=== PATIENT | female | born 1940 | race Caucasian/White ===

== ENCOUNTER → 2016-12-10 | Outpatient (REF) | payer MEDICARE, MEDICAID ==
[~2016-12-10] MED LIST: /ALEN7SOL OR; AMLO5TAB2 PO; ASPI325T PO; AYRSPR; BISAC5TA OR; CLAR5CHW PO; COLA100C2 OR; CYMB60CA3 PO; DETR4CAP OR; DICL0.1S7 TD; ESTR125TA OR; FLEEENE4 PR; FLEX10TA2 PO; FLEXERIL PO; HEPA50VL SQ; HYDR25TA6 OR; LASI20TA PO; LEVO250T PO; LISI10TA4 OR; LISI5TAB PO; MILKSUS OR; MIRA255PW PO; MOM30SS PO; MULTTAB4 PO; NORV5TAB OR; NYAM10003 TOP; NYST10PW TOP; NYSTPOW4 TOP; OXYC-208 PO; OXYC5CAP4 OR; PERC5TAB8 OR; PERCOCET OR; PRIL40CA PO; SENO8.6T9 OR; SENO8.6T9 PO; SYNT137T OR; TRAM50TA2 PO; TYLE325T5 PO; VITA100027 OR; VOLT1GEL2 TD; ZANT150T PO; ZOLO100T OR; [UNRECOGNIZED DRUG - OTHER] PO; drisdol PO; nystatin powder TOP
[2016-12-10 18:09] LABS: CALCIUM OXALATE CRYSTALS SMALL
== END ==
PROVIDERS: ATTEND Family Medicine
DX: D64.9 Anemia, unspecified (principal); E53.8 Deficiency of other specified B group vitamins; E55.9 Vitamin D deficiency, unspecified; N39.0 Urinary tract infection, site not specified

== ENCOUNTER → 2016-12-15 | Outpatient (REF) | payer MEDICARE, MEDICAID | PROVIDERS: ATTEND Family Medicine | DX: R31.9 Hematuria, unspecified (principal); R10.9 Unspecified abdominal pain ==

== ENCOUNTER → 2016-12-16 | Outpatient (REF) | payer MEDICARE, MEDICAID ==
[~2016-12-16] MED LIST changes: +ACET50TAOT PO; +ALBU83IN INH; +ANUS25SU PR; +BACL10TA2 PO; +CITR1SOL PO; +CLAR1TAB2 PO; +DOCU100C PO; +DULC10SU2 PR; +ENEM1ENE4 PR; +LEVO150T42 PO; +METF500T PO; +MILKSUS PO; +MIRA33504 PO; +OMEP40CA2 PO; +OXYB5TAB PO; +SENN8.6T7 PO; +TRAZ100T4 PO; +VITA500046 PO; +ZOFR20TA PO
== END ==
PROVIDERS: ATTEND Family Medicine
DX: E53.8 Deficiency of other specified B group vitamins (principal); E55.9 Vitamin D deficiency, unspecified

== ENCOUNTER → 2016-12-18 | Outpatient (REF) | payer MEDICARE, MEDICAID ==
--- NOTE | 2016-12-18 14:17 | REP ---
KUB, TWO VIEWS: HISTORY: Abdominal pain. Air is present in small and large intestine. There are no air fluid levels or dilated loops of intestine. There is no pneumoperitoneum. A mild amount of stool is present in the colon. Degenerative change is present in the lumbar spine and hips. IMPRESSION: 1. Nonspecific bowel gas pattern. 2. There is a mild amount of stool in the colon. Signed by Ryland Manriquez MD 12/18/2016 02:32 P
== END | disposition home or self-care (01) ==
PROVIDERS: ATTEND Family Medicine
DX: K59.00 Constipation, unspecified (principal)

== ENCOUNTER → 2016-12-18 | Outpatient (CLI) | payer MEDICARE, MEDICAID | LOC: M RAD 13:24 | PROVIDERS: ATTEND Family Medicine | DX: R10.9 Unspecified abdominal pain (principal); R15.0 Incomplete defecation; M51.37 Other intervertebral disc degeneration, lumbosacral region ==

== ENCOUNTER → 2016-12-19 | Outpatient (REF) | payer MEDICARE, MEDICAID ==
[2016-12-19 09:40] LABS: MEAN CORPUSCULAR HGB CONC 31.9 g/dl (32.0-36.5); MEAN CORPUSCULAR VOLUME 90.6 fl (80.0-96.0); RED CELL DISTRIBUTION WIDTH 13.7 % (11.5-14.5); WHITE BLOOD COUNT 7.4 K/mm3 (4.0-10.0)
== END ==
PROVIDERS: ATTEND Family Medicine
DX: D64.9 Anemia, unspecified (principal)

== ENCOUNTER → 2016-12-19 | Outpatient (CLI) | payer MEDICARE, MEDICAID ==
[~2016-12-19] MED LIST changes: +CIPROFLOXACIN/D5W 400 MG/200 ML BAG (J0744) As Ordered ONE
--- NOTE | 2016-12-19 20:11 | REP ---
PELVIC AND ENDOVAGINAL PROBE ULTRASOUND: 12/19/2016. Clinical history: 76-year-old female with vaginal bleeding, status post hysterectomy. Comparison: No prior ultrasound. Prior CT 11/10/2012. Findings: Transabdominal imaging performed. The patient tolerated the endovaginal probe poorly and body habitus and being strapped to her stretcher limit the examination. In the midline of the lower suprapubic region is a complex echogenic area with heterogeneous hyperechoic areas and hypoechogenicity. This may be the bladder filled with clot. Parts of the margins of this area showing blood flow within, which could be a bladder wall mass. The endovaginal probe is not helpful at all in this patient. Impression: 1. Findings suspicious for large volume of clot in the bladder. There may be some bladder wall thickening or a bladder wall mass. I do not see other structures in the suprapubic region that could be a collapsed bladder. Please note the patient is status post hysterectomy. There was no blood on the probe when it was removed from the vagina. Signed by Reagan Carey MD 12/20/2016 07:16 P
== END ==
LOC: M RAD 16:28
PROVIDERS: ATTEND Nurse Practitioner Adult Health
DX: N93.9 Abnormal uterine and vaginal bleeding, unspecified (principal); Z90.710 Acquired absence of both cervix and uterus

== ENCOUNTER 2016-12-20 13:37 | Inpatient (IN) | payer MEDICARE, MEDICAID ==
[~2016-12-20] VITALS: Ht 170.2 cm; Wt 150.2 kg
[~2016-12-20 13:37] MED LIST changes: -ACET50TAOT PO; -ALBU83IN INH; -ANUS25SU PR; -BACL10TA2 PO; -CIPROFLOXACIN/D5W 400 MG/200 ML BAG (J0744) As Ordered ONE; -CITR1SOL PO; -CLAR1TAB2 PO; -DOCU100C PO; -DULC10SU2 PR; -ENEM1ENE4 PR; -LEVO150T42 PO; -METF500T PO; -MILKSUS PO; -MIRA33504 PO; -OMEP40CA2 PO; -OXYB5TAB PO; -SENN8.6T7 PO; -TRAZ100T4 PO; -VITA500046 PO; -ZOFR20TA PO
[2016-12-20 14:28] LABS: BASO % 0.4 % (0.0-1.0); EOS # 0.6 K/mm3 (0.0-0.50); EOS % 7.2 % (0.0-3.0); LARGE UNSTAINED CELL # 0.2 K/mm3 (0.0-0.4); LARGE UNSTAINED CELL % 1.8 % (0.0-4.0); LYMPH # 1.4 K/mm3 (1.5-4.5); LYMPH % 15.7 % (24.0-44.0); MEAN CORPUSCULAR HEMOGLOBIN 28.9 pg (27.0-33.0); MEAN CORPUSCULAR HGB CONC 32.3 g/dl (32.0-36.5); MEAN CORPUSCULAR VOLUME 89.2 fl (80.0-96.0); MONO # 0.6 K/mm3 (0.0-0.8); MONO % 7.5 % (0.0-5.0); NEUTROPHILS # 5.8 K/mm3 (1.8-7.7); NEUTROPHILS % 67.4 % (36.0-66.0); PLATELET COUNT, AUTOMATED 356 k/mm3 (150-450); RED CELL DISTRIBUTION WIDTH 13.6 % (11.5-14.5); WHITE BLOOD COUNT 8.6 K/mm3 (4.0-10.0)
[2016-12-20 14:29] LABS: INR 1.13
[2016-12-20 15:10] LABS: ANION GAP 7 MEQ/L (8-16); BLOOD UREA NITROGEN 18 MG/DL (7-18); CALCIUM LEVEL 10.1 MG/DL (8.8-10.2); CARBON DIOXIDE LEVEL 30 MEQ/L (21-32); CHLORIDE LEVEL 102 MEQ/L (98-107); CREATININE FOR GFR 0.83 MG/DL (0.55-1.02); GLOMERULAR FILTRATION RATE > 60.0 (>39); GLUCOSE, FASTING 105 MG/DL (83-110); SODIUM LEVEL 139 MEQ/L (136-145)
[2016-12-20 15:14] LABS: POTASSIUM SERUM 4.9 MEQ/L (3.5-5.1)
[2016-12-20] MEDS ORDERED: ISOVUE-370 76% 100ML VIAL (Q9967) As Ordered ONE (15:20)
--- NOTE | 2016-12-20 15:23 | ER ---
DATE OF CONSULTATION: 12/20/2016 This 76-year-old female was evaluated in consultation as requested by Dr. Hollis on 12/20/2016, for gross hematuria. She was transferred from [facility] following a 4 day history of incomplete bladder emptying, gross hematuria with clots, and abdominal distention. Multiple attempts at Pruitt catheter insertion were unsuccessful at the facility. Transvaginal ultrasonography demonstrated a bladder full of "clots." Following discussions with the in-house nurse practitioner, transfer to [facility] Emergency Department for evaluation was recommended. Prior to presentation, there is no history of urinary tract infection, urolithiasis, flank pain, or constitutional symptoms. PAST MEDICAL HISTORY: Significant for diabetes, hypertension, hypercholesterolemia, macular degeneration, congestive heart failure, hypothyroidism, obstructive sleep apnea, open cholecystectomy, appendectomy, hysterectomy, and umbilical hernia repair. REVIEW OF SYSTEMS: Negative for headaches, epilepsy, CVA, glaucoma, peptic ulcer disease, urolithiasis, or bloodborne diseases. CURRENT MEDICATIONS: Include levothyroxine, aspirin, baclofen, Claritin, Cymbalta, medroxyprogesterone, metformin, MiraLax, omeprazole, Ditropan, trazodone, and albuterol. ALLERGIES: No allergies to medications. SOCIAL HISTORY: She is a who has five children. She is a nonsmoker who does not consume alcohol. FAMILY HISTORY: Unremarkable. GENERAL EXAMINATION: Revealed a comfortable and morbidly obese individual. Her heart rate was 87, respiratory rate was 18, blood pressure 133/73, temperature 99.5 degrees Fahrenheit. Her body mass index was 51.1. Palpation of the head and neck failed to reveal the presence of lymphadenopathy. Auscultation of the chest was clear with normal heart sounds. Examination of the back and abdomen demonstrated a morbidly obese individual with a benign abdomen. Suprapubic discomfort was noted. Multiple surgical scars were present, reflective of her prior surgeries. Urinalysis (12/20/2016) is pending at the time of this dictation. Serum hematologic indices (12/20/2016) demonstrated a hemoglobin of 12.1, leukocyte count of 8.6, and a platelet count of 356. Biochemical indices (12/20/2016) are pending at the time of this dictation. An INR and PTT were 1.1 and 30.6, respectively. CT urography (12/20/2016) is pending at the time of this dictation. ASSESSMENT: 1. Gross hematuria. 2. Question of clot urinary retention. 3. Diabetes mellitus. 4. Hypertension. 5. Hypercholesterolemia. 6. Congestive heart failure. 7. Obstructive sleep apnea. 8. Hypothyroidism. 9. Macular degeneration. 10. Morbid obesity. 11. Aspirin therapy. PLAN: The above findings were discussed with the patient, her family, and emergentologist. Following nothing by mouth status (1215 hours), cystoscopy, clot evacuation with possible transurethral bladder tumor resection will be performed. Discontinuation of aspirin is appropriate. CT urography results will be reviewed prior to the procedure. Informed consent was obtained. Should you require additional information, please do not hesitate to contact me. Thanking you for the confidence of your referral.
[2016-12-20] MEDS ORDERED: OXYB5TAB PO (16:12)
[2016-12-20] MEDS ORDERED: ANUS25SU PR (16:12)
[2016-12-20] MEDS ORDERED: DOCU100C PO (16:12)
[2016-12-20] MEDS ORDERED: MIRA33504 PO (16:22)
[2016-12-20] MEDS ORDERED: TRAM50TA2 PO (16:22)
[2016-12-20] MEDS ORDERED: MILKSUS PO (16:22)
[2016-12-20] MEDS ORDERED: BACL10TA2 PO (16:22)
[2016-12-20] MEDS ORDERED: SENN8.6T7 PO (16:22)
[2016-12-20] MEDS ORDERED: ACET50TAOT PO (16:22)
[2016-12-20] MEDS ORDERED: VITA500046 PO (16:22)
[2016-12-20] MEDS ORDERED: ZOFR20TA PO (16:22)
[2016-12-20] MEDS ORDERED: TRAZ100T4 PO (16:22)
[2016-12-20] MEDS ORDERED: LEVO150T42 PO (16:22)
[2016-12-20] MEDS ORDERED: METF500T PO (16:22)
[2016-12-20] MEDS ORDERED: DULC10SU2 PR (16:29)
[2016-12-20] MEDS ORDERED: ALBU83IN INH (16:29)
[2016-12-20] MEDS ORDERED: CITR1SOL PO (16:29)
[2016-12-20] MEDS ORDERED: CYMB60CA3 PO (16:29)
[2016-12-20] MEDS ORDERED: TYLE325T5 PO (16:29)
[2016-12-20] MEDS ORDERED: OMEP40CA2 PO (16:29)
[2016-12-20] MEDS ORDERED: CLAR1TAB2 PO (16:29)
[2016-12-20] MEDS ORDERED: ENEM1ENE4 PR (16:29)
[2016-12-20] MEDS ORDERED: MORPHINE 4 MG/ML 1ML SYRINGE As Ordered ONE (17:06)
[2016-12-20] MEDS ORDERED: ONDANSETRON 4MG/2ML VIAL (J2405) As Ordered ONE ×2 (17:06→20:14)
[2016-12-20] MEDS ORDERED: MIDAZOLAM INJ 2 MG/2 ML VIAL (J2250) As Ordered ONE (18:13)
[2016-12-20] MEDS ORDERED: fentaNYL 100 MCG/2 ML INJECTION (J3010) As Ordered ONE (18:13)
[2016-12-20] MEDS ORDERED: PROPOFOL 200 MG/20 ML VIAL As Ordered ONE ×3 (18:13→19:36)
[2016-12-20] MEDS ORDERED: LIDOCAINE 2% INJ 100 MG/5 ML SDV (FOR ANES.) As Ordered ONE (18:13)
--- NOTE | 2016-12-20 18:24 | EDDOCDS ---
Nurse's Notes [facility] Name: Bree Dawn Age: 76 yrs Sex: Female : 1940 Arrival Date: 12/20/2016 Time: 13:37 Bed 4 Private MD: Diagnosis: Gross hematuria;Retention of urine;Malignant neoplasm of pelvis;Sleep apnea;Morbid (severe) obesity due to excess calories Presentation: 12/20 13:43 Presenting complaint: EMS states: ultrasound performed yesterday with resulted blood kc3 clots in bladder. Pt c/o lower abd pain and hematuria. Adult Sepsis Screening: The patient does not have new or worsening altered mentation. Patient's respiratory rate is less than 22. Systolic blood pressure is greater than 100. Patient has a qSOFA score of 0- Negative Sepsis Screen. Suicide/Homicide risk assessment- the patient denies having any suicidal and/or homicidal ideations and does not present with any other emotional, behavioral or mental health complaints. 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 Transition of care: patient was received from [facility] ER. 13:43 Acuity: ISABELLA Level 3 kc3 13:43 Method Of Arrival: Ambulance kc3 Triage Assessment: 13:49 General: Appears uncomfortable, Behavior is appropriate for age, cooperative. Pain: kc3 Location: abdomen Pain currently is 8 out of 10 on a pain scale. The patient is triaged at the bedside. See Assessment in Nurses Notes section of ED record. Neurological: Level of Consciousness is awake, alert, obeys commands, Oriented to person, place, time. Respiratory: Airway is patent Respiratory effort is even, unlabored. GI: Abdomen is obese, Bowel sounds present X 4 quads. Abd is soft Abd is tender to palpation Reports lower abdominal pain. : Reports hematuria. Derm: Skin is pink, warm & dry. Reports wound to back left thigh currently being treated outpatient with dressing in place. Historical: - Allergies: No known drug Allergies; - Home Meds: 1. acetaminophen 500 mg Oral cap 2 caps twice a day (Last dose: 12/20/2016) 2. levothyroxine 150 mcg oral tab once daily (Last dose: 12/20/2016) 3. aspirin 325 mg Oral TbEC 1 tab once daily (Last dose: 12/20/2016) 4. baclofen 10 mg Oral tab 1 tab daily (Last dose: 12/19/2016) 5. Claritin 10 mg Oral tab 1 tab once daily (Last dose: 12/20/2016) 6. Cymbalta 60 mg Oral cpDR 1 cap twice a day (Last dose: 12/20/2016) 7. docusate sodium 100 mg Oral tab 1 tab once daily (Last dose: 12/20/2016) 8. medroxyprogesterone 10 mg Oral tab 1 tab once daily (Last dose: 12/19/2016) 9. metformin 500 mg Oral tab 1 tab 2 times per day (Last dose: 12/20/2016) 10. Miralax 17 gram/dose Oral powd once daily (Last dose: 12/20/2016) 11. omeprazole 40 mg Oral cpDR 1 cap once daily (Last dose: 12/20/2016) 12. oxybutynin chloride 5 mg Oral tr24 1 tab once daily (Last dose: 12/20/2016) 13. senna 8.6 mg oral tab once daily (Last dose: 12/20/2016) 14. trazodone 100 mg Oral tab 1 tab daily (Last dose: 12/19/2016) 15. Vitamin D 5000 units Oral 5000 unit twice a day thursday-thursday (Last dose: 12/19/2016) 16. albuterol sulfate 2.5 mg /3 mL (0.083 %) Inhl nebu 3 mL every 4 hours as needed 17. Enema 19-7 gram/118 mL Rectal enem daily as needed (Last dose: Unknown) 18. Dulcolax (bisacodyl) 10 mg Rectal supp 1 suppository once daily as needed (Last dose: Unknown) 19. Anusol Rectal supp as needed (Last dose: Unknown) 20. Milk of Magnesia 800 mg/5 mL Oral susp 10 mL once daily as needed (Last dose: 12/20/2016) 21. Tramadol 25mg Oral every 6 hours as needed 22. Tylenol 325 mg Oral tab 1 tab every 4 hours as needed 23. ondansetron HCl 4 mg Oral tab as needed (Last dose: 12/20/2016) - PMHx: Anemia; Diabetes - NIDDM: controlled; GERD; Heart failure; hyperlipidemia; Hypothyroidism; obstructive sleep apnea; Vitamin D deficiency; Hypertension; - PSHx: Hernia repair; Hysterectomy; Cholecystectomy; - The history from nurses notes was reviewed: but there are no nursing notes, or only partial notes available at the time of my charting. - Social history: Smoking status: Patient states was never smoker of tobacco. No barriers to communication noted, The patient speaks fluent Ghanaian, Speaks appropriately for age. - Family history: Not pertinent. - : The pt / caregiver states he / she is not on anticoagulants. Home medication list is obtained from the facility MAR. - Hospitalizations: : No recent hospitalization is reported. - Exposure Risk Screening:: None identified. - Immunization history:: All immunizations up-to-date. - Social history:: the patient is a non-smoker, the patient does not drink alcohol, resides at [facility]. Screenin:52 Screening information is obtained from the patient. Fall risk: At risk due to kc3 immobility, The following interventions are performed due to a positive Fall Risk Screen: Fall Risk is added to Special Handling on the patient Summary Screen. A Fall Risk Bracelet was applied to the patient. Side Rails are placed in the up position. A Call Nichols is given with instruction to call for help when getting out of bed. Fall Alert bracelet is placed on the patient. Assistance ADL's: Requires assistance with meal preparation, this assistance is provided by residence staff, bathing, assistance is provided by residence staff, dressing, assistance is provided by residence staff, toileting, assistance is provided by residence staff, ambulation, assistance is provided by residence staff, housework, assistance is provided by residence staff, medication administration, assistance is provided by residence staff. Abuse/DV Screen: The patient / caregiver reports he/she is: not in a situation that causes fear, pain or injury. Nutritional screening: No deficits noted. Advance Directives: Currently, there is a health care proxy, Sydni Arias, daughter. There is an active DNR order and the pt has a copy here at this time. home support is adequate. Assessment: 13:52 General: See triage for initial assessment. . kc3 14:40 General: Dr. Julio at bedside. . kc3 15:18 General: Appears in no apparent distress, comfortable, Behavior is appropriate for age, kc3 cooperative, Family at bedside. . Pain: Location: abdomen. Neurological: Level of Consciousness is awake, alert, obeys commands, Oriented to person, place, time. Respiratory: Respiratory effort is even, unlabored. GI: Abdomen is non- distended obese, Reports lower abdominal pain. GI: Bowel sounds present X 4 quads. Abd is soft. Derm: Skin is pink, warm & dry. 16:20 General: Appears in no apparent distress, comfortable, Behavior is appropriate for age, kc3 cooperative, Family at bedside. . General: Pt's brief change and assisted to comfortable position in bed. . Pain: Location: abdomen. Neurological: Level of Consciousness is awake, alert, obeys commands, Oriented to person, place, time. Respiratory: Respiratory effort is even, unlabored. Derm: Skin is pink, warm & dry. 17:19 General: Appears in no apparent distress, comfortable, Behavior is appropriate for age, kc3 cooperative. General: Pt requesting pain medication. Dr. Hollis aware. New orders placed and performed. . Pain: Location: abdomen. Neurological: Level of Consciousness is awake, alert, obeys commands, Oriented to person, place, time. Respiratory: Airway is patent Respiratory effort is even, unlabored. Derm: Skin is pink, warm & dry. 18:09 General: Appears in no apparent distress, comfortable, Behavior is appropriate for age, kc3 cooperative. Pain: Location: abdomen. Neurological: Level of Consciousness is awake, alert, obeys commands, Oriented to person, place, time. Respiratory: Airway is patent Respiratory effort is even, unlabored. Derm: Skin is pink, warm & dry. see previous documentation. Vital Signs: 13:49 BP 133 / 73; Pulse 87; Resp 18; Temp 99.5(O); Pulse Ox 97% on R/A; Weight 147.92 kg; 3 Height 5 ft. 7 in. (170.18 cm); Pain 8/10; 15:19 Pulse 80 MON; Pulse Ox 96% ; 3 15:20 BP 165 / 85 (auto/); kc3 16:39 BP 146 / 65 (auto/); kc3 16:43 Pulse 78 MON; Pulse Ox 96% ; kc3 18:02 BP 163 / 76 (auto/); kc3 18:03 Pulse 68 MON; Resp 18; Temp 99.4(O); Pulse Ox 95% on R/A; Pain 7/10; kc3 13:49 Body Mass Index 51.07 (147.92 kg, 170.18 cm) [facility] Vitals: 13:49 Log In Time N/A - ambulance arrival. kc3 ED Course: 13:38 Patient visited by Vielka Duke, Billing Collections Specialist. deg 13:38 Patient moved to Waiting deg 13:39 Tomasa Bashir RN is Primary Nurse. deg 13:39 Patient moved to 4 deg 13:41 Rigoberto Hollis MD is Attending Physician. pc 13:47 Patient visited by Rigoberto Hollis MD. pc 13:47 Triage Initiated kc3 13:54 The patient / caregiver is instructed regarding the plan of care and ED course. kc3 14:08 Pt & Aptt Sent. kc3 14:08 Type & Screen Sent. kc3 14:08 MED Profile Sent. kc3 14:08 CBC with Diff Sent. kc3 14:08 Inserted saline lock: 20 gauge in left antecubital area and blood collected. The kc3 patient tolerated the procedure well. Labs drawn. (by ED staff). Sent per order to lab. 14:15 EKG done. (by ED staff). Reviewed by Rigoberto Hollis MD. jrd 14:28 Patient visited by Tomasa Bashir RN. kc3 14:28 [facility] Payment Agreement was scanned into [employer] and attached to record. mm15 15:09 Patient visited by Tomasa Bashir RN. kc3 15:58 Denny Julio is Hospitalizing Provider. pc 16:04 Patient visited by Jakob Leong PCA. jrd 17:01 Admission Orders was scanned into [employer] and attached to record. deg 17:21 Patient visited by Tomasa Bashir RN. kc3 18:12 No procedures done that require assistance. kc3 18:21 Type and Cross, Packed Cells Sent. kc3 Administered Medications: 17:21 Drug: morphine 4 mg [morphine 2 mg/mL intravenous cartridge (2 mL)] Route: IVP; Site: kc3 left antecubital; 17:21 Drug: Ondansetron 4 mg [ondansetron HCl 2 mg/mL intravenous solution (2 mL)] Route: kc3 IVP; Site: left antecubital; Order Results: Lab Order: CBC with Diff; SPEC'M 12/20/16 14:06 Test: WHITE BLOOD COUNT; Value: 8.6; Range: 4.0-10.0; Units: K/mm3; Status: F Test: RED BLOOD COUNT; Value: 4.19; Range: 4.00-5.40; Units: M/mm3; Status: F Test: HEMOGLOBIN; Value: 12.1; Range: 12.0-16.0; Units: g/dl; Status: F Test: HEMATOCRIT; Value: 37.4; Range: 36.0-47.0; Units: %; Status: F Test: MEAN CORPUSCULAR VOLUME; Value: 89.2; Range: 80.0-96.0; Units: fl; Status: F Test: MEAN CORPUSCULAR HEMOGLOBIN; Value: 28.9; Range: 27.0-33.0; Units: pg; Status: F Test: MEAN CORPUSCULAR HGB CONC; Value: 32.3; Range: 32.0-36.5; Units: g/dl; Status: F Test: RED CELL DISTRIBUTION WIDTH; Value: 13.6; Range: 11.5-14.5; Units: %; Status: F Test: PLATELET COUNT, AUTOMATED; Value: 356; Range: 150-450; Units: k/mm3; Status: F Test: NEUTROPHILS %; Value: 67.4; Range: 36.0-66.0; Abnormal: Above high normal; Units: %; Status: F Test: LYMPH %; Value: 15.7; Range: 24.0-44.0; Abnormal: Below low normal; Units: %; Status: F Test: MONO %; Value: 7.5; Range: 0.0-5.0; Abnormal: Above high normal; Units: %; Status: F Test: EOS %; Value: 7.2; Range: 0.0-3.0; Abnormal: Above high normal; Units: %; Status: F Test: BASO %; Value: 0.4; Range: 0.0-1.0; Units: %; Status: F Test: LARGE UNSTAINED CELL %; Value: 1.8; Range: 0.0-4.0; Units: %; Status: F Test: NEUTROPHILS #; Value: 5.8; Range: 1.8-7.7; Units: K/mm3; Status: F Test: LYMPH #; Value: 1.4; Range: 1.5-4.5; Abnormal: Below low normal; Units: K/mm3; Status: F Test: MONO #; Value: 0.6; Range: 0.0-0.8; Units: K/mm3; Status: F Test: EOS #; Value: 0.6; Range: 0.0-0.50; Abnormal: Above high normal; Units: K/mm3; Status: F Test: BASO #; Value: 0.0; Range: 0.0-0.2; Units: K/mm3; Status: F Test: LARGE UNSTAINED CELL #; Value: 0.2; Range: 0.0-0.4; Units: K/mm3; Status: F Lab Order: MED Profile; SPEC'M 12/20/16 14:06 Test: GLUCOSE, FASTING; Value: 105; Range: 83-110; Units: MG/DL; Status: F Test: BLOOD UREA NITROGEN; Value: 18; Range: 7-18; Units: MG/DL; Status: F Test: CREATININE FOR GFR; Value: 0.83; Range: 0.55-1.02; Units: MG/DL; Status: F Test: GLOMERULAR FILTRATION RATE; Value: > 60.0; Range: >39; Status: F Test: SODIUM LEVEL; Value: 139; Range: 136-145; Units: MEQ/L; Status: F Test: POTASSIUM SERUM; Value: 4.9; Range: 3.5-5.1; Units: MEQ/L; Status: F Test: CHLORIDE LEVEL; Value: 102; Range: 98-107; Units: MEQ/L; Status: F Test: CARBON DIOXIDE LEVEL; Value: 30; Range: 21-32; Units: MEQ/L; Status: F Test: ANION GAP; Value: 7; Range: 8-16; Abnormal: Below low normal; Units: MEQ/L; Status: F Test: CALCIUM LEVEL; Value: 10.1; Range: 8.8-10.2; Units: MG/DL; Status: F Test Note: ; Units are mL/min/1.73 m2 Chronic Kidney Disease Staging per NKF: Stage I & II GFR >=60 Normal to Mildly Decreased Stage III GFR 30-59 Moderately Decreased Stage IV GFR 15-29 Severely Decreased Stage V GFR <15 Very Little GFR Left ESRD GFR <15 on SHIRT OPERATOR Lab Order: Type & Screen; SPEC'M 12/20/16 14:41 Test: BLOOD TYPE; Value: O POS; Status: F Test: AB SCREEN (INDIRECT VICTORIANO)VIS; Value: NEGATIVE; Status: F Lab Order: Pt & Aptt; SPEC'M 12/20/16 14:06 Test: PROTHROMBIN TIME; Value: 14.6; Range: 12.3-14.5; Abnormal: Above high normal; Units: SECONDS; Status: F Test: INR; Value: 1.13; Status: F Test: PARTIAL THROMBOPLASTIN TIME; Value: 30.6; Range: 26.6-37.1; Units: SECONDS; Status: F Test Note: ; THERAPUTIC HUMAN INR VALUES INDICATIONS NORMAL RANGES PROPHYLAXIS/TREATMENT OF: VENOUS THROMBOSIS 2.0-3.0 PULMONARY EMBOLISM 2.0-3.0 PREVENTION OF SYSTEMIC EMBOLISM FROM: TISSUE HEART VALVES 2.0-3.0 ACUTE MYOCARDIAL INFARCTION 2.0-3.0 VALVULAR HEART DISEASE 2.0-3.0 ATRIAL FIBRILLATION 2.0-3.0 MECHANICAL VALVES(HIGH RISK) 2.5-3.5 RECURRENT MYOCARDIAL INFARCTION 2.5-3.5 Outcome: 15:58 Decision to Hospitalize by Provider. 18:11 Discharge Assessment: patient administered narcotics - yes. Patient was admitted to the [address] or transferred to another facility. The following High Risk Discharge criteria are identified: None. Admitted to OR. Condition: stable. CT Study completed. Property :Personal belongings accompany Pt. 18:24 Patient left the ED. [facility] Signatures: Rigoberto Hollis MD MD pc Murray, Denise, Billing Collections Specialist Unit deg [place] [id number] Jakob Leong PCA PCA jrd Crane, Kelsi, RN RN [facility] Corrections: (The following items were deleted from the chart) 18:22 18:03 Pulse 68bpm; Monitor; Pulse Ox 95%; [place] [id number] MTDD
--- NOTE | 2016-12-20 18:24 | EDDOCDS ---
Physician Documentation [facility] Name: Bree Dawn Age: 76 yrs Sex: Female : 1940 Arrival Date: 12/20/2016 Time: 13:37 Bed 4 Private MD: Disposition: 12/20 15:55 Critical Care: Critical care not applicable. pc Disposition: 12/20/16 15:58 Hospitalization ordered by Denny Julio for Inpatient Admission. Preliminary diagnosis are Malignant neoplasm of pelvis, Gross hematuria, Retention of urine, Sleep apnea, Morbid (severe) obesity due to excess calories. - Bed requested for Admit. - Status is Inpatient Admission. kc3 - Condition is Stable. - Problem is new. - Symptoms are unchanged. HPI: 14:03 This 76 yrs old Female presents to ER via Ambulance with complaints of pc Urinary Problem. 14:03 The history is obtained from the patient, senior care records, Dr. Julio. She has been pc having hematuria for a week, worked up for vaginal bleeding s/p hysterectomy. A pelvic US revealed a bladder filled with clot. She has not been able to void and is having suprapubic pain. Dr. Julio requested the labs and imaging as ordered and plans to take her to the OR tonight. At their worst, the symptoms were moderate. In the emergency department, the symptoms are unchanged. The patient has been recently seen by their primary care provider. Historical: - Allergies: No known drug Allergies; - Home Meds: 1. acetaminophen 500 mg Oral cap 2 caps twice a day (Last dose: 12/20/2016) 2. levothyroxine 150 mcg oral tab once daily (Last dose: 12/20/2016) 3. aspirin 325 mg Oral TbEC 1 tab once daily (Last dose: 12/20/2016) 4. baclofen 10 mg Oral tab 1 tab daily (Last dose: 12/19/2016) 5. Claritin 10 mg Oral tab 1 tab once daily (Last dose: 12/20/2016) 6. Cymbalta 60 mg Oral cpDR 1 cap twice a day (Last dose: 12/20/2016) 7. docusate sodium 100 mg Oral tab 1 tab once daily (Last dose: 12/20/2016) 8. medroxyprogesterone 10 mg Oral tab 1 tab once daily (Last dose: 12/19/2016) 9. metformin 500 mg Oral tab 1 tab 2 times per day (Last dose: 12/20/2016) 10. Miralax 17 gram/dose Oral powd once daily (Last dose: 12/20/2016) 11. omeprazole 40 mg Oral cpDR 1 cap once daily (Last dose: 12/20/2016) 12. oxybutynin chloride 5 mg Oral tr24 1 tab once daily (Last dose: 12/20/2016) 13. senna 8.6 mg oral tab once daily (Last dose: 12/20/2016) 14. trazodone 100 mg Oral tab 1 tab daily (Last dose: 12/19/2016) 15. Vitamin D 5000 units Oral 5000 unit twice a day thursday-thursday (Last dose: 12/19/2016) 16. albuterol sulfate 2.5 mg /3 mL (0.083 %) Inhl nebu 3 mL every 4 hours as needed 17. Enema 19-7 gram/118 mL Rectal enem daily as needed (Last dose: Unknown) 18. Dulcolax (bisacodyl) 10 mg Rectal supp 1 suppository once daily as needed (Last dose: Unknown) 19. Anusol Rectal supp as needed (Last dose: Unknown) 20. Milk of Magnesia 800 mg/5 mL Oral susp 10 mL once daily as needed (Last dose: 12/20/2016) 21. Tramadol 25mg Oral every 6 hours as needed 22. Tylenol 325 mg Oral tab 1 tab every 4 hours as needed 23. ondansetron HCl 4 mg Oral tab as needed (Last dose: 12/20/2016) - PMHx: Anemia; Diabetes - NIDDM: controlled; GERD; Heart failure; hyperlipidemia; Hypothyroidism; obstructive sleep apnea; Vitamin D deficiency; Hypertension; - PSHx: Hernia repair; Hysterectomy; Cholecystectomy; - The history from nurses notes was reviewed: but there are no nursing notes, or only partial notes available at the time of my charting. - Social history: Smoking status: Patient states was never smoker of tobacco. No barriers to communication noted, The patient speaks fluent [place], Speaks appropriately for age. - Family history: Not pertinent. - : The pt / caregiver states he / she is not on anticoagulants. Home medication list is obtained from the facility [facility]. - Hospitalizations: : No recent hospitalization is reported. - Exposure Risk Screening:: None identified. - Immunization history:: All immunizations up-to-date. - Social history:: the patient is a non-smoker, the patient does not drink alcohol, resides at [facility]. ROS: 14:03 All systems are negative except as listed. pc Exam: 14:03 General Appearance: no acute distress, alert. pc 14:03 EENT: normal eye inspection, ears, nose and throat normal, pharynx normal, mucous membranes moist 14:03 Neck: The exam reveals no acute abnormalities. ROM is normal and painless. No nuchal rigidity is noted.. 14:03 Respiratory: no respiratory distress, normal breath sounds. 14:03 CVS: regular pulse rate, regular rhythm, normal S1 and S2, no murmurs, strong peripheral pulses. 14:03 Abdomen: soft, no organomegaly, normal bowel sounds, moderate tenderness in the suprapubic area, without rebound, voluntary guarding is not appreciated, involuntary guarding is not appreciated. 14:03 Skin: skin color is normal. 14:03 Extremities: The extremities have a grossly normal appearance. 14:03 Neuro: oriented x 3, cranial nerves normal as tested, no motor deficits, no sensory deficits. Vital Signs: 13:49 BP 133 / 73; Pulse 87; Resp 18; Temp 99.5(O); Pulse Ox 97% on R/A; Weight 147.92 kg / kc3 326.11 lbs; Height 5 ft. 7 in. (170.18 cm); Pain 8/10; 15:19 Pulse 80 MON; Pulse Ox 96% ; kc3 15:20 BP 165 / 85 (auto/); kc3 16:39 BP 146 / 65 (auto/); kc3 16:43 Pulse 78 MON; Pulse Ox 96% ; kc3 18:02 BP 163 / 76 (auto/); kc3 18:03 Pulse 68 MON; Resp 18; Temp 99.4(O); Pulse Ox 95% on R/A; Pain 7/10; kc3 13:49 Body Mass Index 51.07 (147.92 kg, 170.18 cm) kc3 MDM: 13:47 IV Saline Lock ordered. pc 13:48 NOTHING BY MOUTH+DIET ordered. EDMS 13:48 CBC with Diff Ordered. EDMS 13:48 MED Profile Ordered. EDMS 13:48 Pt & Aptt Ordered. EDMS 13:48 Chest, 1 View Ordered. EDMS 13:48 Type & Screen Ordered. EDMS 13:48 ECG WITH READING ER PHYS+CARDIAG ordered. EDMS 13:52 CT ABD & PELVIS: W/O FOL BY WIT+CT: urogram protocol Ordered. EDMS 14:03 Differential Diagnosis: bladder hematoma unknown etiology. Plan: labs, CT. Test pc interpretation: EKG. 14:20 Financial registration complete. mm15 14:28 [facility] [place] Agreement was scanned into [employer] and attached to record. mm15 15:01 BED REQUEST+ADM ordered. EDMS 15:17 CBC with Diff Reviewed. pc 15:18 MED Profile Reviewed. pc 15:18 Pt & Aptt Reviewed. pc 15:18 Data reviewed: old medical records, vital signs, nurses notes, lab test results, all pc radiology studies and available results. Data reviewed: EKG(s). Test interpretation: LAB - all labs as ordered have been reviewed, interpreted and considered in the overall management of the clinical presentation; X-RAY - interpreted by Radiologist and personally reviewed, 1 view chest no acute disease. 15:55 Test interpretation: no contrast in bladder after first delayed images. Patient pc admitted before final readings and final delayed images obtained. The patient has been re-examined and re-evaluated. There is no appreciated change of the patient's symptoms at this time. Physician consultation: Dr. Denny Julio regarding admission. Disposition: The historical points, examination findings, and any diagnostic results supporting the provided diagnosis, were discussed with the patient or legal guardian. The need for further work-up and/or treatment in the hospital was explained. 16:49 morphine 4 mg IVP once ordered. pc 16:49 Ondansetron 4 mg IVP once ordered. pc 16:49 Type & Screen Reviewed. pc 17:01 Admission Orders was scanned into [employer] and attached to record. deg 17:36 Type and Cross, Packed Cells Ordered. EDMS 18:13 Test interpretation: interpreted by Radiologist and personally reviewed, Abdomen/Pelvis pc CT; 7cm mass originating from vaginal cuff, invading bladder. Physician consultation: Dr. Zander Rendon regarding patient's condition, and he will call Dr. Julio to discuss options. 18:13 Physician consultation: Dr. Mohsen Hannon MD regarding admission, and will see patient in ED. EC:03 Rate is 79 beats/min. Rhythm is regular, Normal Sinus Rhythm. QRS [place] is Normal. LA pc interval is normal. QRS interval is normal. QT interval is normal. No Q waves. T waves are Normal. No ST changes noted. Clinical impression: Normal Sinus Rhythm. Administered Medications: 17:21 Drug: morphine 4 mg [morphine 2 mg/mL intravenous cartridge (2 mL)] Route: IVP; Site: kc3 left antecubital; 17:21 Drug: Ondansetron 4 mg [ondansetron HCl 2 mg/mL intravenous solution (2 mL)] Route: kc3 IVP; Site: left antecubital; Signatures: Dispatcher [employer] EDMS Rigoberto Hollis MD MD pc Vielka Duke, Composite Assembler Unit deg Nic Teague mm15 Tomasa Bashir,RN RN kc3 The chart was reviewed and I authenticate all verbal orders and agree with the evaluation and treatment provided.Corrections: (The following items were deleted from the chart) 13:53 13:47 CT ABD & PELVIS WITH CONTRAST+CT ordered. EDND EDMS Attachments: 14:28 [facility] Payment Agreement mm15 17:01 Admission Orders deg MTDD
[2016-12-20] MEDS ORDERED: KETAMINE HCL 200 MG/20 ML VIAL As Ordered ONE (18:51)
[2016-12-20] MEDS ORDERED: LIDOCAINE 2% 5ML JELLY UROJET As Ordered ONE (18:56)
[2016-12-20] MEDS ORDERED: LIDOCAINE 2% 5ML JELLY UROJET TOP ONE (20:02)
[2016-12-20] MEDS ORDERED: LR 1,000 ML IV SCH (20:15)
[2016-12-20] MEDS ORDERED: PERCOCET 5MG/325MG TAB PO PRN (20:15)
[2016-12-20] MEDS ORDERED: fentaNYL 100 MCG/2 ML INJECTION (J3010) IV PRN (20:15)
[2016-12-20] MEDS ORDERED: ONDANSETRON 4MG/2ML VIAL (J2405) IV PRN ×2 (20:15→20:30)
[2016-12-20] MEDS ORDERED: ACETAMINOPHEN TAB 650MG DOSE (2X325MG) PO PRN (20:30)
[2016-12-20 20:45] VITALS: BP 124/70
[2016-12-20 21:15] VITALS: BP 141/69
[2016-12-20] MEDS: SENOKOT S TAB PO SCH (21:24)
[2016-12-20] MEDS: PERCOCET 5MG/325MG TAB PO PRN (21:25)
[2016-12-20] MEDS: LR 1,000 ML IV SCH (21:25)
[2016-12-20 21:30] VITALS: O2SAT 99
[2016-12-20 22:15] VITALS: BP 137/72
[2016-12-21] VITALS (9 sets, daily range): BP systolic 117–156; BP diastolic 56–78; O2SAT 97
[2016-12-21 00:12] LABS: MICROSCOPIC INDICATED? MAN YES (NO)
[2016-12-21 00:22] LABS: BACTERIA, URINE NONE SEEN; RBC, URINE TNTC /hpf (0-3); SQUAMOUS EPITHELIAL CELL URINE NONE SEEN /hpf (SMALL AMT); TRANSITIONAL EPI CELLS, URINE SMALL AMOUNT /hpf
[2016-12-21 00:23] LABS: HYALINE CAST, URINE NONE SEEN /lpf (0-1); MICROSCOPIC EXAM PERFORMED
[2016-12-21] MEDS: LEVOTHYROXINE 0.15 MG TAB (150 MCG) PO SCH (05:16)
[2016-12-21] MEDS: LR 1,000 ML IV SCH ×2 (05:18→15:52)
[2016-12-21] MEDS: PERCOCET 5MG/325MG TAB PO PRN ×3 (05:18→17:52)
--- NOTE | 2016-12-21 06:22 | RO ---
DATE OF PROCEDURE: 12/20/2016 PREOPERATIVE DIAGNOSES: 1. Gross hematuria. 2. Clot urinary retention. 3. Questionable bladder mass. POSTOPERATIVE DIAGNOSES: 1. Gross hematuria. 2. Clot urinary retention. 3. Questionable extrinsic bladder mass. PROCEDURE: Cystoscopy, bladder washings for cytology, clot evacuation (500 mL), Pruitt catheter insertion (20-Georgian). SURGEON: Denny Julio MD TANK BOTTOM ASSEMBLER: ANESTHESIA: Monitored anesthesia care (MAC). COMPLICATIONS: None. ESTIMATED BLOOD LOSS: 500 mL of blood clot. DESCRIPTION OF PROCEDURE: In lithotomy position, the patient was prepped and draped in the usual fashion. A significant amount of time and operative room personnel were required for patient positioning secondary to her hip immobility and body mass index. With minimal access to the introitus, a 21-Georgian rigid cystoscope was advanced into the urinary bladder following identification of the urethral meatus. Bladder washings for cytology and urine culture specimens were obtained. A large amount of blood clot was immediately identified. Manual irrigation for clot evacuation was performed, removing greater than 500 mL of blood clot. A light pink to clear urine effluent was noted following clot evacuation. Lorenzana cystoscopy revealed normal ureteric orifices bilaterally. On the bladder trigone, no obvious papillary bladder tumor was noted. Bullous edema was noted. The remainder of the urothelium appeared normal. The bladder neck and urethra appeared normal. The examination was somewhat limited secondary to patient positioning and slight hematuria. No obvious bleeding, urolithiasis or papillary tumors were noted. As such, the radiographic finding of a potential mass may be extrinsic to the bladder. As such, transurethral bladder tumor resection was not performed. The instruments were removed and a 20-Georgian Pruitt catheter was inserted and connected to straight drainage. A light pink to clear urine effluent was noted. At the conclusion of the procedure, sponge and instrument counts were correct. Estimated blood loss for the procedure was 0 mL. In the recovery room, the patient was alert and stable. DISPOSITION: Admission to family medicine service. Gynecologic evaluation is recommended.
--- NOTE | 2016-12-21 06:30 | ECGEPIP ---
Stationary ECG Study [facility] - ED Test Date: 2016-12-20 Pat Name: NARESH KRISHNAN Department: Room: - Gender: F Senior Scrum Master: alejandra : 1940 Requested By: Rigoberto Vigil Order Number: [id number] Reading MD: Jesse Vallejo Measurements Intervals [place] Rate: 79 P: 8 NM: 177 QRS: -30 QRSD: 73 T: 61 QT: 353 QTc: 406 Interpretive Statements SINUS RHYTHM POSSIBLE INFERIOR MYOCARDIAL INFARCTION, PROBABLY OLD LEFTWARD AXIS DELAYED R WAVE PROGRESSION NONSPECIFIC ST T WAVE CHANGES 06/02/13 - RATE DECREASED Electronically Signed On 12-21-2016 6:30:31 EST by Jesse Vallejo
[2016-12-21 06:54] LABS: BASO % 0.3 % (0.0-1.0); EOS # 0.6 K/mm3 (0.0-0.50); LARGE UNSTAINED CELL # 0.1 K/mm3 (0.0-0.4); LARGE UNSTAINED CELL % 1.4 % (0.0-4.0); LYMPH # 0.8 K/mm3 (1.5-4.5); LYMPH % 10.6 % (24.0-44.0); MEAN CORPUSCULAR HEMOGLOBIN 27.4 pg (27.0-33.0); MEAN CORPUSCULAR HGB CONC 30.5 g/dl (32.0-36.5); MONO # 0.6 K/mm3 (0.0-0.8); MONO % 7.6 % (0.0-5.0); NEUTROPHILS # 5.2 K/mm3 (1.8-7.7); PLATELET COUNT, AUTOMATED 300 k/mm3 (150-450); RED CELL DISTRIBUTION WIDTH 13.6 % (11.5-14.5); WHITE BLOOD COUNT 7.3 K/mm3 (4.0-10.0)
[2016-12-21 07:42] LABS: ALBUMIN 2.6 GM/DL (3.2-5.2); ALBUMIN/GLOBULIN RATIO 0.84 (1.00-1.93); ALKALINE PHOSPHATASE 100 U/L (45-117); ALT/SGPT 27 U/L (12-78); ANION GAP 5 MEQ/L (8-16); AST/SGOT 21 U/L (15-37); BILIRUBIN,TOTAL 0.5 MG/DL (0.2-1.0); BLOOD UREA NITROGEN 12 MG/DL (7-18); CALCIUM LEVEL 9.5 MG/DL (8.8-10.2); CARBON DIOXIDE LEVEL 31 MEQ/L (21-32); CHLORIDE LEVEL 103 MEQ/L (98-107); CREATININE FOR GFR 0.69 MG/DL (0.55-1.02); FREE T4 1.35 NG/DL (0.76-1.46); GLOMERULAR FILTRATION RATE > 60.0 (>39); GLUCOSE, FASTING 106 MG/DL (83-110); POTASSIUM SERUM 4.4 MEQ/L (3.5-5.1); SODIUM LEVEL 139 MEQ/L (136-145); TOTAL PROTEIN 5.7 GM/DL (6.4-8.2)
--- NOTE | 2016-12-21 07:57 | REP ---
AP PORTABLE CHEST: 12/20/2016 at 02:01 PM. Comparison: 02/26/2015, 06/02/2013. Clinical history: Preoperative. The patient has perineal bleeding, likely gross hematuria. Findings. Lungs hyperinflated with fibrosis and COPD. There is pulmonary hypertension. Cardiomegaly noted without pulmonary edema. Some venous hypertension noted. The underlying fibrosis is seen throughout. The aorta is mildly tortuous and calcified without aneurysm. Airway intact. Impression: 1. Some cardiomegaly with COPD and fibrosis. No cesar edema, pleural effusion or dense consolidation. Somewhat tortuous calcified aorta, stable. Heavier fibrosis in the bases. Signed by Reagan Carey MD 12/21/2016 06:57 P
[2016-12-21] MEDS: OMEPRAZOLE 20 MG CAP PO SCH (09:45)
[2016-12-21] MEDS: oxyBUTYnin *DITROPAN XL* 5 MG TABCR PO SCH (09:45)
[2016-12-21] MEDS: DULoxetine 30 MG CAP (CYMBALTA) PO SCH (09:45)
[2016-12-21] MEDS: SENOKOT S TAB PO SCH ×2 (09:45→20:56)
--- NOTE | 2016-12-21 10:22 | IPNPDOC ---
Assessment/Plan Date Seen The patient was seen on 12/21/16. Plan/VTE VTE Prophylaxis Ordered?: Yes VTE Exclusion Pharmacological: Bleeding Risk (SUKH/SCD.) Plan/Urinary Catheter Reason for insertion/continuin: Other-document below Subjective Review oF Systems Chief Complaint The patient is a 76-year-old female admitted with a reason for visit of Hematuria; clot retention. Cystoscopy, clot evacuation, jackson (12/20/16). Comfortable. 66, 18, 97.6, 119/56. Abdo: obese, benign. Jackson manual irrigate to light pink. Urine culture (12/20/16) pending. (12/21/16) Hg 11.1, wbc 7.3, Cr .69. CTU (09/25) clot in bladder; ?vaginal mass; left mild hydronephrosis. ASSESSMENT: 1. Gross hematuria; clot urinary retention. 2. Vaginal mass? 3. Diabetes mellitus. 4. Hypertension. 5. Hypercholesterolemia. 6. Congestive heart failure. 7. Obstructive sleep apnea. 8. Hypothyroidism. 9. Macular degeneration. 10. Morbid obesity. 11. Aspirin therapy. P: Gynecology evaluation. Jackson to SD, manual irrigate NS prn to clear. Ditropan XL 10mg po OD. Consider repeat cystoscopy, possible bladder biopsy in future. Objective Vital Signs/I&O Vital Signs Date Time Temp Pulse Resp B/P Pulse Ox O2 Delivery O2 Flow Rate FiO2 12/21/16 06:00 97.6 66 18 119/56 98 Nasal Cannula 2.0 I&O- Last 24 Hours up to 6 AM 12/21/16 06:00 Intake Total 290 ml Output Total 1065 ml Balance -775 ml Laboratory Data Labs 24H Laboratory Tests 2 12/20/16 14:06: Activated Partial Thromboplast Time 30.6, Anion Gap 7L, White Blood Count 8.6, Red Blood Count 4.19, Hemoglobin 12.1, Hematocrit 37.4, Mean Corpuscular Volume 89.2, Mean Corpuscular Hemoglobin 28.9, Mean Corpuscular Hemoglobin Concent 32.3 , Red Cell Distribution Width 13.6, Platelet Count 356, Neutrophils (%) (Auto) 67.4H, Lymphocytes (%) (Auto) 15.7L, Monocytes (%) (Auto) 7.5H, Eosinophils (%) (Auto) 7.2H, Basophils (%) (Auto) 0.4, Neutrophils # (Auto) 5.8, Lymphocytes # ( Auto) 1.4L, Monocytes # (Auto) 0.6, Eosinophils # (Auto) 0.6H, Basophils # (Auto ) 0.0, Blood Urea Nitrogen 18, Creatinine 0.83, Sodium Level 139, Potassium Level 4.9, Chloride Level 102, Carbon Dioxide Level 30, Calcium Level 10.1, Glomerular Filtration Rate > 60.0, Large Unclassified Cells # 0.2, Large Unclassified Cells % 1.8, Prothromb Time International Ratio 1.13, Prothrombin Time 14.6H 12/20/16 23:58: Bedside Urine Appearance (LAB) TURBIDH, Bedside Urine Bilirubin (LAB) NEGATIVE, Bedside Urine Blood POSITIVEH, Bedside Urine Color (LAB) REDH, Bedside Urine Glucose (UA) NEGATIVE, Bedside Urine Ketones (LAB) NEGATIVE, Bedside Urine Leukocyte Esterase (L POSITIVEH, Bedside Urine Nitrite (LAB) NEGATIVE, Bedside Urine Protein (LAB) 3+H, Bedside Urine Specific [place] (LAB 1.020, Bedside Urine Urobilinogen (LAB) NORMAL, Bedside Urine pH (LAB) 6.5, Urine WBC 3-5H, Urine RBC TNTCH, Urine Squamous Epithelial Cells NONE SEEN, Urine Transitional Epithelial Cells SMALL AMOUNTH, Urine Bacteria NONE SEEN, Urine Hyaline Casts NONE SEEN, Urine Sediment Examination PERFORMED 12/21/16 06:29: Anion Gap 5L, White Blood Count 7.3, Red Blood Count 4.04, Hemoglobin 11.1L, Hematocrit 36.4, Mean Corpuscular Volume 90.0, Mean Corpuscular Hemoglobin 27.4 , Mean Corpuscular Hemoglobin Concent 30.5L, Red Cell Distribution Width 13.6, Platelet Count 300, Neutrophils (%) (Auto) 72.0H, Lymphocytes (%) (Auto) 10.6L, Monocytes (%) (Auto) 7.6H, Eosinophils (%) (Auto) 8.0H, Basophils (%) (Auto) 0.3 , Neutrophils # (Auto) 5.2, Lymphocytes # (Auto) 0.8L, Monocytes # (Auto) 0.6, Eosinophils # (Auto) 0.6H, Basophils # (Auto) 0.0, Blood Urea Nitrogen 12, Creatinine 0.69, Sodium Level 139, Potassium Level 4.4, Chloride Level 103, Carbon Dioxide Level 31, Calcium Level 9.5, Glomerular Filtration Rate > 60.0, Large Unclassified Cells # 0.1, Large Unclassified Cells % 1.4, Aspartate Amino Transf (AST/SGOT) 21, Alanine Aminotransferase (ALT/SGPT) 27, Alkaline Phosphatase 100, Total Bilirubin 0.5, Total Protein 5.7L, Albumin 2.6L, Albumin/ Globulin Ratio 0.84L, Free Thyroxine 1.35, Thyroid Stimulating Hormone (TSH) 1.500 CBC/BMP Laboratory Tests 12/20/16 14:06 Calcium Level 10.1, Red Blood Count 4.19, Mean Corpuscular Volume 89.2, Mean Corpuscular Hemoglobin 28.9, Mean Corpuscular Hemoglobin Concent 32.3, Red Cell Distribution Width 13.6, Neutrophils (%) (Auto) 67.4 H, Lymphocytes (%) (Auto) 15.7 L, Monocytes (%) (Auto) 7.5 H, Eosinophils (%) (Auto) 7.2 H, Basophils (%) (Auto) 0.4, Neutrophils # (Auto) 5.8, Lymphocytes # (Auto) 1.4 L, Monocytes # ( Auto) 0.6, Eosinophils # (Auto) 0.6 H, Basophils # (Auto) 0.0 12/21/16 06:29 Calcium Level 9.5, Red Blood Count 4.04, Mean Corpuscular Volume 90.0, Mean Corpuscular Hemoglobin 27.4, Mean Corpuscular Hemoglobin Concent 30.5 L, Red Cell Distribution Width 13.6, Neutrophils (%) (Auto) 72.0 H, Lymphocytes (%) ( Auto) 10.6 L, Monocytes (%) (Auto) 7.6 H, Eosinophils (%) (Auto) 8.0 H, Basophils (%) (Auto) 0.3, Neutrophils # (Auto) 5.2, Lymphocytes # (Auto) 0.8 L, Monocytes # (Auto) 0.6, Eosinophils # (Auto) 0.6 H, Basophils # (Auto) 0.0, Aspartate Amino Transf (AST/SGOT) 21, Alanine Aminotransferase (ALT/SGPT) 27, Alkaline Phosphatase 100, Total Bilirubin 0.5, Total Protein 5.7 L, Albumin 2.6 L Microbiology Microbiology 12/20/16 Urine Culture, Received Pending 12/20/16 Urine Culture, Received Pending YOLANDA CANTRELL MD Dec 21, 2016 10:22
--- NOTE | 2016-12-21 10:38 | REP ---
CT ABDOMEN PELVIS WITH AND WITHOUT CONTRAST: 12/20/2016. Comparison: Noncontrast CT 11/10/2012, pelvic ultrasound 12/19/2016. Clinical history: Perineal bleeding, felt to be more likely urinary tract than vaginal as there was no blood on the endovaginal probe after last night's pelvic ultrasound. Technique: noncontrast scanning performed followed by bolus of 100 mL Isovue 370. Delayed scanning performed with 3 and 13 minute delays. Coronal and sagittal reconstructions of the delayed images. Findings: CT abdomen: Lung bases showed no infiltrate or effusion. Heart is enlarged with some left atrial and ventricular enlargement. There is coronary calcification and calcification of the root of the aorta. No hiatal hernia. No paracardial thickening. The liver and spleen are not enlarged and show no focal lesion. The gallbladder is absent. The pancreas shows some fatty atrophy but no mass. Adrenal glands grossly intact. The aorta has atherosclerotic calcification without aneurysm. No periaortic or other retroperitoneal pathologic sized lymphadenopathy. Small bowel loops and the colon in the abdomen proper were unremarkable. There are extensive degenerative disc and facet changes in the lumbar and lower thoracic spine without destructive lesions. Right kidney shows no hydronephrosis. Extrarenal pelvis and some hydronephrosis on the left. Delayed images show contrast in the collecting system and extrarenal pelves into the proximal ureters, but dilated left ureter seen to the pelvis. The right ureter is less dilated and some contrast is seen within that. Muscle tone is poor and abdominal wall weakness is evident with the diastases. Significant atrophy of muscles and fatty change seen. CT pelvis: There is a 13 x 8.8 x 13.5 cm seroma in the anterior abdominal wall superficial to the rectus fascia. There is diverticulosis distal left colon and sigmoid without diverticulitis. In the deep pelvis where there was previously a low-density rim enhancing focus at the vaginal cuff. There is now a mass which is solid and about 7 cm, it appears to be invading the bladder wall posteriorly. Only trace amounts of contrast are seen in the posterior aspects of the bladder which corresponds to the appearance on ultrasound of the bladder filled. That was soft tissue density by ultrasound and I suspect thrombus or tumor or both in the bladder. Only small curvilinear rims of the contrast ureter seen posteriorly more on the right than left. Chronic degenerative changes of the lumbar spine with exaggeration of kyphosis and hip osteoarthritis bilaterally with remodeling and bone on bone appearance with severe demineralization seen. Impression: 1. There is a solid appearing mass at the vaginal cuff about 7 cm and it appears to be invading the posterior bladder and bladder collects urine only and small curvilinear pools posteriorly near the ureteral orifices. More on the right than left. Mostly of the bladder filled with a soft tissue density by ultrasound, has attenuation in 30's on [address]contrast CT, it may be clot with tumor posteriorly suspected. I do not have details of her surgery, but the reported hysterectomy may have left cervix or conceivably ovarian tissue remnant could be responsible for this. 2. Hydronephrosis, left greater than right. 3. Large seroma anterior subcutaneous abdominal/pelvic wall. Other chronic changes as described. Signed by Reagan Carey MD 12/21/2016 06:58 P
--- NOTE | 2016-12-21 11:54 | IPNPDOC ---
Subjective General Date Seen The patient was seen on 12/21/16. Subjective Chief Complaint/HPI The patient is a 76-year-old female admitted with a reason for visit of Hematuria. Events since last encounter Pt still having hematuria. Some Abd/pelvic discomfort. Denies CP, SOB. Was seen earlier today by [facility] and Uro. Constitutional: Denies: Chills, Fever Pulmonary: Denies: Dyspnea Cardiovascular: Denies: Chest Pain Gastrointestinal: Reports: Abdominal Pain, Denies: Nausea, Vomiting Genitourinary: Reports: Hematuria Objective Physical Examination General Exam: Positive: Alert, No Acute Distress Neck Exam: Positive: Supple, Negative: JVD Chest Exam: Positive: Clear to auscultation Heart Exam: Positive: Rate Normal, Regular Rhythm Abdomen Exam: Positive: Normal bowel sounds, Other (Jackson with bright red hematuria), Soft, Tenderness (Diffuse TTP all quads; most tender midline, below umbilicus where a soft abdominal wall mass is palpable) Extremity Exam: Negative: Edema Skin Exam: Positive: Other skin issue (dressing to posterior left mid leg) Other physical findings Urine in jackson is bloody still. Assessment /Plan Problems Problems: (1) Hematuria Status: Acute Problem Specific Plan: Consult Specialist, Monitor Clinically, Repeat Labs Problem Text: 12/21 - Urology following. Gross hematuria. Clot urinary retention. Questionable extrinsic bladder mass. Pt had Cystoscopy, bladder washings for cytology, clot evacuation (500 mL), and Jackson catheter insertion. (2) Hydronephrosis Status: Acute Problem Specific Plan: Consult Specialist, Monitor Clinically, Repeat Labs Problem Text: Urology following. (3) Pelvic mass Status: Acute Problem Specific Plan: Consult Specialist, Monitor Clinically, Repeat Labs Problem Text: 12/21 - CT Abd/Pelv 12/20: There is a solid appearing mass at the vaginal cuff about 7 cm and it appears to be invading the posterior bladder and bladder collects urine only and small curvilinear pools posteriorly near the ureteral orifices. More on the right than left. Mostly of the bladder filled with a soft tissue density by ultrasound, has attenuation in 30's on noncontrast CT, it may be clot with tumor posteriorly suspected. I do not have details of her surgery, but the reported hysterectomy may have left cervix or conceivably ovarian tissue remnant could be responsible for this. Hydronephrosis , left greater than right. Large seroma anterior subcutaneous abdominal/pelvic wall. Other chronic changes as described. Urology and [facility] following. Pt states that she had a hysterectomy 45 years ago believes that she it was a supracervical hysterectomy. Dr Rendon from [facility] saw pt earlier today and preformed an exam according to pt and daughter. According to the pt and daughter he was able to feel the cervix and the posterior bladder mass. Dr Rendon has ordered CA 19-9, CA 125, CEA, AFP, HCG. Awaiting his note for further details. Dr. Rendon called to discuss his findings and plan. As above, believe that she had a post supra-cervical hysterectomy. Likely had ovaries left since she didn't start ERT until many years later. By exam, surface of cervix seemed normal but nearby mass palpable. Markers may prove helpful. Doubt this patient is a surgical candidate. Suspect tissue might be obtainable by U/S directed biopsy through vaginal cuff. (4) KENDRICK (obstructive sleep apnea) Status: Chronic Problem Specific Plan: Monitor Clinically Problem Text: Pt has not been using CPAP. (5) Morbid obesity Status: Chronic Problem Specific Plan: Monitor Clinically (6) Hypothyroidism Status: Chronic Problem Specific Plan: Monitor Clinically Problem Text: On Synthroid. Plan/VTE VTE Prophylaxis Ordered?: Yes VTE Exclusion Pharmacological: Bleeding Risk (SUKH/SCD.) Plan/Urinary Catheter Reason for insertion/continuin: Other-document below VS, I&O, 24H, Fishbone Vital Signs/I&O Vital Signs Date Time Temp Pulse Resp B/P Pulse Ox O2 Delivery O2 Flow Rate FiO2 12/21/16 10:00 98.2 75 20 156/78 96 Nasal Cannula 2.0 I&O- Last 24 Hours up to 6 AM 12/21/16 06:00 Intake Total 290 ml Output Total 1065 ml Balance -775 ml Laboratory Data 24H LABS Laboratory Tests 2 12/20/16 14:06: Activated Partial Thromboplast Time 30.6, Anion Gap 7L, White Blood Count 8.6, Red Blood Count 4.19, Hemoglobin 12.1, Hematocrit 37.4, Mean Corpuscular Volume 89.2, Mean Corpuscular Hemoglobin 28.9, Mean Corpuscular Hemoglobin Concent 32.3 , Red Cell Distribution Width 13.6, Platelet Count 356, Neutrophils (%) (Auto) 67.4H, Lymphocytes (%) (Auto) 15.7L, Monocytes (%) (Auto) 7.5H, Eosinophils (%) (Auto) 7.2H, Basophils (%) (Auto) 0.4, Neutrophils # (Auto) 5.8, Lymphocytes # ( Auto) 1.4L, Monocytes # (Auto) 0.6, Eosinophils # (Auto) 0.6H, Basophils # (Auto ) 0.0, Blood Urea Nitrogen 18, Creatinine 0.83, Sodium Level 139, Potassium Level 4.9, Chloride Level 102, Carbon Dioxide Level 30, Calcium Level 10.1, Glomerular Filtration Rate > 60.0, Large Unclassified Cells # 0.2, Large Unclassified Cells % 1.8, Prothromb Time International Ratio 1.13, Prothrombin Time 14.6H 12/20/16 23:58: Bedside Urine Appearance (LAB) TURBIDH, Bedside Urine Bilirubin (LAB) NEGATIVE, Bedside Urine Blood POSITIVEH, Bedside Urine Color (LAB) REDH, Bedside Urine Glucose (UA) NEGATIVE, Bedside Urine Ketones (LAB) NEGATIVE, Bedside Urine Leukocyte Esterase (L POSITIVEH, Bedside Urine Nitrite (LAB) NEGATIVE, Bedside Urine Protein (LAB) 3+H, Bedside Urine Specific [place] (LAB 1.020, Bedside Urine Urobilinogen (LAB) NORMAL, Bedside Urine pH (LAB) 6.5, Urine WBC 3-5H, Urine RBC TNTCH, Urine Squamous Epithelial Cells NONE SEEN, Urine Transitional Epithelial Cells SMALL AMOUNTH, Urine Bacteria NONE SEEN, Urine Hyaline Casts NONE SEEN, Urine Sediment Examination PERFORMED 12/21/16 06:29: Anion Gap 5L, White Blood Count 7.3, Red Blood Count 4.04, Hemoglobin 11.1L, Hematocrit 36.4, Mean Corpuscular Volume 90.0, Mean Corpuscular Hemoglobin 27.4 , Mean Corpuscular Hemoglobin Concent 30.5L, Red Cell Distribution Width 13.6, Platelet Count 300, Neutrophils (%) (Auto) 72.0H, Lymphocytes (%) (Auto) 10.6L, Monocytes (%) (Auto) 7.6H, Eosinophils (%) (Auto) 8.0H, Basophils (%) (Auto) 0.3 , Neutrophils # (Auto) 5.2, Lymphocytes # (Auto) 0.8L, Monocytes # (Auto) 0.6, Eosinophils # (Auto) 0.6H, Basophils # (Auto) 0.0, Blood Urea Nitrogen 12, Creatinine 0.69, Sodium Level 139, Potassium Level 4.4, Chloride Level 103, Carbon Dioxide Level 31, Calcium Level 9.5, Glomerular Filtration Rate > 60.0, Large Unclassified Cells # 0.1, Large Unclassified Cells % 1.4, Aspartate Amino Transf (AST/SGOT) 21, Alanine Aminotransferase (ALT/SGPT) 27, Alkaline Phosphatase 100, Total Bilirubin 0.5, Total Protein 5.7L, Albumin 2.6L, Albumin/ Globulin Ratio 0.84L, Free Thyroxine 1.35, Thyroid Stimulating Hormone (TSH) 1.500 CBC/BMP Laboratory Tests 12/20/16 14:06 Calcium Level 10.1, Red Blood Count 4.19, Mean Corpuscular Volume 89.2, Mean Corpuscular Hemoglobin 28.9, Mean Corpuscular Hemoglobin Concent 32.3, Red Cell Distribution Width 13.6, Neutrophils (%) (Auto) 67.4 H, Lymphocytes (%) (Auto) 15.7 L, Monocytes (%) (Auto) 7.5 H, Eosinophils (%) (Auto) 7.2 H, Basophils (%) (Auto) 0.4, Neutrophils # (Auto) 5.8, Lymphocytes # (Auto) 1.4 L, Monocytes # ( Auto) 0.6, Eosinophils # (Auto) 0.6 H, Basophils # (Auto) 0.0 12/21/16 06:29 Calcium Level 9.5, Red Blood Count 4.04, Mean Corpuscular Volume 90.0, Mean Corpuscular Hemoglobin 27.4, Mean Corpuscular Hemoglobin Concent 30.5 L, Red Cell Distribution Width 13.6, Neutrophils (%) (Auto) 72.0 H, Lymphocytes (%) ( Auto) 10.6 L, Monocytes (%) (Auto) 7.6 H, Eosinophils (%) (Auto) 8.0 H, Basophils (%) (Auto) 0.3, Neutrophils # (Auto) 5.2, Lymphocytes # (Auto) 0.8 L, Monocytes # (Auto) 0.6, Eosinophils # (Auto) 0.6 H, Basophils # (Auto) 0.0, Aspartate Amino Transf (AST/SGOT) 21, Alanine Aminotransferase (ALT/SGPT) 27, Alkaline Phosphatase 100, Total Bilirubin 0.5, Total Protein 5.7 L, Albumin 2.6 L Microbiology Microbiology 12/20/16 Urine Culture, Received Pending 12/20/16 Urine Culture, Received Pending Attending Note Attending Note Agree with findings and plan as recorded by Mr. Gonzalez and as amended. Armando Gonzalez Dec 21, 2016 11:54 Mohsen Hannon MD Dec 21, 2016 13:25
--- NOTE | 2016-12-21 15:40 | HPE ---
DATE OF ADMISSION: 12/20/2016 CHIEF COMPLAINT: Peeing blood. HISTORY: The patient lives at [facility], generally followed there by Dr. Mason, recently has been having trouble with bleeding and urine. She has experienced, at least since 09/2016, recurring episodes of bladder infections and has been evaluated since 09/17/2016 at the urology clinic. She had previous episodes of urinary tract infection (UTI) with gross hematuria. She reports a long history of lower abdominal discomfort, seems to be somewhat migratory. Recently, over the past few weeks, she has had frequent lower abdominal crampy pains, and in the past several days has become increasingly intense. She had increasing bleeding and was sent by the [employer] nurse at [facility], who follows her in conjunction with Dr. Mason, to the emergency department (ED) for further evaluation, whereupon urology consultation was obtained and Dr. Julio saw the patient. Ultrasound and other investigations, including CT scan, were carried out and patient was taken to the operating room (OR) for cystoscopy. She is now postoperative and is alert and somewhat sleepy, but memory is intact and she is fully conversant and was seen and examined in the presence of family. PAST MEDICAL HISTORY: Remarkable for: 1. Hypothyroidism. 2. Obstructive sleep apnea; since she has moved into [place], she no longer has her continuous positive airway pressure (CPAP) device and she is currently unpalliated. 3. Morbid obesity. 4. History of positive antinuclear antibody test. 5. History of B12 deficiency. 6. Chronic diastolic congestive heart failure (CHF) based on an echocardiogram in 2011.. 7. Hyperlipidemia. 8. Hypertension. 9. Gastroesophageal reflux disease. 10. Depression. 11. Chronic pain. PAST SURGICAL HISTORY: Includes: 1. Cataracts bilaterally, 2009. 2. She has had (C) sections. 3. She also has had hernia repair done by Dr. Garcia at this facility. 4. She reports having had a hysterectomy and spontaneously uses the term supracervical in describing the hysterectomy. This could reconcile certain facts, which include Pap smears, which were done through Dr. Meeks' office as recently as 2009, and also we find evidence of a biopsy done of the cervix and vaginal wall through Dr. Meeks' office. She has not been seen by Dr. Meeks since her last attempt to go there in 2011 because of inability to be transported adequately to Dr. Meeks' office. Apparently, stretcher transport was utilized and, by patient's report, Dr. Meeks' office is unable to accommodate a stretcher patient, although patient could go there in a wheelchair, it seems, because she does is wheelchair-mobile in [facility]. 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 CURRENT MEDICATIONS: Include: - acetaminophen 1000 mg three times a day for pain - albuterol nebulizers 2.5 mg every 4 hours as needed for wheezing and cough - baclofen 10 mg at bedtime - bisacodyl 10 mg suppository as needed for constipation - vitamin D 5000 units Thursday, Thursday, Thursday, , Thursday twice a day on those days - docusate sodium 100 mg twice a day - Senna - Senokot-S 1 tablet daily - duloxetine 60 mg by mouth twice a day - <<5:22>> - Anusol-HC as needed for hemorrhoidal discomfort - levothyroxine 150 mcg daily - loratadine 10 mg daily - magnesium citrate 300 mg every third day as needed for constipation - metformin 500 mg by mouth twice a day - milk of magnesia 1200 mg per 15 mL suspension 30 mL by mouth daily as needed for constipation - omeprazole 40 mg daily - ondansetron 40 mg by mouth every 4 hours as needed for nausea - oxybutynin 5 mg by mouth daily, presumably to aid in bladder control - MiraLax 17 grams daily - tramadol 25 mg every 6 hours as needed - trazodone 100 mg at bedtime ALLERGIES: Reported: ASPIRIN induces bleeding. She has recently been treated with ampicillin for bladder infections. Last urine culture in her outpatient chart was 09/19/2016 and was negative. On 09/17/2016, she grew Enterococcus faecalis 60,000 per mL. The organism was sensitive to ampicillin, curiously resistant to gentamicin, levofloxacin, and was sensitive to vancomycin. SOCIAL HISTORY: No tobacco or alcohol use. She lives at [facility]. REVIEW OF SYSTEMS: Denies headache, recent change in vision or hearing. She is alert. No trouble with her memory, recalling details of her past medical history and names of her healthcare providers with remarkable clarity and accuracy. Denies heartburn. No recent nausea or emesis. No recent diarrhea problems. She does have a wound on the back of her left thigh for which she is being seen dermatology nurse practitioners periodically. This wound has been present for some time, located at the posterior aspect of her thigh, proximally where her thigh would be on the edge of a wheelchair. She does have chronic numbness in her hands, which has been attributed to carpal tunnel syndrome. She has had some trouble with her left leg recently with trouble moving it. It is not clear whether this represents a neurologic dysfunction by her history or mechanical related to arthritis. No fainting episodes. FAMILY HISTORY: Remarkable for heart disease mortality in father, bladder tumor mortality in mother. She has two sons, three daughters, alive and well. She has one sister. EXAMINATION: She is alert. She is pleasant, conversant, as noted above. Full extraocular movements are noted. No icterus. No oral lesions. No palpable neck mass, thyroid enlargement or nodules. No bruits are heard. HEART: Heart tones are distant, but audible. Soft tones. Regular rhythm. No point of maximum impulse (PMI) displacement is detected, but examination was limited, I believe, by her obesity. Body mass index when measured in the office recently was 53.82, 354 pounds, 68 inches. It is not clear whether that height was actually measured or simply stated, however. LUNGS: It is difficult to hear breath sounds. I do not hear any wheezes, rales or rhonchi. She has equal expansion, however. ABDOMEN: Obese. Shows tenderness in the midabdomen and there is a fullness palpable, which seems to be fairly superficial. No local skin abnormalities are noted. No rebound tenderness. Bowel sounds are active. There is no organ enlargement discernible, considering her obesity. She has a Pruitt catheter draining urine that is intermittently pink-tinged and intermittently red. EXTREMITIES: I do not see edema today. She has occlusive thromboembolitic deterrents (TEDs) on at this time. She has an ulcer on the back of her leg that is approximately 2.5 x 3 cm, fairly shallow, but definitely through the top layers of skin. I would rate it at least at a stage II pressure sore. I do not see any fat exposed, but there is a fibrinous dressing in place. NEUROLOGIC: She is alert. Sensory disturbance in her hands, as noted. Moves all extremities well. Gait was not tested. It is not clear that she is able to ambulate and it seems to be largely due to arthritic troubles, although I cannot rule out spinal stenosis at this time. MENTAL STATUS: Alert and oriented. Fully conversant. Spontaneous speech. LABORATORY DATA: Developed today since coming into the emergency department (ED) at 2 o'clock: Electrolytes were unremarkable except for an anion gap of 7. Pointedly, creatinine is normal at 0.83. White count was 8600 with a hemoglobin of 12.1. Urinalysis has not been sent. Calcium was 10.1. Imaging studies included abdomen and pelvis CT and chest x-ray. Ultrasound was completed recently, which suggested a mass situated posterior to the bladder and amorphous pattern of heterogeneous echoes inside the bladder, which would be, now in retrospect, consistent with a clot that was removed. The CT scan again confirms the presence of what looks to be fairly homogeneous density posterior to the bladder. Hydronephrosis was also identified on the CT scan. The solid-appearing mass, which seems to be situated posterior to the bladder , would be proximal to the location of the vaginal cuff or cervix, since the patient reports having a history of supracervical hysterectomy. She has some hydronephrosis bilateral left greater than right, large seroma, anterior subcutaneous abdominal pelvic wall on the CT scan as well. This may be the palpable anomaly that I can feel in her lower abdomen. This does seem to be somewhat tender. IMPRESSION: Pleasant, delightful 76-year-old woman with morbid obesity and history of obstructive sleep apnea (KENDRICK), probably some degree of cor pulmonale, who comes to the emergency department (ED) with hematuria and a mass posterior to her bladder, which may be stemming from the retained cervix from previous historic supracervical hysterectomy. She does have a history of diastolic congestive heart failure (CHF), but at this time, she seems to be reasonably well compensated. She is receiving fluids, lactated Ringer's postoperatively, which I think is reasonable at this point for supportive hydration, although we do wish to avoid, certainly, excessive loading of fluids, considering she primarily would have a right heart failure. She may be relatively tolerant fluid loading without pulmonary compromise acutely. She will need gynecology consult and it is my understanding at this time that Dr. Julio, the urologist, has consulted gynecology and, I believe that would be Dr. Rendon who is textile converter today. I would like to point out the patient has been seen by Dr. Meeks in the past, but clearly more than three years ago. At this time, she has a Pruitt, which will need to be in place to assure adequate bladder drainage, particularly in the setting of fairly significant ongoing bleeding. Also, because of the ongoing bleeding, she is not a candidate for pharmacologic deep venous thrombosis (DVT) prophylaxis. Instead, thromboembolitic deterrents (TEDs) and sequentials will be placed. Urinalysis will need to ordered to look for evidence of urinary tract infection. If she is eating and drinking well in the morning and her pressures are stable, then we will discontinue the lactated Ringer's. Will encourage activity as soon as she is able to engage. Will request physical therapy (PT) help with the wound healing, since inpatient wound service from Dr. Rubin is not currently available, possible outpatient consultation upon discharge. Also, I think she will be a candidate for followup with pulmonary service related to her obstructive sleep apnea (KENDRICK) diagnosis, since she is currently an unpalliated KENDRICK patient. She should have continuous monitoring, which should be capable here on [place].
[2016-12-22] MEDS: PERCOCET 5MG/325MG TAB PO PRN ×4 (01:07→22:11)
[2016-12-22] MEDS: LEVOTHYROXINE 0.15 MG TAB (150 MCG) PO SCH (05:32)
[2016-12-22] MEDS: BISACODYL 5 MG TAB PO PRN (05:35)
[2016-12-22 06:00] VITALS: BP 134/75
[2016-12-22 06:35] LABS: BASO % 0.5 % (0.0-1.0); EOS # 0.5 K/mm3 (0.0-0.50); EOS % 7.9 % (0.0-3.0); LARGE UNSTAINED CELL # 0.1 K/mm3 (0.0-0.4); LARGE UNSTAINED CELL % 1.1 % (0.0-4.0); LYMPH # 0.9 K/mm3 (1.5-4.5); LYMPH % 11.8 % (24.0-44.0); MEAN CORPUSCULAR HEMOGLOBIN 28.5 pg (27.0-33.0); MEAN CORPUSCULAR HGB CONC 31.8 g/dl (32.0-36.5); MEAN CORPUSCULAR VOLUME 89.5 fl (80.0-96.0); MONO # 0.5 K/mm3 (0.0-0.8); MONO % 7.9 % (0.0-5.0); NEUTROPHILS # 4.8 K/mm3 (1.8-7.7); NEUTROPHILS % 70.7 % (36.0-66.0); PLATELET COUNT, AUTOMATED 353 k/mm3 (150-450); RED CELL DISTRIBUTION WIDTH 13.8 % (11.5-14.5); WHITE BLOOD COUNT 6.7 K/mm3 (4.0-10.0)
--- NOTE | 2016-12-22 06:38 | REP ---
TRANSABDOMINAL AND ENDOVAGINAL PROBE PELVIC ULTRASOUND: 12/21/2016. Comparison: CT abdomen and pelvis without and with contrast 12/20/2016, limited pelvic ultrasound 12/19/2016. Clinical history: Gross hematuria , CT with pelvic mass at the vaginal cuff. Findings: Both transabdominal and endovaginal probes were utilized. Bladder measured 9.5 x 5.4 x 8.4 cm. Pruitt catheter is seen within the bladder. A large solid mass with cystic area noted about 7.6 x 4.5 x 6.3 cm which abuts and may be invading the bladder wall. There is also echogenic debris and/or clot within the bladder. With today's ultrasound, a superficial subcutaneous large collection with solid and cystic components corresponds to the very large low density subcutaneous mass in the abdominal wall on CT. This likely represents a hematoma with clot and is superficial to the rectus muscles and fascia, unassociated with the bladder and mass at the vaginal cuff and bladder base. There is no other visible pelvic finding or mass and no free fluid. She is apparently status post hysterectomy and oophorectomy. I do not know details of that surgery. Impression: 1. Mass at the vaginal cuff 7.6 x 6.3 x 4.5 cm, solid with blood flow within. It abuts and may be invading the bladder wall with bladder debris and/or clot as well seen within the bladder. A Pruitt catheter is also in the bladder. 2. A heterogeneous complex solid and cystic focus subcutaneous tissues corresponds to the large low density lesion in the subcutaneous fat on CT which has a much more fluid appearance than the ultrasound which again shows ribbon and strand-like densities with fluid and relieved suggesting clot. No pelvic free fluid. Signed by Reagan Carey MD 12/22/2016 09:13 A
[2016-12-22 06:51] LABS: ALBUMIN 2.5 GM/DL (3.2-5.2); ALBUMIN/GLOBULIN RATIO 0.66 (1.00-1.93); ALKALINE PHOSPHATASE 101 U/L (45-117); ALT/SGPT 23 U/L (12-78); ANION GAP 6 MEQ/L (8-16); AST/SGOT 15 U/L (15-37); BILIRUBIN,TOTAL 0.4 MG/DL (0.2-1.0); BLOOD UREA NITROGEN 9 MG/DL (7-18); CALCIUM LEVEL 9.7 MG/DL (8.8-10.2); CARBON DIOXIDE LEVEL 31 MEQ/L (21-32); CHLORIDE LEVEL 104 MEQ/L (98-107); CREATININE FOR GFR 0.67 MG/DL (0.55-1.02); GLOMERULAR FILTRATION RATE > 60.0 (>39); GLUCOSE, FASTING 127 MG/DL (83-110); POTASSIUM SERUM 4.2 MEQ/L (3.5-5.1); SODIUM LEVEL 141 MEQ/L (136-145); TOTAL PROTEIN 6.3 GM/DL (6.4-8.2)
[2016-12-22] MEDS: oxyBUTYnin *DITROPAN XL* 5 MG TABCR PO SCH (09:06)
[2016-12-22] MEDS: DULoxetine 30 MG CAP (CYMBALTA) PO SCH (09:06)
[2016-12-22] MEDS: OMEPRAZOLE 20 MG CAP PO SCH (09:06)
[2016-12-22] MEDS: SENOKOT S TAB PO SCH ×2 (09:06→22:10)
[2016-12-22] MEDS: LR 1,000 ML IV SCH (09:06)
--- NOTE | 2016-12-22 10:11 | IPNPDOC ---
Assessment/Plan Date Seen The patient was seen on 12/22/16. Patient Summary This is a 76 y/o F admitted w/ hematuria and a possible vaginal mass, POD2 s/p cysto and clot evacuation. At the time of my visit the catheter was not draining. I tried irrigating it several times and could not get any fluid to return. Subsequently nursing changed the 20Fr catheter out to a 24Fr 3-way catheter. Per nursing report, the new catheter was irrigated w/ removal of several large clots and after that time the catheter drained fine. Problems (1) Hematuria Status: Acute (2) Hydronephrosis Status: Acute (3) Pelvic mass Status: Acute (4) KENDRICK (obstructive sleep apnea) Status: Chronic (5) Morbid obesity Status: Chronic (6) Hypothyroidism Status: Chronic Plan/VTE VTE Prophylaxis Ordered?: Yes VTE Exclusion Pharmacological: Bleeding Risk (SUKH/SCD.) Plan/Urinary Catheter Reason for insertion/continuin: Other-document below (maintain catheter in place due to hematuria and potential for clot retention) Plan - keep 3-way catheter to gravity drainage w/ irrigation port plugged for now - manually irrigate w/ NS as needed if the catheter stops draining - will potentially put on continuous bladder irrigation if hematuria remains moderate - at this time the source of hematuria remains unclear Subjective Review oF Systems Chief Complaint Hematuria Events since Last Encounter The patient went into clot retention this morning. Nursing tried irrigating the catheter several times w/o success. At the time of my visit, the patient noted bladder fullness. She denied fevers or chills. Objective Physical Examination General Exam: : Alert: Cooperative: Mild Distress ENT EXAM: : Atraumatic Heart Exam: Positive: Rate Normal, Regular Rhythm ABDOMEN EXAM: : Soft Psych Exam: : Mental status NL: Mood NL Other physical findings catheter in place w/ no urine draining in the tube and no minimal urine in the bag Vital Signs/I&O Vital Signs Date Time Temp Pulse Resp B/P Pulse Ox O2 Delivery O2 Flow Rate FiO2 12/22/16 09:13 Room Air 12/22/16 07:30 14 12/22/16 06:00 98.1 75 134/75 96 2.0 I&O- Last 24 Hours up to 6 AM 12/22/16 06:00 Intake Total 2420 ml Output Total 2220 ml Balance 200 ml Laboratory Data Labs 24H Laboratory Tests 2 12/21/16 12:03: 12/22/16 06:23: Blood Urea Nitrogen 9, Creatinine 0.67, Sodium Level 141, Potassium Level 4.2, Chloride Level 104, Carbon Dioxide Level 31, Calcium Level 9.7, Aspartate Amino Transf (AST/SGOT) 15, Alanine Aminotransferase (ALT/SGPT) 23, Alkaline Phosphatase 101, Total Bilirubin 0.4, Total Protein 6.3L, Albumin 2.5L, Albumin/ Globulin Ratio 0.66L, Anion Gap 6L, White Blood Count 6.7, Red Blood Count 3.81L , Hemoglobin 10.8L, Hematocrit 34.1L, Mean Corpuscular Volume 89.5, Mean Corpuscular Hemoglobin 28.5, Mean Corpuscular Hemoglobin Concent 31.8L, Red Cell Distribution Width 13.8, Platelet Count 353, Neutrophils (%) (Auto) 70.7H, Lymphocytes (%) (Auto) 11.8L, Monocytes (%) (Auto) 7.9H, Eosinophils (%) (Auto) 7.9H, Basophils (%) (Auto) 0.5, Neutrophils # (Auto) 4.8, Lymphocytes # (Auto) 0.9L, Monocytes # (Auto) 0.5, Eosinophils # (Auto) 0.5, Basophils # (Auto) 0.0, Glomerular Filtration Rate > 60.0, Large Unclassified Cells # 0.1, Large Unclassified Cells % 1.1 CBC/BMP Laboratory Tests 12/22/16 06:23 Calcium Level 9.7, Aspartate Amino Transf (AST/SGOT) 15, Alanine Aminotransferase (ALT/SGPT) 23, Alkaline Phosphatase 101, Total Bilirubin 0.4, Total Protein 6.3 L, Albumin 2.5 L, Red Blood Count 3.81 L, Mean Corpuscular Volume 89.5, Mean Corpuscular Hemoglobin 28.5, Mean Corpuscular Hemoglobin Concent 31.8 L, Red Cell Distribution Width 13.8, Neutrophils (%) (Auto) 70.7 H , Lymphocytes (%) (Auto) 11.8 L, Monocytes (%) (Auto) 7.9 H, Eosinophils (%) ( Auto) 7.9 H, Basophils (%) (Auto) 0.5, Neutrophils # (Auto) 4.8, Lymphocytes # ( Auto) 0.9 L, Monocytes # (Auto) 0.5, Eosinophils # (Auto) 0.5, Basophils # (Auto ) 0.0 Microbiology Microbiology 12/20/16 Urine Culture, Received Pending 12/20/16 Urine Culture - Final, Complete HEATHER MADISON MD Dec 22, 2016 10:11
[2016-12-22 14:00] VITALS: BP 131/77
--- NOTE | 2016-12-22 15:14 | IPNPDOC ---
Subjective General Date Seen The patient was seen on 12/22/16. Subjective Chief Complaint/HPI The patient is a 76-year-old female admitted with a reason for visit of Hematuria. Events since last encounter C/o persistent R suprapubic pain c persistent gross hematuria General: Denies: Chills Constitutional: Denies: Chills, Fever ENT: Denies: Head Aches Cardiovascular: Denies: Chest Pain Gastrointestinal: Denies: Nausea Genitourinary: Denies: Dysuria Objective Physical Examination General Exam: Positive: Alert, No Acute Distress Neck Exam: Positive: Supple, Negative: JVD Chest Exam: Positive: Clear to auscultation Heart Exam: Positive: Rate Normal, Regular Rhythm Abdomen Exam: Positive: Normal bowel sounds, Other (Pruitt with bright red hematuria), Soft, Tenderness (Diffuse TTP all quads; most tender midline, below umbilicus where a soft abdominal wall mass is palpable) Extremity Exam: Negative: Edema Skin Exam: Positive: Other skin issue (dressing to posterior left mid leg) Assessment /Plan Problems Problems: (1) Anemia Status: Acute Problem Text: 12/22/16 hgb down to 10.8 baseline 12s (2) Pelvic mass Status: Acute Problem Specific Plan: Consult Specialist, Monitor Clinically, Repeat Labs Problem Text: 12/22/16 ? US guided biopsy by IR 12/21 - CT Abd/Pelv 12/20: There is a solid appearing mass at the vaginal cuff about 7 cm and it appears to be invading the posterior bladder and bladder collects urine only and small curvilinear pools posteriorly near the ureteral orifices. More on the right than left. Mostly of the bladder filled with a soft tissue density by ultrasound, has attenuation in 30's on noncontrast CT, it may be clot with tumor posteriorly suspected. I do not have details of her surgery, but the reported hysterectomy may have left cervix or conceivably ovarian tissue remnant could be responsible for this. Hydronephrosis, left greater than right. Large seroma anterior subcutaneous abdominal/pelvic wall. Other chronic changes as described. Urology and [employer] following. Pt states that she had a hysterectomy 45 years ago believes that she it was a supracervical hysterectomy. Dr Rendon from [employer] [facility] saw pt earlier today and preformed an exam according to pt and daughter. According to the pt and daughter he was able to feel the cervix and the posterior bladder mass. Dr Rendon has ordered CA 19-9, CA 125, CEA, AFP, HCG. Awaiting his note for further details. Dr. Rendon called to discuss his findings and plan. As above, believe that she had a post supra-cervical hysterectomy. Likely had ovaries left since she didn't start ERT until many years later. By exam, surface of cervix seemed normal but nearby mass palpable. Markers may prove helpful. Doubt this patient is a surgical candidate. Suspect tissue might be obtainable by U/S directed biopsy through vaginal cuff. (3) Hematuria Status: Acute Problem Specific Plan: Consult Specialist, Monitor Clinically, Repeat Labs Problem Text: persistent, gross 12/21 - Urology following. Gross hematuria. Clot urinary retention. Questionable extrinsic bladder mass. Pt had Cystoscopy, bladder washings for cytology, clot evacuation (500 mL), and Pruitt catheter insertion. 12/20/16 UCX NG (4) Hydronephrosis Status: Acute Problem Specific Plan: Consult Specialist, Monitor Clinically, Repeat Labs Problem Text: Urology following. (5) KENDRICK (obstructive sleep apnea) Status: Chronic Problem Specific Plan: Monitor Clinically Problem Text: Pt has not been using CPAP. (6) Morbid obesity Status: Chronic Problem Specific Plan: Monitor Clinically (7) Hypothyroidism Status: Chronic Problem Specific Plan: Monitor Clinically Problem Text: On Synthroid. Plan/VTE VTE Prophylaxis Ordered?: No VTE Exclusion Pharmacological: Bleeding Risk (SUKH/SCD.) Plan/Urinary Catheter Reason for insertion/continuin: Other-document below (maintain catheter in place due to hematuria and potential for clot retention) VS, [facility] Signs/I&O Vital Signs Date Time Temp Pulse Resp B/P Pulse Ox O2 Delivery O2 Flow Rate FiO2 12/22/16 14:00 97.9 77 18 131/77 95 Room Air 12/22/16 06:00 2.0 I&O- Last 24 Hours up to 6 AM 12/22/16 06:00 Intake Total 2420 ml Output Total 2220 ml Balance 200 ml Laboratory Data 24H LABS Laboratory Tests 2 12/22/16 06:23: Blood Urea Nitrogen 9, Creatinine 0.67, Sodium Level 141, Potassium Level 4.2, Chloride Level 104, Carbon Dioxide Level 31, Calcium Level 9.7, Aspartate Amino Transf (AST/SGOT) 15, Alanine Aminotransferase (ALT/SGPT) 23, Alkaline Phosphatase 101, Total Bilirubin 0.4, Total Protein 6.3L, Albumin 2.5L, Albumin/ Globulin Ratio 0.66L, Anion Gap 6L, White Blood Count 6.7, Red Blood Count 3.81L , Hemoglobin 10.8L, Hematocrit 34.1L, Mean Corpuscular Volume 89.5, Mean Corpuscular Hemoglobin 28.5, Mean Corpuscular Hemoglobin Concent 31.8L, Red Cell Distribution Width 13.8, Platelet Count 353, Neutrophils (%) (Auto) 70.7H, Lymphocytes (%) (Auto) 11.8L, Monocytes (%) (Auto) 7.9H, Eosinophils (%) (Auto) 7.9H, Basophils (%) (Auto) 0.5, Neutrophils # (Auto) 4.8, Lymphocytes # (Auto) 0.9L, Monocytes # (Auto) 0.5, Eosinophils # (Auto) 0.5, Basophils # (Auto) 0.0, Glomerular Filtration Rate > 60.0, Large Unclassified Cells # 0.1, Large Unclassified Cells % 1.1 CBC/BMP Laboratory Tests 12/22/16 06:23 Calcium Level 9.7, Aspartate Amino Transf (AST/SGOT) 15, Alanine Aminotransferase (ALT/SGPT) 23, Alkaline Phosphatase 101, Total Bilirubin 0.4, Total Protein 6.3 L, Albumin 2.5 L, Red Blood Count 3.81 L, Mean Corpuscular Volume 89.5, Mean Corpuscular Hemoglobin 28.5, Mean Corpuscular Hemoglobin Concent 31.8 L, Red Cell Distribution Width 13.8, Neutrophils (%) (Auto) 70.7 H , Lymphocytes (%) (Auto) 11.8 L, Monocytes (%) (Auto) 7.9 H, Eosinophils (%) ( Auto) 7.9 H, Basophils (%) (Auto) 0.5, Neutrophils # (Auto) 4.8, Lymphocytes # ( Auto) 0.9 L, Monocytes # (Auto) 0.5, Eosinophils # (Auto) 0.5, Basophils # (Auto ) 0.0 Microbiology Microbiology 12/20/16 Urine Culture, Received Pending 12/20/16 Urine Culture - Final, Complete Noel Lopez M.D. Dec 22, 2016 15:14
--- NOTE | 2016-12-22 19:24 | EDDOCDS ---
Physician Documentation [facility] Name: Bree Dawn Age: 76 yrs Sex: Female : 1940 Arrival Date: 12/20/2016 Time: 13:37 Bed 4 Private MD: Disposition: 12/20 15:55 Critical Care: Critical care not applicable. pc Disposition: 12/20/16 15:58 Hospitalization ordered by Denny Julio for Inpatient Admission. Preliminary diagnosis are Malignant neoplasm of pelvis, Gross hematuria, Retention of urine, Sleep apnea, Morbid (severe) obesity due to excess calories. - Bed requested for Admit. - Status is Inpatient Admission. kc3 - Condition is Stable. - Problem is new. - Symptoms are unchanged. HPI: 14:03 This 76 yrs old Female presents to ER via Ambulance with complaints of pc Urinary Problem. 14:03 The history is obtained from the patient, senior living records, Dr. Julio. She has been pc having hematuria for a week, worked up for vaginal bleeding s/p hysterectomy. A pelvic US revealed a bladder filled with clot. She has not been able to void and is having suprapubic pain. Dr. Julio requested the labs and imaging as ordered and plans to take her to the OR tonight. At their worst, the symptoms were moderate. In the emergency department, the symptoms are unchanged. The patient has been recently seen by their primary care provider. Historical: - Allergies: No known drug Allergies; - Home Meds: 1. acetaminophen 500 mg Oral cap 2 caps twice a day (Last dose: 12/20/2016) 2. levothyroxine 150 mcg oral tab once daily (Last dose: 12/20/2016) 3. aspirin 325 mg Oral TbEC 1 tab once daily (Last dose: 12/20/2016) 4. baclofen 10 mg Oral tab 1 tab daily (Last dose: 12/19/2016) 5. Claritin 10 mg Oral tab 1 tab once daily (Last dose: 12/20/2016) 6. Cymbalta 60 mg Oral cpDR 1 cap twice a day (Last dose: 12/20/2016) 7. docusate sodium 100 mg Oral tab 1 tab once daily (Last dose: 12/20/2016) 8. medroxyprogesterone 10 mg Oral tab 1 tab once daily (Last dose: 12/19/2016) 9. metformin 500 mg Oral tab 1 tab 2 times per day (Last dose: 12/20/2016) 10. Miralax 17 gram/dose Oral powd once daily (Last dose: 12/20/2016) 11. omeprazole 40 mg Oral cpDR 1 cap once daily (Last dose: 12/20/2016) 12. oxybutynin chloride 5 mg Oral tr24 1 tab once daily (Last dose: 12/20/2016) 13. senna 8.6 mg oral tab once daily (Last dose: 12/20/2016) 14. trazodone 100 mg Oral tab 1 tab daily (Last dose: 12/19/2016) 15. Vitamin D 5000 units Oral 5000 unit twice a day thursday-thursday (Last dose: 12/19/2016) 16. albuterol sulfate 2.5 mg /3 mL (0.083 %) Inhl nebu 3 mL every 4 hours as needed 17. Enema 19-7 gram/118 mL Rectal enem daily as needed (Last dose: Unknown) 18. Dulcolax (bisacodyl) 10 mg Rectal supp 1 suppository once daily as needed (Last dose: Unknown) 19. Anusol Rectal supp as needed (Last dose: Unknown) 20. Milk of Magnesia 800 mg/5 mL Oral susp 10 mL once daily as needed (Last dose: 12/20/2016) 21. Tramadol 25mg Oral every 6 hours as needed 22. Tylenol 325 mg Oral tab 1 tab every 4 hours as needed 23. ondansetron HCl 4 mg Oral tab as needed (Last dose: 12/20/2016) - PMHx: Anemia; Diabetes - NIDDM: controlled; GERD; Heart failure; hyperlipidemia; Hypothyroidism; obstructive sleep apnea; Vitamin D deficiency; Hypertension; - PSHx: Hernia repair; Hysterectomy; Cholecystectomy; - The history from nurses notes was reviewed: but there are no nursing notes, or only partial notes available at the time of my charting. - Social history: Smoking status: Patient states was never smoker of tobacco. No barriers to communication noted, The patient speaks fluent [place], Speaks appropriately for age. - Family history: Not pertinent. - : The pt / caregiver states he / she is not on anticoagulants. Home medication list is obtained from the facility [facility]. - Hospitalizations: : No recent hospitalization is reported. - Exposure Risk Screening:: None identified. - Immunization history:: All immunizations up-to-date. - Social history:: the patient is a non-smoker, the patient does not drink alcohol, resides at [facility]. ROS: 14:03 All systems are negative except as listed. pc Exam: 14:03 General Appearance: no acute distress, alert. pc 14:03 EENT: normal eye inspection, ears, nose and throat normal, pharynx normal, mucous membranes moist 14:03 Neck: The exam reveals no acute abnormalities. ROM is normal and painless. No nuchal rigidity is noted.. 14:03 Respiratory: no respiratory distress, normal breath sounds. 14:03 CVS: regular pulse rate, regular rhythm, normal S1 and S2, no murmurs, strong peripheral pulses. 14:03 Abdomen: soft, no organomegaly, normal bowel sounds, moderate tenderness in the suprapubic area, without rebound, voluntary guarding is not appreciated, involuntary guarding is not appreciated. 14:03 Skin: skin color is normal. 14:03 Extremities: The extremities have a grossly normal appearance. 14:03 Neuro: oriented x 3, cranial nerves normal as tested, no motor deficits, no sensory deficits. Vital Signs: 13:49 BP 133 / 73; Pulse 87; Resp 18; Temp 99.5(O); Pulse Ox 97% on R/A; Weight 147.92 kg / kc3 326.11 lbs; Height 5 ft. 7 in. (170.18 cm); Pain 8/10; 15:19 Pulse 80 MON; Pulse Ox 96% ; kc3 15:20 BP 165 / 85 (auto/); kc3 16:39 BP 146 / 65 (auto/); kc3 16:43 Pulse 78 MON; Pulse Ox 96% ; kc3 18:02 BP 163 / 76 (auto/); kc3 18:03 Pulse 68 MON; Resp 18; Temp 99.4(O); Pulse Ox 95% on R/A; Pain 7/10; kc3 13:49 Body Mass Index 51.07 (147.92 kg, 170.18 cm) kc3 MDM: 13:47 IV Saline Lock ordered. pc 13:48 NOTHING BY MOUTH+DIET ordered. EDMS 13:48 CBC with Diff Ordered. EDMS 13:48 MED Profile Ordered. EDMS 13:48 Pt & Aptt Ordered. EDMS 13:48 Chest, 1 View Ordered. EDMS 13:48 Type & Screen Ordered. EDMS 13:48 ECG WITH READING ER PHYS+CARDIAG ordered. EDMS 13:52 CT ABD & PELVIS: W/O FOL BY WIT+CT: urogram protocol Ordered. EDMS 14:03 Differential Diagnosis: bladder hematoma unknown etiology. Plan: labs, CT. Test pc interpretation: EKG. 14:20 Financial registration complete. mm15 14:28 [facility] Payment Agreement was scanned into [employer] and attached to record. mm15 15:01 BED REQUEST+ADM ordered. EDMS 15:17 CBC with Diff Reviewed. pc 15:18 MED Profile Reviewed. pc 15:18 Pt & Aptt Reviewed. pc 15:18 Data reviewed: old medical records, vital signs, nurses notes, lab test results, all pc radiology studies and available results. Data reviewed: EKG(s). Test interpretation: LAB - all labs as ordered have been reviewed, interpreted and considered in the overall management of the clinical presentation; X-RAY - interpreted by Radiologist and personally reviewed, 1 view chest no acute disease. 15:55 Test interpretation: no contrast in bladder after first delayed images. Patient pc admitted before final readings and final delayed images obtained. The patient has been re-examined and re-evaluated. There is no appreciated change of the patient's symptoms at this time. Physician consultation: Dr. Denny Julio regarding admission. Disposition: The historical points, examination findings, and any diagnostic results supporting the provided diagnosis, were discussed with the patient or legal guardian. The need for further work-up and/or treatment in the hospital was explained. 16:49 morphine 4 mg IVP once ordered. pc 16:49 Ondansetron 4 mg IVP once ordered. pc 16:49 Type & Screen Reviewed. pc 17:01 Admission Orders was scanned into [employer] and attached to record. deg 17:36 Type and Cross, Packed Cells Ordered. EDMS 18:13 Test interpretation: interpreted by Radiologist and personally reviewed, Abdomen/Pelvis pc CT; 7cm mass originating from vaginal cuff, invading bladder. Physician consultation: Dr. Zander Rendon regarding patient's condition, and he will call Dr. Julio to discuss options. 18:13 Physician consultation: Dr. Mohsen Hannon MD regarding admission, and will see patient in ED. 12/21 18:02 PCR was scanned into [employer] and attached to record. kf3 12/22 10:10 ECG/EKG was scanned into [employer] and attached to record. EC/11 14:03 Rate is 79 beats/min. Rhythm is regular, Normal Sinus Rhythm. QRS [place] is Normal. [place] pc interval is normal. QRS interval is normal. QT interval is normal. No Q waves. T waves are Normal. No ST changes noted. Clinical impression: Normal Sinus Rhythm. Administered Medications: 17:21 Drug: morphine 4 mg [morphine 2 mg/mL intravenous cartridge (2 mL)] Route: IVP; Site: kc3 left antecubital; 17:21 Drug: Ondansetron 4 mg [ondansetron HCl 2 mg/mL intravenous solution (2 mL)] Route: kc3 IVP; Site: left antecubital; Signatures: Dispatcher [employer] EDMS Rigoberto Hollis MD MD pc Murray, Denise, Warp Tension Tester Unit deg [facility] Haleigh, Reg Reg gb Navid Lay, Reg Reg kf3 Nic Teague [id number] Tomasa Bashir,RN RN kc3 The chart was reviewed and I authenticate all verbal orders and agree with the evaluation and treatment provided.Corrections: (The following items were deleted from the chart) 13:53 13:47 CT ABD & PELVIS WITH CONTRAST+CT ordered. [facility] EDFL Attachments: 14:28 [facility] Payment Agreement [id number] 17:01 Admission Orders deg 12/22 10:10 ECG/EKG Chart Complete MTDD
--- NOTE | 2016-12-22 19:24 | EDDOCDS ---
Physician Documentation [facility] Name: Bree Dawn Age: 76 yrs Sex: Female : 1940 Arrival Date: 12/20/2016 Time: 13:37 Bed 4 Private MD: Disposition: 12/20 15:55 Critical Care: Critical care not applicable. pc Disposition: 12/20/16 15:58 Hospitalization ordered by Denny Julio for Inpatient Admission. Preliminary diagnosis are Malignant neoplasm of pelvis, Gross hematuria, Retention of urine, Sleep apnea, Morbid (severe) obesity due to excess calories. - Bed requested for Admit. - Status is Inpatient Admission. kc3 - Condition is Stable. - Problem is new. - Symptoms are unchanged. HPI: 14:03 This 76 yrs old Female presents to ER via Ambulance with complaints of pc Urinary Problem. 14:03 The history is obtained from the patient, custodial records, Dr. Julio. She has been pc having hematuria for a week, worked up for vaginal bleeding s/p hysterectomy. A pelvic US revealed a bladder filled with clot. She has not been able to void and is having suprapubic pain. Dr. Julio requested the labs and imaging as ordered and plans to take her to the OR tonight. At their worst, the symptoms were moderate. In the emergency department, the symptoms are unchanged. The patient has been recently seen by their primary care provider. Historical: - Allergies: No known drug Allergies; - Home Meds: 1. acetaminophen 500 mg Oral cap 2 caps twice a day (Last dose: 12/20/2016) 2. levothyroxine 150 mcg oral tab once daily (Last dose: 12/20/2016) 3. aspirin 325 mg Oral TbEC 1 tab once daily (Last dose: 12/20/2016) 4. baclofen 10 mg Oral tab 1 tab daily (Last dose: 12/19/2016) 5. Claritin 10 mg Oral tab 1 tab once daily (Last dose: 12/20/2016) 6. Cymbalta 60 mg Oral cpDR 1 cap twice a day (Last dose: 12/20/2016) 7. docusate sodium 100 mg Oral tab 1 tab once daily (Last dose: 12/20/2016) 8. medroxyprogesterone 10 mg Oral tab 1 tab once daily (Last dose: 12/19/2016) 9. metformin 500 mg Oral tab 1 tab 2 times per day (Last dose: 12/20/2016) 10. Miralax 17 gram/dose Oral powd once daily (Last dose: 12/20/2016) 11. omeprazole 40 mg Oral cpDR 1 cap once daily (Last dose: 12/20/2016) 12. oxybutynin chloride 5 mg Oral tr24 1 tab once daily (Last dose: 12/20/2016) 13. senna 8.6 mg oral tab once daily (Last dose: 12/20/2016) 14. trazodone 100 mg Oral tab 1 tab daily (Last dose: 12/19/2016) 15. Vitamin D 5000 units Oral 5000 unit twice a day thursday-thursday (Last dose: 12/19/2016) 16. albuterol sulfate 2.5 mg /3 mL (0.083 %) Inhl nebu 3 mL every 4 hours as needed 17. Enema 19-7 gram/118 mL Rectal enem daily as needed (Last dose: Unknown) 18. Dulcolax (bisacodyl) 10 mg Rectal supp 1 suppository once daily as needed (Last dose: Unknown) 19. Anusol Rectal supp as needed (Last dose: Unknown) 20. Milk of Magnesia 800 mg/5 mL Oral susp 10 mL once daily as needed (Last dose: 12/20/2016) 21. Tramadol 25mg Oral every 6 hours as needed 22. Tylenol 325 mg Oral tab 1 tab every 4 hours as needed 23. ondansetron HCl 4 mg Oral tab as needed (Last dose: 12/20/2016) - PMHx: Anemia; Diabetes - NIDDM: controlled; GERD; Heart failure; hyperlipidemia; Hypothyroidism; obstructive sleep apnea; Vitamin D deficiency; Hypertension; - PSHx: Hernia repair; Hysterectomy; Cholecystectomy; - The history from nurses notes was reviewed: but there are no nursing notes, or only partial notes available at the time of my charting. - Social history: Smoking status: Patient states was never smoker of tobacco. No barriers to communication noted, The patient speaks fluent Nicaraguan, Speaks appropriately for age. - Family history: Not pertinent. - : The pt / caregiver states he / she is not on anticoagulants. Home medication list is obtained from the facility [facility]. - Hospitalizations: : No recent hospitalization is reported. - Exposure Risk Screening:: None identified. - Immunization history:: All immunizations up-to-date. - Social history:: the patient is a non-smoker, the patient does not drink alcohol, resides at [facility]. ROS: 14:03 All systems are negative except as listed. pc Exam: 14:03 General Appearance: no acute distress, alert. pc 14:03 EENT: normal eye inspection, ears, nose and throat normal, pharynx normal, mucous membranes moist 14:03 Neck: The exam reveals no acute abnormalities. ROM is normal and painless. No nuchal rigidity is noted.. 14:03 Respiratory: no respiratory distress, normal breath sounds. 14:03 CVS: regular pulse rate, regular rhythm, normal S1 and S2, no murmurs, strong peripheral pulses. 14:03 Abdomen: soft, no organomegaly, normal bowel sounds, moderate tenderness in the suprapubic area, without rebound, voluntary guarding is not appreciated, involuntary guarding is not appreciated. 14:03 Skin: skin color is normal. 14:03 Extremities: The extremities have a grossly normal appearance. 14:03 Neuro: oriented x 3, cranial nerves normal as tested, no motor deficits, no sensory deficits. Vital Signs: 13:49 BP 133 / 73; Pulse 87; Resp 18; Temp 99.5(O); Pulse Ox 97% on R/A; Weight 147.92 kg / kc3 326.11 lbs; Height 5 ft. 7 in. (170.18 cm); Pain 8/10; 15:19 Pulse 80 MON; Pulse Ox 96% ; kc3 15:20 BP 165 / 85 (auto/); kc3 16:39 BP 146 / 65 (auto/); kc3 16:43 Pulse 78 MON; Pulse Ox 96% ; kc3 18:02 BP 163 / 76 (auto/); kc3 18:03 Pulse 68 MON; Resp 18; Temp 99.4(O); Pulse Ox 95% on R/A; Pain 7/10; kc3 13:49 Body Mass Index 51.07 (147.92 kg, 170.18 cm) kc3 MDM: 13:47 IV Saline Lock ordered. pc 13:48 NOTHING BY MOUTH+DIET ordered. EDMS 13:48 CBC with Diff Ordered. EDMS 13:48 MED Profile Ordered. EDMS 13:48 Pt & Aptt Ordered. EDMS 13:48 Chest, 1 View Ordered. EDMS 13:48 Type & Screen Ordered. EDMS 13:48 ECG WITH READING ER PHYS+CARDIAG ordered. EDMS 13:52 CT ABD & PELVIS: W/O FOL BY WIT+CT: urogram protocol Ordered. EDMS 14:03 Differential Diagnosis: bladder hematoma unknown etiology. Plan: labs, CT. Test pc interpretation: EKG. 14:20 Financial registration complete. mm15 14:28 [facility] [place] was scanned into [employer] and attached to record. mm15 15:01 BED REQUEST+ADM ordered. EDMS 15:17 CBC with Diff Reviewed. pc 15:18 MED Profile Reviewed. pc 15:18 Pt & Aptt Reviewed. pc 15:18 Data reviewed: old medical records, vital signs, nurses notes, lab test results, all pc radiology studies and available results. Data reviewed: EKG(s). Test interpretation: LAB - all labs as ordered have been reviewed, interpreted and considered in the overall management of the clinical presentation; X-RAY - interpreted by Radiologist and personally reviewed, 1 view chest no acute disease. 15:55 Test interpretation: no contrast in bladder after first delayed images. Patient pc admitted before final readings and final delayed images obtained. The patient has been re-examined and re-evaluated. There is no appreciated change of the patient's symptoms at this time. Physician consultation: Dr. Denny Julio regarding admission. Disposition: The historical points, examination findings, and any diagnostic results supporting the provided diagnosis, were discussed with the patient or legal guardian. The need for further work-up and/or treatment in the hospital was explained. 16:49 morphine 4 mg IVP once ordered. pc 16:49 Ondansetron 4 mg IVP once ordered. pc 16:49 Type & Screen Reviewed. pc 17:01 Admission Orders was scanned into [employer] and attached to record. deg 17:36 Type and Cross, Packed Cells Ordered. EDMS 18:13 Test interpretation: interpreted by Radiologist and personally reviewed, Abdomen/Pelvis pc CT; 7cm mass originating from vaginal cuff, invading bladder. Physician consultation: Dr. Zander Rendon regarding patient's condition, and he will call Dr. Julio to discuss options. 18:13 Physician consultation: Dr. Mohsen Hannon MD regarding admission, and will see patient in ED. 12/21 18:02 PCR was scanned into [employer] and attached to record. kf3 12/22 10:10 ECG/EKG was scanned into [employer] and attached to record. EC/11 14:03 Rate is 79 beats/min. Rhythm is regular, Normal Sinus Rhythm. QRS [place] is Normal. MT pc interval is normal. QRS interval is normal. QT interval is normal. No Q waves. T waves are Normal. No ST changes noted. Clinical impression: Normal Sinus Rhythm. Administered Medications: 17:21 Drug: morphine 4 mg [morphine 2 mg/mL intravenous cartridge (2 mL)] Route: IVP; Site: kc3 left antecubital; 17:21 Drug: Ondansetron 4 mg [ondansetron HCl 2 mg/mL intravenous solution (2 mL)] Route: kc3 IVP; Site: left antecubital; Signatures: Dispatcher [employer] EDMS Rigoberto Hollis MD MD pc Murray, Denise, Coffee Roaster Helper Unit deg [facility], Haleigh, Reg Reg gb Navid Lay, Reg Reg kf3 Nic Teague mm15 Tomasa Bashir,RN RN kc3 The chart was reviewed and I authenticate all verbal orders and agree with the evaluation and treatment provided.Corrections: (The following items were deleted from the chart) 13:53 13:47 CT ABD & PELVIS WITH CONTRAST+CT ordered. [facility] Attachments: 14:28 [facility] [place] Agreement mm15 17:01 Admission Orders deg 12/22 10:10 ECG/EKG Chart Complete MTDD
--- NOTE | 2016-12-22 19:24 | EDDOCDS ---
Nurse's Notes [facility] Name: Bree Dawn Age: 76 yrs Sex: Female : 1940 Arrival Date: 12/20/2016 Time: 13:37 Bed 4 Private MD: Diagnosis: Gross hematuria;Retention of urine;Malignant neoplasm of pelvis;Sleep apnea;Morbid (severe) obesity due to excess calories Presentation: 12/20 13:43 Presenting complaint: EMS states: ultrasound performed yesterday with resulted blood kc3 clots in bladder. Pt c/o lower abd pain and hematuria. Adult Sepsis Screening: The patient does not have new or worsening altered mentation. Patient's respiratory rate is less than 22. Systolic blood pressure is greater than 100. Patient has a qSOFA score of 0- Negative Sepsis Screen. Suicide/Homicide risk assessment- the patient denies having any suicidal and/or homicidal ideations and does not present with any other emotional, behavioral or mental health complaints. Status: Patient is not a patient service representative or dependent. Transition of care: patient was received from [facility]. 13:43 Acuity: ISABELLA Level 3 kc3 13:43 Method Of Arrival: Ambulance kc3 Triage Assessment: 13:49 General: Appears uncomfortable, Behavior is appropriate for age, cooperative. Pain: kc3 Location: abdomen Pain currently is 8 out of 10 on a pain scale. The patient is triaged at the bedside. See Assessment in Nurses Notes section of ED record. Neurological: Level of Consciousness is awake, alert, obeys commands, Oriented to person, place, time. Respiratory: Airway is patent Respiratory effort is even, unlabored. GI: Abdomen is obese, Bowel sounds present X 4 quads. Abd is soft Abd is tender to palpation Reports lower abdominal pain. : Reports hematuria. Derm: Skin is pink, warm & dry. Reports wound to back left thigh currently being treated outpatient with dressing in place. Historical: - Allergies: No known drug Allergies; - Home Meds: 1. acetaminophen 500 mg Oral cap 2 caps twice a day (Last dose: 12/20/2016) 2. levothyroxine 150 mcg oral tab once daily (Last dose: 12/20/2016) 3. aspirin 325 mg Oral TbEC 1 tab once daily (Last dose: 12/20/2016) 4. baclofen 10 mg Oral tab 1 tab daily (Last dose: 12/19/2016) 5. Claritin 10 mg Oral tab 1 tab once daily (Last dose: 12/20/2016) 6. Cymbalta 60 mg Oral cpDR 1 cap twice a day (Last dose: 12/20/2016) 7. docusate sodium 100 mg Oral tab 1 tab once daily (Last dose: 12/20/2016) 8. medroxyprogesterone 10 mg Oral tab 1 tab once daily (Last dose: 12/19/2016) 9. metformin 500 mg Oral tab 1 tab 2 times per day (Last dose: 12/20/2016) 10. Miralax 17 gram/dose Oral powd once daily (Last dose: 12/20/2016) 11. omeprazole 40 mg Oral cpDR 1 cap once daily (Last dose: 12/20/2016) 12. oxybutynin chloride 5 mg Oral tr24 1 tab once daily (Last dose: 12/20/2016) 13. senna 8.6 mg oral tab once daily (Last dose: 12/20/2016) 14. trazodone 100 mg Oral tab 1 tab daily (Last dose: 12/19/2016) 15. Vitamin D 5000 units Oral 5000 unit twice a day thursday-thursday (Last dose: 12/19/2016) 16. albuterol sulfate 2.5 mg /3 mL (0.083 %) Inhl nebu 3 mL every 4 hours as needed 17. Enema 19-7 gram/118 mL Rectal enem daily as needed (Last dose: Unknown) 18. Dulcolax (bisacodyl) 10 mg Rectal supp 1 suppository once daily as needed (Last dose: Unknown) 19. Anusol Rectal supp as needed (Last dose: Unknown) 20. Milk of Magnesia 800 mg/5 mL Oral susp 10 mL once daily as needed (Last dose: 12/20/2016) 21. Tramadol 25mg Oral every 6 hours as needed 22. Tylenol 325 mg Oral tab 1 tab every 4 hours as needed 23. ondansetron HCl 4 mg Oral tab as needed (Last dose: 12/20/2016) - PMHx: Anemia; Diabetes - NIDDM: controlled; GERD; Heart failure; hyperlipidemia; Hypothyroidism; obstructive sleep apnea; Vitamin D deficiency; Hypertension; - PSHx: Hernia repair; Hysterectomy; Cholecystectomy; - The history from nurses notes was reviewed: but there are no nursing notes, or only partial notes available at the time of my charting. - Social history: Smoking status: Patient states was never smoker of tobacco. No barriers to communication noted, The patient speaks fluent Czech, Speaks appropriately for age. - Family history: Not pertinent. - : The pt / caregiver states he / she is not on anticoagulants. Home medication list is obtained from the facility [facility]. - Hospitalizations: : No recent hospitalization is reported. - Exposure Risk Screening:: None identified. - Immunization history:: All immunizations up-to-date. - Social history:: the patient is a non-smoker, the patient does not drink alcohol, resides at [facility]. Screenin:52 Screening information is obtained from the patient. Fall risk: At risk due to kc3 immobility, The following interventions are performed due to a positive Fall Risk Screen: Fall Risk is added to Special Handling on the patient Summary Screen. A Fall Risk Bracelet was applied to the patient. Side Rails are placed in the up position. A Call Nichols is given with instruction to call for help when getting out of bed. Fall Alert bracelet is placed on the patient. Assistance ADL's: Requires assistance with meal preparation, this assistance is provided by residence staff, bathing, assistance is provided by residence staff, dressing, assistance is provided by residence staff, toileting, assistance is provided by residence staff, ambulation, assistance is provided by residence staff, housework, assistance is provided by residence staff, medication administration, assistance is provided by residence staff. Abuse/DV Screen: The patient / caregiver reports he/she is: not in a situation that causes fear, pain or injury. Nutritional screening: No deficits noted. Advance Directives: Currently, there is a health care proxy, Sydni Arias, daughter. There is an active DNR order and the pt has a copy here at this time. home support is adequate. Assessment: 13:52 General: See triage for initial assessment. . kc3 14:40 General: Dr. Julio at bedside. . kc3 15:18 General: Appears in no apparent distress, comfortable, Behavior is appropriate for age, kc3 cooperative, Family at bedside. . Pain: Location: abdomen. Neurological: Level of Consciousness is awake, alert, obeys commands, Oriented to person, place, time. Respiratory: Respiratory effort is even, unlabored. GI: Abdomen is non- distended obese, Reports lower abdominal pain. GI: Bowel sounds present X 4 quads. Abd is soft. Derm: Skin is pink, warm & dry. 16:20 General: Appears in no apparent distress, comfortable, Behavior is appropriate for age, kc3 cooperative, Family at bedside. . General: Pt's brief change and assisted to comfortable position in bed. . Pain: Location: abdomen. Neurological: Level of Consciousness is awake, alert, obeys commands, Oriented to person, place, time. Respiratory: Respiratory effort is even, unlabored. Derm: Skin is pink, warm & dry. 17:19 General: Appears in no apparent distress, comfortable, Behavior is appropriate for age, kc3 cooperative. General: Pt requesting pain medication. Dr. Hollis aware. New orders placed and performed. . Pain: Location: abdomen. Neurological: Level of Consciousness is awake, alert, obeys commands, Oriented to person, place, time. Respiratory: Airway is patent Respiratory effort is even, unlabored. Derm: Skin is pink, warm & dry. 18:09 General: Appears in no apparent distress, comfortable, Behavior is appropriate for age, kc3 cooperative. Pain: Location: abdomen. Neurological: Level of Consciousness is awake, alert, obeys commands, Oriented to person, place, time. Respiratory: Airway is patent Respiratory effort is even, unlabored. Derm: Skin is pink, warm & dry. see previous documentation. Vital Signs: 13:49 BP 133 / 73; Pulse 87; Resp 18; Temp 99.5(O); Pulse Ox 97% on R/A; Weight 147.92 kg; 3 Height 5 ft. 7 in. (170.18 cm); Pain 8/10; 15:19 Pulse 80 MON; Pulse Ox 96% ; 3 15:20 BP 165 / 85 (auto/); kc3 16:39 BP 146 / 65 (auto/); kc3 16:43 Pulse 78 MON; Pulse Ox 96% ; kc3 18:02 BP 163 / 76 (auto/); kc3 18:03 Pulse 68 MON; Resp 18; Temp 99.4(O); Pulse Ox 95% on R/A; Pain 7/10; kc3 13:49 Body Mass Index 51.07 (147.92 kg, 170.18 cm) [facility] Vitals: 13:49 Log In Time N/A - ambulance arrival. kc3 ED Course: 13:38 Patient visited by Vielka Duke, Caseworker Protective Services. deg 13:38 Patient moved to Waiting deg 13:39 Tomasa Bashir RN is Primary Nurse. deg 13:39 Patient moved to 4 deg 13:41 Rigoberto Hollis MD is Attending Physician. pc 13:47 Patient visited by Rigoberto Hollis MD. pc 13:47 Triage Initiated kc3 13:54 The patient / caregiver is instructed regarding the plan of care and ED course. kc3 14:08 Pt & Aptt Sent. kc3 14:08 Type & Screen Sent. kc3 14:08 MED Profile Sent. kc3 14:08 CBC with Diff Sent. kc3 14:08 Inserted saline lock: 20 gauge in left antecubital area and blood collected. The kc3 patient tolerated the procedure well. Labs drawn. (by ED staff). Sent per order to lab. 14:15 EKG done. (by ED staff). Reviewed by Rigoberto Hollis MD. jrd 14:28 Patient visited by Tomasa Bashir RN. kc3 14:28 [facility] Payment Agreement was scanned into [employer] and attached to record. mm15 15:09 Patient visited by Tomasa Bashir RN. kc3 15:58 Denny Julio is Hospitalizing Provider. pc 16:04 Patient visited by Jakob Leong PCA. jrd 17:01 Admission Orders was scanned into [employer] and attached to record. deg 17:21 Patient visited by Tomasa Bashir RN. kc3 18:12 No procedures done that require assistance. kc3 18:21 Type and Cross, Packed Cells Sent. kc3 02 18:02 PCR was scanned into [employer] and attached to record. kf3 02 10:10 ECG/EKG was scanned into [employer] and attached to record. gb Administered Medications: 12/20 17:21 Drug: morphine 4 mg [morphine 2 mg/mL intravenous cartridge (2 mL)] Route: IVP; Site: kc3 left antecubital; 17:21 Drug: Ondansetron 4 mg [ondansetron HCl 2 mg/mL intravenous solution (2 mL)] Route: kc3 IVP; Site: left antecubital; Order Results: Lab Order: CBC with Diff; SPEC'M 12/20/16 14:06 Test: WHITE BLOOD COUNT; Value: 8.6; Range: 4.0-10.0; Units: K/mm3; Status: F Test: RED BLOOD COUNT; Value: 4.19; Range: 4.00-5.40; Units: M/mm3; Status: F Test: HEMOGLOBIN; Value: 12.1; Range: 12.0-16.0; Units: g/dl; Status: F Test: HEMATOCRIT; Value: 37.4; Range: 36.0-47.0; Units: %; Status: F Test: MEAN CORPUSCULAR VOLUME; Value: 89.2; Range: 80.0-96.0; Units: fl; Status: F Test: MEAN CORPUSCULAR HEMOGLOBIN; Value: 28.9; Range: 27.0-33.0; Units: pg; Status: F Test: MEAN CORPUSCULAR HGB CONC; Value: 32.3; Range: 32.0-36.5; Units: g/dl; Status: F Test: RED CELL DISTRIBUTION WIDTH; Value: 13.6; Range: 11.5-14.5; Units: %; Status: F Test: PLATELET COUNT, AUTOMATED; Value: 356; Range: 150-450; Units: k/mm3; Status: F Test: NEUTROPHILS %; Value: 67.4; Range: 36.0-66.0; Abnormal: Above high normal; Units: %; Status: F Test: LYMPH %; Value: 15.7; Range: 24.0-44.0; Abnormal: Below low normal; Units: %; Status: F Test: MONO %; Value: 7.5; Range: 0.0-5.0; Abnormal: Above high normal; Units: %; Status: F Test: EOS %; Value: 7.2; Range: 0.0-3.0; Abnormal: Above high normal; Units: %; Status: F Test: BASO %; Value: 0.4; Range: 0.0-1.0; Units: %; Status: F Test: LARGE UNSTAINED CELL %; Value: 1.8; Range: 0.0-4.0; Units: %; Status: F Test: NEUTROPHILS #; Value: 5.8; Range: 1.8-7.7; Units: K/mm3; Status: F Test: LYMPH #; Value: 1.4; Range: 1.5-4.5; Abnormal: Below low normal; Units: K/mm3; Status: F Test: MONO #; Value: 0.6; Range: 0.0-0.8; Units: K/mm3; Status: F Test: EOS #; Value: 0.6; Range: 0.0-0.50; Abnormal: Above high normal; Units: K/mm3; Status: F Test: BASO #; Value: 0.0; Range: 0.0-0.2; Units: K/mm3; Status: F Test: LARGE UNSTAINED CELL #; Value: 0.2; Range: 0.0-0.4; Units: K/mm3; Status: F Lab Order: MED Profile; SPEC'M 12/20/16 14:06 Test: GLUCOSE, FASTING; Value: 105; Range: 83-110; Units: MG/DL; Status: F Test: BLOOD UREA NITROGEN; Value: 18; Range: 7-18; Units: MG/DL; Status: F Test: CREATININE FOR GFR; Value: 0.83; Range: 0.55-1.02; Units: MG/DL; Status: F Test: GLOMERULAR FILTRATION RATE; Value: > 60.0; Range: >39; Status: F Test: SODIUM LEVEL; Value: 139; Range: 136-145; Units: MEQ/L; Status: F Test: POTASSIUM SERUM; Value: 4.9; Range: 3.5-5.1; Units: MEQ/L; Status: F Test: CHLORIDE LEVEL; Value: 102; Range: 98-107; Units: MEQ/L; Status: F Test: CARBON DIOXIDE LEVEL; Value: 30; Range: 21-32; Units: MEQ/L; Status: F Test: ANION GAP; Value: 7; Range: 8-16; Abnormal: Below low normal; Units: MEQ/L; Status: F Test: CALCIUM LEVEL; Value: 10.1; Range: 8.8-10.2; Units: MG/DL; Status: F Test Note: ; Units are mL/min/1.73 m2 Chronic Kidney Disease Staging per NKF: Stage I & II GFR >=60 Normal to Mildly Decreased Stage III GFR 30-59 Moderately Decreased Stage IV GFR 15-29 Severely Decreased Stage V GFR <15 Very Little GFR Left ESRD GFR <15 on CLIENT SERVICE COORDINATOR Lab Order: Type & Screen; SPEC'M 12/20/16 14:41 Test: BLOOD TYPE; Value: O POS; Status: F Test: AB SCREEN (INDIRECT VICTORIANO)VIS; Value: NEGATIVE; Status: F Lab Order: Pt & Aptt; SPEC'M 12/20/16 14:06 Test: PROTHROMBIN TIME; Value: 14.6; Range: 12.3-14.5; Abnormal: Above high normal; Units: SECONDS; Status: F Test: INR; Value: 1.13; Status: F Test: PARTIAL THROMBOPLASTIN TIME; Value: 30.6; Range: 26.6-37.1; Units: SECONDS; Status: F Test Note: ; THERAPUTIC HUMAN INR VALUES INDICATIONS NORMAL RANGES PROPHYLAXIS/TREATMENT OF: VENOUS THROMBOSIS 2.0-3.0 PULMONARY EMBOLISM 2.0-3.0 PREVENTION OF SYSTEMIC EMBOLISM FROM: TISSUE HEART VALVES 2.0-3.0 ACUTE MYOCARDIAL INFARCTION 2.0-3.0 VALVULAR HEART DISEASE 2.0-3.0 ATRIAL FIBRILLATION 2.0-3.0 MECHANICAL VALVES(HIGH RISK) 2.5-3.5 RECURRENT MYOCARDIAL INFARCTION 2.5-3.5 Outcome: 15:58 Decision to Hospitalize by Provider. 18:11 Discharge Assessment: patient administered narcotics - yes. Patient was admitted to the [address] or transferred to another facility. The following High Risk Discharge criteria are identified: None. Admitted to OR. Condition: stable. CT Study completed. Property :Personal belongings accompany Pt. 18:24 Patient left the ED. [facility] Signatures: Rigoberto Hollis MD MD pc Vielka Duke, Caseworker Protective Services Unit deg Haleigh Russell, Reg Reg gb Navid Lay, Reg Reg kf3 Nic Teague mm15 Jakob Leong, CARINE VALUE ADVISOR jrd Tomasa Bashir,SHIRA RN [facility] Corrections: (The following items were deleted from the chart) 18:22 18:03 Pulse 68bpm; Monitor; Pulse Ox 95%; [place] [id number] Chart Complete MTDD
[2016-12-22 22:00] VITALS: BP 138/63
[2016-12-23] MEDS: LR 1,000 ML IV SCH (05:59)
[2016-12-23] MEDS: BISACODYL 5 MG TAB PO PRN (05:59)
[2016-12-23] MEDS: LEVOTHYROXINE 0.15 MG TAB (150 MCG) PO SCH (05:59)
[2016-12-23 06:00] VITALS: BP 130/60
[2016-12-23] MEDS: PERCOCET 5MG/325MG TAB PO PRN ×3 (06:01→20:29)
[2016-12-23] MEDS: DULoxetine 30 MG CAP (CYMBALTA) PO SCH (08:29)
[2016-12-23] MEDS: OMEPRAZOLE 20 MG CAP PO SCH (08:29)
[2016-12-23] MEDS: oxyBUTYnin *DITROPAN XL* 5 MG TABCR PO SCH (08:29)
[2016-12-23] MEDS: SENOKOT S TAB PO SCH (08:30)
--- NOTE | 2016-12-23 09:49 | IPNPDOC ---
Assessment/Plan Date Seen The patient was seen on 12/23/16. Patient Summary This is a 76 y/o F admitted w/ hematuria and a possible vaginal mass, POD3 s/p cysto and clot evacuation. Her urine is draining clear as of this morning. Problems (1) Anemia Status: Acute (2) Pelvic mass Status: Acute (3) Hematuria Status: Acute (4) Hydronephrosis Status: Acute (5) KENDRICK (obstructive sleep apnea) Status: Chronic (6) Morbid obesity Status: Chronic (7) Hypothyroidism Status: Chronic Plan/VTE VTE Prophylaxis Ordered?: No VTE Exclusion Pharmacological: Bleeding Risk (SUKH/SCD.) Plan/Urinary Catheter Reason for insertion/continuin: Other-document below (maintain catheter in place due to hematuria and potential for clot retention) Plan - stop CBI and plug irrigation port - keep catheter to gravity drainage for now and manually irrigate as needed if hematuria recurs - I recommended that the patient stay NPO for now until a decision is made as to whether or not to proceed w/ a biopsy of her pelvic mass - I suspect this mass is either gynecologic or GI in origin as there was no sign of a mass in her bladder on cystoscopy a few months ago as well as the one this weekend Subjective Review oF Systems Chief Complaint Hematuria Events since Last Encounter A large amount of clots were manually irrigated out of the patient's bladder yesterday evening and the CBI was started. Since then the patient's urine has drained pretty much clear. Nursing has not had to manually irrigate the catheter o/n. The patient denies pain. No chest pain or SOB. No f/c. Objective Physical Examination General Exam: : Alert: Cooperative: No Acute Distress ENT EXAM: : Atraumatic Heart Exam: Positive: Rate Normal, Regular Rhythm ABDOMEN EXAM: : Soft Neuro Exam: : Normal Speech Psych Exam: : Mental status NL: Mood NL Other physical findings 3-way catheter in place w/ CBI on very minimal drip and clear urine draining Vital Signs/I&O Vital Signs Date Time Temp Pulse Resp B/P Pulse Ox O2 Delivery O2 Flow Rate FiO2 12/23/16 08:31 Room Air 12/23/16 06:31 12 97 3.0 12/23/16 06:00 98.9 65 130/60 I&O- Last 24 Hours up to 6 AM 12/23/16 06:00 Intake Total 1920 ml Output Total 1500 ml Balance 420 ml Laboratory Data Microbiology Microbiology 12/20/16 Urine Culture - Final, Complete 12/20/16 Urine Culture - Final, Complete HEATHER MADISON MD Dec 23, 2016 09:49
[2016-12-23 10:19] LABS: CA 125 16.8 U/ML (<30.2)
--- NOTE | 2016-12-23 11:50 | IPNPDOC ---
Subjective General Date Seen The patient was seen on 12/23/16. Subjective Chief Complaint/HPI The patient is a 76-year-old female admitted with a reason for visit of Hematuria. Events since last encounter CEA elevated at 3.0. YARDER BOSS tumor markers negative. Indicates potential for rectal etiology. Patient c/o lower abdominal crmaping and constipation. No BM x 3 days. Denies nausea, no vomiting. CLear urine with no need for flushing of catheter today. Constitutional: Denies: Chills, Fever Skin: Denies: Rash Pulmonary: Reports: Dyspnea, Denies: Cough Cardiovascular: Denies: Chest Pain, Palpitations Gastrointestinal: Reports: Abdominal Pain, Constipation, Denies: Nausea, Vomiting Genitourinary: Reports: Other Symptoms (Pruitt) Psych: Reports: Anxiety Objective Physical Examination General Exam: Positive: Alert, No Acute Distress Neck Exam: Positive: Supple, Negative: JVD Chest Exam: Positive: Clear to auscultation Heart Exam: Positive: Rate Normal, Regular Rhythm Abdomen Exam: Positive: Normal bowel sounds, Other (Pruitt with bright red hematuria), Soft, Tenderness (pain on palpation to BLQ. Midline incisional hernia. ) Extremity Exam: Negative: Edema Skin Exam: Positive: Other skin issue (dressing to posterior left mid leg) Assessment /Plan Problems Problems: (1) Anemia Status: Acute Problem Text: 12/23 10.8 12/22/16 hgb down to 10.8 baseline 12s (2) Pelvic mass Status: Acute Problem Specific Plan: Consult Specialist, Monitor Clinically, Repeat Labs Problem Text: 12/23/2016: CEA level of [address] Stevenson surgery consulted. Potential for Colonoscopy December-although p review of films do not favor colonic origin-therefore, check MRI pelvis s/c and if - colon, plan transvaginal biopsy by IR 12/21 - CT Abd/Pelv 12/20: There is a solid appearing mass at the vaginal cuff about 7 cm and it appears to be invading the posterior bladder and bladder collects urine only and small curvilinear pools posteriorly near the ureteral orifices. More on the right than left. Mostly of the bladder filled with a soft tissue density by ultrasound, has attenuation in 30's on noncontrast CT, it may be clot with tumor posteriorly suspected. I do not have details of her surgery, but the reported hysterectomy may have left cervix or conceivably ovarian tissue remnant could be responsible for this. Hydronephrosis, left greater than right. Large seroma anterior subcutaneous abdominal/pelvic wall. Other chronic changes as described. Urology and YARDER BOSS following. Pt states that she had a hysterectomy 45 years ago believes that she it was a supracervical hysterectomy. Dr. Rendon called to discuss his findings and plan. As above, believe that she had a post supra-cervical hysterectomy. Likely had ovaries left since she didn't start ERT until many years later. By exam, surface of cervix seemed normal but nearby mass palpable. 11/10/12 CT AP 37 mm "vaginal cuff" cyst unchanged c/w 03/2010 CT AP (3) Hematuria Status: Acute Problem Specific Plan: Consult Specialist, Monitor Clinically, Repeat Labs Problem Text: persistent, gross 12/21 - Urology following. Gross hematuria. Clot urinary retention. Questionable extrinsic bladder mass. Pt had Cystoscopy, bladder washings for cytology, clot evacuation (500 mL), and Pruitt catheter insertion. 12/20/16 UCX NG (4) Hydronephrosis Status: Acute Problem Specific Plan: Consult Specialist, Monitor Clinically, Repeat Labs Problem Text: Urology following. (5) KENDRICK (obstructive sleep apnea) Status: Chronic Problem Specific Plan: Monitor Clinically Problem Text: Pt has not been using CPAP. (6) Morbid obesity Status: Chronic Problem Specific Plan: Monitor Clinically (7) Hypothyroidism Status: Chronic Problem Specific Plan: Monitor Clinically Problem Text: On Synthroid. Plan/VTE VTE Prophylaxis Ordered?: No VTE Exclusion Pharmacological: Bleeding Risk (SUKH/SCD.) Plan/Urinary Catheter Reason for insertion/continuin: Other-document below (maintain catheter in place due to hematuria and potential for clot retention) VS, I&O, 24H, Fishbone Vital Signs/I&O Vital Signs Date Time Temp Pulse Resp B/P Pulse Ox O2 Delivery O2 Flow Rate FiO2 12/23/16 08:31 Room Air 12/23/16 06:31 12 97 3.0 12/23/16 06:00 98.9 65 130/60 I&O- Last 24 Hours up to 6 AM 12/23/16 06:00 Intake Total 1920 ml Output Total 1500 ml Balance 420 ml Laboratory Data Microbiology Microbiology 12/20/16 Urine Culture - Final, Complete 12/20/16 Urine Culture - Final, Complete Tosin Costa [facility] Dec 23, 2016 11:50 Noel Lopez M.D. Dec 23, 2016 17:33 Tosin Costa [facility] Dec 23, 2016 11:50
[2016-12-23] MEDS: MIRALAX *UNIT DOSE* 17GM PACKET PO PRN (12:27)
[2016-12-23 14:00] VITALS: BP 130/64
[2016-12-23 14:13] LABS: HCG SERUM TUMOR MARKER QUANT 6 mIU/mL (.)
[2016-12-23] MEDS: DOCUSATE SODIUM 100 MG CAP PO SCH ×2 (14:26→20:29)
--- NOTE | 2016-12-23 15:50 | CR ---
DATE OF CONSULTATION: 12/23/2016 BRIEF HISTORY OF PRESENT ILLNESS: The patient is a 76-year-old female who presents to the emergency room with some hematuria, quite severe in nature with blood clots. She has had multiple urinary tract infections/gross hematuria in the past and presents now for increasing abdominal pain, crampy abdominal pain, and hematuria. On her workup of her hematuria, she ended up having a CT scan that showed a mass/partially cystic/solid mass posterior to the bladder where the uterus would be. 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 The cystoscopy showed a significant amount of blood. They were unable to completely evacuate the blood clots. However, some blood work did reveal a slightly elevated carcinoembryonic antigen (CEA) and I was asked to see her for a possible colonoscopy. In reviewing her CT scan, indeed this is adjacent to the rectum but I do think I see some normal planes around the rectum and it does not seem to be inflaming the rectum or the colon around it. Thus, the likelihood that this is a colonic primary is very low likelihood. It does seem to be abutting, possibly invasive into the bladder on the CT scan and even with the ultrasound, I am not finding very well-established planes on the bladder itself. The patient has had a previous cystic-type structure present about three years ago on a previous CT scan. The patient has had also a colonoscopy seven years ago but this was an incomplete colonoscopy given that her colon was within a large ventral hernia and it was unable to be traversed. PAST MEDICAL HISTORY: Significant for: 1. History of morbid obesity. 2. History of sleep apnea. 3. History of B12 deficiency. 4. History of antinuclear antibody (TRAY) positive antibody test. 5. History of congestive heart failure. 6. History of hyperlipidemia. 7. History of hypertension. 8. History of gastroesophageal (GE) reflux. 9. History of depression. 10. History of chronic pain. PAST SURGICAL HISTORY: History of cataract surgery, sections, hernia repair, hysterectomy. MEDICATIONS: Include: Tylenol, albuterol, baclofen, bisacodyl suppositories, vitamin D, docusate, senna, duloxetine, Anusol, levothyroxine, loratadine, magnesium citrate as needed, metformin, milk of magnesia, omeprazole, Zofran, oxybutynin, MiraLAX, tramadol, trazodone. PHYSICAL EXAMINATION: Reveals a morbidly obese female who looks stated age. HEENT is unremarkable. Neck: Supple without adenopathy. Lungs are clear although diminished at the bases bilaterally. Heart is regular with multiple irregular beats. Abdomen is morbidly obese, mildly tender in the suprapubic area and the right lower quadrant and the left lower quadrant, but no guarding and no rebound is appreciated. In general, it is actually hard to feel the large seroma that is underneath her incision that I am able to visualize on her CT scan. IMPRESSION AND PLAN: The patient has an abnormal lesion posterior to the bladder and adjacent to the vaginal cuff, anterior to the rectum. The etiology of this is yet to be determined. I do agree with an MRI for further evaluation, possibly biopsying this as a transvaginal biopsy might be applicable in this situation. Other options for her are repeat cystoscopy. It sounds as though reportedly that this was an incomplete cystoscopy given the amount of blood and blood clots present and thus she may benefit to proceed with a repeat cystoscopy. I would have expected if this was more of an invasive cancer instead of invading externally that this would at least cause some colonic partial obstructive symptoms or lower gastrointestinal (GI) complaints and that is not the case at this point. It is not unreasonable to proceed with a colonoscopy but I do feel that the likelihood that this is a colon primary is low on the list. The other options that are also unusual causes of a mass in the pelvis would be a drop metastases, although I think that would be unusual as well without any significant omental caking or additional lesions appreciated. Thus, we will keep her on a clear liquid diet and plan on a colonoscopy later on this week depending on the MRI and the possible repeat cystoscopy. Once again if the MRI suggests that this is involving the bladder, I would recommend repeating the cystoscopy or discussing this with the urologist first.
[2016-12-23] MEDS: SENNA 8.6 MG TAB (SENOKOT) PO SCH (20:29)
[2016-12-23 22:00] VITALS: BP 112/67
[2016-12-24] MEDS: LR 1,000 ML IV SCH ×2 (01:30→21:37)
[2016-12-24] MEDS ORDERED: FLEET ENEMA PR PRN (05:30)
[2016-12-24] MEDS: LEVOTHYROXINE 0.15 MG TAB (150 MCG) PO SCH (05:44)
[2016-12-24] MEDS: PERCOCET 5MG/325MG TAB PO PRN ×3 (05:46→21:37)
[2016-12-24 06:00] VITALS: BP 134/76
[2016-12-24 07:01] LABS: BASO % 0.5 % (0.0-1.0); EOS # 0.7 K/mm3 (0.0-0.50); EOS % 9.9 % (0.0-3.0); LARGE UNSTAINED CELL # 0.1 K/mm3 (0.0-0.4); LARGE UNSTAINED CELL % 1.1 % (0.0-4.0); LYMPH # 0.8 K/mm3 (1.5-4.5); LYMPH % 10.4 % (24.0-44.0); MEAN CORPUSCULAR HEMOGLOBIN 28.2 pg (27.0-33.0); MEAN CORPUSCULAR HGB CONC 31.3 g/dl (32.0-36.5); MEAN CORPUSCULAR VOLUME 90.1 fl (80.0-96.0); MONO # 0.5 K/mm3 (0.0-0.8); MONO % 6.7 % (0.0-5.0); NEUTROPHILS # 5.1 K/mm3 (1.8-7.7); NEUTROPHILS % 71.4 % (36.0-66.0); PLATELET COUNT, AUTOMATED 376 k/mm3 (150-450); RED CELL DISTRIBUTION WIDTH 14.2 % (11.5-14.5); WHITE BLOOD COUNT 7.1 K/mm3 (4.0-10.0)
[2016-12-24 07:14] LABS: ALBUMIN 2.5 GM/DL (3.2-5.2); ALBUMIN/GLOBULIN RATIO 0.68 (1.00-1.93); ALKALINE PHOSPHATASE 91 U/L (45-117); ALT/SGPT 18 U/L (12-78); ANION GAP 8 MEQ/L (8-16); AST/SGOT 15 U/L (15-37); BILIRUBIN,TOTAL 0.5 MG/DL (0.2-1.0); BLOOD UREA NITROGEN 9 MG/DL (7-18); CALCIUM LEVEL 9.3 MG/DL (8.8-10.2); CARBON DIOXIDE LEVEL 28 MEQ/L (21-32); CHLORIDE LEVEL 105 MEQ/L (98-107); CREATININE FOR GFR 0.61 MG/DL (0.55-1.02); GLOMERULAR FILTRATION RATE > 60.0 (>39); GLUCOSE, FASTING 117 MG/DL (83-110); POTASSIUM SERUM 3.8 MEQ/L (3.5-5.1); SODIUM LEVEL 141 MEQ/L (136-145); TOTAL PROTEIN 6.2 GM/DL (6.4-8.2)
[2016-12-24] MEDS: oxyBUTYnin *DITROPAN XL* 5 MG TABCR PO SCH (09:00)
[2016-12-24] MEDS: OMEPRAZOLE 20 MG CAP PO SCH (09:00)
[2016-12-24] MEDS: DULoxetine 30 MG CAP (CYMBALTA) PO SCH (09:00)
[2016-12-24] MEDS: SENNA 8.6 MG TAB (SENOKOT) PO SCH ×2 (09:00→21:36)
[2016-12-24] MEDS: DOCUSATE SODIUM 100 MG CAP PO SCH ×2 (09:00→21:36)
--- NOTE | 2016-12-24 09:00 | REP ---
LIMITED MRI PELVIS: Limited MRI pelvis performed. Localizing sequences were performed in the sagittal, axial and coronal planes. These include a T2-weighted coronal sequence and an axial T2-weighted sequence. Due to the patient's body habitus, further sequences were unsuccessful. There is a heterogeneous mass along the vaginal cuff again identified, measuring approximately 5.0 x 6.9 x 7.4 cm. This may represent a hematoma status post hysterectomy. Pruitt catheter is seen in the urinary bladder. Sigmoid diverticula are noted. There is mild left hydroureteronephrosis. Signed by Shalom Reyes MD 12/24/2016 12:16 P
--- NOTE | 2016-12-24 10:44 | IPNPDOC ---
Subjective General Date Seen The patient was seen on 12/24/16. Subjective Chief Complaint/HPI The patient is a 76-year-old female admitted with a reason for visit of Hematuria. Events since last encounter Unable to complete MRI due to body habitus. has been delayed until open MRI is available next week. Constitutional: Denies: Chills, Fever, Night Sweats Pulmonary: Reports: Dyspnea, Denies: Cough Cardiovascular: Denies: Chest Pain, Lt Headedness, Orthopnea, Palpitations, Paroxysmal Noc. Dyspnea Gastrointestinal: Reports: Constipation (some relief with FLeets enema), Denies: Abdominal Pain, Diarrhea, Nausea, Vomiting Genitourinary: Reports: Other Symptoms (Jackson: clear ), Denies: Hematuria Musculoskeletal: Denies: Back Pain, Joint Pain, Muscle Pain, Neck Pain, Spasms Objective Physical Examination General Exam: Positive: Alert, No Acute Distress Neck Exam: Positive: Supple, Negative: JVD Chest Exam: Positive: Clear to auscultation Heart Exam: Positive: Rate Normal, Regular Rhythm Abdomen Exam: Positive: Normal bowel sounds, Other (Jackson with bright red hematuria), Soft, Tenderness (pain on palpation to BLQ. Midline incisional hernia. ) Extremity Exam: Negative: Edema Skin Exam: Positive: Other skin issue (dressing to posterior left mid leg) Assessment /Plan Problems Problems: (1) Anemia Status: Acute Problem Text: 12/24/16: 10/33 12/23 10.8 12/22/16 hgb down to 10.8 baseline 12s (2) Pelvic mass Status: Acute Problem Specific Plan: Consult Specialist, Monitor Clinically, Repeat Labs Problem Text: 12/24/16 Attending Note with update: Patient's urine cytology was positive for malignant cells; per nursing, patient is to be NPO after midnight per Dr. Domingo for repeat cystoscopy tomorrow. Patient states she is no longer having hematuria s/p jackson removal. Repeat urine cytology is pending. 12/24/2016 GRAPHIC DESIGN TEACHER Note: Per conversation with Urology, Dr. Domingo: No indication for repeat cystscopy at this time. Urine is clear and Dr. Domingo will DC jackson. If colonoscopy is negtive, Dr. Domingo recommends percutaneous Bx. Patient unable to tolerate MRI due to size. Plan is for open MRI Thursday. 12/23/2016: CEA level of [address] Stevenson surgery consulted. Potential for Colonoscopy December-although p review of films do not favor colonic origin-therefore, check MRI pelvis s/c and if - colon, plan transvaginal biopsy by IR 12/21 - CT Abd/Pelv 12/20: There is a solid appearing mass at the vaginal cuff about 7 cm and it appears to be invading the posterior bladder and bladder collects urine only and small curvilinear pools posteriorly near the ureteral orifices. More on the right than left. Mostly of the bladder filled with a soft tissue density by ultrasound, has attenuation in 30's on noncontrast CT, it may be clot with tumor posteriorly suspected. I do not have details of her surgery, but the reported hysterectomy may have left cervix or conceivably ovarian tissue remnant could be responsible for this. Hydronephrosis, left greater than right. Large seroma anterior subcutaneous abdominal/pelvic wall. Other chronic changes as described. Urology and VISCOSE DEPARTMENT WORKER following. Pt states that she had a hysterectomy 45 years ago believes that she it was a supracervical hysterectomy. Dr. Rendon called to discuss his findings and plan. As above, believe that she had a post supra-cervical hysterectomy. Likely had ovaries left since she didn't start ERT until many years later. By exam, surface of cervix seemed normal but nearby mass palpable. 11/10/12 CT AP 37 mm "vaginal cuff" cyst unchanged c/w 03/2010 CT AP (3) Hematuria Status: Acute Problem Specific Plan: Consult Specialist, Monitor Clinically, Repeat Labs Problem Text: 12/24/2016: urine is draining clear. Urology maddie DC Jackson. persistent, gross 12/21 - Urology following. Gross hematuria. Clot urinary retention. Questionable extrinsic bladder mass. Pt had Cystoscopy, bladder washings for cytology, clot evacuation (500 mL), and Jackson catheter insertion. 12/20/16 UCX NG (4) Hydronephrosis Status: Acute Problem Specific Plan: Consult Specialist, Monitor Clinically, Repeat Labs Problem Text: Urology following. (5) KENDRICK (obstructive sleep apnea) Status: Chronic Problem Specific Plan: Monitor Clinically Problem Text: Pt has not been using CPAP. (6) Morbid obesity Status: Chronic Problem Specific Plan: Monitor Clinically (7) Hypothyroidism Status: Chronic Problem Specific Plan: Monitor Clinically Problem Text: On Synthroid. Plan/VTE VTE Prophylaxis Ordered?: No VTE Exclusion Pharmacological: Bleeding Risk (SUKH/SCD.) Plan/Urinary Catheter Reason for insertion/continuin: Other-document below (maintain catheter in place due to hematuria and potential for clot retention) Plan Family Medicine Attending Note: I saw and examined Ms. Dawn today - I agree with Tosin Costa's note with updates as above. (KES) VS, I&O, 24H, Fishbone Vital Signs/I&O Vital Signs Date Time Temp Pulse Resp B/P Pulse Ox O2 Delivery O2 Flow Rate FiO2 12/24/16 06:16 18 99 Nasal Cannula 3.0 12/24/16 06:00 97.2 73 134/76 I&O- Last 24 Hours up to 6 AM 12/24/16 06:00 Intake Total 2400 ml Output Total 1200 ml Balance 1200 ml Laboratory Data 24H LABS Laboratory Tests 2 12/24/16 06:43: Blood Urea Nitrogen 9, Creatinine 0.61, Sodium Level 141, Potassium Level 3.8, Chloride Level 105, Carbon Dioxide Level 28, Calcium Level 9.3, Aspartate Amino Transf (AST/SGOT) 15, Alanine Aminotransferase (ALT/SGPT) 18, Alkaline Phosphatase 91, Total Bilirubin 0.5, Total Protein 6.2L, Albumin 2.5L, Albumin/ Globulin Ratio 0.68L, Anion Gap 8, White Blood Count 7.1, Red Blood Count 3.77L , Hemoglobin 10.6L, Hematocrit 33.9L, Mean Corpuscular Volume 90.1, Mean Corpuscular Hemoglobin 28.2, Mean Corpuscular Hemoglobin Concent 31.3L, Red Cell Distribution Width 14.2, Platelet Count 376, Neutrophils (%) (Auto) 71.4H, Lymphocytes (%) (Auto) 10.4L, Monocytes (%) (Auto) 6.7H, Eosinophils (%) (Auto) 9.9H, Basophils (%) (Auto) 0.5, Neutrophils # (Auto) 5.1, Lymphocytes # (Auto) 0.8L, Monocytes # (Auto) 0.5, Eosinophils # (Auto) 0.7H, Basophils # (Auto) 0.0 , Glomerular Filtration Rate > 60.0, Large Unclassified Cells # 0.1, Large Unclassified Cells % 1.1 CBC/BMP Laboratory Tests 12/24/16 06:43 Calcium Level 9.3, Aspartate Amino Transf (AST/SGOT) 15, Alanine Aminotransferase (ALT/SGPT) 18, Alkaline Phosphatase 91, Total Bilirubin 0.5, Total Protein 6.2 L, Albumin 2.5 L, Red Blood Count 3.77 L, Mean Corpuscular Volume 90.1, Mean Corpuscular Hemoglobin 28.2, Mean Corpuscular Hemoglobin Concent 31.3 L, Red Cell Distribution Width 14.2, Neutrophils (%) (Auto) 71.4 H , Lymphocytes (%) (Auto) 10.4 L, Monocytes (%) (Auto) 6.7 H, Eosinophils (%) ( Auto) 9.9 H, Basophils (%) (Auto) 0.5, Neutrophils # (Auto) 5.1, Lymphocytes # ( Auto) 0.8 L, Monocytes # (Auto) 0.5, Eosinophils # (Auto) 0.7 H, Basophils # ( Auto) 0.0 Microbiology Microbiology 12/20/16 Urine Culture - Final, Complete 12/20/16 Urine Culture - Final, Complete Tosin Costa Dec 24, 2016 10:44 TODD BRUCE MD Dec 24, 2016 16:38
[2016-12-24 14:00] VITALS: BP 113/75
[2016-12-24 22:00] VITALS: BP 125/71
[2016-12-25] VITALS (7 sets, daily range): BP systolic 135–161; BP diastolic 78–89
[2016-12-25] MEDS: PERCOCET 5MG/325MG TAB PO PRN ×2 (01:32→18:58)
[2016-12-25] MEDS: LEVOTHYROXINE 0.15 MG TAB (150 MCG) PO SCH (04:54)
[2016-12-25 07:22] LABS: BASO % 0.4 % (0.0-1.0); EOS # 0.6 K/mm3 (0.0-0.50); EOS % 9.7 % (0.0-3.0); LARGE UNSTAINED CELL # 0.1 K/mm3 (0.0-0.4); LARGE UNSTAINED CELL % 0.8 % (0.0-4.0); LYMPH # 0.9 K/mm3 (1.5-4.5); LYMPH % 13.2 % (24.0-44.0); MEAN CORPUSCULAR HEMOGLOBIN 28.8 pg (27.0-33.0); MEAN CORPUSCULAR HGB CONC 31.4 g/dl (32.0-36.5); MEAN CORPUSCULAR VOLUME 91.6 fl (80.0-96.0); MONO # 0.5 K/mm3 (0.0-0.8); MONO % 7.3 % (0.0-5.0); NEUTROPHILS # 4.6 K/mm3 (1.8-7.7); NEUTROPHILS % 68.6 % (36.0-66.0); PLATELET COUNT, AUTOMATED 386 k/mm3 (150-450); RED CELL DISTRIBUTION WIDTH 14.2 % (11.5-14.5); WHITE BLOOD COUNT 6.7 K/mm3 (4.0-10.0)
[2016-12-25 07:42] LABS: ALBUMIN 2.5 GM/DL (3.2-5.2); ALBUMIN/GLOBULIN RATIO 0.68 (1.00-1.93); ALKALINE PHOSPHATASE 97 U/L (45-117); ALT/SGPT 21 U/L (12-78); ANION GAP 7 MEQ/L (8-16); AST/SGOT 18 U/L (15-37); BILIRUBIN,TOTAL 0.5 MG/DL (0.2-1.0); BLOOD UREA NITROGEN 7 MG/DL (7-18); CALCIUM LEVEL 9.5 MG/DL (8.8-10.2); CARBON DIOXIDE LEVEL 31 MEQ/L (21-32); CHLORIDE LEVEL 105 MEQ/L (98-107); CREATININE FOR GFR 0.67 MG/DL (0.55-1.02); GLOMERULAR FILTRATION RATE > 60.0 (>39); GLUCOSE, FASTING 108 MG/DL (83-110); POTASSIUM SERUM 3.8 MEQ/L (3.5-5.1); SODIUM LEVEL 143 MEQ/L (136-145); TOTAL PROTEIN 6.2 GM/DL (6.4-8.2)
--- NOTE | 2016-12-25 08:01 | IPNPDOC ---
Assessment/Plan Date Seen The patient was seen on 12/25/16. Patient Summary This is a 76 y/o F admitted w/ hematuria and a large pelvic mass which appears to be invading into the posterior bladder, POD5 s/p cysto and clot evacuation. Her urine has been clear for 2 days now and the catheter was removed yesterday. She has been voiding fine since catheter removal. It is still unclear where the pelvic mass originates from. Her urine cytology was positive for malignant cells, which is not surprising given the mass is invading the posterior aspect of the bladder and likely the cause of her hematuria. Problems (1) Anemia Status: Acute (2) Pelvic mass Status: Acute (3) Hematuria Status: Acute (4) Hydronephrosis Status: Acute (5) KENDRICK (obstructive sleep apnea) Status: Chronic (6) Morbid obesity Status: Chronic (7) Hypothyroidism Status: Chronic Plan/VTE VTE Prophylaxis Ordered?: No VTE Exclusion Pharmacological: Bleeding Risk (SUKH/SCD.) Plan/Urinary Catheter Reason for insertion/continuin: Other-document below (maintain catheter in place due to hematuria and potential for clot retention) Plan - will plan to take the patient to the OR today for cystoscopy w/ possible bladder biopsies and left ureteroscopy w/ possible biopsies and possible left ureteral stent placement - if nothing abnormal is seen today I would recommend that she proceed w/ colonoscopy as planned tomorrow - NPO until OR later today Subjective Review oF Systems Chief Complaint The patient is a 76-year-old female admitted with a reason for visit of Hematuria. Events since Last Encounter No acute events o/n. The patient's catheter was removed yesterday and she is voiding ok. She has had some urinary incontinence, which is normal for her. She notes mild lower left abdominal pain. Denies flank pain. No fevers or chills. Objective Physical Examination General Exam: : Alert: Cooperative: No Acute Distress ENT EXAM: : Atraumatic Chest Exam: : Clear to auscultation Heart Exam: Positive: Rate Normal, Regular Rhythm ABDOMEN EXAM: : Soft Neuro Exam: : Normal Speech Psych Exam: : Mental status NL: Mood NL Vital Signs/I&O Vital Signs Date Time Temp Pulse Resp B/P Pulse Ox O2 Delivery O2 Flow Rate FiO2 12/25/16 06:00 96.5 73 18 135/84 97 Nasal Cannula 3.0 I&O- Last 24 Hours up to 6 AM 12/25/16 06:00 Intake Total 1180 ml Output Total 500 ml Balance 680 ml Laboratory Data Labs 24H Laboratory Tests 2 12/24/16 15:26: Bedside Glucose (Misc Panel) 131H 12/25/16 07:01: Blood Urea Nitrogen 7, Creatinine 0.67, Sodium Level 143, Potassium Level 3.8, Chloride Level 105, Carbon Dioxide Level 31, Calcium Level 9.5, Aspartate Amino Transf (AST/SGOT) 18, Alanine Aminotransferase (ALT/SGPT) 21, Alkaline Phosphatase 97, Total Bilirubin 0.5, Total Protein 6.2L, Albumin 2.5L, Albumin/ Globulin Ratio 0.68L, Anion Gap 7L, White Blood Count 6.7, Red Blood Count 3.79L , Hemoglobin 10.9L, Hematocrit 34.8L, Mean Corpuscular Volume 91.6, Mean Corpuscular Hemoglobin 28.8, Mean Corpuscular Hemoglobin Concent 31.4L, Red Cell Distribution Width 14.2, Platelet Count 386, Neutrophils (%) (Auto) 68.6H, Lymphocytes (%) (Auto) 13.2L, Monocytes (%) (Auto) 7.3H, Eosinophils (%) (Auto) 9.7H, Basophils (%) (Auto) 0.4, Neutrophils # (Auto) 4.6, Lymphocytes # (Auto) 0.9L, Monocytes # (Auto) 0.5, Eosinophils # (Auto) 0.6H, Basophils # (Auto) 0.0 , Glomerular Filtration Rate > 60.0, Large Unclassified Cells # 0.1, Large Unclassified Cells % 0.8 CBC/BMP Laboratory Tests 12/25/16 07:01 Calcium Level 9.5, Aspartate Amino Transf (AST/SGOT) 18, Alanine Aminotransferase (ALT/SGPT) 21, Alkaline Phosphatase 97, Total Bilirubin 0.5, Total Protein 6.2 L, Albumin 2.5 L, Red Blood Count 3.79 L, Mean Corpuscular Volume 91.6, Mean Corpuscular Hemoglobin 28.8, Mean Corpuscular Hemoglobin Concent 31.4 L, Red Cell Distribution Width 14.2, Neutrophils (%) (Auto) 68.6 H , Lymphocytes (%) (Auto) 13.2 L, Monocytes (%) (Auto) 7.3 H, Eosinophils (%) ( Auto) 9.7 H, Basophils (%) (Auto) 0.4, Neutrophils # (Auto) 4.6, Lymphocytes # ( Auto) 0.9 L, Monocytes # (Auto) 0.5, Eosinophils # (Auto) 0.6 H, Basophils # ( Auto) 0.0 FSBS Laboratory Tests Test 12/24/16 15:26 Range/Units Bedside Glucose (Misc Panel) 131 83-110 MG/DL Microbiology Microbiology 12/20/16 Urine Culture - Final, Complete 12/20/16 Urine Culture - Final, Complete HEATHER MADISON MD Dec 25, 2016 08:01
[2016-12-25] MEDS: oxyBUTYnin *DITROPAN XL* 5 MG TABCR PO SCH (09:00)
[2016-12-25] MEDS: DOCUSATE SODIUM 100 MG CAP PO SCH ×2 (09:00→21:11)
[2016-12-25] MEDS: SENNA 8.6 MG TAB (SENOKOT) PO SCH ×2 (09:00→21:11)
--- NOTE | 2016-12-25 09:46 | IPNPDOC ---
Subjective Date Seen The patient was seen on 12/25/16. Subjective Chief Complaint/HPI The patient is a 76-year-old female admitted with a reason for visit of Hematuria. Events since last encounter Planned cystoscopy today due to + urine cytology for malignancy. Constitutional: Denies: Chills, Fever, Night Sweats ENT: Denies: Dysphagia, Ear Pain, Epistaxis, Head Aches, Other Symptoms, Post Nasal Drip, Sinus Congestion, Sore Throat Pulmonary: Denies: Cough, Dyspnea, Other Symptoms, Pleuritic Chest Pain Cardiovascular: Denies: Chest Pain, Lt Headedness, Orthopnea, Palpitations, Paroxysmal Noc. Dyspnea Gastrointestinal: Reports: Abdominal Pain (LLQ), Denies: Constipation, Diarrhea, Nausea, Vomiting Objective Physical Examination General Exam: Positive: Alert, No Acute Distress Neck Exam: Positive: Supple, Negative: JVD Chest Exam: Positive: Clear to auscultation Heart Exam: Positive: Rate Normal, Regular Rhythm Abdomen Exam: Positive: Normal bowel sounds, Other (Jackson with bright red hematuria), Soft, Tenderness (pain on palpation to BLQ. Midline incisional hernia. ) Extremity Exam: Negative: Edema Skin Exam: Positive: Other skin issue (dressing to posterior left mid leg) Assessment /Plan Problems (1) Anemia Status: Acute Problem Text: 12/25: stable 12/24/16: 10/33 12/23 10.8 12/22/16 hgb down to 10.8 baseline 12s (2) Pelvic mass Status: Acute Problem Specific Plan: Consult Specialist, Monitor Clinically, Repeat Labs Problem Text: 12/25/2016: plan for Repeat Cystoscopy today. If no abnormalities seen, plan on colonoscopy tomorrow with Dr. Stevenson. 12/24/16 Attending Note with update: Patient's urine cytology was positive for malignant cells; per nursing, patient is to be NPO after midnight per Dr. Domingo for repeat cystoscopy tomorrow. Patient states she is no longer having hematuria s/p jackson removal. Repeat urine cytology is pending. 12/24/2016 SECOND TIME WORKER Note: Per conversation with Urology, Dr. Domingo: No indication for repeat cystscopy at this time. Urine is clear and Dr. Domingo will DC jackson. If colonoscopy is negtive, Dr. Domingo recommends percutaneous Bx. Patient unable to tolerate MRI due to size. Plan is for open MRI Thursday. 12/23/2016: CEA level of [address] Stevenson surgery consulted. Potential for Colonoscopy December-although p review of films do not favor colonic origin-therefore, check MRI pelvis s/c and if - colon, plan transvaginal biopsy by IR 12/21 - CT Abd/Pelv 12/20: There is a solid appearing mass at the vaginal cuff about 7 cm and it appears to be invading the posterior bladder and bladder collects urine only and small curvilinear pools posteriorly near the ureteral orifices. More on the right than left. Mostly of the bladder filled with a soft tissue density by ultrasound, has attenuation in 30's on noncontrast CT, it may be clot with tumor posteriorly suspected. I do not have details of her surgery, but the reported hysterectomy may have left cervix or conceivably ovarian tissue remnant could be responsible for this. Hydronephrosis, left greater than right. Large seroma anterior subcutaneous abdominal/pelvic wall. Other chronic changes as described. Urology and [employer] TECHNICIAN following. Pt states that she had a hysterectomy 45 years ago believes that she it was a supracervical hysterectomy. Dr. Rendon called to discuss his findings and plan. As above, believe that she had a post supra-cervical hysterectomy. Likely had ovaries left since she didn't start ERT until many years later. By exam, surface of cervix seemed normal but nearby mass palpable. 11/10/12 CT AP 37 mm "vaginal cuff" cyst unchanged c/w 03/2010 CT AP (3) Hematuria Status: Acute Problem Specific Plan: Consult Specialist, Monitor Clinically, Repeat Labs Problem Text: 12/24/2016: urine is draining clear. Urology maddie DC Jackson. persistent, gross 12/21 - Urology following. Gross hematuria. Clot urinary retention. Questionable extrinsic bladder mass. Pt had Cystoscopy, bladder washings for cytology, clot evacuation (500 mL), and Jackson catheter insertion. 12/20/16 UCX NG (4) Hydronephrosis Status: Acute Problem Specific Plan: Consult Specialist, Monitor Clinically, Repeat Labs Problem Text: Urology following. (5) KENDRICK (obstructive sleep apnea) Status: Chronic Problem Specific Plan: Monitor Clinically Problem Text: Pt has not been using CPAP. (6) Morbid obesity Status: Chronic Problem Specific Plan: Monitor Clinically (7) Hypothyroidism Status: Chronic Problem Specific Plan: Monitor Clinically Problem Text: On Synthroid. Plan/VTE VTE Prophylaxis Ordered?: No VTE Exclusion Pharmacological: Bleeding Risk (SUKH/SCD.) Plan/Urinary Catheter Reason for insertion/continuin: Other-document below (maintain catheter in place due to hematuria and potential for clot retention) VS, I&O, 24H, Fishbone Vital Signs/I&O Vital Signs Date Time Temp Pulse Resp B/P Pulse Ox O2 Delivery O2 Flow Rate FiO2 12/25/16 06:00 96.5 73 18 135/84 97 Nasal Cannula 3.0 I&O- Last 24 Hours up to 6 AM 12/25/16 06:00 Intake Total 1180 ml Output Total 500 ml Balance 680 ml Laboratory Data 24H LABS Laboratory Tests 2 12/24/16 15:26: Bedside Glucose (Misc Panel) 131H 12/25/16 07:01: Blood Urea Nitrogen 7, Creatinine 0.67, Sodium Level 143, Potassium Level 3.8, Chloride Level 105, Carbon Dioxide Level 31, Calcium Level 9.5, Aspartate Amino Transf (AST/SGOT) 18, Alanine Aminotransferase (ALT/SGPT) 21, Alkaline Phosphatase 97, Total Bilirubin 0.5, Total Protein 6.2L, Albumin 2.5L, Albumin/ Globulin Ratio 0.68L, Anion Gap 7L, White Blood Count 6.7, Red Blood Count 3.79L , Hemoglobin 10.9L, Hematocrit 34.8L, Mean Corpuscular Volume 91.6, Mean Corpuscular Hemoglobin 28.8, Mean Corpuscular Hemoglobin Concent 31.4L, Red Cell Distribution Width 14.2, Platelet Count 386, Neutrophils (%) (Auto) 68.6H, Lymphocytes (%) (Auto) 13.2L, Monocytes (%) (Auto) 7.3H, Eosinophils (%) (Auto) 9.7H, Basophils (%) (Auto) 0.4, Neutrophils # (Auto) 4.6, Lymphocytes # (Auto) 0.9L, Monocytes # (Auto) 0.5, Eosinophils # (Auto) 0.6H, Basophils # (Auto) 0.0 , Glomerular Filtration Rate > 60.0, Large Unclassified Cells # 0.1, Large Unclassified Cells % 0.8 CBC/BMP Laboratory Tests 12/25/16 07:01 Calcium Level 9.5, Aspartate Amino Transf (AST/SGOT) 18, Alanine Aminotransferase (ALT/SGPT) 21, Alkaline Phosphatase 97, Total Bilirubin 0.5, Total Protein 6.2 L, Albumin 2.5 L, Red Blood Count 3.79 L, Mean Corpuscular Volume 91.6, Mean Corpuscular Hemoglobin 28.8, Mean Corpuscular Hemoglobin Concent 31.4 L, Red Cell Distribution Width 14.2, Neutrophils (%) (Auto) 68.6 H , Lymphocytes (%) (Auto) 13.2 L, Monocytes (%) (Auto) 7.3 H, Eosinophils (%) ( Auto) 9.7 H, Basophils (%) (Auto) 0.4, Neutrophils # (Auto) 4.6, Lymphocytes # ( Auto) 0.9 L, Monocytes # (Auto) 0.5, Eosinophils # (Auto) 0.6 H, Basophils # ( Auto) 0.0 Microbiology Microbiology 12/20/16 Urine Culture - Final, Complete 12/20/16 Urine Culture - Final, Complete Tosin Costa Dec 25, 2016 09:46 Noel Lopez M.D. Dec 25, 2016 16:10
[2016-12-25] MEDS: DULoxetine 30 MG CAP (CYMBALTA) PO SCH (10:02)
[2016-12-25] MEDS: OMEPRAZOLE 20 MG CAP PO SCH (10:02)
[2016-12-25] MEDS ORDERED: ceFAZolin 1GM INJ (J0690) As Ordered ONE (13:23)
[2016-12-25] MEDS ORDERED: CONRAY-60 60% 50ML VIAL (Q9961) As Ordered ONE (13:35)
[2016-12-25] MEDS ORDERED: CONRAY-60 60% 50ML VIAL (Q9961) XX ONE (14:02)
[2016-12-25] MEDS ORDERED: dexameTHASONE 4 MG/ML 1ML VIAL (J1100) As Ordered ONE (14:06)
[2016-12-25] MEDS ORDERED: LIDOCAINE 2% INJ 100 MG/5 ML SDV (FOR ANES.) As Ordered ONE (14:06)
[2016-12-25] MEDS ORDERED: ROCURONIUM BROMIDE 50 MG/5 ML VIAL As Ordered ONE (14:06)
[2016-12-25] MEDS ORDERED: ONDANSETRON 4MG/2ML VIAL (J2405) As Ordered ONE (14:06)
[2016-12-25] MEDS ORDERED: fentaNYL 250 MCG/5 ML INJECTION (J3010) As Ordered ONE (14:06)
[2016-12-25] MEDS ORDERED: MIDAZOLAM INJ 2 MG/2 ML VIAL (J2250) As Ordered ONE (14:06)
[2016-12-25] MEDS ORDERED: PROPOFOL 200 MG/20 ML VIAL As Ordered ONE (14:06)
[2016-12-25] MEDS ORDERED: GLYCOPYRROLATE INJ 0.2 MG/ML 2 ML VIAL As Ordered ONE (14:07)
--- NOTE | 2016-12-25 14:49 | REP ---
C-ARM VIEWS DURING RETROGRADE PYELOGRAM: Four C-arm views are performed. A wire is seen in the left ureter on the first image. Contrast is injected into the dilated left ureter and pelvicalyceal system on the second and third images. The fourth image shows a left ureteral stent. The proximal end is coiled in the left renal pelvis. The distal end is coiled in the urinary bladder. 6 seconds of fluoroscopy time utilized. Signed by Shalom Reyes MD 12/26/2016 06:28 P
[2016-12-25] MEDS ORDERED: MAGNESIUM CITRATE 300 ML BTL PO ONE (15:30)
[2016-12-25] MEDS ORDERED: ONDANSETRON 4MG/2ML VIAL (J2405) IV PRN (16:30)
[2016-12-25] MEDS ORDERED: LR 1,000 ML IV SCH (16:30)
[2016-12-25] MEDS ORDERED: fentaNYL 100 MCG/2 ML INJECTION (J3010) IV PRN (16:30)
[2016-12-25] MEDS ORDERED: METOCLOPRAMIDE INJ 10MG/2ML VIAL (J2765) IV PRN (16:30)
[2016-12-25] MEDS ORDERED: PERCOCET 5MG/325MG TAB PO PRN (16:30)
[2016-12-25] MEDS: LR 1,000 ML IV SCH (16:53)
[2016-12-25] MEDS: MIRALAX *UNIT DOSE* 17GM PACKET PO PRN (21:11)
--- NOTE | 2016-12-25 21:55 | ECHO ---
DATE OF PROCEDURE: 12/24/2015 AGE: 76 GENDER: Female HEIGHT: 67 inches WEIGHT: 332 pounds BODY SURFACE AREA: 2.51 m2 PATIENT LOCATION: Inpatient, [address] [place] [address], room 5140 REFERRING PHYSICIAN: Tosin Costa NP INDICATION: Cardiomegaly. 2-D MEASUREMENTS: RV: 3.0 cm LV: 4.1 cm Septum: 1.0 cm Posterior wall: 1.0 cm Aortic root: 3.5 cm LA: 3.9 cm LVEF: 65% DOPPLER MEASUREMENTS: AV: 1.9 m/s LVOT: 1.4 m/s LVOT diameter: 1.9 cm MV-E: 96, A: 132, EA ratio: 07. Early mitral deceleration time: 271 ms E prime: 6, A prime: 8, EE prime ratio: 16 PV: 1.15 m/s Pulmonary artery acceleration time: 122 ms RVSP: 28 mmHg IVC: 1.3 cm COMMENTS: Normal sinus rhythm without intraventricular conduction disturbance. Technically difficult study in light of the patient's body habitus, but diagnostically useful information was still obtained. Left atrial size upper limits of normal to mildly dilated. Other cardiac chamber sizes were normal. Left ventricle (LV) wall thickness was normal. On real-time imaging from the parasternal and apical projections wall motion was symmetrical and normal to hyperkinetic. Mildly thickened mitral annulus, but normal leaflet thickness and excursion with no posterior systolic buckling. Three equal sized aortic cusps with mildly thickened cusp edges, but adequate cusp separation. Normal aortic root size. No apparent intracardiac mass. Very small posterior pericardial effusion. Color flow Doppler study taken from the parasternal and apical projections showed mild to moderate aortic, mild mitral, and very mild tricuspid insufficiency. Guided continuous wave Doppler of her aortic valve showed a normal peak systolic velocity against LV outflow tract obstruction. Pulsed and continuous wave Doppler of her LV inflow tract taken from the apical four-chamber projection showed normal diastolic filling velocities against mitral stenosis. There was more prominent late diastolic/atrial dependent filling. Diastolic dysfunction was further confirmed by a prolonged early mitral deceleration time and tissue Doppler of her mitral annulus. Using pulsed and tissue Doppler of her mitral annulus, her estimated mean left atrial pressure was at least mildly increased at 16 mmHg. Pulsed and continuous wave Doppler of her pulmonary trunk showed a normal peak systolic velocity against right ventricle (RV) outflow tract obstruction. Her pulmonary artery acceleration time was normal against an elevated pulmonary vascular resistance. Guided continuous wave Doppler of her tricuspid valve allowed our further estimation of her right ventricular systolic pressure (upper limits of normal). Her inferior vena cava (IVC) size was normal with normal respiratory collapse against an elevated central venous pressure. CONCLUSIONS: Normal left ventricular size, wall thickness and wall motion. Borderline dilated left atrium with Doppler evidence of an impairment of LV diastolic function and at least mildly increased mean left atrial pressure. Normal right heart chamber sizes and estimated pulmonary arterial pressure. Very small posterior pericardial effusion. Aortic valvular sclerosis without stenosis, but mild to moderate insufficiency. Mild mitral annular calcification without inflow tract obstruction, but mild insufficiency.
[2016-12-26 00:06] LABS: INHIBIN A ULTRASENSITIVE 0.5 pg/mL (.); INHIBIN B <7.0 pg/mL (0.0-16.9)
[2016-12-26] MEDS: PERCOCET 5MG/325MG TAB PO PRN ×4 (01:09→22:42)
[2016-12-26 02:00] VITALS: BP 145/72
[2016-12-26 06:00] VITALS: BP 156/86
[2016-12-26] MEDS: LEVOTHYROXINE 0.15 MG TAB (150 MCG) PO SCH (06:07)
[2016-12-26 06:44] LABS: BASO % 0.2 % (0.0-1.0); EOS # 0.2 K/mm3 (0.0-0.50); LARGE UNSTAINED CELL # 0.1 K/mm3 (0.0-0.4); LARGE UNSTAINED CELL % 1.4 % (0.0-4.0); LYMPH # 1.1 K/mm3 (1.5-4.5); LYMPH % 12.4 % (24.0-44.0); MEAN CORPUSCULAR HEMOGLOBIN 28.8 pg (27.0-33.0); MEAN CORPUSCULAR HGB CONC 32.3 g/dl (32.0-36.5); MEAN CORPUSCULAR VOLUME 89.3 fl (80.0-96.0); MONO # 0.6 K/mm3 (0.0-0.8); MONO % 7.1 % (0.0-5.0); NEUTROPHILS # 6.4 K/mm3 (1.8-7.7); PLATELET COUNT, AUTOMATED 378 k/mm3 (150-450); RED CELL DISTRIBUTION WIDTH 13.8 % (11.5-14.5); WHITE BLOOD COUNT 8.5 K/mm3 (4.0-10.0)
[2016-12-26 07:16] LABS: ALBUMIN 2.6 GM/DL (3.2-5.2); ALBUMIN/GLOBULIN RATIO 0.67 (1.00-1.93); ALKALINE PHOSPHATASE 96 U/L (45-117); ALT/SGPT 19 U/L (12-78); ANION GAP 7 MEQ/L (8-16); AST/SGOT 15 U/L (15-37); BILIRUBIN,TOTAL 0.4 MG/DL (0.2-1.0); BLOOD UREA NITROGEN 8 MG/DL (7-18); CALCIUM LEVEL 9.5 MG/DL (8.8-10.2); CARBON DIOXIDE LEVEL 30 MEQ/L (21-32); CHLORIDE LEVEL 104 MEQ/L (98-107); CREATININE FOR GFR 0.66 MG/DL (0.55-1.02); GLOMERULAR FILTRATION RATE > 60.0 (>39); GLUCOSE, FASTING 112 MG/DL (83-110); POTASSIUM SERUM 4.3 MEQ/L (3.5-5.1); SODIUM LEVEL 141 MEQ/L (136-145); TOTAL PROTEIN 6.5 GM/DL (6.4-8.2)
--- NOTE | 2016-12-26 07:32 | IPNPDOC ---
Assessment/Plan Date Seen The patient was seen on 12/26/16. Patient Summary This is a 76 y/o F admitted w/ hematuria and a large pelvic mass which appears to be invading into the posterior bladder, POD1 s/p cysto w/ bladder biopsies, left ureteroscopy, and left ureteral stent placement. There was nothing in her bladder that had the typical appearance of bladder cancer. She had a moderate amount of what appeared to be bullous edema at the bladder base and along the trigone. This is usually a result of an indwelling catheter, but it is possible that this is related to the pelvic mass invading the bladder posteriorly. I therefore took several deep biopsies of this tissue and cauterized it for hemostasis. On left ureteroscopy there were no masses in the ureter but she had moderate hydroureteronephrosis down to the distal ureter, likely a result of extrinsic compression from the pelvic mass. I therefore placed a double J stent. This morning her catheter is draining well w/ no hematuria. Problems (1) Anemia Status: Acute (2) Pelvic mass Status: Acute (3) Hematuria Status: Acute (4) Hydronephrosis Status: Acute (5) KENDRICK (obstructive sleep apnea) Status: Chronic (6) Morbid obesity Status: Chronic (7) Hypothyroidism Status: Chronic Plan/VTE VTE Prophylaxis Ordered?: No VTE Exclusion Pharmacological: Bleeding Risk (SUKH/SCD.) Plan/Urinary Catheter Urinary Catheter: Other Catheter: Reason for insertion/continuin: Other-document below (maintain catheter in place for postop healing) Plan - keep catheter in place for a few days to help promote bladder healing since I took several deep biopsies (keep irrigation port plugged unless she starts having moderate amounts of hematuria) - will f/u w/ pathology results from the bladder biopsies - will continue to follow Subjective Review oF Systems Chief Complaint The patient is a 76-year-old female admitted with a reason for visit of Hematuria. Events since Last Encounter No acute events o/n. The patient's catheter has drained well w/ no hematuria. She denies abdominal or flank pain. Objective Physical Examination General Exam: : Alert: Cooperative: No Acute Distress ENT EXAM: : Atraumatic Chest Exam: : Clear to auscultation Heart Exam: Positive: Rate Normal, Regular Rhythm ABDOMEN EXAM: : Soft Neuro Exam: : Normal Speech Psych Exam: : Mental status NL: Mood NL Other physical findings 3-way catheter in place w/ irrigation port plugged - draining clear urine Vital Signs/I&O Vital Signs Date Time Temp Pulse Resp B/P Pulse Ox O2 Delivery O2 Flow Rate FiO2 12/26/16 06:37 16 12/26/16 06:00 97.1 67 156/86 98 Nasal Cannula 2.0 I&O- Last 24 Hours up to 6 AM 12/26/16 06:00 Intake Total 675 ml Output Total 1300 ml Balance -625 ml Laboratory Data Labs 24H Laboratory Tests 2 12/26/16 06:34: Blood Urea Nitrogen 8, Creatinine 0.66, Sodium Level 141, Potassium Level 4.3, Chloride Level 104, Carbon Dioxide Level 30, Calcium Level 9.5, Aspartate Amino Transf (AST/SGOT) 15, Alanine Aminotransferase (ALT/SGPT) 19, Alkaline Phosphatase 96, Total Bilirubin 0.4, Total Protein 6.5, Albumin 2.6L, Albumin/ Globulin Ratio 0.67L, Anion Gap 7L, White Blood Count 8.5, Red Blood Count 3.96L , Hemoglobin 11.4L, Hematocrit 35.3L, Mean Corpuscular Volume 89.3, Mean Corpuscular Hemoglobin 28.8, Mean Corpuscular Hemoglobin Concent 32.3, Red Cell Distribution Width 13.8, Platelet Count 378, Neutrophils (%) (Auto) 76.0H, Lymphocytes (%) (Auto) 12.4L, Monocytes (%) (Auto) 7.1H, Eosinophils (%) (Auto) 3.0, Basophils (%) (Auto) 0.2, Neutrophils # (Auto) 6.4, Lymphocytes # (Auto) 1.1L, Monocytes # (Auto) 0.6, Eosinophils # (Auto) 0.2, Basophils # (Auto) 0.0, Glomerular Filtration Rate > 60.0, Large Unclassified Cells # 0.1, Large Unclassified Cells % 1.4 CBC/BMP Laboratory Tests 12/26/16 06:34 Calcium Level 9.5, Aspartate Amino Transf (AST/SGOT) 15, Alanine Aminotransferase (ALT/SGPT) 19, Alkaline Phosphatase 96, Total Bilirubin 0.4, Total Protein 6.5, Albumin 2.6 L, Red Blood Count 3.96 L, Mean Corpuscular Volume 89.3, Mean Corpuscular Hemoglobin 28.8, Mean Corpuscular Hemoglobin Concent 32.3, Red Cell Distribution Width 13.8, Neutrophils (%) (Auto) 76.0 H, Lymphocytes (%) (Auto) 12.4 L, Monocytes (%) (Auto) 7.1 H, Eosinophils (%) (Auto ) 3.0, Basophils (%) (Auto) 0.2, Neutrophils # (Auto) 6.4, Lymphocytes # (Auto) 1.1 L, Monocytes # (Auto) 0.6, Eosinophils # (Auto) 0.2, Basophils # (Auto) 0.0 Microbiology Microbiology 12/20/16 Urine Culture - Final, Complete 12/20/16 Urine Culture - Final, Complete HEATHER MADISON MD Dec 26, 2016 07:32
[2016-12-26] MEDS: OMEPRAZOLE 20 MG CAP PO SCH (08:09)
[2016-12-26] MEDS: oxyBUTYnin *DITROPAN XL* 5 MG TABCR PO SCH (08:09)
[2016-12-26] MEDS: DULoxetine 30 MG CAP (CYMBALTA) PO SCH (08:10)
[2016-12-26] MEDS: DOCUSATE SODIUM 100 MG CAP PO SCH ×2 (08:10→20:22)
[2016-12-26] MEDS: SENNA 8.6 MG TAB (SENOKOT) PO SCH ×2 (08:14→20:23)
--- NOTE | 2016-12-26 09:20 | RO ---
DATE OF PROCEDURE: 12/25/2015 PREPROCEDURE DIAGNOSES: Gross hematuria, pelvic mass. POSTPROCEDURE DIAGNOSES: Gross hematuria, pelvic mass. PROCEDURE: Cystoscopy, left retrograde pyelogram and intraoperative interpretation of images, left ureteral stent placement, bladder biopsies. SURGEON: Osvaldo Domingo MD AND RESCUE FIRE FIGHTER CRASH FIRE: None. ANESTHESIA: General. OPERATIVE INDICATIONS: This is a 76-year-old female who was admitted to the hospital a few days ago with severe gross hematuria. On CAT scan she was noted to have a large pelvic mass, which appears to be invading the posterior wall of the bladder and potentially causing obstruction of the left ureter. At this time, it is uncertain the origin of the mass. She was brought to the operating room today to determine whether this mass originates in the bladder and to see if we can get a tissue sample of the mass from resection inside the bladder. DESCRIPTION OF PROCEDURE: The patient was brought to the operating room where general anesthesia was induced. Prophylactic antibiotics were infused. She was then placed in dorsal lithotomy position and prepped and draped in the usual sterile fashion. A rigid cystoscope was inserted into the urethral meatus and advanced into the bladder. At this point, the bladder was then thoroughly examined and of note, there was a lot of bullous edema on the posterior wall of the bladder and near the trigone. There were no obvious tumors seen anywhere within the bladder. This bullous edema that was seen on the posterior wall and the trigone, could have potentially been due to the pelvic mass invading into the bladder or simple reaction from having an indwelling catheter. At this point, a wire was then advanced up the left collecting system and the wire was secured to the drape to serve as a safety wire. I then entered the distal left ureter with a short, semi rigid ureteroscope and a retrograde pyelogram was performed. It was notable for moderate left hydroureteronephrosis down to the distal left ureter. I then examined the distal left ureter and did not see any masses within the ureter. I advanced the ureteroscope all the way up to the proximal ureter and no masses were seen within the ureter itself. This indicated that the pelvic mass was likely causing extrinsic compression on the distal left ureter, but was not invading the ureter itself and did not originate from within the left ureter. At this point, the ureteroscope was withdrawn and I then went in with a resectoscope. At this point, the resectoscope was utilized to biopsy several areas along the posterior wall of the bladder, as well as along the trigone of the bladder. Several biopsies were obtained to be sent for pathologic analysis. At this point, the coagulation current was utilized to cauterize any areas of bleeding and I kept doing this until hemostasis appeared to be excellent. At this point , the tissue samples were removed to be sent for pathologic analysis and the resectoscope was withdrawn. The previously placed wire was then utilized to advance a #7-Andorran x 22-32 cm JJ ureteral stent up into the left collecting system. The wire was then removed and there were adequate curls of the stent in the left renal pelvis and in the bladder. At this point, the cystoscope was removed and a #24-And[place] three-way catheter was inserted into the bladder. The balloon was filled with 10 mm of sterile water and the irrigation port was plugged. The catheter was then connected to gravity drainage and this marked conclusion of the procedure. The patient then was taken out of the dorsal lithotomy position, awakened from anesthesia and transported to the recovery room in stable condition. ESTIMATED BLOOD LOSS: 0 mL. COMPLICATIONS: None. SPECIMENS: Bladder biopsies. PLAN: The patient will return to her room on the regular nursing floor. We will followup on the results of the biopsies of the bladder to see if they can give us some insight into what this pelvic mass is. GEOVANY
[2016-12-26 10:00] VITALS: BP 143/70
[2016-12-26] MEDS ORDERED: MIDAZOLAM INJ 2 MG/2 ML VIAL (J2250) As Ordered ONE (10:07)
[2016-12-26] MEDS ORDERED: fentaNYL 250 MCG/5 ML INJECTION (J3010) As Ordered ONE (10:08)
[2016-12-26] MEDS ORDERED: LIDOCAINE 2% INJ 100 MG/5 ML SDV (FOR ANES.) As Ordered ONE (10:08)
[2016-12-26] MEDS ORDERED: PROPOFOL 200 MG/20 ML VIAL As Ordered ONE (10:09)
[2016-12-26] MEDS ORDERED: ROCURONIUM BROMIDE 50 MG/5 ML VIAL As Ordered ONE (10:09)
--- NOTE | 2016-12-26 11:08 | IPNPDOC ---
Subjective Date Seen The patient was seen on 12/26/16. Subjective Chief Complaint/HPI The patient is a 76-year-old female admitted with a reason for visit of Hematuria. Events since last encounter S/p cystoscopy with left uretreral stent placement with Dr. Domingo. Biopsies obtained. Patient has left for colonoscopy with Dr. Stevenson now. Objective Physical Examination General Exam: Positive: Alert, No Acute Distress Neck Exam: Positive: Supple, Negative: JVD Chest Exam: Positive: Clear to auscultation Heart Exam: Positive: Rate Normal, Regular Rhythm Abdomen Exam: Positive: Normal bowel sounds, Other (Jackson with bright red hematuria), Soft, Tenderness (pain on palpation to BLQ. Midline incisional hernia. ) Extremity Exam: Negative: Edema Skin Exam: Positive: Other skin issue (dressing to posterior left mid leg) Assessment /Plan Problems (1) Anemia Status: Acute Problem Text: 12/25: stable 12/24/16: 10/33 12/23 10.8 12/22/16 hgb down to 10.8 baseline 12s (2) Pelvic mass Status: Acute Problem Specific Plan: Consult Specialist, Monitor Clinically, Repeat Labs Problem Text: 12/26/2016: biopsies pending, draining clear yellow urine per nursing report, for colonoscopy by Elva 12/25/2016: cystoscopy c L ureteroscopy s obvious tumor, biopsies taken of edematous posterior wall-favoring extrinsic compression per Jose L 12/24/16 urine cytology was positive for malignant cells; per nursing, patient is to be NPO after midnight per Dr. Domingo for repeat cystoscopy tomorrow. Patient states she is no longer having hematuria s/p jackson removal. 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 Domingo: No indication for repeat cystscopy at this time. Urine is clear and Dr. Domingo will DC jackson. If colonoscopy is negtive, Dr. Domingo recommends percutaneous Bx. Patient unable to tolerate MRI due to size. Plan is for open MRI Thursday. 12/23/2016: CEA level of [address] Stevenson surgery consulted. Potential for Colonoscopy December-although p review of films do not favor colonic origin-therefore, check MRI pelvis s/c and if - colon, plan transvaginal biopsy by IR 12/21 - CT Abd/Pelv 12/20: There is a solid appearing mass at the vaginal cuff about 7 cm and it appears to be invading the posterior bladder and bladder collects urine only and small curvilinear pools posteriorly near the ureteral orifices. More on the right than left. Mostly of the bladder filled with a soft tissue density by ultrasound, has attenuation in 30's on noncontrast CT, it may be clot with tumor posteriorly suspected. I do not have details of her surgery, but the reported hysterectomy may have left cervix or conceivably ovarian tissue remnant could be responsible for this. Hydronephrosis, left greater than right. Large seroma anterior subcutaneous abdominal/pelvic wall. Other chronic changes as described. Urology and HYDROMETALLURGICAL ENGINEER following. Pt states that she had a hysterectomy 45 years ago believes that she it was a supracervical hysterectomy. Dr. Rnedon called to discuss his findings and plan. As above, believe that she had a post supra-cervical hysterectomy. Likely had ovaries left since she didn't start ERT until many years later. By exam, surface of cervix seemed normal but nearby mass palpable. 11/10/12 CT AP 37 mm "vaginal cuff" cyst unchanged c/w 03/2010 CT AP 12/23/16 MRI pelvis (limited, s corky given patient's size) heterogeneous mass along the vaginal cuff again identified, measuring approximately 5.0 x 6.9 x 7.4 cm. This may represent a hematoma status post hysterectomy. (3) Hematuria Status: Acute Problem Specific Plan: Consult Specialist, Monitor Clinically, Repeat Labs Problem Text: 12/26/2016: biopsies pending, draining clear yellow urine per nursing report. 12/24/2016: urine is draining clear. Urology maddie DC Jackson. persistent, gross 12/21 - Urology following. Gross hematuria. Clot urinary retention. Questionable extrinsic bladder mass. Pt had Cystoscopy, bladder washings for cytology, clot evacuation (500 mL), and Jackson catheter insertion. 12/20/16 UCX NG (4) Hydronephrosis Status: Acute Problem Specific Plan: Consult Specialist, Monitor Clinically, Repeat Labs Problem Text: Urology following. (5) KENDRICK (obstructive sleep apnea) Status: Chronic Problem Specific Plan: Monitor Clinically Problem Text: Pt has not been using CPAP. (6) Morbid obesity Status: Chronic Problem Specific Plan: Monitor Clinically (7) Hypothyroidism Status: Chronic Problem Specific Plan: Monitor Clinically Problem Text: On Synthroid. Plan/VTE VTE Prophylaxis Ordered?: No VTE Exclusion Pharmacological: Bleeding Risk (SUKH/SCD.) Plan/Urinary Catheter Urinary Catheter: Other Catheter: Reason for insertion/continuin: Other-document below (maintain catheter in place for postop healing) VS, I&O, 24H, [place] Vital Signs/I&O Vital Signs Date Time Temp Pulse Resp B/P Pulse Ox O2 Delivery O2 Flow Rate FiO2 12/26/16 10:51 Nasal Cannula 3.0 12/26/16 10:00 95.3 67 18 143/70 92 I&O- Last 24 Hours up to 6 AM 12/26/16 06:00 Intake Total 675 ml Output Total 1300 ml Balance -625 ml Laboratory Data 24H LABS Laboratory Tests 2 12/26/16 06:34: Blood Urea Nitrogen 8, Creatinine 0.66, Sodium Level 141, Potassium Level 4.3, Chloride Level 104, Carbon Dioxide Level 30, Calcium Level 9.5, Aspartate Amino Transf (AST/SGOT) 15, Alanine Aminotransferase (ALT/SGPT) 19, Alkaline Phosphatase 96, Total Bilirubin 0.4, Total Protein 6.5, Albumin 2.6L, Albumin/ Globulin Ratio 0.67L, Anion Gap 7L, White Blood Count 8.5, Red Blood Count 3.96L , Hemoglobin 11.4L, Hematocrit 35.3L, Mean Corpuscular Volume 89.3, Mean Corpuscular Hemoglobin 28.8, Mean Corpuscular Hemoglobin Concent 32.3, Red Cell Distribution Width 13.8, Platelet Count 378, Neutrophils (%) (Auto) 76.0H, Lymphocytes (%) (Auto) 12.4L, Monocytes (%) (Auto) 7.1H, Eosinophils (%) (Auto) 3.0, Basophils (%) (Auto) 0.2, Neutrophils # (Auto) 6.4, Lymphocytes # (Auto) 1.1L, Monocytes # (Auto) 0.6, Eosinophils # (Auto) 0.2, Basophils # (Auto) 0.0, Glomerular Filtration Rate > 60.0, Large Unclassified Cells # 0.1, Large Unclassified Cells % 1.4 CBC/BMP Laboratory Tests 12/26/16 06:34 Calcium Level 9.5, Aspartate Amino Transf (AST/SGOT) 15, Alanine Aminotransferase (ALT/SGPT) 19, Alkaline Phosphatase 96, Total Bilirubin 0.4, Total Protein 6.5, Albumin 2.6 L, Red Blood Count 3.96 L, Mean Corpuscular Volume 89.3, Mean Corpuscular Hemoglobin 28.8, Mean Corpuscular Hemoglobin Concent 32.3, Red Cell Distribution Width 13.8, Neutrophils (%) (Auto) 76.0 H, Lymphocytes (%) (Auto) 12.4 L, Monocytes (%) (Auto) 7.1 H, Eosinophils (%) (Auto ) 3.0, Basophils (%) (Auto) 0.2, Neutrophils # (Auto) 6.4, Lymphocytes # (Auto) 1.1 L, Monocytes # (Auto) 0.6, Eosinophils # (Auto) 0.2, Basophils # (Auto) 0.0 Microbiology Microbiology 12/20/16 Urine Culture - Final, Complete 12/20/16 Urine Culture - Final, Complete Tosin Costa Dec 26, 2016 11:08 Noel Lopez M.D. Dec 26, 2016 12:41
--- NOTE | 2016-12-26 12:50 | RO ---
DATE OF PROCEDURE: 12/26/2016 PREPROCEDURE DIAGNOSIS: Abdominal pain. POSTPROCEDURE DIAGNOSIS: Abdominal pain/diverticulosis. PROCEDURE: Colonoscopy. SURGEON: Melvin Stevenson MD HOOP MAKER MACHINE: ANESTHESIA: IV sedation/propofol. ESTIMATED BLOOD LOSS: None. Fluids crystalloid. DESCRIPTION OF PROCEDURE: The patient was given a bowel prep the night before; however, it was obvious once starting the colonoscopy after she was given IV sedation that she had a significant amount of stool, hard, as well as liquid stool throughout the colon. In any case, I was able to advance the colonoscope through the tortuous sigmoid colon, which had extensive diverticulosis, up through the descending colon, across the transverse colon and I think that I got over to the right colon. No masses were appreciated, but it would be easy to miss small polyps given the significant amount of stool, liquid, as well as solid stool within the colon itself, but there was no active bleeding. There was no obstructive lesions and so the colonoscope was removed, irrigating as much as I could as I removed the scope, but still given the limits of being able to suction all this fluid, as well as stool out, there was definitely no obstructive lesion. Care was taken to look at the rectum, as well as the rectosigmoid junction area and once again no bleeding. No obstructive lesion was appreciated, significant sigmoid diverticulosis but no other lesions. The scope was removed in its entirety. The patient tolerated the procedure well and was brought to the recovery area awake, alert, hemodynamically stable.
[2016-12-26] MEDS: LR 1,000 ML IV SCH (13:30)
[2016-12-26 14:00] VITALS: BP 169/82
[2016-12-26 22:00] VITALS: BP 118/57
[2016-12-27 02:00] VITALS: BP 136/71
[2016-12-27] MEDS: PERCOCET 5MG/325MG TAB PO PRN ×3 (05:52→18:31)
[2016-12-27] MEDS: LEVOTHYROXINE 0.15 MG TAB (150 MCG) PO SCH (05:52)
[2016-12-27 06:00] VITALS: BP 154/56
[2016-12-27 06:43] LABS: BASO % 0.3 % (0.0-1.0); EOS # 0.8 K/mm3 (0.0-0.50); LARGE UNSTAINED CELL # 0.1 K/mm3 (0.0-0.4); LARGE UNSTAINED CELL % 0.5 % (0.0-4.0); LYMPH # 0.9 K/mm3 (1.5-4.5); LYMPH % 9.9 % (24.0-44.0); MEAN CORPUSCULAR HEMOGLOBIN 28.8 pg (27.0-33.0); MEAN CORPUSCULAR HGB CONC 31.7 g/dl (32.0-36.5); MEAN CORPUSCULAR VOLUME 90.8 fl (80.0-96.0); MONO # 0.7 K/mm3 (0.0-0.8); NEUTROPHILS # 6.4 K/mm3 (1.8-7.7); NEUTROPHILS % 72.3 % (36.0-66.0); PLATELET COUNT, AUTOMATED 416 k/mm3 (150-450); RED CELL DISTRIBUTION WIDTH 14.2 % (11.5-14.5); WHITE BLOOD COUNT 8.8 K/mm3 (4.0-10.0)
[2016-12-27 07:01] LABS: ALBUMIN 2.6 GM/DL (3.2-5.2); ALBUMIN/GLOBULIN RATIO 0.74 (1.00-1.93); ALKALINE PHOSPHATASE 96 U/L (45-117); ALT/SGPT 14 U/L (12-78); ANION GAP 8 MEQ/L (8-16); AST/SGOT 14 U/L (15-37); BILIRUBIN,TOTAL 0.4 MG/DL (0.2-1.0); BLOOD UREA NITROGEN 9 MG/DL (7-18); CALCIUM LEVEL 9.3 MG/DL (8.8-10.2); CARBON DIOXIDE LEVEL 32 MEQ/L (21-32); CHLORIDE LEVEL 102 MEQ/L (98-107); CREATININE FOR GFR 0.73 MG/DL (0.55-1.02); GLOMERULAR FILTRATION RATE > 60.0 (>39); GLUCOSE, FASTING 99 MG/DL (83-110); POTASSIUM SERUM 3.7 MEQ/L (3.5-5.1); SODIUM LEVEL 142 MEQ/L (136-145); TOTAL PROTEIN 6.1 GM/DL (6.4-8.2)
--- NOTE | 2016-12-27 10:03 | IPNPDOC ---
Subjective Date Seen The patient was seen on 12/27/16. Subjective Chief Complaint/HPI The patient is a 76-year-old female admitted with a reason for visit of Hematuria. Events since last encounter Colonoscopy negative. Denies c/o today. Constitutional: Denies: Chills, Fever, Night Sweats ENT: Denies: Dysphagia, Ear Pain, Epistaxis, Head Aches, Other Symptoms, Post Nasal Drip, Sinus Congestion, Sore Throat Pulmonary: Denies: Cough, Dyspnea Cardiovascular: Denies: Chest Pain, Lt Headedness, Orthopnea, Palpitations, Paroxysmal Noc. Dyspnea Gastrointestinal: Denies: Abdominal Pain, Constipation, Diarrhea, Nausea, Vomiting Objective Physical Examination General Exam: Positive: Alert, No Acute Distress Neck Exam: Positive: Supple, Negative: JVD Chest Exam: Positive: Clear to auscultation Heart Exam: Positive: Rate Normal, Regular Rhythm Abdomen Exam: Positive: Normal bowel sounds, Other (Jackson with bright red hematuria), Soft, Negative: Tenderness Extremity Exam: Negative: Edema Skin Exam: Positive: Other skin issue (dressing to posterior left mid leg) Assessment /Plan Problems (1) Anemia Status: Acute Problem Text: 12/25: stable 12/24/16: 10/33 12/23 10.8 12/22/16 hgb down to 10.8 baseline 12s (2) Pelvic mass Status: Acute Problem Specific Plan: Consult Specialist, Monitor Clinically, Repeat Labs Problem Text: 12/26/2016: biopsies pending, draining clear yellow urine per nursing report, for colonoscopy by Elva 12/25/2016: cystoscopy c L ureteroscopy s obvious tumor, biopsies taken of edematous posterior wall-favoring extrinsic compression per Jose L 12/24/16 urine cytology was positive for malignant cells; per nursing, patient is to be NPO after midnight per Dr. Domingo for repeat cystoscopy tomorrow. Patient states she is no longer having hematuria s/p jackson removal. 12/24/2016 SUPERVISOR BAKING Note: Per conversation with Urology, Dr. Domingo: No indication for repeat cystscopy at this time. Urine is clear and Dr. Domingo will DC jackson. If colonoscopy is negtive, Dr. Domingo recommends percutaneous Bx. Patient unable to tolerate MRI due to size. Plan is for open MRI Thursday. 12/23/2016: CEA level of [address] Stevenson surgery consulted. Potential for Colonoscopy December-although p review of films do not favor colonic origin-therefore, check MRI pelvis s/c and if - colon, plan transvaginal biopsy by IR 12/21 - CT Abd/Pelv 12/20: There is a solid appearing mass at the vaginal cuff about 7 cm and it appears to be invading the posterior bladder and bladder collects urine only and small curvilinear pools posteriorly near the ureteral orifices. More on the right than left. Mostly of the bladder filled with a soft tissue density by ultrasound, has attenuation in 30's on [address] CT, it may be clot with tumor posteriorly suspected. I do not have details of her surgery, but the reported hysterectomy may have left cervix or conceivably ovarian tissue remnant could be responsible for this. Hydronephrosis, left greater than right. Large seroma anterior subcutaneous abdominal/pelvic wall. Other chronic changes as described. Urology and SENIOR UI UX DESIGNER following. Pt states that she had a hysterectomy 45 years ago believes that she it was a supracervical hysterectomy. Dr. Rendon called to discuss his findings and plan. As above, believe that she had a post supra-cervical hysterectomy. Likely had ovaries left since she didn't start ERT until many years later. By exam, surface of cervix seemed normal but nearby mass palpable. 11/10/12 CT AP 37 mm "vaginal cuff" cyst unchanged c/w 03/2010 CT AP 12/23/16 MRI pelvis (limited, s corky given patient's size) heterogeneous mass along the vaginal cuff again identified, measuring approximately 5.0 x 6.9 x 7.4 cm. This may represent a hematoma status post hysterectomy. (3) Hematuria Status: Acute Problem Specific Plan: Consult Specialist, Monitor Clinically, Repeat Labs Problem Text: 12/26/2016: biopsies pending, draining clear yellow urine per nursing report. 12/24/2016: urine is draining clear. Urology maddie DE Jackson. persistent, gross 12/21 - Urology following. Gross hematuria. Clot urinary retention. Questionable extrinsic bladder mass. Pt had Cystoscopy, bladder washings for cytology, clot evacuation (500 mL), and Jackson catheter insertion. 12/20/16 UCX NG (4) Hydronephrosis Status: Acute Problem Specific Plan: Consult Specialist, Monitor Clinically, Repeat Labs Problem Text: Urology following. (5) KENDRICK (obstructive sleep apnea) Status: Chronic Problem Specific Plan: Monitor Clinically Problem Text: Pt has not been using CPAP. (6) Morbid obesity Status: Chronic Problem Specific Plan: Monitor Clinically (7) Hypothyroidism Status: Chronic Problem Specific Plan: Monitor Clinically Problem Text: On Synthroid. (8) Diastolic CHF Status: Chronic Problem Specific Plan: Monitor Clinically Problem Text: echo ordered for update preoperatively. Plan/VTE VTE Prophylaxis Ordered?: No VTE Exclusion Pharmacological: Bleeding Risk (SUKH/SCD.) Plan/Urinary Catheter Urinary Catheter: Other Catheter: Reason for insertion/continuin: Other-document below (maintain catheter in place for postop healing) Plan Attending Physician Note: I saw and examined this patient. The case was reviewed with the RPA and/or the PGY-3. VS, I&O, [facility] Vital Signs/I&O Vital Signs Date Time Temp Pulse Resp B/P Pulse Ox O2 Delivery O2 Flow Rate FiO2 12/27/16 06:22 15 12/27/16 06:00 98.4 81 154/56 94 Room Air 12/26/16 21:00 3.0 I&O- Last 24 Hours up to 6 AM 12/27/16 06:00 Intake Total 1720 ml Output Total 1050 ml Balance 670 ml Laboratory Data 24H LABS Laboratory Tests 2 12/27/16 06:05: Blood Urea Nitrogen 9, Creatinine 0.73, Sodium Level 142, Potassium Level 3.7, Chloride Level 102, Carbon Dioxide Level 32, Calcium Level 9.3, Aspartate Amino Transf (AST/SGOT) 14L, Alanine Aminotransferase (ALT/SGPT) 14, Alkaline Phosphatase 96, Total Bilirubin 0.4, Total Protein 6.1L, Albumin 2.6L, Albumin/ Globulin Ratio 0.74L, Anion Gap 8, White Blood Count 8.8, Red Blood Count 3.86L , Hemoglobin 11.1L, Hematocrit 35.1L, Mean Corpuscular Volume 90.8, Mean Corpuscular Hemoglobin 28.8, Mean Corpuscular Hemoglobin Concent 31.7L, Red Cell Distribution Width 14.2, Platelet Count 416, Neutrophils (%) (Auto) 72.3H, Lymphocytes (%) (Auto) 9.9L, Monocytes (%) (Auto) 8.0H, Eosinophils (%) (Auto) 9.0H, Basophils (%) (Auto) 0.3, Neutrophils # (Auto) 6.4, Lymphocytes # (Auto) 0.9L, Monocytes # (Auto) 0.7, Eosinophils # (Auto) 0.8H, Basophils # (Auto) 0.0 , Glomerular Filtration Rate > 60.0, Large Unclassified Cells # 0.1, Large Unclassified Cells % 0.5 CBC/BMP Laboratory Tests 12/27/16 06:05 Calcium Level 9.3, Aspartate Amino Transf (AST/SGOT) 14 L, Alanine Aminotransferase (ALT/SGPT) 14, Alkaline Phosphatase 96, Total Bilirubin 0.4, Total Protein 6.1 L, Albumin 2.6 L, Red Blood Count 3.86 L, Mean Corpuscular Volume 90.8, Mean Corpuscular Hemoglobin 28.8, Mean Corpuscular Hemoglobin Concent 31.7 L, Red Cell Distribution Width 14.2, Neutrophils (%) (Auto) 72.3 H , Lymphocytes (%) (Auto) 9.9 L, Monocytes (%) (Auto) 8.0 H, Eosinophils (%) ( Auto) 9.0 H, Basophils (%) (Auto) 0.3, Neutrophils # (Auto) 6.4, Lymphocytes # ( Auto) 0.9 L, Monocytes # (Auto) 0.7, Eosinophils # (Auto) 0.8 H, Basophils # ( Auto) 0.0 Microbiology Microbiology 12/20/16 Urine Culture - Final, Complete 12/20/16 Urine Culture - Final, Complete Tosin Costa [facility] Dec 27, 2016 10:02 Duane Mason M.D. Dec 28, 2016 18:00
[2016-12-27] MEDS: SENNA 8.6 MG TAB (SENOKOT) PO SCH ×2 (10:12→20:17)
[2016-12-27] MEDS: OMEPRAZOLE 20 MG CAP PO SCH (10:13)
[2016-12-27] MEDS: DULoxetine 30 MG CAP (CYMBALTA) PO SCH (10:13)
[2016-12-27] MEDS: oxyBUTYnin *DITROPAN XL* 5 MG TABCR PO SCH (10:13)
[2016-12-27] MEDS: DOCUSATE SODIUM 100 MG CAP PO SCH ×2 (10:13→20:17)
--- NOTE | 2016-12-27 10:38 | IPNPDOC ---
Assessment/Plan Date Seen The patient was seen on 12/27/16. Patient Summary This is a 76 y/o F admitted w/ hematuria and a large pelvic mass which appears to be invading into the posterior bladder, POD2 s/p cysto w/ bladder biopsies, left ureteroscopy, and left ureteral stent placement. Pathology is still pending from the bladder biopsies and per my discussion w/ the pathologist we might have a result on Thursday. She underwent colonoscopy yesterday and there was no sign of malignancy. I discussed w/ the patient's daughter the need to get a pathologic diagnosis prior to proceeding w/ any definitive treatment. If the bladder biopsy results are negative or inconclusive, I would recommend a transvaginal biopsy of the pelvic mass on Thursday. Problems (1) Anemia Status: Acute (2) Pelvic mass Status: Acute (3) Hematuria Status: Acute (4) Hydronephrosis Status: Acute (5) KENDRICK (obstructive sleep apnea) Status: Chronic (6) Morbid obesity Status: Chronic (7) Hypothyroidism Status: Chronic (8) Diastolic CHF Status: Chronic Plan/VTE VTE Prophylaxis Ordered?: No VTE Exclusion Pharmacological: Bleeding Risk (SUKH/SCD.) Plan/Urinary Catheter Urinary Catheter: Other Catheter: Reason for insertion/continuin: Other-document below (maintain catheter in place for postop healing) Plan - keep catheter in place for 1 week for bladder healing given the deep biopsies obtained (ok to remove on ) - will f/u bladder biopsy results - if biopsy results are negative/inconclusive, I would recommend a transvaginal biopsy of the mass - recommend keeping the patient NPO Thursday evening in case a biopsy is needed on Thursday Subjective Review oF Systems Chief Complaint The patient is a 76-year-old female admitted with a reason for visit of Hematuria. Events since Last Encounter No acute events o/n. Denies pain. Catheter has been draining well w/o need for irrigation. Objective Physical Examination General Exam: : Alert: Cooperative: No Acute Distress ENT EXAM: : Atraumatic Chest Exam: : Clear to auscultation Heart Exam: Positive: Rate Normal, Regular Rhythm ABDOMEN EXAM: : Soft Neuro Exam: : Normal Speech Psych Exam: : Mental status NL: Mood NL Other physical findings 3-way catheter in place w/ irrigation port plugged; catheter draining clear urine Vital Signs/I&O Vital Signs Date Time Temp Pulse Resp B/P Pulse Ox O2 Delivery O2 Flow Rate FiO2 12/27/16 10:15 16 12/27/16 06:00 98.4 81 154/56 94 Room Air 12/26/16 21:00 3.0 I&O- Last 24 Hours up to 6 AM 12/27/16 06:00 Intake Total 1720 ml Output Total 1050 ml Balance 670 ml Laboratory Data Labs 24H Laboratory Tests 2 12/27/16 06:05: Blood Urea Nitrogen 9, Creatinine 0.73, Sodium Level 142, Potassium Level 3.7, Chloride Level 102, Carbon Dioxide Level 32, Calcium Level 9.3, Aspartate Amino Transf (AST/SGOT) 14L, Alanine Aminotransferase (ALT/SGPT) 14, Alkaline Phosphatase 96, Total Bilirubin 0.4, Total Protein 6.1L, Albumin 2.6L, Albumin/ Globulin Ratio 0.74L, Anion Gap 8, White Blood Count 8.8, Red Blood Count 3.86L , Hemoglobin 11.1L, Hematocrit 35.1L, Mean Corpuscular Volume 90.8, Mean Corpuscular Hemoglobin 28.8, Mean Corpuscular Hemoglobin Concent 31.7L, Red Cell Distribution Width 14.2, Platelet Count 416, Neutrophils (%) (Auto) 72.3H, Lymphocytes (%) (Auto) 9.9L, Monocytes (%) (Auto) 8.0H, Eosinophils (%) (Auto) 9.0H, Basophils (%) (Auto) 0.3, Neutrophils # (Auto) 6.4, Lymphocytes # (Auto) 0.9L, Monocytes # (Auto) 0.7, Eosinophils # (Auto) 0.8H, Basophils # (Auto) 0.0 , Glomerular Filtration Rate > 60.0, Large Unclassified Cells # 0.1, Large Unclassified Cells % 0.5 CBC/BMP Laboratory Tests 12/27/16 06:05 Calcium Level 9.3, Aspartate Amino Transf (AST/SGOT) 14 L, Alanine Aminotransferase (ALT/SGPT) 14, Alkaline Phosphatase 96, Total Bilirubin 0.4, Total Protein 6.1 L, Albumin 2.6 L, Red Blood Count 3.86 L, Mean Corpuscular Volume 90.8, Mean Corpuscular Hemoglobin 28.8, Mean Corpuscular Hemoglobin Concent 31.7 L, Red Cell Distribution Width 14.2, Neutrophils (%) (Auto) 72.3 H , Lymphocytes (%) (Auto) 9.9 L, Monocytes (%) (Auto) 8.0 H, Eosinophils (%) ( Auto) 9.0 H, Basophils (%) (Auto) 0.3, Neutrophils # (Auto) 6.4, Lymphocytes # ( Auto) 0.9 L, Monocytes # (Auto) 0.7, Eosinophils # (Auto) 0.8 H, Basophils # ( Auto) 0.0 Microbiology Microbiology 12/20/16 Urine Culture - Final, Complete 12/20/16 Urine Culture - Final, Complete HEATHER MADISON MD Dec 27, 2016 10:38
[2016-12-27 14:00] VITALS: BP 153/73
[2016-12-27 22:00] VITALS: BP 166/69
[2016-12-28] MEDS: PERCOCET 5MG/325MG TAB PO PRN ×4 (04:13→21:10)
[2016-12-28 06:00] VITALS: BP 125/56
[2016-12-28] MEDS: LEVOTHYROXINE 0.15 MG TAB (150 MCG) PO SCH (06:21)
[2016-12-28 06:58] LABS: BASO % 0.3 % (0.0-1.0); EOS # 0.7 K/mm3 (0.0-0.50); LARGE UNSTAINED CELL # 0.1 K/mm3 (0.0-0.4); LARGE UNSTAINED CELL % 0.9 % (0.0-4.0); LYMPH # 0.8 K/mm3 (1.5-4.5); LYMPH % 9.6 % (24.0-44.0); MEAN CORPUSCULAR HEMOGLOBIN 28.6 pg (27.0-33.0); MEAN CORPUSCULAR HGB CONC 31.9 g/dl (32.0-36.5); MEAN CORPUSCULAR VOLUME 89.7 fl (80.0-96.0); MONO # 0.6 K/mm3 (0.0-0.8); NEUTROPHILS # 5.8 K/mm3 (1.8-7.7); NEUTROPHILS % 72.3 % (36.0-66.0); PLATELET COUNT, AUTOMATED 433 k/mm3 (150-450); RED CELL DISTRIBUTION WIDTH 14.4 % (11.5-14.5)
[2016-12-28 07:08] LABS: ALBUMIN 2.4 GM/DL (3.2-5.2); ALBUMIN/GLOBULIN RATIO 0.62 (1.00-1.93); ALKALINE PHOSPHATASE 91 U/L (45-117); ALT/SGPT 13 U/L (12-78); ANION GAP 9 MEQ/L (8-16); AST/SGOT 12 U/L (15-37); BILIRUBIN,TOTAL 0.4 MG/DL (0.2-1.0); BLOOD UREA NITROGEN 8 MG/DL (7-18); CALCIUM LEVEL 9.3 MG/DL (8.8-10.2); CARBON DIOXIDE LEVEL 29 MEQ/L (21-32); CHLORIDE LEVEL 103 MEQ/L (98-107); CREATININE FOR GFR 0.65 MG/DL (0.55-1.02); GLOMERULAR FILTRATION RATE > 60.0 (>39); GLUCOSE, FASTING 113 MG/DL (83-110); POTASSIUM SERUM 3.7 MEQ/L (3.5-5.1); SODIUM LEVEL 141 MEQ/L (136-145); TOTAL PROTEIN 6.3 GM/DL (6.4-8.2)
[2016-12-28] MEDS: OMEPRAZOLE 20 MG CAP PO SCH (08:30)
[2016-12-28] MEDS: SENNA 8.6 MG TAB (SENOKOT) PO SCH ×2 (08:30→21:10)
[2016-12-28] MEDS: DOCUSATE SODIUM 100 MG CAP PO SCH ×2 (08:31→21:10)
[2016-12-28] MEDS: oxyBUTYnin *DITROPAN XL* 5 MG TABCR PO SCH (08:31)
[2016-12-28] MEDS: DULoxetine 30 MG CAP (CYMBALTA) PO SCH (08:31)
--- NOTE | 2016-12-28 12:44 | IPNPDOC ---
Subjective Date Seen The patient was seen on 12/28/16. Subjective Chief Complaint/HPI The patient is a 76-year-old female admitted with a reason for visit of Hematuria. Events since last encounter Denies c/o. Constitutional: Denies: Chills, Fever, Night Sweats Pulmonary: Denies: Cough, Dyspnea Cardiovascular: Denies: Chest Pain, Lt Headedness, Orthopnea, Palpitations, Paroxysmal Noc. Dyspnea Gastrointestinal: Denies: Abdominal Pain, Constipation, Diarrhea, Nausea, Vomiting Genitourinary: Reports: Other Symptoms (Jackson) Objective Physical Examination General Exam: Positive: Alert, No Acute Distress Neck Exam: Positive: Supple, Negative: JVD Chest Exam: Positive: Clear to auscultation Heart Exam: Positive: Rate Normal, Regular Rhythm Abdomen Exam: Positive: Normal bowel sounds, Other (Jackson with bright red hematuria), Soft, Negative: Tenderness Extremity Exam: Negative: Edema Assessment /Plan Problems (1) Anemia Status: Acute Problem Text: 12/25: stable 12/24/16: 10/33 12/23 10.8 12/22/16 hgb down to 10.8 baseline 12s (2) Pelvic mass Status: Acute Problem Specific Plan: Consult Specialist, Monitor Clinically, Repeat Labs Problem Text: 12/28/16: biopsies pending,colonoscopy negative, Per Urology - keep catheter in place for 1 week for bladder healing given the deep biopsies obtained (ok to remove on ) MRI on hold pending bx. 12/26/2016: biopsies pending, draining clear yellow urine per nursing report, for colonoscopy by Elva 12/25/2016: cystoscopy c L ureteroscopy s obvious tumor, biopsies taken of edematous posterior wall-favoring extrinsic compression per Jose L 12/24/16 urine cytology was positive for malignant cells; per nursing, patient is to be NPO after midnight per Dr. Domingo for repeat cystoscopy tomorrow. Patient states she is no longer having hematuria s/p jackson removal. 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 Domingo: No indication for repeat cystscopy at this time. Urine is clear and Dr. Domingo will DC jackson. If colonoscopy is negative, Dr. Domingo recommends percutaneous Bx. Patient unable to tolerate MRI due to size. Plan is for open MRI Thursday. 12/23/2016: CEA level of [address] Stevenson surgery consulted. Potential for Colonoscopy December-although p review of films do not favor colonic origin-therefore, check MRI pelvis s/c and if - colon, plan transvaginal biopsy by IR 12/21 - CT Abd/Pelv 12/20: There is a solid appearing mass at the vaginal cuff about 7 cm and it appears to be invading the posterior bladder and bladder collects urine only and small curvilinear pools posteriorly near the ureteral orifices. More on the right than left. Mostly of the bladder filled with a soft tissue density by ultrasound, has attenuation in 30's on noncontrast CT, it may be clot with tumor posteriorly suspected. I do not have details of her surgery, but the reported hysterectomy may have left cervix or conceivably ovarian tissue remnant could be responsible for this. Hydronephrosis, left greater than right. Large seroma anterior subcutaneous abdominal/pelvic wall. Other chronic changes as described. Urology and SERVICES REP following. Pt states that she had a hysterectomy 45 years ago believes that she it was a supracervical hysterectomy. Dr. Rendon called to discuss his findings and plan. As above, believe that she had a post supra-cervical hysterectomy. Likely had ovaries left since she didn't start ERT until many years later. By exam, surface of cervix seemed normal but nearby mass palpable. 11/10/12 CT AP 37 mm "vaginal cuff" cyst unchanged c/w 03/2010 CT AP 12/23/16 MRI pelvis (limited, s corky given patient's size) heterogeneous mass along the vaginal cuff again identified, measuring approximately 5.0 x 6.9 x 7.4 cm. This may represent a hematoma status post hysterectomy. (3) Hematuria Status: Acute Problem Specific Plan: Consult Specialist, Monitor Clinically, Repeat Labs Problem Text: 12/26/2016: biopsies pending, draining clear yellow urine per nursing report. 12/24/2016: urine is draining clear. Urology maddie DC Jackson. persistent, gross 12/21 - Urology following. Gross hematuria. Clot urinary retention. Questionable extrinsic bladder mass. Pt had Cystoscopy, bladder washings for cytology, clot evacuation (500 mL), and Jackson catheter insertion. 12/20/16 UCX NG (4) Hydronephrosis Status: Acute Problem Specific Plan: Consult Specialist, Monitor Clinically, Repeat Labs Problem Text: Urology following. (5) KENDRICK (obstructive sleep apnea) Status: Chronic Problem Specific Plan: Monitor Clinically Problem Text: Pt has not been using CPAP. (6) Morbid obesity Status: Chronic Problem Specific Plan: Monitor Clinically (7) Hypothyroidism Status: Chronic Problem Specific Plan: Monitor Clinically Problem Text: On Synthroid. (8) Diastolic CHF Status: Chronic Problem Specific Plan: Monitor Clinically Problem Text: echo ordered for update preoperatively. Plan/VTE VTE Prophylaxis Ordered?: No VTE Exclusion Pharmacological: Bleeding Risk (SUKH/SCD.) Plan/Urinary Catheter Urinary Catheter: Other Catheter: Reason for insertion/continuin: Other-document below (maintain catheter in place for postop healing) Plan Attending physician note: Patient seen and examined. Case reviewed with RPA. VS, I&O, 24H, [place] Vital Signs/I&O Vital Signs Date Time Temp Pulse Resp B/P Pulse Ox O2 Delivery O2 Flow Rate FiO2 12/28/16 10:46 Room Air 12/28/16 06:00 98.3 88 20 125/56 93 12/26/16 21:00 3.0 I&O- Last 24 Hours up to 6 AM 12/28/16 06:00 Intake Total 1680 ml Output Total 1100 ml Balance 580 ml Laboratory Data 24H LABS Laboratory Tests 2 12/28/16 06:34: Blood Urea Nitrogen 8, Creatinine 0.65, Sodium Level 141, Potassium Level 3.7, Chloride Level 103, Carbon Dioxide Level 29, Calcium Level 9.3, Aspartate Amino Transf (AST/SGOT) 12L, Alanine Aminotransferase (ALT/SGPT) 13, Alkaline Phosphatase 91, Total Bilirubin 0.4, Total Protein 6.3L, Albumin 2.4L, Albumin/ Globulin Ratio 0.62L, Anion Gap 9, White Blood Count 8.0, Red Blood Count 3.98L , Hemoglobin 11.4L, Hematocrit 35.7L, Mean Corpuscular Volume 89.7, Mean Corpuscular Hemoglobin 28.6, Mean Corpuscular Hemoglobin Concent 31.9L, Red Cell Distribution Width 14.4, Platelet Count 433, Neutrophils (%) (Auto) 72.3H, Lymphocytes (%) (Auto) 9.6L, Monocytes (%) (Auto) 8.0H, Eosinophils (%) (Auto) 9.0H, Basophils (%) (Auto) 0.3, Neutrophils # (Auto) 5.8, Lymphocytes # (Auto) 0.8L, Monocytes # (Auto) 0.6, Eosinophils # (Auto) 0.7H, Basophils # (Auto) 0.0 , Glomerular Filtration Rate > 60.0, Large Unclassified Cells # 0.1, Large Unclassified Cells % 0.9 CBC/BMP Laboratory Tests 12/28/16 06:34 Calcium Level 9.3, Aspartate Amino Transf (AST/SGOT) 12 L, Alanine Aminotransferase (ALT/SGPT) 13, Alkaline Phosphatase 91, Total Bilirubin 0.4, Total Protein 6.3 L, Albumin 2.4 L, Red Blood Count 3.98 L, Mean Corpuscular Volume 89.7, Mean Corpuscular Hemoglobin 28.6, Mean Corpuscular Hemoglobin Concent 31.9 L, Red Cell Distribution Width 14.4, Neutrophils (%) (Auto) 72.3 H , Lymphocytes (%) (Auto) 9.6 L, Monocytes (%) (Auto) 8.0 H, Eosinophils (%) ( Auto) 9.0 H, Basophils (%) (Auto) 0.3, Neutrophils # (Auto) 5.8, Lymphocytes # ( Auto) 0.8 L, Monocytes # (Auto) 0.6, Eosinophils # (Auto) 0.7 H, Basophils # ( Auto) 0.0 Microbiology Microbiology 12/20/16 Urine Culture - Final, Complete 12/20/16 Urine Culture - Final, Complete Tosin Costa [facility] Dec 28, 2016 12:44 Duane Mason M.D. Dec 29, 2016 12:55
[2016-12-28 14:00] VITALS: BP 142/79
[2016-12-28] MEDS: MIRALAX *UNIT DOSE* 17GM PACKET PO PRN (18:55)
[2016-12-28] MEDS: BISACODYL 5 MG TAB PO PRN (18:56)
[2016-12-28 22:00] VITALS: BP 140/72
[2016-12-29] MEDS: PERCOCET 5MG/325MG TAB PO PRN ×3 (02:30→19:58)
[2016-12-29 06:00] VITALS: BP 138/82
[2016-12-29 06:38] LABS: BASO % 0.5 % (0.0-1.0); EOS # 0.7 K/mm3 (0.0-0.50); EOS % 10.4 % (0.0-3.0); LARGE UNSTAINED CELL # 0.1 K/mm3 (0.0-0.4); LARGE UNSTAINED CELL % 0.9 % (0.0-4.0); LYMPH # 0.9 K/mm3 (1.5-4.5); LYMPH % 11.9 % (24.0-44.0); MEAN CORPUSCULAR HEMOGLOBIN 28.4 pg (27.0-33.0); MEAN CORPUSCULAR HGB CONC 31.8 g/dl (32.0-36.5); MEAN CORPUSCULAR VOLUME 89.2 fl (80.0-96.0); MONO # 0.7 K/mm3 (0.0-0.8); MONO % 9.2 % (0.0-5.0); NEUTROPHILS # 4.8 K/mm3 (1.8-7.7); NEUTROPHILS % 67.2 % (36.0-66.0); PLATELET COUNT, AUTOMATED 433 k/mm3 (150-450); RED CELL DISTRIBUTION WIDTH 14.4 % (11.5-14.5); WHITE BLOOD COUNT 7.2 K/mm3 (4.0-10.0)
[2016-12-29] MEDS: LEVOTHYROXINE 0.15 MG TAB (150 MCG) PO SCH (06:39)
[2016-12-29 06:50] LABS: ALBUMIN 2.6 GM/DL (3.2-5.2); ALBUMIN/GLOBULIN RATIO 0.81 (1.00-1.93); ALKALINE PHOSPHATASE 96 U/L (45-117); ALT/SGPT 13 U/L (12-78); ANION GAP 7 MEQ/L (8-16); AST/SGOT 12 U/L (15-37); BILIRUBIN,TOTAL 0.4 MG/DL (0.2-1.0); BLOOD UREA NITROGEN 6 MG/DL (7-18); CALCIUM LEVEL 9.5 MG/DL (8.8-10.2); CARBON DIOXIDE LEVEL 30 MEQ/L (21-32); CHLORIDE LEVEL 105 MEQ/L (98-107); CREATININE FOR GFR 0.58 MG/DL (0.55-1.02); GLOMERULAR FILTRATION RATE > 60.0 (>39); GLUCOSE, FASTING 112 MG/DL (83-110); POTASSIUM SERUM 3.7 MEQ/L (3.5-5.1); SODIUM LEVEL 142 MEQ/L (136-145); TOTAL PROTEIN 5.8 GM/DL (6.4-8.2)
[2016-12-29] MEDS: DOCUSATE SODIUM 100 MG CAP PO SCH ×2 (07:33→19:58)
[2016-12-29] MEDS: DULoxetine 30 MG CAP (CYMBALTA) PO SCH (07:34)
[2016-12-29] MEDS: OMEPRAZOLE 20 MG CAP PO SCH (07:34)
[2016-12-29] MEDS: oxyBUTYnin *DITROPAN XL* 5 MG TABCR PO SCH (07:34)
[2016-12-29] MEDS: SENNA 8.6 MG TAB (SENOKOT) PO SCH ×2 (07:35→19:58)
[2016-12-29 10:58] VITALS: BP 138/82
--- NOTE | 2016-12-29 11:51 | IPNPDOC ---
Subjective Date Seen The patient was seen on 12/29/16. Subjective Chief Complaint/HPI The patient is a 76-year-old female admitted with a reason for visit of Hematuria. Objective Physical Examination General Exam: Positive: Alert, No Acute Distress Neck Exam: Positive: Supple, Negative: JVD Chest Exam: Positive: Clear to auscultation Heart Exam: Positive: Rate Normal, Regular Rhythm Abdomen Exam: Positive: Normal bowel sounds, Other (Jackson with bright red hematuria), Soft, Negative: Tenderness Extremity Exam: Negative: Edema Skin Exam: Positive: Other skin issue (dressing to posterior left mid leg) Assessment /Plan Problems (1) Anemia Status: Acute Problem Text: 12/29 - stable with Hgb 11.5 12/25: stable 12/24/16: 10/33 12/23 10.8 12/22/16 hgb down to 10.8 baseline 12s (2) Pelvic mass Status: Acute Problem Specific Plan: Consult Specialist, Monitor Clinically, Repeat Labs Problem Text: 12/29 - Urology following. Seen by [facility]. Pt is s/p cysto w/ bladder biopsies, left ureteroscopy, and left ureteral stent placement. Pathology is still pending from the bladder biopsies. She underwent colonoscopy yesterday and there was no sign of malignancy. Urology has discussed obtaining a pathologic diagnosis prior to proceeding with any definitive treatment. Dr Domingo advises that if the bladder biopsy results are negative or inconclusive , he would recommend a transvaginal biopsy of the pelvic mass. Colonoscopy was negative. 12/28/16: biopsies pending,colonoscopy negative, Per Urology - keep catheter in place for 1 week for bladder healing given the deep biopsies obtained (ok to remove on ) MRI on hold pending bx. 12/26/2016: biopsies pending, draining clear yellow urine per nursing report, for colonoscopy by Elva 12/25/2016: cystoscopy c L ureteroscopy s obvious tumor, biopsies taken of edematous posterior wall-favoring extrinsic compression per Jose L 12/24/16 urine cytology was positive for malignant cells; per nursing, patient is to be NPO after midnight per Dr. Domingo for repeat cystoscopy tomorrow. Patient states she is no longer having hematuria s/p jackson removal. 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 Domingo: No indication for repeat cystscopy at this time. Urine is clear and Dr. Domingo will DC jackson. If colonoscopy is negative, Dr. Domingo recommends percutaneous Bx. Patient unable to tolerate MRI due to size. Plan is for open MRI Thursday. 12/23/2016: CEA level of [address] Stevenson surgery consulted. Potential for Colonoscopy December-although p review of films do not favor colonic origin-therefore, check MRI pelvis s/c and if - colon, plan transvaginal biopsy by IR 12/21 - CT Abd/Pelv 12/20: There is a solid appearing mass at the vaginal cuff about 7 cm and it appears to be invading the posterior bladder and bladder collects urine only and small curvilinear pools posteriorly near the ureteral orifices. More on the right than left. Mostly of the bladder filled with a soft tissue density by ultrasound, has attenuation in 30's on [address]contrast CT, it may be clot with tumor posteriorly suspected. I do not have details of her surgery, but the reported hysterectomy may have left cervix or conceivably ovarian tissue remnant could be responsible for this. Hydronephrosis, left greater than right. Large seroma anterior subcutaneous abdominal/pelvic wall. Other chronic changes as described. Urology and [facility] following. Pt states that she had a hysterectomy 45 years ago believes that she it was a supracervical hysterectomy. Dr. Rendon called to discuss his findings and plan. As above, believe that she had a post supra-cervical hysterectomy. Likely had ovaries left since she didn't start ERT until many years later. By exam, surface of cervix seemed normal but nearby mass palpable. 11/10/12 CT AP 37 mm "vaginal cuff" cyst unchanged c/w 03/2010 CT AP 12/23/16 MRI pelvis (limited, s corky given patient's size) heterogeneous mass along the vaginal cuff again identified, measuring approximately 5.0 x 6.9 x 7.4 cm. This may represent a hematoma status post hysterectomy. (3) Hematuria Status: Resolved Problem Specific Plan: Consult Specialist, Monitor Clinically, Repeat Labs Problem Text: 12/29 - Urology following. Gross hematuria. Bx pending. 12/26/2016: biopsies pending, draining clear yellow urine per nursing report. 12/24/2016: urine is draining clear. Urology maddie DC Jackson. persistent, gross 12/21 - Urology following. Gross hematuria. Clot urinary retention. Questionable extrinsic bladder mass. Pt had Cystoscopy, bladder washings for cytology, clot evacuation (500 mL), and Jackson catheter insertion. 12/20/16 UCX NG (4) Hydronephrosis Status: Resolved Problem Specific Plan: Consult Specialist, Monitor Clinically, Repeat Labs Problem Text: Urology following. (5) KENDRICK (obstructive sleep apnea) Status: Chronic Problem Specific Plan: Monitor Clinically Problem Text: Pt has not been using CPAP. (6) Morbid obesity Status: Chronic Problem Specific Plan: Monitor Clinically (7) Hypothyroidism Status: Chronic Problem Specific Plan: Monitor Clinically Problem Text: On Synthroid. (8) Diastolic CHF Status: Chronic Problem Specific Plan: Monitor Clinically Problem Text: echo ordered for update preoperatively. Plan/VTE VTE Prophylaxis Ordered?: No VTE Exclusion Pharmacological: Bleeding Risk (SUKH/SCD.) Plan/Urinary Catheter Urinary Catheter: Other Catheter: Reason for insertion/continuin: Other-document below (maintain catheter in place for postop healing) Plan Attending attestation: I saw and evaluated the patient, and I agree with the plan of care as discussed and documented by Driss Gonzalez. Baylee Schneider MD VS, I&O, 24H, [facility] Vital Signs/I&O Vital Signs Date Time Temp Pulse Resp B/P Pulse Ox O2 Delivery O2 Flow Rate FiO2 12/29/16 11:01 Room Air 12/29/16 10:58 98.8 84 20 138/82 95 12/26/16 21:00 3.0 I&O- Last 24 Hours up to 6 AM 12/29/16 05:59 Intake Total 1560 ml Output Total 2100 ml Balance -540 ml Laboratory Data 24H LABS Laboratory Tests 2 12/29/16 06:09: Blood Urea Nitrogen 6L, Creatinine 0.58, Sodium Level 142, Potassium Level 3.7, Chloride Level 105, Carbon Dioxide Level 30, Calcium Level 9.5, Aspartate Amino Transf (AST/SGOT) 12L, Alanine Aminotransferase (ALT/SGPT) 13, Alkaline Phosphatase 96, Total Bilirubin 0.4, Total Protein 5.8L, Albumin 2.6L, Albumin/ Globulin Ratio 0.81L, Anion Gap 7L, White Blood Count 7.2, Red Blood Count 4.06 , Hemoglobin 11.5L, Hematocrit 36.2, Mean Corpuscular Volume 89.2, Mean Corpuscular Hemoglobin 28.4, Mean Corpuscular Hemoglobin Concent 31.8L, Red Cell Distribution Width 14.4, Platelet Count 433, Neutrophils (%) (Auto) 67.2H, Lymphocytes (%) (Auto) 11.9L, Monocytes (%) (Auto) 9.2H, Eosinophils (%) (Auto) 10.4H, Basophils (%) (Auto) 0.5, Neutrophils # (Auto) 4.8, Lymphocytes # (Auto) 0.9L, Monocytes # (Auto) 0.7, Eosinophils # (Auto) 0.7H, Basophils # (Auto) 0.0 , Glomerular Filtration Rate > 60.0, Large Unclassified Cells # 0.1, Large Unclassified Cells % 0.9 CBC/BMP Laboratory Tests 12/29/16 06:09 Calcium Level 9.5, Aspartate Amino Transf (AST/SGOT) 12 L, Alanine Aminotransferase (ALT/SGPT) 13, Alkaline Phosphatase 96, Total Bilirubin 0.4, Total Protein 5.8 L, Albumin 2.6 L, Red Blood Count 4.06, Mean Corpuscular Volume 89.2, Mean Corpuscular Hemoglobin 28.4, Mean Corpuscular Hemoglobin Concent 31.8 L, Red Cell Distribution Width 14.4, Neutrophils (%) (Auto) 67.2 H , Lymphocytes (%) (Auto) 11.9 L, Monocytes (%) (Auto) 9.2 H, Eosinophils (%) ( Auto) 10.4 H, Basophils (%) (Auto) 0.5, Neutrophils # (Auto) 4.8, Lymphocytes # (Auto) 0.9 L, Monocytes # (Auto) 0.7, Eosinophils # (Auto) 0.7 H, Basophils # ( Auto) 0.0 Microbiology Microbiology 12/20/16 Urine Culture - Final, Complete 12/20/16 Urine Culture - Final, Complete Armando Gonzalez Dec 29, 2016 11:51 BAYLEE SCHNEIDER MD Jan 04, 2017 19:28
[2016-12-29 22:00] VITALS: BP 190/86
[2016-12-30 06:01] VITALS: BP 148/80
[2016-12-30] MEDS: LEVOTHYROXINE 0.15 MG TAB (150 MCG) PO SCH (06:15)
[2016-12-30] MEDS: PERCOCET 5MG/325MG TAB PO PRN ×2 (06:16→20:45)
[2016-12-30 06:30] LABS: BASO % 0.4 % (0.0-1.0); EOS # 0.7 K/mm3 (0.0-0.50); EOS % 9.1 % (0.0-3.0); LARGE UNSTAINED CELL # 0.1 K/mm3 (0.0-0.4); LARGE UNSTAINED CELL % 1.2 % (0.0-4.0); LYMPH # 1.1 K/mm3 (1.5-4.5); LYMPH % 12.6 % (24.0-44.0); MEAN CORPUSCULAR HEMOGLOBIN 28.9 pg (27.0-33.0); MEAN CORPUSCULAR HGB CONC 32.3 g/dl (32.0-36.5); MEAN CORPUSCULAR VOLUME 89.4 fl (80.0-96.0); MONO # 0.7 K/mm3 (0.0-0.8); MONO % 8.2 % (0.0-5.0); NEUTROPHILS # 5.5 K/mm3 (1.8-7.7); NEUTROPHILS % 68.6 % (36.0-66.0); PLATELET COUNT, AUTOMATED 465 k/mm3 (150-450); RED CELL DISTRIBUTION WIDTH 14.3 % (11.5-14.5)
[2016-12-30 06:55] LABS: ALBUMIN 2.5 GM/DL (3.2-5.2); ALBUMIN/GLOBULIN RATIO 0.64 (1.00-1.93); ALKALINE PHOSPHATASE 86 U/L (45-117); ALT/SGPT 15 U/L (12-78); ANION GAP 10 MEQ/L (8-16); AST/SGOT 11 U/L (15-37); BILIRUBIN,TOTAL 0.6 MG/DL (0.2-1.0); BLOOD UREA NITROGEN 8 MG/DL (7-18); CALCIUM LEVEL 9.4 MG/DL (8.8-10.2); CARBON DIOXIDE LEVEL 28 MEQ/L (21-32); CHLORIDE LEVEL 104 MEQ/L (98-107); GLOMERULAR FILTRATION RATE > 60.0 (>39); GLUCOSE, FASTING 118 MG/DL (83-110); POTASSIUM SERUM 3.5 MEQ/L (3.5-5.1); SODIUM LEVEL 142 MEQ/L (136-145); TOTAL PROTEIN 6.4 GM/DL (6.4-8.2)
[2016-12-30] MEDS: OMEPRAZOLE 20 MG CAP PO SCH (09:43)
[2016-12-30] MEDS: oxyBUTYnin *DITROPAN XL* 5 MG TABCR PO SCH (09:43)
[2016-12-30] MEDS: SENNA 8.6 MG TAB (SENOKOT) PO SCH ×2 (09:43→20:44)
[2016-12-30] MEDS: DULoxetine 30 MG CAP (CYMBALTA) PO SCH (09:43)
[2016-12-30] MEDS: DOCUSATE SODIUM 100 MG CAP PO SCH ×2 (09:44→20:44)
--- NOTE | 2016-12-30 11:36 | IPNPDOC ---
Subjective Date Seen The patient was seen on 12/30/16. Subjective Chief Complaint/HPI The patient is a 76-year-old female admitted with a reason for visit of Hematuria. Events since last encounter Pt very anxious about new dx of SCC. However, after family meeting, pt wishes to pursue tx. Denies difficulty with urination, bleeding, or fevers. General: Denies: Malaise Constitutional: Denies: Chills, Fatigue, Fever, Malaise, Weakness Skin: Denies: Lesions, Rash Pulmonary: Denies: Cough Cardiovascular: Denies: Chest Pain, Palpitations Gastrointestinal: Reports: Abdominal Pain (mild abdominal pain), Constipation, Denies: Diarrhea, Nausea, Vomiting Genitourinary: Denies: Dysuria, Hematuria Psych: Reports: Anxiety Objective Physical Examination General Exam: Positive: Alert, No Acute Distress ENT Exam: Positive: Mucous membr. moist/pink Neck Exam: Positive: Supple, Negative: JVD Chest Exam: Positive: Clear to auscultation Heart Exam: Positive: Rate Normal, Regular Rhythm Abdomen Exam: Positive: Normal bowel sounds, Soft, Tenderness (mild ttp without guarding or rebound) Extremity Exam: Negative: Edema Skin Exam: Positive: Other skin issue (dressing to posterior left mid leg) Neuro Exam: Positive: Normal Speech Psych Exam: Positive: Anxiety, Mental status NL, Oriented x 3 Assessment /Plan Problems (1) Pelvic mass Status: Acute Problem Specific Plan: Consult Specialist, Monitor Clinically, Repeat Labs Problem Text: Bx positive for SCC, 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 Urology feels this is not within their scope, although they feel uro would need to be involved if surgery were an option. However, due to invasion of other structures, most likely pt would need radiation therapy/ and or chemo. Confirmed this with [employer] onc in [place]. Also discussed with Dr. Rendon. o will see the pt tomorrow. PET scan schedueld for January 07. [employer] set up worker onc to see the patient January 12. Pt and family given information regarding plan - discharge planning (2) Anemia Status: Acute Problem Text: Stable, cath out, pt to followup with urology in 1 mo regarding stent. (3) Hematuria Status: Resolved Problem Text: As above. Will need followup labs outpatient. (4) Hydronephrosis Status: Resolved Discussed With: Health Care Proxy Problem Text: Resolved after stent placement (5) KENDRICK (obstructive sleep apnea) Status: Chronic Problem Specific Plan: Monitor Clinically Problem Text: Pt has not been using CPAP. (6) Morbid obesity Status: Chronic Problem Specific Plan: Monitor Clinically (7) Hypothyroidism Status: Chronic Problem Specific Plan: Monitor Clinically Problem Text: On Synthroid. (8) Diastolic CHF Status: Chronic Problem Specific Plan: Monitor Clinically Problem Text: echo ordered for update preoperatively. Plan/VTE VTE Prophylaxis Ordered?: No VTE Exclusion Pharmacological: Bleeding Risk (SUKH/SCD.) Plan/Urinary Catheter Urinary Catheter: Other Catheter: Reason for insertion/continuin: Other-document below (maintain catheter in place for postop healing) Disposition Pending discussion with radiation oncology VS, I&O, 24H, [facility] Vital Signs/I&O Vital Signs Date Time Temp Pulse Resp B/P Pulse Ox O2 Delivery O2 Flow Rate FiO2 12/30/16 07:52 Room Air 12/30/16 07:42 16 12/30/16 06:01 98.7 87 148/80 95 12/26/16 21:00 3.0 I&O- Last 24 Hours up to 6 AM 12/30/16 06:00 Intake Total 1040 ml Output Total 800 ml Balance 240 ml Laboratory Data 24H LABS Laboratory Tests 2 12/29/16 12:06: Bedside Glucose (Misc Panel) 107 12/29/16 16:23: Bedside Glucose (Misc Panel) 118H 12/29/16 20:02: Bedside Glucose (Misc Panel) 97 12/30/16 06:03: Blood Urea Nitrogen 8, Creatinine 0.70, Sodium Level 142, Potassium Level 3.5, Chloride Level 104, Carbon Dioxide Level 28, Calcium Level 9.4, Aspartate Amino Transf (AST/SGOT) 11L, Alanine Aminotransferase (ALT/SGPT) 15, Alkaline Phosphatase 86, Total Bilirubin 0.6, Total Protein 6.4, Albumin 2.5L, Albumin/ Globulin Ratio 0.64L, Anion Gap 10, White Blood Count 8.0, Red Blood Count 4.03 , Hemoglobin 11.7L, Hematocrit 36.1, Mean Corpuscular Volume 89.4, Mean Corpuscular Hemoglobin 28.9, Mean Corpuscular Hemoglobin Concent 32.3, Red Cell Distribution Width 14.3, Platelet Count 465H, Neutrophils (%) (Auto) 68.6H, Lymphocytes (%) (Auto) 12.6L, Monocytes (%) (Auto) 8.2H, Eosinophils (%) (Auto) 9.1H, Basophils (%) (Auto) 0.4, Neutrophils # (Auto) 5.5, Lymphocytes # (Auto) 1.1L, Monocytes # (Auto) 0.7, Eosinophils # (Auto) 0.7H, Basophils # (Auto) 0.0 , Glomerular Filtration Rate > 60.0, Large Unclassified Cells # 0.1, Large Unclassified Cells % 1.2 CBC/BMP Laboratory Tests 12/30/16 06:03 Calcium Level 9.4, Aspartate Amino Transf (AST/SGOT) 11 L, Alanine Aminotransferase (ALT/SGPT) 15, Alkaline Phosphatase 86, Total Bilirubin 0.6, Total Protein 6.4, Albumin 2.5 L, Red Blood Count 4.03, Mean Corpuscular Volume 89.4, Mean Corpuscular Hemoglobin 28.9, Mean Corpuscular Hemoglobin Concent 32.3 , Red Cell Distribution Width 14.3, Neutrophils (%) (Auto) 68.6 H, Lymphocytes ( %) (Auto) 12.6 L, Monocytes (%) (Auto) 8.2 H, Eosinophils (%) (Auto) 9.1 H, Basophils (%) (Auto) 0.4, Neutrophils # (Auto) 5.5, Lymphocytes # (Auto) 1.1 L, Monocytes # (Auto) 0.7, Eosinophils # (Auto) 0.7 H, Basophils # (Auto) 0.0 Microbiology Microbiology 12/20/16 Urine Culture - Final, Complete 12/20/16 Urine Culture - Final, Complete BAYLEE VEGA MD Dec 30, 2016 11:36 I&O- Last 24 Hours up to 6 AM 12/30/16 06:00 Intake Total 1040 ml Output Total 800 ml Balance 240 ml Laboratory Data 24H LABS Laboratory Tests 2 12/29/16 12:06: Bedside Glucose (Misc Panel) 107 12/29/16 16:23: Bedside Glucose (Misc Panel) 118H 12/29/16 20:02: Bedside Glucose (Misc Panel) 97 12/30/16 06:03: Blood Urea Nitrogen 8, Creatinine 0.70, Sodium Level 142, Potassium Level 3.5, Chloride Level 104, Carbon Dioxide Level 28, Calcium Level 9.4, Aspartate Amino Transf (AST/SGOT) 11L, Alanine Aminotransferase (ALT/SGPT) 15, Alkaline Phosphatase 86, Total Bilirubin 0.6, Total Protein 6.4, Albumin 2.5L, Albumin/ Globulin Ratio 0.64L, Anion Gap 10, White Blood Count 8.0, Red Blood Count 4.03 , Hemoglobin 11.7L, Hematocrit 36.1, Mean Corpuscular Volume 89.4, Mean Corpuscular Hemoglobin 28.9, Mean Corpuscular Hemoglobin Concent 32.3, Red Cell Distribution Width 14.3, Platelet Count 465H, Neutrophils (%) (Auto) 68.6H, Lymphocytes (%) (Auto) 12.6L, Monocytes (%) (Auto) 8.2H, Eosinophils (%) (Auto) 9.1H, Basophils (%) (Auto) 0.4, Neutrophils # (Auto) 5.5, Lymphocytes # (Auto) 1.1L, Monocytes # (Auto) 0.7, Eosinophils # (Auto) 0.7H, Basophils # (Auto) 0.0 , Glomerular Filtration Rate > 60.0, Large Unclassified Cells # 0.1, Large Unclassified Cells % 1.2 CBC/BMP Laboratory Tests 12/30/16 06:03 Calcium Level 9.4, Aspartate Amino Transf (AST/SGOT) 11 L, Alanine Aminotransferase (ALT/SGPT) 15, Alkaline Phosphatase 86, Total Bilirubin 0.6, Total Protein 6.4, Albumin 2.5 L, Red Blood Count 4.03, Mean Corpuscular Volume 89.4, Mean Corpuscular Hemoglobin 28.9, Mean Corpuscular Hemoglobin Concent 32.3 , Red Cell Distribution Width 14.3, Neutrophils (%) (Auto) 68.6 H, Lymphocytes ( %) (Auto) 12.6 L, Monocytes (%) (Auto) 8.2 H, Eosinophils (%) (Auto) 9.1 H, Basophils (%) (Auto) 0.4, Neutrophils # (Auto) 5.5, Lymphocytes # (Auto) 1.1 L, Monocytes # (Auto) 0.7, Eosinophils # (Auto) 0.7 H, Basophils # (Auto) 0.0 Microbiology Microbiology 12/20/16 Urine Culture - Final, Complete 12/20/16 Urine Culture - Final, Complete BAYLEE VEGA MD Dec 30, 2016 11:36
[2016-12-30 14:00] VITALS: BP 146/75
[2016-12-30 22:00] VITALS: BP 143/76
[2016-12-31] MEDS: LEVOTHYROXINE 0.15 MG TAB (150 MCG) PO SCH (05:11)
[2016-12-31 06:00] VITALS: BP 120/66
[2016-12-31] MEDS: OMEPRAZOLE 20 MG CAP PO SCH (08:38)
[2016-12-31] MEDS: MIRALAX *UNIT DOSE* 17GM PACKET PO PRN (08:38)
[2016-12-31] MEDS: DOCUSATE SODIUM 100 MG CAP PO SCH ×2 (08:38→21:14)
[2016-12-31] MEDS: oxyBUTYnin *DITROPAN XL* 5 MG TABCR PO SCH (08:39)
[2016-12-31] MEDS: PERCOCET 5MG/325MG TAB PO PRN ×3 (08:39→22:31)
[2016-12-31] MEDS: SENNA 8.6 MG TAB (SENOKOT) PO SCH ×2 (08:39→21:13)
[2016-12-31] MEDS: DULoxetine 30 MG CAP (CYMBALTA) PO SCH (08:39)
[2016-12-31] MEDS: BISACODYL 5 MG TAB PO PRN (08:39)
[2016-12-31] MEDS ORDERED: MAGNESIUM CITRATE 300 ML BTL PO ONE (09:15)
--- NOTE | 2016-12-31 12:14 | DS.PDOC ---
Discharge Summary General Date of Admission Dec 20, 2016 at 15:58 Date of Discharge 01/01/17 Primary Care Physician: Duane Mason M.D. Attending Physician: BAYLEE SCHNEIDER MD Specialist/Consultants Involve: Shalom Nielsen Specialist/Consultants Involve Urology: Dr. Domingo [facility]: Dr. Rendon Discharge Summary PROCEDURES PERFORMED DURING STAY: tissue biopsy, ureteral stent COMPLICATIONS/CHIEF COMPLAINT: Hematuria ADMISSION DIAGNOSES: 1. Hematuria 2. anemia 3. morbid obesity 4. hypothyroid 5. CHF DISCHARGE DIAGNOSES: 1. invasive SCC of Cervix 2. hydronephrosis, resolved s/p ureteral stent 3. acute blood loss anemia 4. morbid obesity 5. CHF HISTORY OF PRESENT ILLNESS: On the day of discharge, the patient was feeling well, denied hematuria, and was in reasonably good spirits. She spoke with radiation oncology the day prior to discharge, and has her first appointment scheduled. She understands her plan of care regarding her new diagnosis of cervical SCC. HOSPITAL COURSE: Pt was admitted 12/20/16 for hematuria and anemia. During the course of her workup, she was discovered to have a 5x7 cm mass invading the wall of the bladder and causing urinary obstruction. She underwent stent placement by urology and [facility] evaluation, including biopsy of the mass. This was found to be SCC, and after discussion with both [facility] and urology, the mass was determined to be most likely originating from the remnant of cervix left from the patient's prior hysterectomy. [facility] onc was consulted at [facility]. Pt was seen by radiation oncology, and set up with her first scheduled treatment January 09. She was also set up with PET scan January 07, and an appointment with [facility] onc in [place] January 12. She was discharge back to [facility]. DISCHARGE MEDICATIONS: Please see below. ALLERGIES: Please see below. PHYSICAL EXAMINATION ON DISCHARGE: VITAL SIGNS: Please see below. GENERAL: morbidly obese, Alert, Sitting comfortably at bedside, NAD HEENT: sclera clear, MMM, no thyromegaly NECK: supple, increased diameter CARDIOVASCULAR EXAMINATION: RRR, S1, S2, no m/r/g, no heave RESPIRATORY EXAMINATION: CBTA, no w/r/r, normal work of breathing ABDOMINAL EXAMINATION: morbidly obese, soft, non-tender EXTREMITIES: no edema, warm and dry SKIN: no rashes or lesions NEUROLOGICAL EXAMINATION: alert and oriented x 3, no deficits PSYCHIATRIC EXAMINATION: normal mood and affect LABORATORY DATA: Please see below. IMAGING: CXR: cardiomegaly with COPD and fibrosis. No cesar edema, pleural effusion or dense consolidation. Somewhat tortuous calcified aorta, stable. Heavier fibrosis in the bases. CT A/P: There is a solid appearing mass at the vaginal cuff about 7 cm and it appears to be invading the posterior bladder and bladder collects urine only and small curvilinear pools posteriorly near the ureteral orifices. More on the right than left. Mostly of the bladder filled with a soft tissue density by ultrasound, has attenuation in 30's on noncontrast CT, it may be clot with tumor posteriorly suspected. I do not have details of her surgery, but the reported hysterectomy may have left cervix or conceivably ovarian tissue remnant could be responsible for this. Pelvic U/S: 1. Mass at the vaginal cuff 7.6 x 6.3 x 4.5 cm, solid with blood flow within. It abuts and may be invading the bladder wall with bladder debris and/or clot as well seen within the bladder. A Pruitt catheter is also in the bladder. 2. A heterogeneous complex solid and cystic focus subcutaneous tissues corresponds to the large low density lesion in the subcutaneous fat on CT which has a much more fluid appearance than the ultrasound which again shows ribbon and strand-like densities with fluid and relieved suggesting clot. No pelvic free fluid. 2. Hydronephrosis, left greater than right. 3. Large seroma anterior subcutaneous abdominal/pelvic wall. Other chronic changes as described. MRI: Limited MRI pelvis performed. Localizing sequences were performed in the sagittal, axial and coronal planes. These include a T2-weighted coronal sequence and an axial T2-weighted sequence. Due to the patient's body habitus, further sequences were unsuccessful. There is a heterogeneous mass along the vaginal cuff again identified, measuring approximately 5.0 x 6.9 x 7.4 cm. This may represent a hematoma status post hysterectomy. Pruitt catheter is seen in the urinary bladder. Sigmoid diverticula are noted. There is mild left hydroureteronephrosis. Retrograde Pyelogram: Four C-arm views are performed. A wire is seen in the left ureter on the first image. Contrast is injected into the dilated left ureter and pelvicalyceal system on the second and third images. The fourth image shows a left ureteral stent. The proximal end is coiled in the left renal pelvis. The distal end is coiled in the urinary bladder. VTE Prophylaxis ordered?: Yes DISCHARGE CONDITION: Stable DISPOSITION: Discharged to [facility] ACTIVITY: As tolerated DIET: Regular ITEMS TO FOLLOWUP ON OUTPATIENT: 1. PET scan January 07 2. Radiation therapy January 09 3. [facility] onc referral January 12 DISCHARGE PLAN AND INSTRUCTIONS: 1. Pt and family given instructions on followup with [facility] onc, radiation oncology , and outpatient imaging TIME SPENT ON DISCHARGE: Greater than 30 minutes Baylee Schneider MD Vital Signs/I&Os Vital Signs Date Time Temp Pulse Resp B/P Pulse Ox O2 Delivery O2 Flow Rate FiO2 12/31/16 09:09 16 12/31/16 09:08 Room Air 12/31/16 06:00 97.5 70 120/66 91 12/26/16 21:00 3.0 I&O- Last 24 Hours up to 6 AM 12/31/16 05:59 Intake Total 1620 ml Output Total 450 ml Balance 1170 ml Medications Scheduled Baclofen (Baclofen) 10 Mg Tab 10 MG PO QHS Cholecalciferol (Vitamin D) 5,000 Unit Tab 5,000 UNIT PO 5XW BID ON THU, , WED, , THU Docusate Sod/Senna (Senna S 8.6-50 mg) 1 Tab Tab 1 TAB PO DAILY Docusate Sodium (Docusate Sodium) 100 Mg Cap 100 MG PO BID Duloxetine Hcl (Cymbalta) 60 Mg Cap 60 MG PO BID Levothyroxine Sodium (Levoxyl) 150 Mcg Tab 150 MCG PO DAILY Loratadine (Claritin) 10 Mg Tab 10 MG PO DAILY Metformin Hydrochloride (Metformin HCl) 500 Mg Tab 500 MG PO BID Omeprazole (Omeprazole) 40 Mg Cap 40 MG PO DAILY Oxybutynin Chloride (Oxybutynin Chloride ER) 5 Mg Tab 5 MG PO DAILY TAKES AT NOON Polyethylene Glycol (Miralax) 1 Pow Pow 17 GM PO DAILY Trazodone HCl (Trazodone HCl) 100 Mg Tab 100 MG PO QHS Scheduled PRN (Enema) 1 Mena Mena 1 MENA [place] DAILY PRN PRN CONSTIPATION Acetaminophen (Tylenol) 325 Mg Tab 650 MG PO Q4H PRN PRN PAIN / FEVER Albuterol Sulfate (Albuterol Sulfate) 2.5 Mg/3 Ml Nebu 2.5 MG INH Q4H PRN PRN SOB/WHEEZING Bisacodyl (Dulcolax) 10 Mg Sup 10 MG [place] DAILY PRN PRN CONSTIPATION Hydrocortisone Acetate (Anusol-Hc) 25 Mg Sup 25 MG IL DAILY PRN PRN HEMORRHOIDS Magnesium Citrate (Citrate of Magnesia) 300 Ml Soln 300 ML PO Q3RD PRN PRN CONSTIPATION Milk Of Magnesia (Milk of Magnesia) 1,200 Mg/15 Ml Amanda 30 ML PO DAILY PRN PRN BOWEL CARE Ondansetron HCl (Zofran) 4 Mg Tab 4 MG PO Q4H PRN PRN NAUSEA Tramadol HCl (Tramadol HCl) 50 Mg Tab 25 MG PO Q6H PRN PRN PAIN Allergies Coded Allergies: No Known Drug Allergy (Verified Allergy, Unknown, 02/12/13) BAYLEE SCHNEIDER MD Dec 31, 2016 12:14
[2016-12-31] MEDS ORDERED: LACTULOSE 20 GM/30 ML SYRUP UD PO ONE (12:30)
[2016-12-31] MEDS ORDERED: BISACODYL 10 MG SUPP PR ONE (12:30)
[2016-12-31] MEDS ORDERED: MAGNESIUM CITRATE 300 ML BTL PO PRN (13:00)
[2016-12-31 14:00] VITALS: BP 128/67
[2016-12-31 22:00] VITALS: BP 126/58
--- NOTE | 2016-12-31 23:30 | IPNPDOC ---
Subjective Date Seen The patient was seen on 12/31/16. Subjective Chief Complaint/HPI The patient is a 76-year-old female admitted with a reason for visit of Hematuria. Events since last encounter Pt seen by rad onc. Has apt set up for therapy starting January 09. No new sx. Cont to urinate without difficulty. However, hasn't stooled since Sat. Wanting to make sure she stools prior to transfer back to the [facility]. Having mild abd discomfort from constipation. General: Reports: Normal Appetite, Denies: Chills, Fatigue, Malaise Constitutional: Denies: Chills, Fever, Malaise Skin: Denies: Rash Pulmonary: Denies: Dyspnea Cardiovascular: Denies: Chest Pain Gastrointestinal: Reports: Abdominal Pain (mild), Denies: Diarrhea, Nausea, Vomiting Genitourinary: Denies: Dysuria, Frequency, Hematuria, Incontinence, Retention Psych: Reports: Anxiety Other systems 10 pt ROS otherwise negative Objective Physical Examination General Exam: Positive: Alert, No Acute Distress ENT Exam: Positive: Mucous membr. moist/pink Neck Exam: Positive: Supple, Negative: JVD Chest Exam: Positive: Clear to auscultation Heart Exam: Positive: Rate Normal, Regular Rhythm Abdomen Exam: Positive: Normal bowel sounds, Soft, Tenderness (mild ttp without guarding or rebound) Extremity Exam: Negative: Edema Skin Exam: Positive: Other skin issue (dressing to posterior left mid leg) Neuro Exam: Positive: Normal Speech Psych Exam: Positive: Anxiety, Mental status NL, Oriented x 3 Assessment /Plan Problems (1) Pelvic mass Status: Acute Problem Specific Plan: Consult Specialist, Monitor Clinically, Repeat Labs Problem Text: Bx positive for SCC, 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 Urology feels this is not within their scope, although they feel uro would need to be involved if surgery were an option. However, due to invasion of other structures, most likely pt would need radiation therapy/ and or chemo. Confirmed this with Preparation Supervisor onc in [place]. Also discussed with Dr. Rendon. o will see the pt tomorrow. PET scan schedueld for January 07. [place] insurance sales assistant onc to see the patient January 12. Pt and family given information regarding plan - discharge planning - [facility] unable to take back until tomorrow AM (2) Anemia Status: Acute Problem Text: Stable, cath out, pt to followup with urology in 1 mo regarding stent. (3) Hematuria Status: Resolved Problem Text: As above. Will need followup labs outpatient. (4) Hydronephrosis Status: Resolved Discussed With: Health Care Proxy Problem Text: Resolved after stent placement (5) KENDRICK (obstructive sleep apnea) Status: Chronic Problem Specific Plan: Monitor Clinically Problem Text: Pt has not been using CPAP. (6) Morbid obesity Status: Chronic Problem Specific Plan: Monitor Clinically (7) Hypothyroidism Status: Chronic Problem Specific Plan: Monitor Clinically Problem Text: On Synthroid. (8) Diastolic CHF Status: Chronic Problem Specific Plan: Monitor Clinically Problem Text: echo ordered for update preoperatively. Plan/VTE VTE Prophylaxis Ordered?: No VTE Exclusion Pharmacological: Bleeding Risk (SUKH/SCD.) Plan/Urinary Catheter Urinary Catheter: Other Catheter: Reason for insertion/continuin: Other-document below (maintain catheter in place for postop healing) VS, I&O, 24H, Fishbone Vital Signs/I&O Vital Signs Date Time Temp Pulse Resp B/P Pulse Ox O2 Delivery O2 Flow Rate FiO2 12/31/16 22:31 18 12/31/16 14:00 97.7 67 128/67 94 Room Air 12/26/16 21:00 3.0 I&O- Last 24 Hours up to 6 AM 12/31/16 06:00 Intake Total 1740 ml Output Total 450 ml Balance 1290 ml BAYLEE VEGA MD Dec 31, 2016 23:30
[2017-01-01] MEDS: LEVOTHYROXINE 0.15 MG TAB (150 MCG) PO SCH (05:55)
[2017-01-01 06:00] VITALS: BP 141/71
[2017-01-01] MEDS: oxyBUTYnin *DITROPAN XL* 5 MG TABCR PO SCH (09:01)
[2017-01-01] MEDS: SENNA 8.6 MG TAB (SENOKOT) PO SCH (09:01)
[2017-01-01] MEDS: DOCUSATE SODIUM 100 MG CAP PO SCH (09:01)
[2017-01-01] MEDS: OMEPRAZOLE 20 MG CAP PO SCH (09:01)
[2017-01-01] MEDS: MIRALAX *UNIT DOSE* 17GM PACKET PO PRN (09:01)
[2017-01-01] MEDS: DULoxetine 30 MG CAP (CYMBALTA) PO SCH (09:02)
[2017-01-01] MEDS: PERCOCET 5MG/325MG TAB PO PRN (09:02)
[2017-01-01] MEDS: BISACODYL 5 MG TAB PO PRN (09:02)
[2017-01-01] MEDS ORDERED: MAGNESIUM CITRATE 300 ML BTL PO ONE (10:00)
[2017-01-01] MEDS ORDERED: MAGNESIUM CITRATE 300 ML BTL PO SCH (10:00)
== END 2017-01-01 13:15 | DRG 749 ==
LOC: M ED 13:37 → M SDC 14:35 → M MS5PR 15:57 → UNDOADMIN 20:21 → M MS5PR 20:40
PROVIDERS: ADMIT Family Medicine; ATTEND Family Medicine
PROC: 3E1K88X Irrigation of Genitourinary Tract using Irrigating Substance, Via Natural or Artificial Opening Endoscopic, Diagnostic (ICD-10-PCS; 2016-12-20)
PROC: 0TCB8ZZ Extirpation of Matter from Bladder, Via Natural or Artificial Opening Endoscopic (ICD-10-PCS; 2016-12-20)
PROC: 0T778DZ Dilation of Left Ureter with Intraluminal Device, Via Natural or Artificial Opening Endoscopic (ICD-10-PCS; 2016-12-25)
PROC: 0TBB8ZX Excision of Bladder, Via Natural or Artificial Opening Endoscopic, Diagnostic (ICD-10-PCS; principal; 2016-12-25 12:40)
PROC: 0DJD8ZZ Inspection of Lower Intestinal Tract, Via Natural or Artificial Opening Endoscopic (ICD-10-PCS; 2016-12-26)
DX: C53.9 Malignant neoplasm of cervix uteri, unspecified (principal); Z68.43 Body mass index [BMI] 50.0-59.9, adult; I50.32 Chronic diastolic (congestive) heart failure; N13.30 Unspecified hydronephrosis; D62 Acute posthemorrhagic anemia; R33.9 Retention of urine, unspecified; E11.9 Type 2 diabetes mellitus without complications; I11.0 Hypertensive heart disease with heart failure; E78.00 Pure hypercholesterolemia, unspecified; G47.33 Obstructive sleep apnea (adult) (pediatric); E03.9 Hypothyroidism, unspecified; H35.30 Unspecified macular degeneration; E66.01 Morbid (severe) obesity due to excess calories; R31.0 Gross hematuria; E53.8 Deficiency of other specified B group vitamins; E78.5 Hyperlipidemia, unspecified; K21.9 Gastro-esophageal reflux disease without esophagitis; K57.30 Diverticulosis of large intestine without perforation or abscess without bleeding; F32.9 Major depressive disorder, single episode, unspecified; G89.29 Other chronic pain; M17.0 Bilateral primary osteoarthritis of knee; Z99.3 Dependence on wheelchair; G56.03 Carpal tunnel syndrome, bilateral upper limbs; L89.892 Pressure ulcer of other site, stage 2; I27.81 Cor pulmonale (chronic); K59.00 Constipation, unspecified; Z79.82 Long term (current) use of aspirin; Z79.84 Long term (current) use of oral hypoglycemic drugs; Z90.710 Acquired absence of both cervix and uterus; Z79.899 Other long term (current) drug therapy

== ENCOUNTER → 2017-01-06 | Outpatient (REF) | payer MEDICARE, MEDICAID ==
[~2017-01-06] MED LIST changes: +ACET50TAOT PO; +ALBU83IN INH; +ANUS25SU PR; +BACL10TA2 PO; +CITR1SOL PO; +CLAR1TAB2 PO; +DOCU100C PO; +DULC10SU2 PR; +ENEM1ENE4 PR; +LEVO150T42 PO; +METF500T PO; +MILKSUS PO; +MIRA33504 PO; +OMEP40CA2 PO; +OXYB5TAB PO; +SENN8.6T7 PO; +TRAZ100T4 PO; +VITA500046 PO; +ZOFR20TA PO
[2017-01-06 12:08] LABS: MEAN CORPUSCULAR HEMOGLOBIN 28.6 pg (27.0-33.0); MEAN CORPUSCULAR HGB CONC 31.5 g/dl (32.0-36.5); MEAN CORPUSCULAR VOLUME 90.8 fl (80.0-96.0); RED CELL DISTRIBUTION WIDTH 13.9 % (11.5-14.5); WHITE BLOOD COUNT 7.3 K/mm3 (4.0-10.0)
[2017-01-06 12:31] LABS: ANION GAP 10 MEQ/L (8-16); BLOOD UREA NITROGEN 11 MG/DL (7-18); CALCIUM LEVEL 9.1 MG/DL (8.8-10.2); CARBON DIOXIDE LEVEL 31 MEQ/L (21-32); CHLORIDE LEVEL 96 MEQ/L (98-107); CREATININE FOR GFR 0.72 MG/DL (0.55-1.02); GLOMERULAR FILTRATION RATE > 60.0 (>39); GLUCOSE, FASTING 128 MG/DL (83-110); POTASSIUM SERUM 4.4 MEQ/L (3.5-5.1); SODIUM LEVEL 137 MEQ/L (136-145)
== END ==
PROVIDERS: ATTEND Family Medicine
DX: R10.10 Upper abdominal pain, unspecified (principal)

== ENCOUNTER → 2017-01-07 | Outpatient (REF) | payer MEDICARE, MEDICAID ==
[2017-01-07 13:23] LABS: ANION GAP 8 MEQ/L (8-16); BLOOD UREA NITROGEN 12 MG/DL (7-18); CALCIUM LEVEL 9.7 MG/DL (8.8-10.2); CARBON DIOXIDE LEVEL 31 MEQ/L (21-32); CHLORIDE LEVEL 98 MEQ/L (98-107); CREATININE FOR GFR 0.81 MG/DL (0.55-1.02); GLOMERULAR FILTRATION RATE > 60.0 (>39); GLUCOSE, FASTING 121 MG/DL (83-110); POTASSIUM SERUM 4.2 MEQ/L (3.5-5.1); SODIUM LEVEL 137 MEQ/L (136-145)
[2017-01-07 13:24] LABS: MEAN CORPUSCULAR HEMOGLOBIN 28.7 pg (27.0-33.0); MEAN CORPUSCULAR HGB CONC 32.2 g/dl (32.0-36.5); RED CELL DISTRIBUTION WIDTH 13.7 % (11.5-14.5)
== END ==
PROVIDERS: ATTEND Family Medicine
DX: R10.9 Unspecified abdominal pain (principal)

== ENCOUNTER → 2017-01-08 | Outpatient (REF) | payer MEDICARE, MEDICAID ==
--- NOTE | 2017-01-08 16:04 | REP ---
KUB: Two views presented. History: Abdominal pain and nausea. Comparison radiographs are from December 18, 2016. Findings: Two views of the abdomen demonstrate a double pigtailed ureteral stent in place on the left side. There is no small bowel dilation. No mass, organomegaly or obstructive pattern is seen. There are osteoarthritic changes in the hips which are fairly advanced as before. Impression: No evidence of obstruction or mass lesion. Left sided double pigtail ureteral stent noted in good position. Advanced osteoarthritis both hips. No acute abnormality seen. Signed by Aime Bansal MD 01/08/2017 05:00 P
== END ==
PROVIDERS: ATTEND Family Medicine
DX: R10.9 Unspecified abdominal pain (principal); R11.0 Nausea

== ENCOUNTER → 2017-01-20 | Outpatient (REF) | payer MEDICARE, MEDICAID ==
[2017-01-20 15:20] LABS: MEAN CORPUSCULAR HEMOGLOBIN 28.6 pg (27.0-33.0); MEAN CORPUSCULAR HGB CONC 31.5 g/dl (32.0-36.5); MEAN CORPUSCULAR VOLUME 90.7 fl (80.0-96.0); RED CELL DISTRIBUTION WIDTH 13.9 % (11.5-14.5); WHITE BLOOD COUNT 9.4 K/mm3 (4.0-10.0)
[2017-01-20 16:49] LABS: ANION GAP 10 MEQ/L (8-16); BLOOD UREA NITROGEN 11 MG/DL (7-18); CALCIUM LEVEL 10.1 MG/DL (8.8-10.2); CARBON DIOXIDE LEVEL 29 MEQ/L (21-32); CHLORIDE LEVEL 101 MEQ/L (98-107); CREATININE FOR GFR 0.79 MG/DL (0.55-1.02); GLOMERULAR FILTRATION RATE > 60.0 (>39); GLUCOSE, FASTING 111 MG/DL (83-110); POTASSIUM SERUM 4.3 MEQ/L (3.5-5.1); SODIUM LEVEL 140 MEQ/L (136-145)
== END ==
PROVIDERS: ATTEND Family Medicine
DX: E11.9 Type 2 diabetes mellitus without complications (principal)

== ENCOUNTER 2017-01-21 13:01 | Outpatient (RCR) | payer MEDICARE, MEDICAID ==
--- NOTE | 2017-01-21 14:11 | RADONC ---
RADIATION ONCOLOGY SIMULATION NOTE: DATE: 01/21/2017 Ms. Dawn was taken to the CT scan for CT simulation of her pelvic field. CT was accomplished without difficulty or discomfort. Radiation treatment planning is underway and radiation treatments will begin subsequently. An immobilization device was created and will be used throughout the course of treatment. I was physically present throughout the course of CT simulation.
--- NOTE | 2017-01-27 13:44 | RADONC ---
RADIATION ONCOLOGY PROGRESS NOTE DATE: 01/26/2017 CHART NUMBER: Ms. Dawn underwent her first fraction of 180 cGy today to her pelvis. It was tolerated without difficulty or discomfort. The patient has no complaints related to her radiation therapy. She remains bed-bound. She is having no pain at the present time and no bleeding. The patient's review of systems is positive for physical limitations secondary to her old age. She is in a senior living. Her review of systems is otherwise unchanged. The patient's skin is in good condition clearly with no evidence of radiation change present. The remainder of her physical exam also remains unchanged. Ms. Dawn underwent her first fraction of radiation today to the pelvis and it was well tolerated. Treatments will continue as scheduled. Chemotherapy was initiated today as well.
--- NOTE | 2017-02-03 08:20 | RADONC ---
RADIATION ONCOLOGY DATE: 02/02/2017 PROGRESS NOTE Ms. Dawn is presently at a dose of 360 cGy to her pelvis and is tolerating treatments quite well at this point with no complaints related to her radiation therapy. She is having no urinary or bowel difficulties and no bone pain. The patient has had no further bleeding at this point. REVIEW OF SYSTEMS: The patient's review of systems is positive for all her normal physical limitations. She is presenting in the stretcher. She is unable to lift herself. She has no nausea, vomiting, fevers, chills, night sweats, diplopia, headaches, anxiety, depression, anorexia, weight loss, visual disturbances, chest pain, urinary or bowel difficulties. PHYSICAL EXAMINATION: The patient's skin is in good condition with no evidence of moist or dry desquamation. The remainder of physical exam remains unchanged. Ms. Dawn tolerated her first two treatments quite well and radiation will continue as scheduled.
== END 2017-02-06 ==
LOC: M ONCR 13:01
PROVIDERS: ATTEND Radiology Radiation Oncology
DX: C53.9 Malignant neoplasm of cervix uteri, unspecified (principal)

== ENCOUNTER → 2017-01-21 | Outpatient (CLI) | payer MEDICARE, MEDICAID | LOC: M RAD 13:13 | PROVIDERS: ATTEND Radiology Radiation Oncology | DX: C53.9 Malignant neoplasm of cervix uteri, unspecified (principal) ==

== ENCOUNTER 2017-02-09 07:58 | Outpatient (RCR) | payer MEDICARE, MEDICAID ==
--- NOTE | 2017-02-10 08:21 | RADONC ---
RADIATION ONCOLOGY PROGRESS NOTE DATE: 02/09/2017 t CHART NUMBER: [id number] Ms. Dawn is thus far at a dose of 1080 cGy to her pelvis and was last treated on Thursday02/06/2017. She was not treated today secondary to machine breakdown. As of Thursday she had been tolerating her treatments quite well without difficulty. The patient is scheduled to resume radiation tomorrow.
--- NOTE | 2017-02-17 06:27 | RADONC ---
RADIATION ONCOLOGY PROGRESS NOTE DATE: 02/16/2017 CHART NUMBER: [id number]. PROGRESS NOTE: Ms. Dawn is thus far at a dose of 1800 cGy to her pelvis and is tolerating treatments quite well at this point with no complaints related to her radiation therapy. She was last treated on 02/13/2017. She was not treated today secondary to machine breakdown. REVIEW OF SYSTEMS: The patient's review of systems is noncontributory. Denies nausea, vomiting, fevers, chills, night sweats, diplopia, headaches, anxiety or depression, anorexia, weight loss, visual disturbances, chest pain, urinary or bowel difficulties, bone pain, or neurological problems. PHYSICAL EXAMINATION: The patient's skin is in good condition with no evidence of radiation change present. There is no moist or dry desquamation. The remainder of her physical exam remains unchanged. Ms. Dawn is tolerating treatments quite well and radiation will continue as scheduled.
--- NOTE | 2017-02-23 15:26 | RADONC ---
RADIATION ONCOLOGY PROGRESS NOTE DATE: 02/23/2017 CHART NUMBER: [id number] Ms. Dawn is presently at a dose of 2700 cGy to her pelvis and is tolerating treatments quite well at this point with no significant difficulties related to her radiation therapy. She is having no significant urinary or bowel difficulties and no bone pain. The patient's review of systems is positive for physical limitations. She is presenting in a stretcher and is otherwise generally noncontributory. She denies nausea, vomiting, fevers, chills, night sweats, diplopia, headaches, anxiety, depression, anorexia, weight loss, visual disturbances, chest pain, urinary or bowel difficulties, bone pain or neurological problems. PHYSICAL EXAMINATION: The patient's skin is in good condition with no evidence of radiation change present. There is no moist or dry desquamation. The remainder of physical exam remains unchanged. Ms. Dawn is tolerating treatments quite well and radiation will continue as scheduled.
--- NOTE | 2017-03-03 09:50 | RADONC ---
RADIATION ONCOLOGY PROGRESS NOTE DATE: 03/02/2017 CHART NUMBER: [id number] Ms. Dawn is thus far at a dose of 3420 cGy and was last treated on 02/27/2017. She came in today complaining of pain upon urination. The patient's review of systems is positive for pain with urination but is otherwise noncontributory. Denies nausea, vomiting, fevers, chills, night sweats, diplopia, headaches, anxiety or depression, anorexia, weight loss, visual disturbances, chest pain, urinary or bowel difficulties, bone pain, or neurological problems. PHYSICAL EXAMINATION: The patient's skin in the genital area shows some moist desquamation present. The remainder of the skin however is in good condition. I have given the patient this week off and instructed them to begin using Silvadene. In the meantime, we are planning to restart radiation on Thursday.
== END 2017-03-08 ==
LOC: M ONCR 07:58
PROVIDERS: ATTEND Radiology Radiation Oncology
DX: C52 Malignant neoplasm of vagina (principal)

== ENCOUNTER 2017-03-09 09:43 | Outpatient (RCR) | payer MEDICARE, MEDICAID ==
--- NOTE | 2017-03-10 10:49 | RADONC ---
RADIATION ONCOLOGY PROGRESS NOTE: DATE OF SERVICE: 03/09/2017 CHART NO: [id number] Ms. Dawn is presently a dose of 3600 cGy to her pelvis. She had taken a few days rest for a skin reaction. The patient came in today however saying she feels 100% better and is having no discomfort or difficulty with urination. She requested reinitiation of treatment. The patient's review of systems is positive for her physical limitations. She arrives in a stretcher. But she is free of pain at this point. On physical exam her skin is in generally good condition. The small area of desquamation appears to be doing well. The remainder of physical exam remains unchanged. Ms. Dawn is tolerating her treatments quite well and radiation will continue as scheduled.
--- NOTE | 2017-03-16 14:25 | RADONC ---
RADIATION ONCOLOGY TREATMENT SUMMARY DATE: 03/16/2017 CHART NUMBER: [id number] DIAGNOSIS: Cervix cancer Stage IV A. ECOG performance status 4. TREATMENT SUMMARY: Ms. 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 The patient was not deemed to be a surgical candidate nor a candidate for brachytherapy. We treated the patient to her pelvis at a dose of 4500 cGy delivered in 25 fractions of 180 cGy each over 49 elapsed days from 01/2017 through 03/16/2017. The patient's pelvis was treated on a linear accelerator utilizing an 18 MV photon beam via 3-D conformal technique with anterior posterior left to right lateral garcia. Ms. Dawn tolerated her treatments quite well and was able to complete therapy with just a short break for skin reaction. She was able to complete as prescribed. The patient is scheduled see me again in 1 month for further followup. She will also continue to be followed by her other physicians as well. cc: MD Mohsen Reynoso MD *Eda Le MD
== END 2017-04-08 ==
LOC: M ONCR 09:43
PROVIDERS: ATTEND Radiology Radiation Oncology
DX: C52 Malignant neoplasm of vagina (principal)

== ENCOUNTER → 2017-03-17 | Outpatient (REF) | payer MEDICARE, MEDICAID | PROVIDERS: ATTEND Family Medicine | DX: R30.0 Dysuria (principal) ==

== ENCOUNTER → 2017-03-25 | Outpatient (REF) | payer MEDICARE, MEDICAID | PROVIDERS: ATTEND Family Medicine | DX: N39.0 Urinary tract infection, site not specified (principal) ==

== ENCOUNTER → 2017-04-22 | Outpatient (REF) | payer MEDICARE, MEDICAID ==
[2017-04-22 11:25] LABS: BASO % 0.5 % (0.0-1.0); EOS # 0.4 K/mm3 (0.0-0.50); EOS % 10.5 % (0.0-3.0); LARGE UNSTAINED CELL % 0.8 % (0.0-4.0); LYMPH # 0.5 K/mm3 (1.5-4.5); MEAN CORPUSCULAR HEMOGLOBIN 30.6 pg (27.0-33.0); MEAN CORPUSCULAR HGB CONC 32.2 g/dl (32.0-36.5); MEAN CORPUSCULAR VOLUME 95.2 fl (80.0-96.0); MONO # 0.2 K/mm3 (0.0-0.8); MONO % 5.4 % (0.0-5.0); NEUTROPHILS # 3.1 K/mm3 (1.8-7.7); NEUTROPHILS % 71.9 % (36.0-66.0); PLATELET COUNT, AUTOMATED 263 k/mm3 (150-450); WHITE BLOOD COUNT 4.3 K/mm3 (4.0-10.0)
[2017-04-22 11:39] LABS: ALBUMIN/GLOBULIN RATIO 0.88 (1.00-1.93); BILIRUBIN,TOTAL 0.5 MG/DL (0.2-1.0); CALCIUM LEVEL 9.5 MG/DL (8.8-10.2); CREATININE FOR GFR 1.09 MG/DL (0.55-1.02); TOTAL PROTEIN 6.4 GM/DL (6.4-8.2)
== END ==
PROVIDERS: ATTEND Family Medicine
DX: E11.9 Type 2 diabetes mellitus without complications (principal)

== ENCOUNTER → 2017-04-28 | Outpatient (REF) | payer MEDICARE, MEDICAID ==
[~2017-04-28] MED LIST changes: +ASPI325T24 PO; +BACT800T5 PO; -DOCU100C PO; +DOCU100C16 PO; +FENT1DIS14 TD; +LEVO137T2 PO; -METF500T PO; +METF500T13 PO; +MYRB50TA PO; +SORB70SO36 PO; +TRAZ-136 PO; -TRAZ100T4 PO; +[UNRECOGNIZED DRUG - CODE] PO; +[UNRECOGNIZED DRUG - CODE] PO
== END ==
PROVIDERS: ATTEND Nurse Practitioner Family
DX: N39.0 Urinary tract infection, site not specified (principal)
CPT/HCPCS: 51702; 51798; 81001; 87088; 87186; G0463

== ENCOUNTER → 2017-04-29 | Outpatient (CLI) | payer MEDICARE, MEDICAID ==
[~2017-04-29] MED LIST changes: -ASPI325T24 PO; -BACT800T5 PO; +DOCU100C PO; -DOCU100C16 PO; -FENT1DIS14 TD; -LEVO137T2 PO; +METF500T PO; -METF500T13 PO; -MYRB50TA PO; -SORB70SO36 PO; -TRAZ-136 PO; +TRAZ100T4 PO; -[UNRECOGNIZED DRUG - CODE] PO; -[UNRECOGNIZED DRUG - CODE] PO
--- NOTE | 2017-04-30 08:09 | RADONC ---
RADIATION ONCOLOGY FOLLOWUP NOTE DATE: 04/29/2017 CHART NUMBER: [id number] DIAGNOSIS: Cervix cancer. STAGE: SCOTT. ECOG PERFORMANCE STATUS: 4. FOLLOWUP NOTE: Ms. 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 The patient presents today reporting that she is doing quite well with no complaints at this time related to her radiation therapy. She is having no further bleeding or discharge. She has no pain. She has had a urinary tract infection and catheterization with Dr. Domingo. The patient's review of systems is positive for continued physical limitations as well as her urinary catheter and other routine issues. It is negative as noted above for any further vaginal bleeding. Physical examination was deferred at this point. NUT FORMER exam was specifically deferred in order to avoid causing any bleeding. ASSESSMENT: I have believe we have achieved palliation in this patient at this point. I had a very lengthy discussion with the patient and her caregiver. I made clear to them that she received palliative radiation therapy only, which was delivered to avoid bleeding. She did not undergo brachytherapy since she was not deemed to be able to tolerate the treatments. Without brachytherapy the chances of permanent control are significantly diminished. The patient did have systemic therapy and is being followed by Dr. Hansen. The gi asst is reports that she is unaware of when the patient is scheduled to see Dr. Hansen her medical oncologist and we will set up an appointment with his office that he can continue followup. The patient and her caregiver requested new scans to see where we stand with her malignancy. I made clear that I would anticipate the scans to continue to show a lesion in the vaginal vault and cervix since brachytherapy was not delivered. I also made clear that no further radiation therapy can be safely delivered at this point. Since she is not a candidate for brachytherapy the only treatment modality option would possibly be systemic therapy, but that decision would lie in the expert hands of Dr. Hansen. SUMMARY: I have set up an appointment for her to see us in three months' time. We are contacting medical oncology to make sure she has a followup with her medical oncologist, Dr. Hansen. In addition, I have ordered CT scans at the patient's request of her abdomen and pelvis. She is aware that the results are unlikely to provide us with any significant new information. cc: MD La Jimenes MD Jack Rush, MD MTDD
== END ==
LOC: M ONCR 13:16
PROVIDERS: ATTEND Radiology Radiation Oncology
DX: C52 Malignant neoplasm of vagina (principal)

== ENCOUNTER → 2017-05-13 | Outpatient (CLI) | payer MEDICARE, MEDICAID ==
[~2017-05-13] MED LIST changes: +ASPI325T24 PO; +BACT800T5 PO; -DOCU100C PO; +DOCU100C16 PO; +FENT1DIS14 TD; +LEVO137T2 PO; -METF500T PO; +METF500T13 PO; +MYRB50TA PO; +SORB70SO36 PO; +TRAZ-136 PO; -TRAZ100T4 PO; +[UNRECOGNIZED DRUG - CODE] PO; +[UNRECOGNIZED DRUG - CODE] PO
--- NOTE | 2017-05-13 12:41 | REP ---
Clinical: History of bladder cancer. Comparison: 12/20/2016 Findings: Lung bases are clear. Visualized heart and pericardium normal. A fluid collection in the anterior abdominal wall currently measures approximately 12.9 x 8.4 x 12.5 cm and is similar to prior examination. Liver, spleen, pancreas, bilateral adrenal glands and right kidney are normal. Left kidney demonstrates mild hydronephrosis and ureteral stent extending to the bladder. The bladder is under distended but grossly normal by appearance. The enteric system is without obstruction or acute inflammatory process. Pelvis further demonstrates prior hysterectomy. No pelvic fluid or ascites. No free air. No obvious adenopathy. Atherosclerotic changes of the aorta and vasculature without aneurysm. Musculoskeletal structures demonstrate degenerative change without focal osseous abnormality. Lung bases are clear. Visualized heart and pericardium normal. Impression: 1. Relatively stable fluid collection in the anterior abdominal wall may reflect seroma related to prior surgery. 2. Left ureteral stent in satisfactory position. 3. Previous pelvic mass is no longer identified and no significant. Pelvic adenopathy or fluid is appreciated. 4. Chronic stable changes as described above. Signed by Ben Aggarwal MD 05/13/2017 12:32 P
== END ==
LOC: M RAD 11:02
PROVIDERS: ATTEND Radiology Radiation Oncology
DX: C67.9 Malignant neoplasm of bladder, unspecified (principal); Z96.0 Presence of urogenital implants

== ENCOUNTER → 2017-05-14 | Outpatient (REF) | payer MEDICARE, MEDICAID ==
[2017-05-14 12:36] LABS: BASO % 0.4 % (0.0-1.0); EOS # 0.4 K/mm3 (0.0-0.50); EOS % 9.7 % (0.0-3.0); LYMPH # 0.4 K/mm3 (1.5-4.5); LYMPH % 9.2 % (24.0-44.0); MEAN CORPUSCULAR HEMOGLOBIN 30.3 pg (27.0-33.0); MEAN CORPUSCULAR HGB CONC 32.8 g/dl (32.0-36.5); MEAN CORPUSCULAR VOLUME 92.5 fl (80.0-96.0); MONO # 0.5 K/mm3 (0.0-0.8); MONO % 11.1 % (0.0-5.0); NEUTROPHILS % 68.7 % (36.0-66.0); PLATELET COUNT, AUTOMATED 270 k/mm3 (150-450); RED CELL DISTRIBUTION WIDTH 14.1 % (11.5-14.5); WHITE BLOOD COUNT 4.4 K/mm3 (4.0-10.0)
[2017-05-14 12:54] LABS: ALBUMIN 2.9 GM/DL (3.2-5.2); ALBUMIN/GLOBULIN RATIO 0.88 (1.00-1.93); BILIRUBIN,TOTAL 0.3 MG/DL (0.2-1.0); CALCIUM LEVEL 9.6 MG/DL (8.8-10.2); CREATININE FOR GFR 1.15 MG/DL (0.55-1.02); GLOMERULAR FILTRATION RATE 48.7 (>39); POTASSIUM SERUM 4.3 MEQ/L (3.5-5.1); TOTAL PROTEIN 6.2 GM/DL (6.4-8.2)
== END ==
PROVIDERS: ATTEND Family Medicine
DX: J20.9 Acute bronchitis, unspecified (principal)

== ENCOUNTER → 2017-05-22 | Outpatient (REF) | payer MEDICARE, MEDICAID ==
--- NOTE | 2017-05-22 14:19 | REP ---
CHEST, SINGLE VIEW: Single view of the chest is performed and compared to a prior study of 12/20/2016. There is cardiomegaly again noted. The mediastinal silhouette is unchanged. There is mild bibasilar fibrotic change without acute infiltrate. IMPRESSION: Chronic changes and cardiomegaly. No acute infiltrate. Signed by Shalom Reyes MD 05/22/2017 05:25 P
== END ==
PROVIDERS: ATTEND Family Medicine
DX: R05 Cough (principal)

== ENCOUNTER → 2017-06-03 | Outpatient (REF) | payer MEDICARE, MEDICAID | PROVIDERS: ATTEND Family Medicine | DX: E03.9 Hypothyroidism, unspecified (principal) ==

== ENCOUNTER → 2017-06-09 | Outpatient (REF) | payer MEDICARE, MEDICAID ==
[2017-06-09 12:39] LABS: MEAN CORPUSCULAR HEMOGLOBIN 29.9 pg (27.0-33.0); MEAN CORPUSCULAR HGB CONC 32.3 g/dl (32.0-36.5); MEAN CORPUSCULAR VOLUME 92.4 fl (80.0-96.0); RED CELL DISTRIBUTION WIDTH 13.9 % (11.5-14.5); WHITE BLOOD COUNT 4.6 K/mm3 (4.0-10.0)
== END ==
PROVIDERS: ATTEND Family Medicine
DX: D64.9 Anemia, unspecified (principal); R26.81 Unsteadiness on feet; M62.81 Muscle weakness (generalized)

== ENCOUNTER → 2017-06-16 | Outpatient (REF) | payer MEDICARE, MEDICAID | PROVIDERS: ATTEND Family Medicine | DX: E55.9 Vitamin D deficiency, unspecified (principal) ==

== ENCOUNTER → 2017-06-22 | Outpatient (REF) | payer MEDICARE, MEDICAID ==
--- NOTE | 2017-06-22 16:54 | REP ---
KUB: Two views. History: Vomiting. Findings: A double pigtailed ureteral stent is noted in place on the left. There is moderate stool throughout the colon. No large or small bowel dilation is seen. There are degenerative changes in the hips. Impression: Moderate stool. Left ureteral stent in place. Signed by Aime Bansal MD 06/22/2017 05:01 P
== END ==
PROVIDERS: ATTEND Family Medicine
DX: R11.10 Vomiting, unspecified (principal); Z96.0 Presence of urogenital implants

== ENCOUNTER → 2017-07-22 | Outpatient (CLI) | payer MEDICARE, MEDICAID ==
--- NOTE | 2017-07-23 08:43 | RADONC ---
RADIATION ONCOLOGY FOLLOWUP NOTE DATE: 07/22/2017 CHART NUMBER: [id number] DIAGNOSIS: Cervix cancer. STAGE SCOTT. ECOG PERFORMANCE STATUS: 4. FOLLOWUP NOTE: Ms. 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 At the time, she was not deemed a surgical candidate nor a candidate for brachytherapy. The patient is now presenting 1 month post completion of treatment for routine followup. The patient presents today reporting that she is doing quite well with no complaints at this time related to her radiation therapy or disease. She is having no urinary or bowel difficulties and no bone pain. She is having no vaginal discharge or bleeding. She has just some mild lower abdominal discomfort which is only present the last week or so. The patient's review of systems is positive for the physical limitations secondary to her age. She is presenting in a wheelchair and is in a nursing care facility. She denies nausea, vomiting, fevers, chills, night sweats, diplopia, headaches, anxiety or depression, anorexia, weight loss, visual disturbances, chest pain, urinary or bowel difficulties, bone pain or neurological problems. PHYSICAL EXAM: The patient is an elderly white female who is presenting in a wheelchair. HEENT: Exam is normocephalic, atraumatic. Extraocular movements are intact. There is no palpable lymphadenopathy present. SEWER PIPE LAYER examination was deferred. ASSESSMENT: The patient appears to be clinically stable at this point. I have set her up for a followup in my office in 3 months' time. She is also being followed closely by her medical oncologist, Dr. Layne. I have set up a new CT scan to be undertaken in November. cc: MD Migdalia Jimenes MD Jack Rush, MD
== END ==
LOC: M ONCR 13:18
PROVIDERS: ATTEND Radiology Radiation Oncology
DX: C53.9 Malignant neoplasm of cervix uteri, unspecified (principal)
CPT/HCPCS: 36415; 80053; 84443; 85027; G0463

== ENCOUNTER → 2017-07-22 | Outpatient (REF) | payer MEDICARE, MEDICAID ==
[2017-07-22 10:04] LABS: MEAN CORPUSCULAR HEMOGLOBIN 28.2 pg (27.0-33.0); MEAN CORPUSCULAR HGB CONC 32.4 g/dl (32.0-36.5); RED CELL DISTRIBUTION WIDTH 14.1 % (11.5-14.5); WHITE BLOOD COUNT 4.4 K/mm3 (4.0-10.0)
[2017-07-22 10:31] LABS: ALBUMIN/GLOBULIN RATIO 0.86 (1.00-1.93); BILIRUBIN,TOTAL 0.4 MG/DL (0.2-1.0); CALCIUM LEVEL 9.6 MG/DL (8.8-10.2); CREATININE FOR GFR 1.13 MG/DL (0.55-1.02); GLOMERULAR FILTRATION RATE 49.7 (>39); POTASSIUM SERUM 4.2 MEQ/L (3.5-5.1); TOTAL PROTEIN 6.5 GM/DL (6.4-8.2)
== END ==
PROVIDERS: ATTEND Family Medicine
DX: E11.9 Type 2 diabetes mellitus without complications (principal)

== ENCOUNTER → 2017-07-28 | Outpatient (REF) | payer MEDICARE, MEDICAID ==
[2017-07-28 14:18] LABS: ALBUMIN 2.9 GM/DL (3.2-5.2); ALBUMIN/GLOBULIN RATIO 0.88 (1.00-1.93); BILIRUBIN,TOTAL 0.7 MG/DL (0.2-1.0); CALCIUM LEVEL 9.6 MG/DL (8.8-10.2); CREATININE FOR GFR 1.19 MG/DL (0.55-1.02); GLOMERULAR FILTRATION RATE 46.8 (>39); POTASSIUM SERUM 4.4 MEQ/L (3.5-5.1); TOTAL PROTEIN 6.2 GM/DL (6.4-8.2)
[2017-07-28 14:32] LABS: BASO % 0.1 % (0.0-1.0); EOS # 0.1 K/mm3 (0.0-0.50); EOS % 0.8 % (0.0-3.0); LARGE UNSTAINED CELL % 0.3 % (0.0-4.0); LYMPH # 0.2 K/mm3 (1.5-4.5); LYMPH % 2.5 % (24.0-44.0); MEAN CORPUSCULAR HEMOGLOBIN 27.6 pg (27.0-33.0); MEAN CORPUSCULAR HGB CONC 32.1 g/dl (32.0-36.5); MEAN CORPUSCULAR VOLUME 85.8 fl (80.0-96.0); MONO # 0.3 K/mm3 (0.0-0.8); MONO % 4.9 % (0.0-5.0); NEUTROPHILS # 6.1 K/mm3 (1.8-7.7); NEUTROPHILS % 91.4 % (36.0-66.0); PLATELET COUNT, AUTOMATED 251 k/mm3 (150-450); RED CELL DISTRIBUTION WIDTH 14.2 % (11.5-14.5); WHITE BLOOD COUNT 6.7 K/mm3 (4.0-10.0)
== END ==
PROVIDERS: ATTEND Family Medicine
DX: R50.9 Fever, unspecified (principal)

== ENCOUNTER 2017-08-03 08:27 | Day surgery (SDC) | payer MEDICARE, MEDICAID ==
[~2017-08-03] VITALS: Ht 172.7 cm; Wt 140.6 kg
[~2017-08-03 08:27] MED LIST changes: -SORB70SO36 PO; -[UNRECOGNIZED DRUG - CODE] PO
[2017-08-03] MEDS ORDERED: LR 1,000 ML IV ONE ×2 (08:45)
[2017-08-03] MEDS ORDERED: fentaNYL 100 MCG/2 ML INJECTION (J3010) As Ordered ONE (10:51)
[2017-08-03] MEDS ORDERED: PROPOFOL 200 MG/20 ML VIAL As Ordered ONE (10:51)
[2017-08-03] MEDS ORDERED: MIDAZOLAM INJ 2 MG/2 ML VIAL (J2250) As Ordered ONE (10:51)
[2017-08-03] MEDS ORDERED: LIDOCAINE 2% INJ 100 MG/5 ML SDV (FOR ANES.) As Ordered ONE (10:51)
[2017-08-03] MEDS ORDERED: LIDOCAINE 2% 5ML JELLY UROJET As Ordered ONE (10:55)
[2017-08-03] MEDS ORDERED: ACETAMINOPHEN TAB 650MG DOSE (2X325MG) PO PRN (12:00)
[2017-08-03] MEDS ORDERED: PERCOCET 5MG/325MG TAB PO PRN (12:00)
[2017-08-03] MEDS ORDERED: LR 1,000 ML IV SCH (12:00)
[2017-08-03 12:15] VITALS: BP 123/63
--- NOTE | 2017-08-03 13:18 | RO ---
DATE OF PROCEDURE: 08/03/2017 PREPROCEDURE DIAGNOSIS: Retained left ureteral stent. POSTPROCEDURE DIAGNOSIS: Retained left ureteral stent. PROCEDURE: Cystoscopy, removal of left ureteral stent. SURGEON: Osvaldo Domingo MD MATTE CUTTER: None. ANESTHESIA: Monitored anesthesia care (MAC). OPERATIVE INDICATIONS: This is a 77-year-old female who underwent bladder biopsies and a left ureteral stent placement approximately 7 months ago. She was diagnosed with cervical cancer invading her bladder, and her care was taken over at [facility] with gynecologic oncology. While transferring her care there, the thought was that they would be acting along with urology for possible surgery, and she ended up not needing surgery and instead had chemotherapy and radiation. Because of this, her stent was not addressed and was never removed. She is brought to the operating room today to remove her stent DESCRIPTION OF PROCEDURE: The patient was brought to the operating room, and MAC anesthesia was administered. Prophylactic antibiotics were infused. She was placed in the dorsal lithotomy position and prepped and draped in the usual sterile fashion. A rigid cystoscope was inserted into the urethral meatus and advanced into the bladder. Once within the bladder, the previously-placed stent was seen. The distal end of it seemed a little bit encrusted. I then grasped the stent and then withdrew the stent in its entirety. There was only mild resistance while removing the stent. Once the stent was removed, I looked back into the bladder, and no bladder lesions were seen. There was no bleeding coming from the left ureteral orifice. When the patient's bladder was emptied of all fluid, this marked the conclusion of the procedure. The patient was then taken out of the dorsal lithotomy position, awakened from anesthesia, and transported to the recovery room in stable condition. ESTIMATED BLOOD LOSS: 0 mL. COMPLICATIONS: None. SPECIMENS: None. PLAN: The patient will followup in the clinic in approximately 4 weeks for a postoperative visit.
[2017-08-04] MEDS ORDERED: SORB70SO36 PO (23:47)
[2017-08-04] MEDS ORDERED: [UNRECOGNIZED DRUG - CODE] PO (23:47)
== END 2017-08-03 12:26 | disposition home or self-care (01) ==
LOC: M SDC 08:27
PROVIDERS: ATTEND Urology
DX: Z96.0 Presence of urogenital implants (principal)

== ENCOUNTER 2017-08-04 20:57 | Inpatient (IN) | payer MEDICARE, MEDICAID ==
[~2017-08-04] VITALS: Ht 172.7 cm; Wt 136.8 kg
[2017-08-04] MEDS ORDERED: NS 1,000 ML IV ONE (21:30)
[2017-08-04 21:40] LABS: VENOUS BASE EXCESS 3.3 (-2.0-2.0); VENOUS O2 SATURATION 91.8 % (60.0-80.0); VENOUS PARTIAL PRESSURE CO2 44.7 mmHg (38.0-50.0); VENOUS PARTIAL PRESSURE O2 62.4 mmHg (30.0-50.0); VENOUS STANDARD HCO3 27.3 MEQ/L; VENOUS TOTAL CO2 29.7 MEQ/L (24.0-28.0)
[2017-08-04] MEDS: IPRATROPIUM 0.5MG/ALBUTEROL 2.5MG INH SOL UD 3ML (DUONEB)(J7620) NEB PRN ×3 (21:42→21:52)
[2017-08-04 21:44] LABS: MEAN CORPUSCULAR HEMOGLOBIN 27.3 pg (27.0-33.0); MEAN CORPUSCULAR HGB CONC 31.9 g/dl (32.0-36.5); MEAN CORPUSCULAR VOLUME 85.6 fl (80.0-96.0); PLATELET COUNT, AUTOMATED 235 10^3/uL (150-450); RED CELL DISTRIBUTION WIDTH 14.3 % (11.5-14.5); WHITE BLOOD COUNT 9.1 10^3/uL (4.0-10.0)
[2017-08-04 21:48] LABS: ADD MANUAL DIFFER YES; DIFF SLIDE NUMBER 350
[2017-08-04 21:52] LABS: INR 1.15
[2017-08-04 22:07] LABS: ALBUMIN 2.8 GM/DL (3.2-5.2); ALBUMIN/GLOBULIN RATIO 0.76 (1.00-1.93); ALKALINE PHOSPHATASE 95 U/L (45-117); ALT/SGPT 11 U/L (12-78); ANION GAP 7 MEQ/L (8-16); AST/SGOT 13 U/L (15-37); BILIRUBIN,DIRECT 0.3 MG/DL (0.0-0.2); BILIRUBIN,TOTAL 0.8 MG/DL (0.2-1.0); BLOOD UREA NITROGEN 24 MG/DL (7-18); CALCIUM LEVEL 9.7 MG/DL (8.8-10.2); CARBON DIOXIDE LEVEL 28 MEQ/L (21-32); CHLORIDE LEVEL 100 MEQ/L (98-107); CREATININE FOR GFR 2.37 MG/DL (0.55-1.02); GLOMERULAR FILTRATION RATE 21.1 (>39); GLUCOSE, FASTING 149 MG/DL (83-110); POTASSIUM SERUM 4.3 MEQ/L (3.5-5.1); SODIUM LEVEL 135 MEQ/L (136-145); TOTAL PROTEIN 6.5 GM/DL (6.4-8.2)
--- NOTE | 2017-08-04 23:20 | REPUSA ---
CT of the abdomen and pelvis without contrast Clinical statement: Pain. Technique: Multiple axial CT images were obtained from the base of the lungs to the floor of the pelv is utilizing 5 mm axial slices without administration of contrast. Coronal and sagittal reconstructio ns were also obtained. Comparison: 05/13/2017. Findings: Chest: The visualized lung bases are clear. Abdomen: The kidneys are normal in size bilaterally. There is severe left-sided hydronephrosis and hy droureter, caused by a 6 mm obstructing stone in the distal left ureter. Left perinephric inflammator y changes are seen. The right renal collecting system is unremarkable. The liver, spleen, pancreas, g allbladder and adrenal glands are unremarkable. The aorta demonstrates normal caliber and contour. Th ere is no abdominal lymphadenopathy or ascites. Pelvis: The bowel is unremarkable, with no obstructive or inflammatory changes. The urinary bladder i s within normal limits. There is no pelvic lymphadenopathy or ascites. The other pelvic structures ap pear unremarkable. A large loculated fluid collection in the subcutaneous tissues of the anterior abd ominal wall the level the pelvis are stable, measuring approximately 8.3 x 14.1 cm. Bones: There are no suspicious osseous abnormalities seen. Impression: 1. Severe left-sided hydronephrosis and hydroureter caused by 6 mm obstructing stone in the distal le ft ureter. 2. No obstructive or inflammatory bowel changes. 3. Large loculated fluid collection in the anterior abdominal wall in the lower pelvis, most consiste nt with a stable postsurgical seroma.
[2017-08-04] MEDS ORDERED: [UNRECOGNIZED DRUG - CODE] PO (23:47)
[2017-08-04] MEDS ORDERED: SORB70SO36 PO (23:47)
[2017-08-05] VITALS (9 sets, daily range): BP systolic 110–126; BP diastolic 55–78; O2SAT 95–97
[2017-08-05] MEDS ORDERED: GLUCOSE 4 GM CHEW TABLET PO PRN (00:30)
[2017-08-05] MEDS ORDERED: GLUCAGON FOR INJ 1 MG VIAL (J1610) SC PRN (00:30)
[2017-08-05] MEDS ORDERED: ACETAMINOPHEN TAB 650MG DOSE (2X325MG) PO PRN (00:30)
[2017-08-05] MEDS ORDERED: FENTANYL REMOVAL DOCUMENTATION MISC XX SCH (00:30)
[2017-08-05] MEDS ORDERED: VANCOMYCIN HCL 1,000 MG, VIAL MATE ADAPTER 1 EACH in D5W 250 ML IV ONE (00:30)
[2017-08-05] MEDS ORDERED: ONDANSETRON 4MG/2ML VIAL (J2405) IV PRN (00:30)
[2017-08-05] MEDS ORDERED: ALBUTEROL SULFATE 2.5 MG/0.5 ML INH NEB SOLN INH PRN (00:30)
[2017-08-05] MEDS ORDERED: DEXTROSE 50% 50 ML SYRINGE IV PRN (00:30)
[2017-08-05] MEDS ORDERED: BISACODYL 10 MG SUPP PR PRN (00:30)
[2017-08-05] MEDS ORDERED: FLEET ENEMA PR PRN (00:30)
[2017-08-05] MEDS ORDERED: MAGNESIUM CITRATE 300 ML BTL PO PRN (00:30)
[2017-08-05] MEDS ORDERED: ANUSOL HC 25MG SUPP PR PRN (00:30)
[2017-08-05] MEDS: VANCOMYCIN HCL 1,000 MG, VIAL MATE ADAPTER 1 EACH in D5W 250 ML IV SCH ×2 (02:34→20:00)
[2017-08-05] MEDS: NS 1,000 ML IV SCH ×2 (02:34→14:32)
--- NOTE | 2017-08-05 02:50 | PHACANCOPD ---
PHARMACY VANCOMYCIN DOSING Pt Demographics Demographics Patient Age:77 , Weight:141.820 , Gender: female Adjusted Body Weight Date: 08/05/17, Adjusted Body Weight: [94] Kg Events Past 24 Hours Events Past 24 Hours: NO: Dialysis, Diuretic Therapy, Change in CrCl, Fever, Elevation in WBC, Pending Diagnostics, Pending Procedures, Other Vancomycin Vancomycin Target Ranges: 15-20 mcg/ml Vancomycin Load Y/N: Yes Load Dose Date Time Vancomycin Load Dose: 2000MG Date: 08-05 Time: 0200 Vancomycin Dose Date: 08/05/17. Current Vancomycin Dose: [1000MG Q18H] Intermittent Dosing?: No Labs Labs Item Value Date Time White Blood Count 9.1 10^3/uL 08/04/172126 Creatinine 2.37 MG/DL H 08/04/172126 Blood Urea Nitrogen 24 MG/DL H 08/04/172126 Vital Signs Label Value Date Time Patient Temperature 98.4 degrees F 08/05/17 0133 Temperature Source Oral 08/05/17 013 Micro Microbiology 08/04/17 Blood Culture, Received Pending 08/04/17 Blood Culture, Received Pending 08/04/17 Urine Culture, Received Pending Creatinine Clearance Date:08/05/17. Creatinine Clearance: [21]. Pending Labs Trough 08-06 @1300 Assessment and Plan Maintaining Current Dose?: Yes Reason for dose change: No Dose Change Pharmacist Note Pharmacist Note Date: 08/05/17. Pharmacist note:Dosed at 1000mg q18h with a trough ordered for 09 - @1300. Will continue to monitor and amke adjustments as needed. RENATA ROSARIO PHARMACY Aug 05, 2017 02:50
[2017-08-05] MEDS: CEFEPIME HCL 1 GM in D5W MINI-BAG PLUS 50 ML IV SCH ×2 (04:07→15:14)
[2017-08-05 05:24] LABS: MEAN CORPUSCULAR HEMOGLOBIN 27.4 pg (27.0-33.0); MEAN CORPUSCULAR HGB CONC 31.9 g/dl (32.0-36.5); MEAN CORPUSCULAR VOLUME 85.8 fl (80.0-96.0); RED CELL DISTRIBUTION WIDTH 14.5 % (11.5-14.5); WHITE BLOOD COUNT 8.6 10^3/uL (4.0-10.0)
[2017-08-05 05:49] LABS: CALCIUM LEVEL 8.9 MG/DL (8.8-10.2); CREATININE FOR GFR 2.55 MG/DL (0.55-1.02); GLOMERULAR FILTRATION RATE 19.4 (>39); MAGNESIUM LEVEL 1.9 MG/DL (1.8-2.4); POTASSIUM SERUM 4.6 MEQ/L (3.5-5.1); THYROXINE (T4) 8.9 UG/DL (4.5-12.0)
[2017-08-05] MEDS: HumaLOG INSULIN (NovoLOG) PER UNIT SC SCH ×3 (06:00→17:36)
[2017-08-05] MEDS: LEVOTHYROXINE 137MCG TABLET (0.137MG) PO SCH (06:10)
--- NOTE | 2017-08-05 06:33 | HPE ---
DATE OF ADMISSION: 08/05/2017 PRIMARY CARE PROVIDER: Dr. Mason. CHIEF COMPLAINT: Fever, nausea, vomiting. HISTORY OF PRESENT ILLNESS: This is a 77-year-old female patient with underlying medical history of hypothyroidism, obstructive sleep apnea not using continuous positive airway pressure (CPAP) at this time, morbid obesity, vitamin B12 deficiency, chronic congestive heart failure with diastolic dysfunction, dyslipidemia, hypertension, gastroesophageal reflux disease (GERD), depression, chronic pain with also stage IV squamous cell cervical cancer, completed chemotherapy and radiation with good response. Recently yesterday had stent removal by Dr. Domingo, returned to the nursing facility. Baseline patient is not ambulatory, wheelchair bound. Over the course of the day, the patient developed nausea, vomiting and fevers. Subsequently was brought to the hospital. Also had symptoms of dyspnea. Subsequently the patient was brought to the emergency room. The patient reported left-sided flank pain. Urinalysis (UA) was collected. The patient was noted to be febrile. Denied any chest pain, pressure or discomfort. Given intravenous (IV) fluids in the emergency department (ED), and CT scan showing 6-7 mm obstructing stone and left hydronephrosis. Dr. Domingo was consulted, requested medicine to admit the patient for possible stent placement in the morning. The patient currently reported left-sided flank pain, but denies any chest pain, pressure, discomfort. Reported dyspnea has resolved. Patient not on oxygen at nursing facility. In the ED, the patient was noticed to be febrile to 100.9. Initially was hypertensive into 190s. The patient denies any diarrhea, constipation. Reported nausea and vomiting. Further history not possible. The patient's daughter is Meliza, phone number [phone]. ALLERGIES: No known drug allergies. PAST MEDICAL HISTORY: 1. Squamous cell cervical cancer stage IV. 2. Hypothyroidism. 3. Obstructive sleep apnea not using CPAP. 4. Morbid obesity. 5. Vitamin B12 deficiency. 6. Chronic diastolic congestive heart failure. 7. Dyslipidemia. 8. Hypertension. 9. Gastroesophageal reflux disease (GERD). 10. Depression. 11. Chronic pain. PAST SURGICAL HISTORY: 1. Cataract bilateral in 2009. 2. section. 3. Abdominal hernia repair by Dr. Garcia. 4. Hysterectomy. SOCIAL HISTORY: The patient currently is at [facility] under the care of Dr. Mason. No smoking or alcohol use. REVIEW OF SYSTEMS: Reported nausea, vomiting, left-sided flank pain and fevers. All other review of systems is negative. FAMILY HISTORY: Father with heart disease and bladder tumor. OUTPATIENT MEDICATIONS: - acetaminophen 650 mg by mouth every four hours as needed - albuterol nebulizer every two hours as needed - Dulcolax rectal suppository 10 mg daily as needed - aspirin 325 mg by mouth daily - vitamin D 5000 units as directed twice a day Thursday through Thursday - senna 8.6/50 mg one tablet by mouth daily - Colace 100 mg by mouth twice a day - Cymbalta 60 mg by mouth twice a day - enema daily as needed - fentanyl patch 25 mcg transdermal every three days - hydrocortisone rectal 25 mg per rectal daily as needed for hemorrhoid - levothyroxine 150 mcg by mouth Thursday, Thursday, , Thursday, and 137 mcg by mouth Thursday, Thursday, Thursday - loratadine 10 mg by mouth daily - magnesium citrate 300 mL daily as needed - metformin 250 mg by mouth twice a day - milk of magnesia 30 mL by mouth daily as needed - omeprazole 40 mg by mouth daily - Zofran 4 mg by mouth every four hours as needed - MiraLAX 17 grams by mouth daily - sorbitol 70% by mouth 30 mL by mouth daily - tramadol 25 mg by mouth every six hours as needed for pain - trazodone 100 mg by mouth at bedtime - Bactrim double strength by mouth twice a day PHYSICAL EXAMINATION: VITAL SIGNS: Temperature maximum (T-max) 100.9, temperature current 99.9, pulse 96, respirations 20, blood pressure 147/70, pulse oximetry 96% on four liters nasal cannula. GENERAL: Patient alert, comfortable, in no acute distress. HEENT: Normocephalic, atraumatic. PULMONARY: Diminished breath sounds bilaterally. CARDIAC: 2/6 systolic murmur. Regular. ABDOMEN: Minimal left-sided flank pain. No rebound, no guarding. Positive bowel sounds. EXTREMITIES: No clubbing, cyanosis or edema. LABORATORY DATA: WBC 9.1, hemoglobin and hematocrit 10.2 over 32, platelets 235. Chemistry: Sodium 135, potassium 4.3, chloride 100, bicarbonate 25, BUN 24, creatinine 2.37, lactic acid 1.2. Cardiac enzymes negative times one. IMAGING: CT scan shows a 6 mm obstructing stone at the distal left ureter with severe left-sided hydronephrosis. Large loculated fluid collection anterior abdominal wall in the lower pelvis most consistent with stable postsurgical seroma. ASSESSMENT AND PLAN: This is a 77-year-old female patient with underlying medical history of squamous cell cervical cancer, stage IV, completed chemotherapy and radiation treatment earlier this year, hypothyroidism, obstructive sleep apnea not using CPAP, morbid obesity, vitamin B12 deficiency, congestive heart failure (CHF) with diastolic dysfunction, dyslipidemia, hypertension, gastroesophageal reflux disease (GERD), depression, chronic pain, yesterday had stent removal at the left side by Dr. Domingo, presented with nausea and vomiting and fevers, found to have an obstructive stone at the left ureter with hydronephrosis. 1. Obstructive uropathy with left-sided hydronephrosis and 6-7 mm obstructing stone at the distal left ureter: Intravenous (IV) fluids, antibiotics, urinalysis has been positive. The patient placed on cefepime, and one dose of vancomycin has been given. Nothing by mouth for surgery. Consulted urology. Followup kidney function. Fluids have been decreased in light of patient's history of CHF and elevated pro-brain natriuretic peptide (pro-BNP). The patient's respirations currently improved. Given one liter of fluid in the emergency room by emergency room provider. Currently kept the patient on 75 mL. If patient's condition worsens, will consider escalating fluids. Nothing by mouth. 2. Acute on chronic renal insufficiency secondary to obstructive uropathy: Holding metformin. IV fluids have been ordered. Consulted urology. Will monitor kidney function. 3. Acute congestive heart failure (CHF) exacerbation with diastolic dysfunction: Currently patient's respiration much improved. Will monitor the patient, strict intake and output. Give IV fluids. Likely secondary to renal insufficiency. Will monitor the patient. Patient most likely with diuresis after obstructive uropathy is relieved. 4. Hypothyroidism: Continue levothyroxine. 5. Obstructive sleep apnea: Patient noncompliant with CPAP. As per family, the patient has not been using it at the nursing facility, and does not even know where she placed the CPAP. We will place the patient on obstructive sleep apnea (KENDRICK) protocol. 6. Morbid obesity complicating care. 7. Hypertension: Monitor blood pressure. Adjust medication as needed. Patient not on much medication for blood pressure at the nursing facility. 8. Dyslipidemia: Outpatient followup. 9. Diabetes. Patient on metformin which is on hold. Insulin every six hours as needed. Patient currently nothing by mouth. 10. Chronic pain: Continue pain medication at reduced dose. Will monitor the patient closely. KENDRICK protocol. 11. Deep venous thrombosis (DVT) prophylaxis: Heparin subcutaneous twice a day. 12. Constipation: Bowel regimen as prescribed. DISPOSITION: Pending urology followup and clinical improvement. Patient is DO NOT RESUSCITATE (DNR) according to fpc documentation.
--- NOTE | 2017-08-05 08:22 | REP ---
Portable chest, 09:40 p.m., single AP view, the patient semi upright: Comparison is 05/22/2017. There is diffuse interstitial coarsening as an interval change compatible with pulmonary vascular congestion. No cesar pulmonary edema is identified. Cardiomegaly is again identified, unchanged. Signed by Shalom Aguilar MD 08/05/2017 08:14 A
--- NOTE | 2017-08-05 08:25 | SMCUROLCON ---
Urology Consultation General Date of Consultation 08/05/17 Reason For Consultation This patient is seen for Hydronephrosis With Renal Calculous Obstruction. History of Present Illness This is a 77 y/o F w/ a history of cervical cancer s/p chemo and radiation therapy, who presented to the ER yesterday w/ persistent left flank and abdominal pain and nausea/vomiting, since having her left ureteral stent removed a day prior. A CT A/P was done in the ER and notable for mild to moderate left hydroureteronephrosis down to the distal ureter where a 7mm calcification is seen. She was admitted to the hospitalist service for acute on chronic renal failure (Cr up to 2.6 from a baseline of 1.2). She is still having moderate left flank pain this morning. She denies fevers or chills. Past Medical History Medical History see HPI Medications Current Medications Current Medications Acetaminophen (Tylenol Tab) 650 mg Q4HP PRN PO MILD PAIN OR FEVER; Start at 00:30; Stop 09/04/17 at 00:29 Albuterol Sulfate (Proventil Neb) 2.5 mg Q2HP PRN INH SHORTNESS OF BREATH; Start 08/05/17 at 00:30; Stop 09/04/17 at 00:29 Albuterol/ Ipratropium (Duoneb (Ipr 0.5mg/Alb 2.5mg)) 3 ml Q20M PRN NEB SHORTNESS OF BREATH Last administered on 08/04/17 21:52; Start 08/04/17 at 21: 30; Stop 08/04/17 at 21:52; Status DC Aspirin (Aspirin) 325 mg DAILY PO ; Start 08/06/17 at 09:00; Stop 09/05/17 at 08:59 Bisacodyl (Dulcolax Suppository) 10 mg DAILY PRN MO CONSTIPATION; Start at 00:30; Stop 09/04/17 at 00:29 Cefepime HCl 1 gm/ Dextrose 50 ml @ 100 mls/hr Q12H IV Last administered on 04:07; Start 08/05/17 at 04:00; Stop 08/12/17 at 03:59 Dextrose (Dextrose 50%) 25 ml ASDIRECTED PRN IV SEE LABEL COMMENTS; Start 08/05 at 00:30; Stop 09/04/17 at 00:29 Duloxetine HCl (Cymbalta) 60 mg BID PO ; Start 08/05/17 at 09:00; Stop at 08:59 Fentanyl (Duragesic) 25 mcg Q72H TD ; Start 08/05/17 at 09:00; Stop 08/12/17 at 08:59 Glucagon (Glucagon) 1 mg ASDIRECTED PRN SC SEE LABEL COMMENTS; Start 08/05/17 at 00:30; Stop 09/04/17 at 00:29 Glucose (Glucose) 16 GM ASDIRECTED PRN PO SEE LABEL COMMENTS; Start 08/05/17 at 00:30; Stop 09/04/17 at 00:29 Heparin Sodium (Porcine) (Heparin) 5,000 units Q12H SC ; Start 08/05/17 at 09:00 ; Stop 08/10/17 at 08:59 Home Med (Med Rec Complete!) ASDIRECTED XX ; Start 08/05/17 at 00:00; Stop at 00:00; Status DC Hydrocortisone Acetate (Anusol Hc Supp) 25 mg DAILY PRN MO HEMORRHOIDS; Start 08/05/17 at 00:30; Stop 09/04/17 at 00:29 Insulin Human Lispro (HumaLOG INSULIN) SEE PROTOCOL TABLE Q6H SC Last administered on 08/05/17 06:00; Start 08/05/17 at 06:00; Stop 09/04/17 at 05: 59 Levothyroxine Sodium (Synthroid) 137 mcg MoWeFr@0600 PO Last administered on 06:10; Start 08/05/17 at 06:00; Stop 09/04/17 at 05:59 Levothyroxine Sodium (Synthroid) 150 mcg SuTuThSa@0600 PO ; Start 08/06/17 at 06 :00; Stop 09/05/17 at 05:59 Loratadine (Claritin) 10 mg DAILY PO ; Start 08/05/17 at 09:00; Stop 09/04/17 at 08:59 Magnesium Citrate (Citrate Of Magnesia) 300 ml DAILY PRN PO CONSTIPATION; Start 08/05/17 at 00:30; Stop 09/04/17 at 00:29 Non-Formulary Medication ( See Comment Field Below ) SEE COMMENTS SECTION ASDIRECTED XX ; Start 08/05/17 at 00:30; Stop 08/12/17 at 00:29 Omeprazole (PriLOSEC) 40 mg DAILY PO ; Start 08/05/17 at 09:00; Stop 09/04/17 at 08:59 Ondansetron HCl (ZOFRAN INJection) 4 mg Q6HP PRN IV NAUSEA OR VOMITING; Start 08/05/17 at 00:30; Stop 09/04/17 at 00:29 Polyethylene Glycol (Miralax) 1 pkt DAILY PO ; Start 08/05/17 at 09:00; Stop at 08:59 Senna/Docusate Sodium (Senokot S) 1 tab BID PO ; Start 08/05/17 at 09:00; Stop 09/04/17 at 08:59 Sodium Biphosphate/ Sodium Phosphate (Fleet Enema) 1 ea DAILY PRN MO CONSTIPATION; Start 08/05/17 at 00:30; Stop 09/04/17 at 00:29 Sodium Chloride 1,000 ml @ 75 mls/hr [id number] IV Last administered on 02:34; Start 08/05/17 at 00:30; Stop 09/04/17 at 00:29 Sorbitol (Sorbitol 70%) 30 ml DAILY PO ; Start 08/05/17 at 09:00; Stop at 08:59 Trazodone HCl (Desyrel) 100 mg QHS PO ; Start 08/05/17 at 21:00; Stop 09/04/17 at 20:59 Vancomycin HCl 1000 mg/IV Miscellaneous Supplies 1 each/ Dextrose 270 ml @ 270 mls/hr Q18H IV Last administered on 08/05/17 02:34; Start 08/05/17 at 02:00; Stop 08/12/17 at 01:59 Vitamin D (Vitamin D) 5,000 units MoWeThFr@0900,2100 PO ; Start 08/05/17 at 09: 00; Stop 09/04/17 at 08:59 Allergies Allergies: Coded Allergies: No Known Drug Allergy (Verified Allergy, Unknown, 07/31/17) Review of Systems General: Denies: Fatigue, Malaise ENT: Reports: Sore Throat, Epistaxis, Denies: Head Aches Skin: Denies: Rash, Lesions, Breakdown, Nail Changes Cardiovascular: Denies Chest Pain, Denies Palpitations Gastrointestinal: Reports: Nausea, Vomiting, Abdominal Pain (left lower abdominal pain) Genitourinary: Reports: Frequency Musculoskeletal: Reports: Back Pain (left flank pain) Physical Examination General Exam: Alert Chest Exam: Clear to auscultation Heart Exam: Rate Normal, Regular Rhythm Abdomen Exam: Soft, Tenderness (LLQ tenderness) Skin Exam: Nl turgor and temperature Neuro Exam: Normal Speech Psych Exam: Mental status NL Vital Signs/I&O Vital Signs Date Time Temp Pulse Resp B/P (MAP) Pulse Ox O2 Delivery O2 Flow Rate FiO2 08/05/17 08:06 Nasal Cannula 2.0 08/05/17 06:00 97 08/05/17 04:00 98.1 79 18 122/57 (78) Laboratory Data 24H Labs Laboratory Tests 2 08/04/17 21:26: Urine Appearance CLEAR, Urine Color YELLOW, Urine pH 6.0, Urine Specific [place] 1.015, Urine Protein 1+H, Urine Glucose (UA) NEGATIVE, Urine Ketones TRACEH, Urine Urobilinogen 0.2, Urine Bilirubin NEGATIVE, Urine Leukocyte Esterase 1+H, Urine Blood NEGATIVE, Urine Nitrite NEGATIVE, Urine WBC (Auto) 32H , Urine RBC (Auto) 6H, Urine Hyaline Casts (Auto) 0, Urine Bacteria (Auto) NEGATIVE, Urine Squamous Epithelial Cells 0, Urine Sperm (Auto) 08/04/17 21:27: White Blood Count 9.1, Red Blood Count 3.74L, Hemoglobin 10.2L, Hematocrit 32.0L , Mean Corpuscular Volume 85.6, Mean Corpuscular Hemoglobin 27.3, Mean Corpuscular Hemoglobin Concent 31.9L, Red Cell Distribution Width 14.3, Platelet Count 235, Neutrophils (%) (Auto) , Lymphocytes # (Auto) , Platelet Estimate NORMAL, Prothrombin Time 14.9H, Prothromb Time International Ratio 1.15 , Blood Gas Bicarbonate Standard 27.3, Venous Blood pH 7.419, Venous Blood Partial Pressure CO2 44.7, Venous Blood Partial Pressure O2 62.4H, Venous Blood Total Carbon Dioxide 29.7H, Venous Blood HCO3 28.3H, Venous Blood Oxygen Saturation 91.8H, Venous Blood Base Excess 3.3H, Anion Gap 7L, Glomerular Filtration Rate 21.1L, Lactic Acid Level 1.2, Calcium Level 9.7, Aspartate Amino Transf (AST/SGOT) 13L, Alanine Aminotransferase (ALT/SGPT) 11L, Alkaline Phosphatase 95, Total Bilirubin 0.8, Direct Bilirubin 0.3H, Total Creatine Kinase 33, Creatine Kinase MB 1.0, Creatine Kinase MB Relative Index 3.03, Troponin I < 0.02, SP-Qul-W-Type Natriuretic Peptide 1563H, Total Protein 6.5, Albumin 2.8L, Albumin/Globulin Ratio 0.76L 08/05/17 04:59: Anion Gap 5L, Glomerular Filtration Rate 19.4L, Calcium Level 8.9, Total Creatine Kinase 35, Creatine Kinase MB 1.0, Creatine Kinase MB Relative Index 2.85, Troponin I 0.02, Blood Urea Nitrogen 25H, Creatinine 2.55H, Sodium Level 134L, Potassium Level 4.6, Chloride Level 99, Carbon Dioxide Level 30, Magnesium Level 1.9, Thyroid Stimulating Hormone (TSH) 0.616, Free Thyroxine Index 3.0, Thyroxine (T4) 8.9, Triiodothyronine (T3) Uptake 34 CBC/BMP Laboratory Tests 08/04/17 21:27 Red Blood Count 3.74 L, Mean Corpuscular Volume 85.6, Mean Corpuscular Hemoglobin 27.3, Mean Corpuscular Hemoglobin Concent 31.9 L, Red Cell Distribution Width 14.3, Neutrophils (%) (Auto) , Lymphocytes # (Auto) 08/05/17 04:59 Red Blood Count 3.51 L, Mean Corpuscular Volume 85.8, Mean Corpuscular Hemoglobin 27.4, Mean Corpuscular Hemoglobin Concent 31.9 L, Red Cell Distribution Width 14.5, Calcium Level 8.9, Total Creatine Kinase 35 Microbiology Microbiology 08/04/17 Blood Culture, Received Pending 08/04/17 Blood Culture, Received Pending 08/04/17 Urine Culture, Received Pending Assessment This is a 77 y/o F w/ acute on chronic renal failure likely due to a combination of dehydration and left ureteral obstruction due to a 7mm distal stone. Plan - agree w/ broad spectrum antibiotics given recent UTI - plan for OR later today for cystoscopy, left ureteroscopy w/ laser lithotripsy , and left ureteral stent placement - NPO until OR HEATHER MADISON MD Aug 05, 2017 08:25
[2017-08-05] MEDS: MIRALAX *UNIT DOSE* 17GM PACKET PO SCH ×2 (09:00→09:09)
[2017-08-05] MEDS: OMEPRAZOLE 20 MG CAP PO SCH ×2 (09:00→09:08)
[2017-08-05] MEDS: LORATADINE 10 MG TAB PO SCH ×2 (09:00→09:08)
[2017-08-05] MEDS: VITAMIN D 1,000 INTERNATIONAL UNITS TABLET PO SCH ×3 (09:00→21:00)
[2017-08-05] MEDS: SENOKOT S TAB PO SCH ×3 (09:00→21:00)
[2017-08-05] MEDS: SORBITOL 70% 30ML UNIT DOSE CUP PO SCH ×2 (09:00→09:06)
[2017-08-05] MEDS: DULoxetine 30 MG CAP (CYMBALTA) PO SCH ×3 (09:00→21:44)
[2017-08-05] MEDS: fentaNYL 25 MCG/HR PATCH TD SCH (09:07)
[2017-08-05] MEDS: HEPARIN SOD (PORCINE) 5000 UNITS/ML VIAL SC SCH ×2 (09:12→21:00)
--- NOTE | 2017-08-05 09:31 | ECGEPIP ---
Stationary ECG Study [facility] - ED Test Date: 2017-08-04 Pat Name: NARESH KRISHNAN Department: Room: [place] [address] Gender: F Hospital Recruiter: PettitB: 1940 Requested By: ELÍAS TORRES Order Number: [id number] Reading MD: Janet Woodward Measurements Intervals [place] Rate: 101 P: 26 WA: 185 QRS: -32 QRSD: 82 T: 58 QT: 324 QTc: 420 Interpretive Statements SINUS TACHYCARDIA MARKED LEFT AXIS DEVIATION PRWP NSTTW ABNORMALITY DECREASED RATE 12/20/16 Electronically Signed On 08-05-2017 9:31:18 EDT by Janet Woodward
--- NOTE | 2017-08-05 12:48 | IPNPDOC ---
Subjective Date Seen The patient was seen on 08/05/17. Subjective Chief Complaint/HPI The patient is a 77-year-old female admitted with a reason for visit of Hydronephrosis With Renal Calculous Obstruction. Events since last encounter c/o n/v unrelieved by Zofran. also no BM in many days despite bowel care Constitutional: Reports: Chills, Fever Pulmonary: Denies: Dyspnea, Cough Cardiovascular: Denies: Chest Pain, Palpitations Gastrointestinal: Reports: Nausea, Vomiting, Abdominal Pain, Constipation, Denies: Diarrhea Objective Physical Examination General Exam: Positive: Alert, Moderate Distress (nauseated) Chest Exam: Positive: Clear to auscultation, Normal air movement Heart Exam: Positive: Rate Normal, Regular Rhythm Abdomen Exam: Positive: BS Hypoactive, Soft, Negative: Tenderness Extremity Exam: Negative: Edema Assessment /Plan Problems (1) Hydronephrosis with renal calculous obstruction Status: Acute Problem Text: Per Urology - plan for stent placement today (Of note: patient has h/o cervical cancer with invasion into bladder s/p chemo and RT in past with previous stent placement - was seen by Dr. Domingo 07/30 with left flank pain - her CT from 05/2017 showed left ureteral stent remained in place - He performed cystoscopy 08/03 and removed the left ureteral stent then ) (2) Acute on chronic kidney failure Status: Acute Response to Treatment: Worse Problem Text: ARF likely related to obstructive uropathy and dehydration from n /v. Baseline creatinine is 1.19 last month. Continue IVF - increase rate due to n/v and NPO status. Monitor for improved renal function with stent placement (3) UTI (urinary tract infection) due to Enterococcus Status: Acute Problem Text: U/C 07/28 grew E.Coli and Enterococcus treated with Bactrim Repeat U/C pending for presumed UTI in patient with fever continue IV Vanco and Cefepime (4) Nausea & vomiting Status: Acute Response to Treatment: Worse Problem Text: Zofran not effective for N/V; start phenergan 25 mg Q6H PRN (KES) (5) Constipation Status: Acute Problem Text: give bowel care once taking pos after procedure (6) Hypothyroid Status: Chronic Response to Treatment: Stable (7) Diastolic CHF Status: Chronic (8) KENDRICK (obstructive sleep apnea) Status: Chronic Problem Text: non-compliant with CPAP - KENDRICK protocol for procedure (9) Anemia Status: Chronic Response to Treatment: Stable Plan/VTE VTE Prophylaxis Ordered?: Yes (start Lovenox in am if ok with Urology - cont TEDs/Sequentials for now) Plan Family medicine Attending Note: Patient seen and examined this morning; she was c/o nausea at that time. I discussed her care with LOURDES Velasco and I agree with her note as documented. Patient is to undergo placement of a new ureteral stent today by Dr. Domingo, and then we will need to monitor for resolution of SARINA and continue IV antibiotics for presumed UTI (urine culture is pending). (KES) VS, I&O, 24H, Fishbone Vital Signs/I&O Vital Signs Date Time Temp Pulse Resp B/P (MAP) Pulse Ox O2 Delivery O2 Flow Rate FiO2 08/05/17 12:06 Nasal Cannula 2.0 08/05/17 09:37 20 08/05/17 08:00 98.2 66 126/78 (94) 94 I&O- Last 24 Hours up to 6 AM 08/06/17 06:00 Intake Total 0 ml Balance 0 ml Laboratory Data 24H LABS Laboratory Tests 2 08/04/17 21:26: Urine Appearance CLEAR, Urine Color YELLOW, Urine pH 6.0, Urine Specific [place] 1.015, Urine Protein 1+H, Urine Glucose (UA) NEGATIVE, Urine Ketones TRACEH, Urine Urobilinogen 0.2, Urine Bilirubin NEGATIVE, Urine Leukocyte Esterase 1+H, Urine Blood NEGATIVE, Urine Nitrite NEGATIVE, Urine WBC (Auto) 32H , Urine RBC (Auto) 6H, Urine Hyaline Casts (Auto) 0, Urine Bacteria (Auto) NEGATIVE, Urine Squamous Epithelial Cells 0, Urine Sperm (Auto) 08/04/17 21:27: White Blood Count 9.1, Red Blood Count 3.74L, Hemoglobin 10.2L, Hematocrit 32.0L , Mean Corpuscular Volume 85.6, Mean Corpuscular Hemoglobin 27.3, Mean Corpuscular Hemoglobin Concent 31.9L, Red Cell Distribution Width 14.3, Platelet Count 235, Neutrophils (%) (Auto) , Lymphocytes # (Auto) , Platelet Estimate NORMAL, Prothrombin Time 14.9H, Prothromb Time International Ratio 1.15 , Blood Gas Bicarbonate Standard 27.3, Venous Blood pH 7.419, Venous Blood Partial Pressure CO2 44.7, Venous Blood Partial Pressure O2 62.4H, Venous Blood Total Carbon Dioxide 29.7H, Venous Blood HCO3 28.3H, Venous Blood Oxygen Saturation 91.8H, Venous Blood Base Excess 3.3H, Anion Gap 7L, Glomerular Filtration Rate 21.1L, Lactic Acid Level 1.2, Calcium Level 9.7, Aspartate Amino Transf (AST/SGOT) 13L, Alanine Aminotransferase (ALT/SGPT) 11L, Alkaline Phosphatase 95, Total Bilirubin 0.8, Direct Bilirubin 0.3H, Total Creatine Kinase 33, Creatine Kinase MB 1.0, Creatine Kinase MB Relative Index 3.03, Troponin I < 0.02, BD-Xst-E-Type Natriuretic Peptide 1563H, Total Protein 6.5, Albumin 2.8L, Albumin/Globulin Ratio 0.76L 08/05/17 04:59: Anion Gap 5L, Glomerular Filtration Rate 19.4L, Calcium Level 8.9, Total Creatine Kinase 35, Creatine Kinase MB 1.0, Creatine Kinase MB Relative Index 2.85, Troponin I 0.02, Blood Urea Nitrogen 25H, Creatinine 2.55H, Sodium Level 134L, Potassium Level 4.6, Chloride Level 99, Carbon Dioxide Level 30, Magnesium Level 1.9, Thyroid Stimulating Hormone (TSH) 0.616, Free Thyroxine Index 3.0, Thyroxine (T4) 8.9, Triiodothyronine (T3) Uptake 34 CBC/BMP Laboratory Tests 08/04/17 21:27 Red Blood Count 3.74 L, Mean Corpuscular Volume 85.6, Mean Corpuscular Hemoglobin 27.3, Mean Corpuscular Hemoglobin Concent 31.9 L, Red Cell Distribution Width 14.3, Neutrophils (%) (Auto) , Lymphocytes # (Auto) 08/05/17 04:59 Red Blood Count 3.51 L, Mean Corpuscular Volume 85.8, Mean Corpuscular Hemoglobin 27.4, Mean Corpuscular Hemoglobin Concent 31.9 L, Red Cell Distribution Width 14.5, Calcium Level 8.9, Total Creatine Kinase 35 Microbiology Microbiology 08/04/17 Blood Culture, Received Pending 08/04/17 Blood Culture, Received Pending 08/04/17 Urine Culture, Received Pending TOMÁS TAIPA PA-C Aug 05, 2017 12:48 TODD BRUCE MD Aug 05, 2017 14:38
[2017-08-05] MEDS ORDERED: PROMETHAZINE INJ 25 MG/ML VIAL (J2550) IV PRN (13:15)
[2017-08-05] MEDS: traZODone 100 MG TAB PO SCH (21:00)
[2017-08-05] MEDS ORDERED: CONRAY-60 60% 50ML VIAL (Q9961) As Ordered ONE (22:22)
[2017-08-05] MEDS ORDERED: fentaNYL 100 MCG/2 ML INJECTION (J3010) As Ordered ONE (23:11)
[2017-08-05] MEDS ORDERED: GLYCOPYRROLATE INJ 0.2 MG/ML 2 ML VIAL As Ordered ONE (23:11)
[2017-08-05] MEDS ORDERED: NEOSTIGMINE 10 MG/10 ML VIAL (J2710) As Ordered ONE (23:11)
[2017-08-05] MEDS ORDERED: METOCLOPRAMIDE INJ 10MG/2ML VIAL (J2765) As Ordered ONE (23:11)
[2017-08-05] MEDS ORDERED: ONDANSETRON 4MG/2ML VIAL (J2405) As Ordered ONE ×2 (23:11→23:12)
[2017-08-05] MEDS ORDERED: PROPOFOL 200 MG/20 ML VIAL As Ordered ONE (23:11)
[2017-08-05] MEDS ORDERED: ROCURONIUM BROMIDE 50 MG/5 ML VIAL/SYRINGE As Ordered ONE (23:11)
[2017-08-05] MEDS ORDERED: LIDOCAINE 2% INJ 100 MG/5 ML SDV (FOR ANES.) As Ordered ONE (23:11)
[2017-08-05] MEDS ORDERED: MIDAZOLAM INJ 2 MG/2 ML VIAL (J2250) As Ordered ONE (23:11)
[2017-08-05] MEDS ORDERED: PERCOCET 5MG/325MG TAB PO PRN (23:45)
[2017-08-05] MEDS ORDERED: LR 1,000 ML IV SCH (23:45)
[2017-08-05] MEDS ORDERED: fentaNYL 100 MCG/2 ML INJECTION (J3010) IV PRN (23:45)
[2017-08-06] VITALS (11 sets, daily range): BP systolic 117–173; BP diastolic 60–92; O2SAT 97
[2017-08-06] MEDS: HumaLOG INSULIN (NovoLOG) PER UNIT SC SCH ×4 (00:47→17:30)
[2017-08-06] MEDS: NS 1,000 ML IV SCH ×2 (03:10→11:49)
[2017-08-06] MEDS: CEFEPIME HCL 1 GM in D5W MINI-BAG PLUS 50 ML IV SCH (03:45)
[2017-08-06] MEDS: LEVOTHYROXINE 150MCG TABLET (0.15MG) PO SCH (05:39)
[2017-08-06 06:08] LABS: MEAN CORPUSCULAR HEMOGLOBIN 27.3 pg (27.0-33.0); MEAN CORPUSCULAR HGB CONC 31.7 g/dl (32.0-36.5); MEAN CORPUSCULAR VOLUME 86.2 fl (80.0-96.0); RED CELL DISTRIBUTION WIDTH 14.5 % (11.5-14.5); WHITE BLOOD COUNT 9.3 10^3/uL (4.0-10.0)
[2017-08-06 06:35] LABS: CREATININE FOR GFR 1.97 MG/DL (0.55-1.02)
[2017-08-06 06:36] LABS: CALCIUM LEVEL 9.5 MG/DL (8.8-10.2); GLOMERULAR FILTRATION RATE 26.2 (>39); POTASSIUM SERUM 4.6 MEQ/L (3.5-5.1)
--- NOTE | 2017-08-06 08:29 | REP ---
Retrograde pyelogram: A series of three intraoperative fluoroscopic views are performed during left ureteral stent placement. The final film demonstrates the proximal and distal pigtails in satisfactory locations. Fluoroscopic exposure time is 7 seconds. Fluoroscopic images are performed with last image hold technology. These images require no additional radiation. Signed by Shalom Aguilar MD 08/06/2017 08:20 A
--- NOTE | 2017-08-06 08:49 | IPNPDOC ---
Assessment/Plan Date Seen The patient was seen on 08/06/17. Patient Summary This is a 77 y/o F w/ acute on chronic renal failure likely due to a combination of dehydration and left ureteral obstruction due to ureteral calcifications, POD1 s/p cysto, left ureteroscopy w/ basket extraction of stones , left ureteral stent placement. She is doing much better this morning. Her Cr is trending down. Problems (1) Hydronephrosis with renal calculous obstruction Status: Acute (2) Acute on chronic kidney failure Status: Acute (3) UTI (urinary tract infection) due to Enterococcus Status: Acute (4) Nausea & vomiting Status: Acute (5) Constipation Status: Acute (6) Hypothyroid Status: Chronic (7) Diastolic CHF Status: Chronic (8) KENDRICK (obstructive sleep apnea) Status: Chronic (9) Anemia Status: Chronic Plan/VTE VTE Prophylaxis Ordered?: Yes (start Lovenox in am if ok with Urology - cont TEDs/Sequentials for now) Plan - d/c [facility] tomorrow morning - remaining care per primary team - urology office will contact the patient's family to arrange f/u for her to have her stent removed in a few wks Subjective Review oF Systems Chief Complaint The patient is a 77-year-old female admitted with a reason for visit of Hydronephrosis With Renal Calculous Obstruction. Events since Last Encounter No acute events o/n. The patient notes that her pain is much better this morning. Denies n/v. No f/c/ns. Objective Physical Examination General Exam: Alert, Cooperative Heart Exam: Positive: Rate Normal, Regular Rhythm ABDOMEN EXAM: Soft Neuro Exam: Normal Speech Psych Exam: Mental status NL, Mood NL Other physical findings catheter draining clear urine Vital Signs/I&O Vital Signs Date Time Temp Pulse Resp B/P (MAP) Pulse Ox O2 Delivery O2 Flow Rate FiO2 08/06/17 08:00 Nasal Cannula 2.0 08/06/17 05:28 99.5 82 18 152/70 (97) 95 Laboratory Data Labs 24H Laboratory Tests 2 08/05/17 11:52: Bedside Glucose (Misc Panel) 103 08/05/17 17:04: Bedside Glucose (Misc Panel) 116H 08/05/17 19:52: Bedside Glucose (Misc Panel) 110 08/06/17 05:26: Bedside Glucose (Misc Panel) 118H, Anion Gap 6L, Glomerular Filtration Rate 26.2L, Blood Urea Nitrogen 27H, Creatinine 1.97H, Sodium Level 136, Potassium Level 4.6, Chloride Level 103, Carbon Dioxide Level 27, Calcium Level 9.5, Magnesium Level 2.0 CBC/BMP Laboratory Tests 08/06/17 05:26 Red Blood Count 3.33 L, Mean Corpuscular Volume 86.2, Mean Corpuscular Hemoglobin 27.3, Mean Corpuscular Hemoglobin Concent 31.7 L, Red Cell Distribution Width 14.5, Calcium Level 9.5 FSBS Laboratory Tests Test 08/05/17 11:52 08/05/17 17:04 08/05/17 19:52 08/06/17 05:26 Range/Units Bedside Glucose (Misc Panel) 103 116 110 118 83-110 MG/DL Microbiology Microbiology 08/04/17 Blood Culture - Preliminary, Resulted No growth after 24 hours . All specim... 08/04/17 Blood Culture - Preliminary, Resulted No growth after 24 hours . All specim... 08/04/17 Urine Culture, Received Pending HEATHER MADISON MD Aug 06, 2017 08:49
--- NOTE | 2017-08-06 09:25 | RO ---
DATE OF PROCEDURE: 08/05/2017 PREPROCEDURE DIAGNOSIS: Obstructing left ureteral stone. POSTPROCEDURE DIAGNOSIS: Obstructing left ureteral stone. PROCEDURE: Cystoscopy, left ureteroscopy with basket extraction of stones, left retrograde pyelogram, intraoperative interpretation of images, left ureteral stent placement. SURGEON: Osvaldo Domingo MD CREW TEAM MEMBER: None. ANESTHESIA: General. OPERATIVE INDICATIONS: This is a 77-year-old female who left the operating room two days ago for a removal of a retained left ureteral stent. She subsequently started having severe left sided flank pain, nausea, vomiting, and was admitted to the hospital with acute on chronic renal failure. CAT scan was notable for obstructing distal left ureteral stone. She was brought to the operating room today for removal of the stone. DESCRIPTION OF PROCEDURE: The patient was brought to the operating room, where general anesthesia was induced. Prophylactic antibiotics were infused. She was then placed in the dorsal lithotomy position and prepped and draped in the usual sterile fashion. A rigid cystoscope was then inserted into the urethral meatus and advanced into the bladder. A guidewire was advanced up the left collecting system. We then went up the left ureter with a short semirigid ureteroscope and within the distal left ureter there were several small calcifications that have collected and appear to be obstructing the ureter. It is likely that these calcifications broke off the stent that was removed on Thursday. I then used a basket to remove all of these calcifications from the left ureter. Once all the calcifications were removed, I looked in the proximal ureter and no additional stones were seen. A retrograde pyelogram was performed and was notable for moderate left hydroureteronephrosis. At this point, after confirming all the stones were removed, the wire was utilized to advance a #6 Spanish by 22-32 cm JJ ureteral stent up the left collecting system. The wire was then removed, and there were adequate curls of the stent in the left renal pelvis and in the bladder. At this point, a 16-Spanish Pruitt catheter was put into the bladder and the balloon filled with 10 mL of sterile water. Fluid drained clear at the end of the procedure. This marked conclusion of the procedure. The patient was then taken out of the dorsal lithotomy position, awakened from anesthesia, and transported to the recovery room in stable condition. ESTIMATED BLOOD LOSS: 0 mL. COMPLICATIONS: None. SPECIMENS: Left ureteral stones. PLAN: The patient will be taken care of by the hospitalist service and to monitor for improvement of her renal failure. Her Pruitt catheter can be removed once her renal failure starts to improve. We will schedule her a followup in the urology clinic in a few weeks for stent removal. GEOVANY
[2017-08-06] MEDS: OMEPRAZOLE 20 MG CAP PO SCH (09:43)
[2017-08-06] MEDS: SENOKOT S TAB PO SCH ×2 (09:43→21:37)
[2017-08-06] MEDS: DULoxetine 30 MG CAP (CYMBALTA) PO SCH ×2 (09:43→21:36)
[2017-08-06] MEDS: ASPIRIN 325 MG TAB PO SCH (09:43)
[2017-08-06] MEDS: LORATADINE 10 MG TAB PO SCH (09:44)
[2017-08-06] MEDS: MIRALAX *UNIT DOSE* 17GM PACKET PO SCH (09:44)
[2017-08-06] MEDS: VITAMIN D 1,000 INTERNATIONAL UNITS TABLET PO SCH ×2 (09:44→21:38)
[2017-08-06] MEDS: SORBITOL 70% 30ML UNIT DOSE CUP PO SCH (09:44)
[2017-08-06] MEDS: HEPARIN SOD (PORCINE) 5000 UNITS/ML VIAL SC SCH ×2 (09:45→21:38)
--- NOTE | 2017-08-06 09:47 | IPNPDOC ---
Subjective Date Seen The patient was seen on 08/06/17. Subjective Chief Complaint/HPI The patient is a 77-year-old female admitted with a reason for visit of Hydronephrosis With Renal Calculous Obstruction. Events since last encounter No further n/v or left flank pain. Feels groggy this morning Constitutional: Denies: Chills, Fever Pulmonary: Denies: Dyspnea, Cough Cardiovascular: Denies: Chest Pain, Palpitations Gastrointestinal: Reports: Constipation (still no BM), Denies: Nausea, Vomiting, Abdominal Pain, Diarrhea Objective Physical Examination General Exam: Positive: Alert, No Acute Distress (A little confused about time and events but alert to person and place) Chest Exam: Positive: Clear to auscultation, Normal air movement Heart Exam: Positive: Rate Normal, Regular Rhythm Abdomen Exam: Positive: BS Hypoactive, Soft, Negative: Tenderness Extremity Exam: Negative: Edema Assessment /Plan Problems (1) Hydronephrosis with renal calculous obstruction Status: Acute Problem Text: 08/06 - s/p cystoscopy with stone removal and left ureteral stent placement yesterday Per Urology - (Of note: patient has h/o cervical cancer with invasion into bladder s/p chemo and RT in past with previous stent placement - was seen by Dr. Domingo 07/30 with left flank pain - her CT from 05/2017 showed left ureteral stent remained in place - He performed cystoscopy 08/03 and removed the left ureteral stent then ) (2) Acute on chronic kidney failure Status: Acute Response to Treatment: Worse Problem Text: 08/06 - ARF likely related to obstructive uropathy and dehydration from n/v. Baseline creatinine is 1.19 last month. Continue IVF - Renal function trending down today. On Vanco - monitor levels and be sure pharmacy is adjusting doses. (3) UTI (urinary tract infection) due to Enterococcus Status: Acute Problem Text: U/C 07/28 grew E.Coli and Enterococcus treated with Bactrim Repeat U/C pending for presumed UTI in patient with fever continue IV Vanco and Cefepime B/C negative x 2 (4) Nausea & vomiting Status: Resolved (5) Constipation Status: Acute Problem Text: give bowel care once taking pos after procedure (6) Hypothyroid Status: Chronic Response to Treatment: Stable (7) Diastolic CHF Status: Chronic Response to Treatment: Stable (8) KENDRICK (obstructive sleep apnea) Status: Chronic Problem Text: non-compliant with CPAP - KENDRICK protocol for procedure (9) Anemia Status: Chronic Response to Treatment: Worse Problem Text: Hgb trending down slightly secondary to dilution from IVF - monitor trend Plan/VTE VTE Prophylaxis Ordered?: Yes (Start SQ heparin ) Plan Family Medicine Attending Note: Patient seen and examined early this morning; she feels greatly improved s/p surgery yesterday. I discussed her care with LOURDES Velasco and I agree with her note as documented. Will need urine culture results prior to discharge so that we can transition to appropriate PO antibiotics, and will need to see improvement in Cr prior to discharge back to [facility]. (KES) Disposition Back to [place] once stable VS, I&O, 24H, Fishbone Vital Signs/I&O Vital Signs Date Time Temp Pulse Resp B/P (MAP) Pulse Ox O2 Delivery O2 Flow Rate FiO2 08/06/17 08:00 Nasal Cannula 2.0 08/06/17 08:00 98.9 77 20 137/64 (88) 94 I&O- Last 24 Hours up to 6 AM 08/07/17 06:00 Intake Total 0 ml Output Total 0 ml Balance 0 ml Laboratory Data 24H LABS Laboratory Tests 2 08/05/17 11:52: Bedside Glucose (Misc Panel) 103 08/05/17 17:04: Bedside Glucose (Misc Panel) 116H 08/05/17 19:52: Bedside Glucose (Misc Panel) 110 08/06/17 05:26: Bedside Glucose (Misc Panel) 118H, Anion Gap 6L, Glomerular Filtration Rate 26.2L, Blood Urea Nitrogen 27H, Creatinine 1.97H, Sodium Level 136, Potassium Level 4.6, Chloride Level 103, Carbon Dioxide Level 27, Calcium Level 9.5, Magnesium Level 2.0 CBC/BMP Laboratory Tests 08/06/17 05:26 Red Blood Count 3.33 L, Mean Corpuscular Volume 86.2, Mean Corpuscular Hemoglobin 27.3, Mean Corpuscular Hemoglobin Concent 31.7 L, Red Cell Distribution Width 14.5, Calcium Level 9.5 Microbiology Microbiology 08/04/17 Blood Culture - Preliminary, Resulted No growth after 24 hours . All specim... 08/04/17 Blood Culture - Preliminary, Resulted No growth after 24 hours . All specim... 08/04/17 Urine Culture, Received Pending TOMÁS TAPIA PA-C Aug 06, 2017 09:47 TODD BRUCE MD Aug 06, 2017 15:07
[2017-08-06] MEDS: VANCOMYCIN HCL 1,000 MG, VIAL MATE ADAPTER 1 EACH in D5W 250 ML IV SCH (14:14)
[2017-08-06] MEDS: CEFEPIME HCL 1 GM in D5W 50 ML IV SCH (16:00)
[2017-08-06] MEDS ORDERED: CEFEPIME HCL 1 GM in D5W 50 ML IV SCH (16:00)
[2017-08-06] MEDS ORDERED: HumaLOG INSULIN (NovoLOG) PER UNIT SC SCH (21:00)
[2017-08-06] MEDS: traZODone 100 MG TAB PO SCH (21:37)
[2017-08-07 02:00] VITALS: BP 119/62
[2017-08-07] MEDS: NS 1,000 ML IV SCH (02:43)
[2017-08-07] MEDS: CEFEPIME HCL 1 GM in D5W 50 ML IV SCH (04:19)
[2017-08-07] MEDS: LEVOTHYROXINE 137MCG TABLET (0.137MG) PO SCH (05:59)
[2017-08-07 06:00] VITALS: BP 117/66
[2017-08-07] MEDS: HumaLOG INSULIN (NovoLOG) PER UNIT SC SCH ×3 (07:30→17:30)
[2017-08-07 07:39] LABS: MEAN CORPUSCULAR HEMOGLOBIN 26.9 pg (27.0-33.0); MEAN CORPUSCULAR VOLUME 86.9 fl (80.0-96.0); RED CELL DISTRIBUTION WIDTH 14.3 % (11.5-14.5); WHITE BLOOD COUNT 6.9 10^3/uL (4.0-10.0)
[2017-08-07 08:26] LABS: CALCIUM LEVEL 9.4 MG/DL (8.8-10.2); CREATININE FOR GFR 1.26 MG/DL (0.55-1.02); GLOMERULAR FILTRATION RATE 43.8 (>39); POTASSIUM SERUM 4.1 MEQ/L (3.5-5.1)
[2017-08-07] MEDS ORDERED: MAGNESIUM CITRATE 300 ML BTL PO ONE (09:00)
[2017-08-07] MEDS ORDERED: VANCOMYCIN HCL 1,000 MG, VIAL MATE ADAPTER 1 EACH in D5W 250 ML IV SCH (09:00)
[2017-08-07] MEDS: HEPARIN SOD (PORCINE) 5000 UNITS/ML VIAL SC SCH ×2 (09:00→20:13)
[2017-08-07] MEDS: SENOKOT S TAB PO SCH ×2 (10:04→20:13)
[2017-08-07] MEDS: DULoxetine 30 MG CAP (CYMBALTA) PO SCH ×2 (10:04→20:13)
[2017-08-07] MEDS: ASPIRIN 325 MG TAB PO SCH (10:05)
[2017-08-07] MEDS: OMEPRAZOLE 20 MG CAP PO SCH (10:05)
[2017-08-07] MEDS: LORATADINE 10 MG TAB PO SCH (10:06)
[2017-08-07] MEDS: VITAMIN D 1,000 INTERNATIONAL UNITS TABLET PO SCH ×2 (10:06→20:12)
[2017-08-07] MEDS: MIRALAX *UNIT DOSE* 17GM PACKET PO SCH (10:07)
[2017-08-07] MEDS: SORBITOL 70% 30ML UNIT DOSE CUP PO SCH (10:08)
[2017-08-07 14:00] VITALS: BP 123/73
--- NOTE | 2017-08-07 16:35 | DSES ---
DATE OF ADMISSION: 08/05/2017 DATE OF DISCHARGE: 08/07/2017 BRIEF HISTORY AND PHYSICAL: The patient is a 77-year-old patient from [facility] who has a history of stage IV squamous cell cervical cancer who underwent chemotherapy and radiation, recently had a left ureteral stent removed by Dr. Domingo but developed nausea, vomiting, fever and left flank pain. She was brought to the emergency room and CT scan showed a 6 mm obstructing stone of the left hydronephrosis. Dr. Domingo was consulted. PAST MEDICAL HISTORY: Significant for: 1. Squamous cell cervical cancer, stage IV. 2. Hypothyroidism. 3. Obstructive sleep apnea, not on continuous positive airway pressure (CPAP). 4. Morbid obesity. 5. Vitamin B12 deficiency. 6. Chronic diastolic congestive heart failure. 7. Dyslipidemia. 8. Hypertension. 9. Gastroesophageal reflux disease. 10. Depression. 11. Chronic pain. PERTINENT LABORATORY DATA ON ADMISSION: White count 9.1, hemoglobin 10.2, platelets 235,000. Sodium 135, potassium 4.3, BUN 24, creatinine 2.37, lactic acid 1.2. CT of the abdomen and pelvis showed a 6 mm obstructing stone at the distal left ureteral with severe left-sided hydronephrosis, large loculated fluid collection, anterior abdominal wall consistent with postsurgical seroma. HOSPITAL COURSE: 1. The patient was admitted for obstructive uropathy with left-sided hydronephrosis and 6 mm obstructing stone in the distal left ureter. She was placed on IV fluids, empiric IV antibiotics including cefepime and vancomycin. Dr. Domingo saw the patient in consultation. He took the patient to the operating room (OR) on 08/06/2017 and performed a cystoscopy with left ureteroscopy with basket extraction of stones, left retrograde pyelogram, and intraoperative images with left ureteral stent placement. The patient's nausea and vomiting resolved. Her pain resolved and her renal function has returned to near baseline. She is down to 1.26 at the time of transfer back to the [facility]. Her urine is clear. There is no blood in her urine and her Pruitt catheter will be discontinued. Her blood cultures and urine cultures were all negative and therefore, her antibiotics will be discontinued as well. She has had no further fever and her white count has remained normal. She will need followup with urology as an outpatient for her left ureteral stent. 2. Acute on chronic kidney failure, secondary to obstructive uropathy and dehydration from nausea and vomiting. Baseline creatinine is 1.19 last month. Her renal function returned essentially to her baseline with removal of the stone and stent placement as well as IV fluid hydration and resolution of nausea and vomiting. 3. History of urinary tract infection (UTI), secondary to Enterococcus. She was treated empirically with antibiotics, previously was on Bactrim and then in the hospital placed on vancomycin and cefepime. Blood cultures and urine cultures are negative and she will be discharged without antibiotics. 4. Chronic anemia. Hemoglobin has trended down to 8.8 at the time of discharge with IV fluids and this is felt to be dilutional. She has no signs of active bleeding otherwise. 5. Diastolic congestive heart failure. She remained clinically compensated even with her IV fluid hydration and remains compensated at the time of transfer to the [facility]. Oxygen saturations were 96% on two liters here. She will be weaned to room air prior to discharge to assure that her saturations remain stable, as I do not think she is on oxygen normally. 6. Obstructive sleep apnea. She does not use continuous positive airway pressure (CPAP). Obstructive sleep apnea (KENDRICK) protocol was followed in the periprocedural period. 7. Chronic constipation. She really has not had a bowel movement in several days. She is on copious amount of bowel care at the [facility]. We will give her magnesium citrate prior to discharge and continue her bowel care at the [facility]. She has no nausea, vomiting or abdominal pain and has passed flatus this morning, but the constipation issue has been chronic and she will need to continue with bowel care when she is at the [facility]. 8. Hypothyroidism. This is chronic and stable on her usual medications. DISPOSITION: She is stable for discharge to [facility] ([facility] DIET: Consistent-carbohydrate. MEDICATIONS: - acetaminophen 650 mg every four hours as needed for pain - albuterol 2.5 mg every two hours as needed for shortness of breath - Dulcolax suppository 10 mg per rectum daily for constipation - vitamin D 5000 units as directed - senna one tablet daily - docusate sodium 100 mg twice a day - Cymbalta 60 mg twice a day - Fleet's enema per rectum daily as needed for constipation - fentanyl patch 25 mcg every three days - Anusol-HC as needed for hemorrhoids - levothyroxine sodium 150 mg alternating 137.5 mcg - Claritin 10 mg daily - magnesium citrate 300 mL daily as needed for constipation - metformin 250 mg twice a day - milk of magnesia 30 mL daily as needed for constipation - Myrbetriq 50 mg daily which will be discontinued and she has not been getting that here in the hospital and likely contributes to her constipation along with all of her chronic narcotics - omeprazole 40 mg daily - Zofran 4 mg every four hours as needed for nausea - polyethylene glycol 10 grams daily - sorbitol 30 mL daily - tramadol 25 mg every six hours as needed for pain - trazodone 100 mg at bedtime DISCHARGE DIAGNOSES: 1. Hydronephrosis with renal calculus obstruction. 2. Acute on chronic renal failure, secondary to obstructive uropathy and dehydration. 3. Acute on chronic anemia, secondary to IV fluid dilutional anemia. 4. Chronic constipation. 5. History of urinary tract infection (UTI), secondary to Enterococcus. 6. Nausea and vomiting, resolved. 7. Diastolic congestive heart failure, chronic and compensated. 8. Obstructive sleep apnea, noncompliant with continuous positive airway pressure (CPAP). 9. Hypothyroidism.
[2017-08-07] MEDS: traZODone 100 MG TAB PO SCH (20:12)
[2017-08-07 22:00] VITALS: BP 129/57
[2017-08-08] MEDS: LEVOTHYROXINE 150MCG TABLET (0.15MG) PO SCH (05:33)
[2017-08-08 06:00] VITALS: BP 111/58
[2017-08-08 06:57] LABS: MEAN CORPUSCULAR HEMOGLOBIN 26.7 pg (27.0-33.0); MEAN CORPUSCULAR HGB CONC 30.6 g/dl (32.0-36.5); MEAN CORPUSCULAR VOLUME 87.1 fl (80.0-96.0); RED CELL DISTRIBUTION WIDTH 14.1 % (11.5-14.5); WHITE BLOOD COUNT 5.5 10^3/uL (4.0-10.0)
[2017-08-08 07:15] LABS: CALCIUM LEVEL 9.9 MG/DL (8.8-10.2); CREATININE FOR GFR 1.01 MG/DL (0.55-1.02); GLOMERULAR FILTRATION RATE 56.6 (>39); POTASSIUM SERUM 3.8 MEQ/L (3.5-5.1)
[2017-08-08] MEDS: HumaLOG INSULIN (NovoLOG) PER UNIT SC SCH ×2 (07:30→11:58)
[2017-08-08 08:30] VITALS: O2SAT 92
[2017-08-08] MEDS: SORBITOL 70% 30ML UNIT DOSE CUP PO SCH (09:00)
[2017-08-08] MEDS: MIRALAX *UNIT DOSE* 17GM PACKET PO SCH (09:00)
[2017-08-08] MEDS: DULoxetine 30 MG CAP (CYMBALTA) PO SCH (10:10)
[2017-08-08] MEDS: HEPARIN SOD (PORCINE) 5000 UNITS/ML VIAL SC SCH (10:10)
[2017-08-08] MEDS: OMEPRAZOLE 20 MG CAP PO SCH (10:10)
[2017-08-08] MEDS: ASPIRIN 325 MG TAB PO SCH (10:10)
[2017-08-08] MEDS: LORATADINE 10 MG TAB PO SCH (10:11)
[2017-08-08] MEDS: SENOKOT S TAB PO SCH (10:11)
[2017-08-08] MEDS: fentaNYL 25 MCG/HR PATCH TD SCH (10:12)
== END 2017-08-08 12:36 | DRG 668 ==
LOC: M ED 20:57 → EDBD 20:57 → M ED INP 08-05 00:19 → M PCU 08-05 02:04 → M MSPAV 08-06 13:09
PROVIDERS: ADMIT Hospitalist; ATTEND Family Medicine
PROC: 0T778DZ Dilation of Left Ureter with Intraluminal Device, Via Natural or Artificial Opening Endoscopic (ICD-10-PCS; 2017-08-05)
PROC: 0TC78ZZ Extirpation of Matter from Left Ureter, Via Natural or Artificial Opening Endoscopic (ICD-10-PCS; principal; 2017-08-05 16:30)
DX: N13.2 Hydronephrosis with renal and ureteral calculous obstruction (principal); I50.33 Acute on chronic diastolic (congestive) heart failure; Z68.42 Body mass index [BMI] 45.0-49.9, adult; I13.0 Hypertensive heart and chronic kidney disease with heart failure and stage 1 through stage 4 chronic kidney disease, or unspecified chronic kidney disease; N17.9 Acute kidney failure, unspecified; E66.01 Morbid (severe) obesity due to excess calories; E03.9 Hypothyroidism, unspecified; G47.33 Obstructive sleep apnea (adult) (pediatric); Z66 Do not resuscitate; E53.8 Deficiency of other specified B group vitamins; K21.9 Gastro-esophageal reflux disease without esophagitis; E78.5 Hyperlipidemia, unspecified; F32.9 Major depressive disorder, single episode, unspecified; G89.29 Other chronic pain; Z79.899 Other long term (current) drug therapy; Z79.82 Long term (current) use of aspirin; Z85.41 Personal history of malignant neoplasm of cervix uteri; E11.9 Type 2 diabetes mellitus without complications; K59.00 Constipation, unspecified; N39.0 Urinary tract infection, site not specified; N18.9 Chronic kidney disease, unspecified; D64.9 Anemia, unspecified

== ENCOUNTER → 2017-08-11 | Outpatient (REF) | payer MEDICARE, MEDICAID ==
[~2017-08-11] MED LIST changes: +SORB70SO36 PO; +[UNRECOGNIZED DRUG - CODE] PO
[2017-08-11 11:39] LABS: MEAN CORPUSCULAR HEMOGLOBIN 26.8 pg (27.0-33.0); MEAN CORPUSCULAR HGB CONC 30.5 g/dl (32.0-36.5); MEAN CORPUSCULAR VOLUME 87.7 fl (80.0-96.0); RED CELL DISTRIBUTION WIDTH 14.1 % (11.5-14.5); WHITE BLOOD COUNT 6.1 10^3/uL (4.0-10.0)
[2017-08-11 12:11] LABS: CALCIUM LEVEL 9.9 MG/DL (8.8-10.2); CREATININE FOR GFR 1.08 MG/DL (0.55-1.02); GLOMERULAR FILTRATION RATE 52.4 (>39); POTASSIUM SERUM 4.2 MEQ/L (3.5-5.1)
== END ==
PROVIDERS: ATTEND Family Medicine
DX: E55.9 Vitamin D deficiency, unspecified (principal); E03.9 Hypothyroidism, unspecified; E11.9 Type 2 diabetes mellitus without complications; N39.0 Urinary tract infection, site not specified

== ENCOUNTER → 2017-10-14 | Outpatient (CLI) | payer MEDICARE, MEDICAID ==
--- NOTE | 2017-10-15 12:11 | RADONC ---
RADIATION ONCOLOGY FOLLOWUP NOTE DATE: 10/14/2017 CHART NUMBER: [id number] DIAGNOSIS: Cervix cancer. STAGE: SCOTT. ECOG PERFORMANCE STATUS: 4 FOLLOWUP NOTE: Ms. 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 The patient presents today reporting that she is doing generally well. She is having no vaginal pain. She has no discharge or bleeding. She continues to have urinary difficulties for which she is being followed by Dr. Domingo. Her initial tumor did erode into the bladder. She is having constipation issues, but these are not new. The patient has no significant back or bone pain or other problems, other than her overall physical limitations. REVIEW OF SYSTEMS: The patient's review of systems once again is positive for her urinary and bowel difficulties as well as physical limitations. She is presenting a wheelchair and [facility]. She denies nausea, vomiting, fevers, chills, night sweats, diplopia, headaches, anxiety, depression, anorexia, visual disturbances, chest pain. PHYSICAL EXAMINATION The patient is a well-developed, well-nourished white female in no acute distress who is presenting in a wheelchair. HEENT: Exam is normocephalic, atraumatic. Extraocular movements are intact. Her physical exam was otherwise generally not remarkable. Examination of the patient's abdomen shows no evidence of nodularity or masses. There appears to be some fullness above the pelvic region in the anterior abdominal wall consistent with her large possible seroma. BEER BREWER examination was deferred. ASSESSMENT: Ms. Dawn is clinically stable at this point. I have personally reviewed the patient's CT scans from August 04, 2017 as well as from May 13, 2017. They show stable fluid collection in the anterior abdominal wall, which is thought to be of a seroma related to prior surgeries. The patient does confirm that she had prior surgery in that area. She is complaining of some tenderness bilaterally on both sides of the seromas location. This would be consistent with what I am seeing on her CT scans. The CT does not show any evidence of metastatic disease or recurrent disease. Clinically, she is doing quite well. I have scheduled her to see me again in 3 months for further followup and we are scheduling a new CT of the abdomen and pelvis to be done in November. She will also continue to be followed by her other physicians. The patient is aware that the tumor most likely will recur. She is also aware that the salvage surgery is extensive and she was not deemed to be a candidate for that. At this time, the patient appears to have achieved palliation and is doing fairly well. We will continue to follow her as will her other physicians. cc: MD Migdalia Jimenes MD Jack Rush, MD
== END ==
LOC: M ONCR 12:52
PROVIDERS: ATTEND Radiology Radiation Oncology
DX: C52 Malignant neoplasm of vagina (principal)

== ENCOUNTER → 2017-10-20 | Outpatient (REF) | payer MEDICARE, MEDICAID ==
[2017-10-20 11:06] LABS: BASO % 0.6 % (0.0-1.0); EOS # 0.4 10^3/uL (0.0-0.50); EOS % 7.5 % (0.0-3.0); IMMATURE GRANULOCYTE % 0.4 % (0-0); LYMPH # 0.8 10^3/uL (1.5-4.5); LYMPH % 17.4 % (24.0-44.0); MEAN CORPUSCULAR HEMOGLOBIN 27.5 pg (27.0-33.0); MEAN CORPUSCULAR HGB CONC 30.5 g/dl (32.0-36.5); MEAN CORPUSCULAR VOLUME 90.1 fl (80.0-96.0); MONO # 0.4 10^3/uL (0.0-0.8); MONO % 9.2 % (0.0-5.0); NEUTROPHILS # 3.1 10^3/uL (1.8-7.7); NEUTROPHILS % 64.9 % (36.0-66.0); PLATELET COUNT, AUTOMATED 251 10^3/uL (150-450); RED CELL DISTRIBUTION WIDTH 14.6 % (11.5-14.5); WHITE BLOOD COUNT 4.8 10^3/uL (4.0-10.0)
[2017-10-20 11:37] LABS: ALBUMIN 2.9 GM/DL (3.2-5.2); ALBUMIN/GLOBULIN RATIO 0.73 (1.00-1.93); BILIRUBIN,TOTAL 0.3 MG/DL (0.2-1.0); CALCIUM LEVEL 9.6 MG/DL (8.8-10.2); CREATININE FOR GFR 1.06 MG/DL (0.55-1.02); GLOMERULAR FILTRATION RATE 53.5 (>39); TOTAL PROTEIN 6.9 GM/DL (6.4-8.2)
== END ==
PROVIDERS: ATTEND Family Medicine
DX: E03.9 Hypothyroidism, unspecified (principal)

== ENCOUNTER → 2017-11-19 | Outpatient (CLI) | payer MEDICARE, MEDICAID ==
[~2017-11-19] MED LIST changes: -/ALEN7SOL OR; -ACET50TAOT PO; -ALBU83IN INH; -AMLO5TAB2 PO; -ANUS25SU PR; -ASPI325T PO; -ASPI325T24 PO; -AYRSPR; -BACL10TA2 PO; -BACT800T5 PO; -BISAC5TA OR; -CITR1SOL PO; -CLAR1TAB2 PO; -CLAR5CHW PO; -COLA100C2 OR; -CYMB60CA3 PO; -DETR4CAP OR; -DICL0.1S7 TD; -DOCU100C16 PO; -DULC10SU2 PR; -ENEM1ENE4 PR; -ESTR125TA OR; -FENT1DIS14 TD; -FLEEENE4 PR; -FLEX10TA2 PO; -FLEXERIL PO; +GASTROGRAFIN SOLUTION 30ML (Q9963) As Ordered; -HEPA50VL SQ; -HYDR25TA6 OR; +ISOVUE-370 76% 100ML VIAL (Q9967) As Ordered; -LASI20TA PO; -LEVO137T2 PO; -LEVO150T42 PO; -LEVO250T PO; -LISI10TA4 OR; -LISI5TAB PO; -METF500T13 PO; -MILKSUS OR; -MILKSUS PO; -MIRA255PW PO; -MIRA33504 PO; -MOM30SS PO; -MULTTAB4 PO; -MYRB50TA PO; -NORV5TAB OR; -NYAM10003 TOP; -NYST10PW TOP; -NYSTPOW4 TOP; -OMEP40CA2 PO; -OXYB5TAB PO; -OXYC-208 PO; -OXYC5CAP4 OR; -PERC5TAB8 OR; -PERCOCET OR; -PRIL40CA PO; -SENN8.6T7 PO; -SENO8.6T9 OR; -SENO8.6T9 PO; -SORB70SO36 PO; -SYNT137T OR; -TRAM50TA2 PO; -TRAZ-136 PO; -TYLE325T5 PO; -VITA100027 OR; -VITA500046 PO; -VOLT1GEL2 TD; -ZANT150T PO; -ZOFR20TA PO; -ZOLO100T OR; -[UNRECOGNIZED DRUG - CODE] PO; -[UNRECOGNIZED DRUG - CODE] PO; -[UNRECOGNIZED DRUG - OTHER] PO; -drisdol PO; -nystatin powder TOP
== END ==
LOC: M RAD 11:35
DX: C53.9 Malignant neoplasm of cervix uteri, unspecified (principal); L76.34 Postprocedural seroma of skin and subcutaneous tissue following other procedure; K57.30 Diverticulosis of large intestine without perforation or abscess without bleeding; M16.0 Bilateral primary osteoarthritis of hip; M51.37 Other intervertebral disc degeneration, lumbosacral region
CPT/HCPCS: Q9963

== ENCOUNTER → 2018-01-13 | Outpatient (CLI) | payer MEDICARE, MEDICAID | LOC: M ONCR 13:04 | DX: C53.9 Malignant neoplasm of cervix uteri, unspecified (principal) | CPT/HCPCS: G0463 ==

== ENCOUNTER → 2018-01-19 | Outpatient (REF) | payer MEDICARE, MEDICAID ==
[2018-01-19 09:59] LABS: HEMOGLOBIN 10.6 g/dl (12.0-16.0); MEAN CORPUSCULAR HEMOGLOBIN 25.8 pg (27.0-33.0); MEAN CORPUSCULAR HGB CONC 29.4 g/dl (32.0-36.5); MEAN CORPUSCULAR VOLUME 87.6 fl (80.0-96.0); PLATELET COUNT, AUTOMATED 279 10^3/uL (150-450); RED BLOOD COUNT 4.11 10^6/uL (4.00-5.40); RED CELL DISTRIBUTION WIDTH 14.5 % (11.5-14.5); WHITE BLOOD COUNT 5.5 10^3/uL (4.0-10.0)
[2018-01-19 10:19] LABS: ESTIMATED AVERAGE GLUCOSE 126 MG/DL (60-110)
[2018-01-19 10:42] LABS: ALBUMIN 3.3 GM/DL (3.2-5.2); ALBUMIN/GLOBULIN RATIO 0.97 (1.00-1.93); ALKALINE PHOSPHATASE 108 U/L (45-117); ALT/SGPT 14 U/L (12-78); ANION GAP 8 MEQ/L (8-16); AST/SGOT 14 U/L (7-37); BILIRUBIN,TOTAL 0.3 MG/DL (0.2-1.0); BLOOD UREA NITROGEN 23 MG/DL (7-18); CALCIUM LEVEL 9.4 MG/DL (8.8-10.2); CARBON DIOXIDE LEVEL 30 MEQ/L (21-32); CHLORIDE LEVEL 103 MEQ/L (98-107); CREATININE FOR GFR 1.09 MG/DL (0.55-1.30); GLOMERULAR FILTRATION RATE 51.8 (>39); GLUCOSE, FASTING 136 MG/DL (70-100); POTASSIUM SERUM 4.5 MEQ/L (3.5-5.1); SODIUM LEVEL 141 MEQ/L (136-145); TOTAL PROTEIN 6.7 GM/DL (6.4-8.2)
[2018-01-19 10:52] LABS: TOTAL 25(OH) VITAMIN D 61.7 NG/ML (30.0-100.0); VITAMIN B12 LEVEL 352 PG/ML (247-911)
== END ==
DX: E03.9 Hypothyroidism, unspecified (principal); E11.9 Type 2 diabetes mellitus without complications
CPT/HCPCS: 84443

== ENCOUNTER → 2018-02-23 | Outpatient (REF) | payer MEDICARE, MEDICAID, OTHER | DX: E03.9 Hypothyroidism, unspecified (principal) | CPT/HCPCS: 84443 ==

== ENCOUNTER → 2018-03-02 | Outpatient (REF) | payer MEDICARE, MEDICAID, OTHER | DX: E03.9 Hypothyroidism, unspecified (principal) | CPT/HCPCS: 84443 ==

== ENCOUNTER → 2018-03-26 | Outpatient (REF) | payer MEDICARE, MEDICAID, OTHER | LOC: M LAB REF 15:24 | DX: L08.9 Local infection of the skin and subcutaneous tissue, unspecified (principal) | CPT/HCPCS: 87186 ==

== ENCOUNTER → 2018-04-20 | Outpatient (REF) | payer MEDICARE, MEDICAID, OTHER ==
[2018-04-20 09:46] LABS: BASO % 0.4 % (0.0-1.0); EOS # 0.2 10^3/uL (0.0-0.50); EOS % 4.3 % (0.0-3.0); HEMATOCRIT 33.1 % (36.0-47.0); HEMOGLOBIN 9.8 g/dl (12.0-15.5); IMMATURE GRANULOCYTE % 0.6 % (0-3.0); LYMPH # 0.6 10^3/uL (1.5-4.5); MEAN CORPUSCULAR HEMOGLOBIN 25.6 pg (27.0-33.0); MEAN CORPUSCULAR HGB CONC 29.6 g/dl (32.0-36.5); MEAN CORPUSCULAR VOLUME 86.4 fl (80.0-96.0); MONO # 0.4 10^3/uL (0.0-0.8); MONO % 7.3 % (0.0-5.0); NEUTROPHILS # 3.7 10^3/uL (1.8-7.7); NEUTROPHILS % 75.4 % (36.0-66.0); PLATELET COUNT, AUTOMATED 253 10^3/uL (150-450); RED BLOOD COUNT 3.83 10^6/uL (4.00-5.40); RED CELL DISTRIBUTION WIDTH 15.9 % (11.5-14.5); WHITE BLOOD COUNT 4.9 10^3/uL (4.0-10.0)
[2018-04-20 10:24] LABS: ALBUMIN 2.9 GM/DL (3.2-5.2); ALBUMIN/GLOBULIN RATIO 0.81 (1.00-1.93); ALKALINE PHOSPHATASE 94 U/L (45-117); ALT/SGPT 14 U/L (12-78); ANION GAP 8 MEQ/L (8-16); AST/SGOT 14 U/L (7-37); BILIRUBIN,TOTAL 0.3 MG/DL (0.2-1.0); BLOOD UREA NITROGEN 25 MG/DL (7-18); CALCIUM LEVEL 9.3 MG/DL (8.8-10.2); CARBON DIOXIDE LEVEL 30 MEQ/L (21-32); CHLORIDE LEVEL 103 MEQ/L (98-107); CREATININE FOR GFR 1.27 MG/DL (0.55-1.30); GLOMERULAR FILTRATION RATE 43.4 (>39); GLUCOSE, FASTING 164 MG/DL (70-100); POTASSIUM SERUM 4.5 MEQ/L (3.5-5.1); SODIUM LEVEL 141 MEQ/L (136-145); TOTAL PROTEIN 6.5 GM/DL (6.4-8.2)
[2018-04-20 10:45] LABS: FERRITIN 7 NG/ML (8-252); IRON (FE) 45 UG/DL (50-170); PERCENT SATURATION 11.6 % (13.2-45.0); TOTAL IRON BINDING CAPACITY 388 UG/DL (250-450)
[2018-04-20 10:57] LABS: FOLATE 8.4 NG/ML; VITAMIN B12 LEVEL 322 PG/ML
== END ==
DX: E03.9 Hypothyroidism, unspecified (principal)
CPT/HCPCS: 82746

== ENCOUNTER → 2018-05-04 | Outpatient (REF) | payer MEDICARE, MEDICAID, OTHER | DX: S71.102A Unspecified open wound, left thigh, initial encounter (principal) | CPT/HCPCS: 87186 ==

== ENCOUNTER → 2018-05-28 | Outpatient (REF) | payer MEDICARE, MEDICAID ==
[2018-05-28 17:53] LABS: APPEARANCE, URINE HAZY (CLEAR); BACTERIA, URINE AUTO 2+ (NEGATIVE); BILIRUBIN, URINE AUTO NEGATIVE (NEGATIVE); BLOOD, URINE BLOOD NEGATIVE (NEGATIVE); COLOR, URINE YELLOW (YELLOW); GLUCOSE, URINE (UA) AUTO NEGATIVE (NEGATIVE); KETONE, URINE AUTO NEGATIVE (NEGATIVE); LEUKOCYTE ESTERASE, URINE AUTO 3+ (NEGATIVE); NITRITE, URINE AUTO POSITIVE (NEGATIVE); PROTEIN, URINE AUTO NEGATIVE (NEGATIVE); RBC, URINE AUTO 2 /HPF (0-3); SQUAMOUS EPITHELIAL CELL UR AU 0 /HPF (0-6); UROBILINOGEN, URINE AUTO 0.2 mg/dL (0.0-2.0); WBC, URINE AUTO 48 /HPF (0-3)
== END ==
DX: R32 Unspecified urinary incontinence (principal)
CPT/HCPCS: 81001

== ENCOUNTER → 2018-05-30 | Outpatient (REF) | payer MEDICARE, MEDICAID ==
[2018-05-30 11:58] LABS: BASO % 0.4 % (0.0-1.0); EOS # 0.2 10^3/uL (0.0-0.50); EOS % 2.9 % (0.0-3.0); HEMATOCRIT 33.2 % (36.0-47.0); HEMOGLOBIN 10.1 g/dl (12.0-15.5); IMMATURE GRANULOCYTE % 0.4 % (0-3.0); LYMPH # 0.5 10^3/uL (1.5-4.5); LYMPH % 8.5 % (24.0-44.0); MEAN CORPUSCULAR HEMOGLOBIN 27.6 pg (27.0-33.0); MEAN CORPUSCULAR HGB CONC 30.4 g/dl (32.0-36.5); MEAN CORPUSCULAR VOLUME 90.7 fl (80.0-96.0); MONO # 0.6 10^3/uL (0.0-0.8); MONO % 10.3 % (0.0-5.0); NEUTROPHILS # 4.3 10^3/uL (1.8-7.7); NEUTROPHILS % 77.5 % (36.0-66.0); PLATELET COUNT, AUTOMATED 229 10^3/uL (150-450); RED BLOOD COUNT 3.66 10^6/uL (4.00-5.40); RED CELL DISTRIBUTION WIDTH 18.8 % (11.5-14.5); WHITE BLOOD COUNT 5.5 10^3/uL (4.0-10.0)
== END ==
LOC: M LAB 11:28
DX: Z11.9 Encounter for screening for infectious and parasitic diseases, unspecified (principal)
CPT/HCPCS: 85025

== ENCOUNTER → 2018-06-14 | Outpatient (REF) | payer MEDICARE, MEDICAID | DX: R10.9 Unspecified abdominal pain (principal) | CPT/HCPCS: 74018 ==

== ENCOUNTER → 2018-06-15 | Outpatient (CLI) | payer MEDICARE, MEDICAID | LOC: M RAD 13:16 | DX: R14.0 Abdominal distension (gaseous) (principal); K57.30 Diverticulosis of large intestine without perforation or abscess without bleeding; N13.39 Other hydronephrosis; R10.9 Unspecified abdominal pain ==

== ENCOUNTER 2018-06-16 10:38 | Inpatient (IN) | payer MEDICARE, MEDICAID ==
[2018-06-16 11:40] LABS: BASO % 0.2 % (0.0-1.0); EOS # 0.1 10^3/uL (0.0-0.50); EOS % 0.7 % (0.0-3.0); HEMATOCRIT 37.7 % (36.0-47.0); HEMOGLOBIN 11.8 g/dl (12.0-15.5); IMMATURE GRANULOCYTE % 0.5 % (0-3.0); LYMPH # 0.5 10^3/uL (1.5-4.5); LYMPH % 5.4 % (24.0-44.0); MEAN CORPUSCULAR HEMOGLOBIN 28.6 pg (27.0-33.0); MEAN CORPUSCULAR HGB CONC 31.3 g/dl (32.0-36.5); MEAN CORPUSCULAR VOLUME 91.3 fl (80.0-96.0); MONO % 9.7 % (0.0-5.0); NEUTROPHILS # 8.2 10^3/uL (1.8-7.7); NEUTROPHILS % 83.5 % (36.0-66.0); PLATELET COUNT, AUTOMATED 318 10^3/uL (150-450); RED BLOOD COUNT 4.13 10^6/uL (4.00-5.40); RED CELL DISTRIBUTION WIDTH 17.7 % (11.5-14.5); WHITE BLOOD COUNT 9.9 10^3/uL (4.0-10.0)
[2018-06-16 12:03] LABS: ALBUMIN 2.8 GM/DL (3.2-5.2); ALBUMIN/GLOBULIN RATIO 0.68 (1.00-1.93); ALKALINE PHOSPHATASE 82 U/L (45-117); ALT/SGPT 17 U/L (12-78); ANION GAP 6 MEQ/L (8-16); AST/SGOT 16 U/L (7-37); BILIRUBIN,DIRECT 0.3 MG/DL (0.0-0.2); BILIRUBIN,TOTAL 0.7 MG/DL (0.2-1.0); BLOOD UREA NITROGEN 27 MG/DL (7-18); CALCIUM LEVEL 10.1 MG/DL (8.8-10.2); CARBON DIOXIDE LEVEL 32 MEQ/L (21-32); CHLORIDE LEVEL 102 MEQ/L (98-107); GLOMERULAR FILTRATION RATE 42.2 (>39); GLUCOSE, FASTING 123 MG/DL (70-100); LIPASE 50 U/L (73-393); POTASSIUM SERUM 4.7 MEQ/L (3.5-5.1); SODIUM LEVEL 140 MEQ/L (136-145); TOTAL PROTEIN 6.9 GM/DL (6.4-8.2)
[2018-06-16 12:04] LABS: LACTIC ACID SEPSIS PROTOCOL 0.9 MMOL/L (0.4-2.0)
[2018-06-16] MEDS: MORPHINE 2 MG/ML 1ML SYRINGE (J2270) IV (12:08)
[2018-06-16] MEDS: NS 1,000 ML IV (12:30)
[2018-06-16] MEDS ORDERED: DEXTROSE 50% 50 ML SYRINGE IV (15:00)
[2018-06-16] MEDS ORDERED: GLUCOSE 4 GM CHEW TABLET PO (15:00)
[2018-06-16] MEDS ORDERED: GLUCAGON FOR INJ 1 MG VIAL (J1610) SC (15:00)
[2018-06-16] MEDS ORDERED: HumaLOG INSULIN (NovoLOG) PER UNIT SC (17:30)
[2018-06-16] MEDS: D5W/0.45% SODIUM CHLORIDE 1,000 ML IV (18:00)
[2018-06-16] MEDS: HumaLOG INSULIN (NovoLOG) PER UNIT SC (18:00)
[2018-06-16 18:01] LABS: BEDSIDE GLUCOSE 129 MG/DL (83-110)
[2018-06-16] MEDS: HEPARIN SOD (PORCINE) 5000 UNITS/ML VIAL SQ (21:58)
[2018-06-17 00:06] LABS: BEDSIDE GLUCOSE 143 MG/DL (83-110)
[2018-06-17] MEDS: HumaLOG INSULIN (NovoLOG) PER UNIT SC ×4 (00:13→17:21)
[2018-06-17] MEDS: LEVOTHYROXINE 100MCG TABLET (0.1MG) PO (06:00)
[2018-06-17] MEDS: LEVOTHYROXINE 75MCG TABLET (0.075MG) PO (06:00)
[2018-06-17 06:11] LABS: BEDSIDE GLUCOSE 124 MG/DL (83-110)
[2018-06-17 06:45] LABS: HEMATOCRIT 36.8 % (36.0-47.0); HEMOGLOBIN 11.3 g/dl (12.0-15.5); MEAN CORPUSCULAR HEMOGLOBIN 28.4 pg (27.0-33.0); MEAN CORPUSCULAR HGB CONC 30.7 g/dl (32.0-36.5); MEAN CORPUSCULAR VOLUME 92.5 fl (80.0-96.0); PLATELET COUNT, AUTOMATED 281 10^3/uL (150-450); RED BLOOD COUNT 3.98 10^6/uL (4.00-5.40); RED CELL DISTRIBUTION WIDTH 17.7 % (11.5-14.5); WHITE BLOOD COUNT 7.9 10^3/uL (4.0-10.0)
[2018-06-17 07:01] LABS: ANION GAP 5 MEQ/L (8-16); BLOOD UREA NITROGEN 26 MG/DL (7-18); CALCIUM LEVEL 9.8 MG/DL (8.8-10.2); CARBON DIOXIDE LEVEL 34 MEQ/L (21-32); CHLORIDE LEVEL 102 MEQ/L (98-107); CREATININE FOR GFR 1.23 MG/DL (0.55-1.30); GLUCOSE, FASTING 118 MG/DL (70-100); POTASSIUM SERUM 4.4 MEQ/L (3.5-5.1); SODIUM LEVEL 141 MEQ/L (136-145)
[2018-06-17] MEDS: HEPARIN SOD (PORCINE) 5000 UNITS/ML VIAL SQ ×2 (09:44→22:22)
[2018-06-17 12:04] LABS: BEDSIDE GLUCOSE 99 MG/DL (83-110)
[2018-06-17] MEDS: BISACODYL 10 MG SUPP PR ×2 (13:28→22:22)
[2018-06-17] MEDS: SIMETHICONE 80 MG CHEW TAB PO ×3 (13:28→22:22)
[2018-06-17] MEDS: PYRIDOSTIGMINE 60 MG TAB PO (14:48)
[2018-06-17 17:22] LABS: BEDSIDE GLUCOSE 102 MG/DL (83-110)
[2018-06-18] MEDS: HumaLOG INSULIN (NovoLOG) PER UNIT SC ×4 (05:44→17:31)
[2018-06-18 05:45] LABS: BEDSIDE GLUCOSE 100 MG/DL (83-110)
[2018-06-18] MEDS: LEVOTHYROXINE 100MCG TABLET (0.1MG) PO (06:00)
[2018-06-18] MEDS: LEVOTHYROXINE 75MCG TABLET (0.075MG) PO (06:00)
[2018-06-18 07:05] LABS: HEMATOCRIT 41.3 % (36.0-47.0); HEMOGLOBIN 12.9 g/dl (12.0-15.5); MEAN CORPUSCULAR HEMOGLOBIN 28.7 pg (27.0-33.0); MEAN CORPUSCULAR HGB CONC 31.2 g/dl (32.0-36.5); PLATELET COUNT, AUTOMATED 353 10^3/uL (150-450); RED BLOOD COUNT 4.49 10^6/uL (4.00-5.40); RED CELL DISTRIBUTION WIDTH 17.7 % (11.5-14.5); WHITE BLOOD COUNT 7.7 10^3/uL (4.0-10.0)
[2018-06-18 07:17] LABS: ANION GAP 7 MEQ/L (8-16); BLOOD UREA NITROGEN 26 MG/DL (7-18); CALCIUM LEVEL 10.5 MG/DL (8.8-10.2); CARBON DIOXIDE LEVEL 34 MEQ/L (21-32); CHLORIDE LEVEL 100 MEQ/L (98-107); CREATININE FOR GFR 1.25 MG/DL (0.55-1.30); GLOMERULAR FILTRATION RATE 44.1 (>39); GLUCOSE, FASTING 104 MG/DL (70-100); POTASSIUM SERUM 4.2 MEQ/L (3.5-5.1); SODIUM LEVEL 141 MEQ/L (136-145)
[2018-06-18] MEDS: SIMETHICONE 80 MG CHEW TAB PO ×4 (08:57→22:16)
[2018-06-18] MEDS: BISACODYL 10 MG SUPP PR ×2 (08:58→22:16)
[2018-06-18] MEDS: HEPARIN SOD (PORCINE) 5000 UNITS/ML VIAL SQ ×2 (08:58→22:45)
[2018-06-18] MEDS: KCL 20MEQ IN 0.45NS 1000ML 1,000 ML IV (11:17)
[2018-06-18 11:39] LABS: BEDSIDE GLUCOSE 94 MG/DL (83-110)
[2018-06-18 20:47] LABS: BEDSIDE GLUCOSE 109 MG/DL (83-110)
[2018-06-18 20:47] LABS: BEDSIDE GLUCOSE 99 MG/DL (83-110)
[2018-06-19] MEDS: KCL 20MEQ IN 0.45NS 1000ML 1,000 ML IV ×2 (00:13→12:28)
[2018-06-19] MEDS: HumaLOG INSULIN (NovoLOG) PER UNIT SC ×4 (00:17→17:42)
[2018-06-19 06:03] LABS: HEMATOCRIT 40.3 % (36.0-47.0); HEMOGLOBIN 12.4 g/dl (12.0-15.5); MEAN CORPUSCULAR HEMOGLOBIN 28.2 pg (27.0-33.0); MEAN CORPUSCULAR HGB CONC 30.8 g/dl (32.0-36.5); MEAN CORPUSCULAR VOLUME 91.8 fl (80.0-96.0); PLATELET COUNT, AUTOMATED 338 10^3/uL (150-450); RED BLOOD COUNT 4.39 10^6/uL (4.00-5.40); RED CELL DISTRIBUTION WIDTH 17.5 % (11.5-14.5); WHITE BLOOD COUNT 7.2 10^3/uL (4.0-10.0)
[2018-06-19] MEDS: LEVOTHYROXINE 75MCG TABLET (0.075MG) PO (06:12)
[2018-06-19] MEDS: LEVOTHYROXINE 100MCG TABLET (0.1MG) PO (06:12)
[2018-06-19 06:16] LABS: ANION GAP 9 MEQ/L (8-16); BLOOD UREA NITROGEN 27 MG/DL (7-18); CALCIUM LEVEL 9.9 MG/DL (8.8-10.2); CARBON DIOXIDE LEVEL 31 MEQ/L (21-32); CHLORIDE LEVEL 103 MEQ/L (98-107); CREATININE FOR GFR 1.17 MG/DL (0.55-1.30); GLOMERULAR FILTRATION RATE 47.6 (>39); GLUCOSE, FASTING 89 MG/DL (70-100); POTASSIUM SERUM 4.1 MEQ/L (3.5-5.1); SODIUM LEVEL 143 MEQ/L (136-145)
[2018-06-19] MEDS: DOCUSATE SODIUM 100 MG CAP PO ×2 (09:28→20:20)
[2018-06-19] MEDS: SIMETHICONE 80 MG CHEW TAB PO ×4 (09:28→20:20)
[2018-06-19] MEDS: BISACODYL 10 MG SUPP PR ×2 (09:29→20:20)
[2018-06-19] MEDS: SENNA 8.6 MG TAB (SENOKOT) PO ×2 (09:29→20:20)
[2018-06-19] MEDS: HEPARIN SOD (PORCINE) 5000 UNITS/ML VIAL SQ ×2 (09:30→20:19)
[2018-06-19] MEDS: PYRIDOSTIGMINE 60 MG TAB PO (11:23)
[2018-06-19 12:00] LABS: BEDSIDE GLUCOSE 106 MG/DL (83-110)
[2018-06-19 12:00] LABS: BEDSIDE GLUCOSE 104 MG/DL (83-110)
[2018-06-19] MEDS: METOCLOPRAMIDE INJ 10MG/2ML VIAL (J2765) IV ×2 (13:53→21:26)
[2018-06-19 17:07] LABS: BEDSIDE GLUCOSE 109 MG/DL (83-110)
[2018-06-19 20:52] LABS: BEDSIDE GLUCOSE 97 MG/DL (83-110)
[2018-06-20] MEDS: HumaLOG INSULIN (NovoLOG) PER UNIT SC ×4 (00:35→18:00)
[2018-06-20] MEDS: KCL 20MEQ IN 0.45NS 1000ML 1,000 ML IV ×2 (01:07→13:09)
[2018-06-20] MEDS: LEVOTHYROXINE 100MCG TABLET (0.1MG) PO (05:39)
[2018-06-20] MEDS: LEVOTHYROXINE 75MCG TABLET (0.075MG) PO (05:39)
[2018-06-20 05:43] LABS: BEDSIDE GLUCOSE 128 MG/DL (83-110)
[2018-06-20 05:43] LABS: BEDSIDE GLUCOSE 102 MG/DL (83-110)
[2018-06-20 06:35] LABS: HEMATOCRIT 38.7 % (36.0-47.0); HEMOGLOBIN 12.1 g/dl (12.0-15.5); MEAN CORPUSCULAR HEMOGLOBIN 28.1 pg (27.0-33.0); MEAN CORPUSCULAR HGB CONC 31.3 g/dl (32.0-36.5); PLATELET COUNT, AUTOMATED 398 10^3/uL (150-450); RED CELL DISTRIBUTION WIDTH 17.5 % (11.5-14.5); WHITE BLOOD COUNT 7.2 10^3/uL (4.0-10.0)
[2018-06-20 06:55] LABS: ANION GAP 9 MEQ/L (8-16); BLOOD UREA NITROGEN 29 MG/DL (7-18); CALCIUM LEVEL 9.7 MG/DL (8.8-10.2); CARBON DIOXIDE LEVEL 33 MEQ/L (21-32); CHLORIDE LEVEL 102 MEQ/L (98-107); GLOMERULAR FILTRATION RATE 42.2 (>39); GLUCOSE, FASTING 99 MG/DL (70-100); MAGNESIUM LEVEL 1.7 MG/DL (1.8-2.4); POTASSIUM SERUM 3.8 MEQ/L (3.5-5.1); SODIUM LEVEL 144 MEQ/L (136-145)
[2018-06-20] MEDS: DOCUSATE SODIUM 100 MG CAP PO ×2 (08:14→20:47)
[2018-06-20] MEDS: SIMETHICONE 80 MG CHEW TAB PO ×4 (08:15→20:46)
[2018-06-20] MEDS: HEPARIN SOD (PORCINE) 5000 UNITS/ML VIAL SQ ×2 (08:15→20:46)
[2018-06-20] MEDS: BISACODYL 10 MG SUPP PR ×2 (08:15→20:47)
[2018-06-20] MEDS: SENNA 8.6 MG TAB (SENOKOT) PO ×2 (08:16→20:46)
[2018-06-20 11:51] LABS: BEDSIDE GLUCOSE 97 MG/DL (83-110)
[2018-06-20] MEDS: PREPARATION H SUPP (HEMORRHOID) PR ×3 (12:24→20:47)
[2018-06-20] MEDS: METOCLOPRAMIDE INJ 10MG/2ML VIAL (J2765) IV ×3 (13:07→20:46)
[2018-06-20] MEDS: NYSTATIN 100,000 UNITS/GM TOPICAL PWD 15 GM TOP ×2 (16:20→20:47)
[2018-06-20] MEDS ORDERED: POTASSIUM CHLORIDE INJ 40 MEQ in KCL 40MEQ in NS 1000ML 1,000 ML IV (19:12)
[2018-06-20] MEDS: MAG SULF 1GM/100ML (MAG RUN) 1 GM in APPROPRIATE DILUENT 1 EA IV (20:01)
[2018-06-20] MEDS: KCL 40MEQ in NS 1000ML 1,000 ML IV (20:02)
[2018-06-21 00:21] LABS: BEDSIDE GLUCOSE 92 MG/DL (83-110)
[2018-06-21] MEDS: HumaLOG INSULIN (NovoLOG) PER UNIT SC ×4 (00:34→17:35)
[2018-06-21] MEDS: LEVOTHYROXINE 100MCG TABLET (0.1MG) PO (06:14)
[2018-06-21] MEDS: LEVOTHYROXINE 75MCG TABLET (0.075MG) PO (06:14)
[2018-06-21 06:17] LABS: HEMATOCRIT 40.8 % (36.0-47.0); HEMOGLOBIN 12.6 g/dl (12.0-15.5); MEAN CORPUSCULAR HEMOGLOBIN 28.4 pg (27.0-33.0); MEAN CORPUSCULAR HGB CONC 30.9 g/dl (32.0-36.5); MEAN CORPUSCULAR VOLUME 91.9 fl (80.0-96.0); PLATELET COUNT, AUTOMATED 391 10^3/uL (150-450); RED BLOOD COUNT 4.44 10^6/uL (4.00-5.40); RED CELL DISTRIBUTION WIDTH 17.5 % (11.5-14.5); WHITE BLOOD COUNT 8.3 10^3/uL (4.0-10.0)
[2018-06-21 06:18] LABS: BEDSIDE GLUCOSE 94 MG/DL (83-110)
[2018-06-21 06:30] LABS: ANION GAP 9 MEQ/L (8-16); BLOOD UREA NITROGEN 26 MG/DL (7-18); CALCIUM LEVEL 9.4 MG/DL (8.8-10.2); CARBON DIOXIDE LEVEL 32 MEQ/L (21-32); CHLORIDE LEVEL 103 MEQ/L (98-107); CREATININE FOR GFR 1.26 MG/DL (0.55-1.30); GLOMERULAR FILTRATION RATE 43.7 (>39); GLUCOSE, FASTING 92 MG/DL (70-100); POTASSIUM SERUM 3.5 MEQ/L (3.5-5.1); SODIUM LEVEL 144 MEQ/L (136-145)
[2018-06-21] MEDS: KCL 40MEQ in NS 1000ML 1,000 ML IV ×2 (07:58→21:45)
[2018-06-21] MEDS: NYSTATIN 100,000 UNITS/GM TOPICAL PWD 15 GM TOP ×2 (09:58→21:46)
[2018-06-21] MEDS: METOCLOPRAMIDE INJ 10MG/2ML VIAL (J2765) IV ×4 (09:59→21:47)
[2018-06-21] MEDS: SIMETHICONE 80 MG CHEW TAB PO ×4 (09:59→21:46)
[2018-06-21] MEDS: HEPARIN SOD (PORCINE) 5000 UNITS/ML VIAL SQ ×2 (10:00→21:47)
[2018-06-21] MEDS: SENNA 8.6 MG TAB (SENOKOT) PO ×2 (10:00→21:46)
[2018-06-21] MEDS: PREPARATION H SUPP (HEMORRHOID) PR ×3 (10:00→21:47)
[2018-06-21] MEDS: BISACODYL 10 MG SUPP PR ×2 (10:02→21:51)
[2018-06-21] MEDS: DOCUSATE SODIUM 100 MG CAP PO ×2 (10:02→21:48)
[2018-06-21 11:48] LABS: BEDSIDE GLUCOSE 87 MG/DL (83-110)
[2018-06-22 00:30] LABS: BEDSIDE GLUCOSE 90 MG/DL (83-110)
[2018-06-22] MEDS: HumaLOG INSULIN (NovoLOG) PER UNIT SC ×4 (05:48→18:00)
[2018-06-22] MEDS: LEVOTHYROXINE 100MCG TABLET (0.1MG) PO (05:51)
[2018-06-22] MEDS: LEVOTHYROXINE 75MCG TABLET (0.075MG) PO (05:51)
[2018-06-22 05:52] LABS: BEDSIDE GLUCOSE 87 MG/DL (83-110)
[2018-06-22 06:48] LABS: HEMATOCRIT 39.4 % (36.0-47.0); MEAN CORPUSCULAR HEMOGLOBIN 28.3 pg (27.0-33.0); MEAN CORPUSCULAR HGB CONC 30.5 g/dl (32.0-36.5); MEAN CORPUSCULAR VOLUME 92.9 fl (80.0-96.0); PLATELET COUNT, AUTOMATED 358 10^3/uL (150-450); RED BLOOD COUNT 4.24 10^6/uL (4.00-5.40); RED CELL DISTRIBUTION WIDTH 17.3 % (11.5-14.5); WHITE BLOOD COUNT 7.2 10^3/uL (4.0-10.0)
[2018-06-22 07:03] LABS: ANION GAP 11 MEQ/L (8-16); BLOOD UREA NITROGEN 23 MG/DL (7-18); CARBON DIOXIDE LEVEL 30 MEQ/L (21-32); CHLORIDE LEVEL 107 MEQ/L (98-107); CREATININE FOR GFR 1.16 MG/DL (0.55-1.30); GLOMERULAR FILTRATION RATE 48.1 (>39); GLUCOSE, FASTING 94 MG/DL (70-100); POTASSIUM SERUM 3.8 MEQ/L (3.5-5.1); SODIUM LEVEL 148 MEQ/L (136-145)
[2018-06-22] MEDS: BISACODYL 10 MG SUPP PR ×2 (09:00→20:30)
[2018-06-22] MEDS: DOCUSATE SODIUM 100 MG CAP PO ×2 (09:01→20:29)
[2018-06-22] MEDS: SENNA 8.6 MG TAB (SENOKOT) PO ×2 (09:02→20:30)
[2018-06-22] MEDS: PREPARATION H SUPP (HEMORRHOID) PR ×3 (09:03→20:30)
[2018-06-22] MEDS: SIMETHICONE 80 MG CHEW TAB PO ×4 (09:03→20:31)
[2018-06-22] MEDS: NYSTATIN 100,000 UNITS/GM TOPICAL PWD 15 GM TOP ×2 (09:03→20:31)
[2018-06-22] MEDS: METOCLOPRAMIDE INJ 10MG/2ML VIAL (J2765) IV ×4 (09:03→20:30)
[2018-06-22] MEDS: HEPARIN SOD (PORCINE) 5000 UNITS/ML VIAL SQ ×2 (09:03→20:31)
[2018-06-22] MEDS: KCL 40MEQ in NS 1000ML 1,000 ML IV (09:04)
[2018-06-22 13:07] LABS: BEDSIDE GLUCOSE 114 MG/DL (83-110)
[2018-06-22] MEDS: KCL 20MEQ IN 0.45NS 1000ML 1,000 ML IV (14:32)
[2018-06-22 17:44] LABS: BEDSIDE GLUCOSE 85 MG/DL (83-110)
[2018-06-22 23:51] LABS: BEDSIDE GLUCOSE 96 MG/DL (83-110)
[2018-06-23] MEDS: KCL 20MEQ IN 0.45NS 1000ML 1,000 ML IV ×2 (03:37→16:09)
[2018-06-23 05:55] LABS: BEDSIDE GLUCOSE 96 MG/DL (83-110)
[2018-06-23 05:55] LABS: BEDSIDE GLUCOSE 89 MG/DL (83-110)
[2018-06-23] MEDS: HumaLOG INSULIN (NovoLOG) PER UNIT SC ×4 (06:00→18:00)
[2018-06-23 06:01] LABS: HEMATOCRIT 37.6 % (36.0-47.0); HEMOGLOBIN 11.5 g/dl (12.0-15.5); MEAN CORPUSCULAR HEMOGLOBIN 28.2 pg (27.0-33.0); MEAN CORPUSCULAR HGB CONC 30.6 g/dl (32.0-36.5); MEAN CORPUSCULAR VOLUME 92.2 fl (80.0-96.0); PLATELET COUNT, AUTOMATED 342 10^3/uL (150-450); RED BLOOD COUNT 4.08 10^6/uL (4.00-5.40); RED CELL DISTRIBUTION WIDTH 17.4 % (11.5-14.5); WHITE BLOOD COUNT 7.7 10^3/uL (4.0-10.0)
[2018-06-23 06:20] LABS: ANION GAP 9 MEQ/L (8-16); BLOOD UREA NITROGEN 23 MG/DL (7-18); CALCIUM LEVEL 8.8 MG/DL (8.8-10.2); CARBON DIOXIDE LEVEL 29 MEQ/L (21-32); CHLORIDE LEVEL 109 MEQ/L (98-107); GLOMERULAR FILTRATION RATE 46.3 (>39); GLUCOSE, FASTING 90 MG/DL (70-100); POTASSIUM SERUM 3.9 MEQ/L (3.5-5.1); SODIUM LEVEL 147 MEQ/L (136-145)
[2018-06-23] MEDS: LEVOTHYROXINE 75MCG TABLET (0.075MG) PO (06:28)
[2018-06-23] MEDS: LEVOTHYROXINE 100MCG TABLET (0.1MG) PO (06:28)
[2018-06-23] MEDS: SIMETHICONE 80 MG CHEW TAB PO ×4 (08:58→20:25)
[2018-06-23] MEDS: METOCLOPRAMIDE INJ 10MG/2ML VIAL (J2765) IV ×4 (08:58→20:24)
[2018-06-23] MEDS: HEPARIN SOD (PORCINE) 5000 UNITS/ML VIAL SQ ×2 (08:58→20:24)
[2018-06-23] MEDS: SENNA 8.6 MG TAB (SENOKOT) PO ×2 (08:59→20:25)
[2018-06-23] MEDS: DOCUSATE SODIUM 100 MG CAP PO ×2 (09:02→20:24)
[2018-06-23] MEDS: BISACODYL 10 MG SUPP PR ×2 (09:05→20:25)
[2018-06-23] MEDS: PREPARATION H SUPP (HEMORRHOID) PR ×3 (09:05→20:25)
[2018-06-23] MEDS: NYSTATIN 100,000 UNITS/GM TOPICAL PWD 15 GM TOP ×2 (09:06→20:23)
[2018-06-23 12:14] LABS: BEDSIDE GLUCOSE 82 MG/DL (83-110)
[2018-06-23 17:00] LABS: BEDSIDE GLUCOSE 85 MG/DL (83-110)
[2018-06-24] MEDS: HumaLOG INSULIN (NovoLOG) PER UNIT SC ×5 (00:10→20:43)
[2018-06-24 00:11] LABS: BEDSIDE GLUCOSE 90 MG/DL (83-110)
[2018-06-24] MEDS: KCL 20MEQ IN 0.45NS 1000ML 1,000 ML IV (02:47)
[2018-06-24 05:18] LABS: BEDSIDE GLUCOSE 83 MG/DL (83-110)
[2018-06-24] MEDS: LEVOTHYROXINE 100MCG TABLET (0.1MG) PO (05:18)
[2018-06-24] MEDS: LEVOTHYROXINE 75MCG TABLET (0.075MG) PO (05:19)
[2018-06-24] MEDS: SIMETHICONE 80 MG CHEW TAB PO ×4 (08:02→20:59)
[2018-06-24] MEDS: SENNA 8.6 MG TAB (SENOKOT) PO ×2 (08:02→20:57)
[2018-06-24] MEDS: METOCLOPRAMIDE INJ 10MG/2ML VIAL (J2765) IV (08:03)
[2018-06-24] MEDS: NYSTATIN 100,000 UNITS/GM TOPICAL PWD 15 GM TOP ×2 (08:03→20:59)
[2018-06-24] MEDS: DOCUSATE SODIUM 100 MG CAP PO ×2 (08:03→20:57)
[2018-06-24] MEDS: BISACODYL 10 MG SUPP PR ×2 (08:03→20:58)
[2018-06-24] MEDS: PREPARATION H SUPP (HEMORRHOID) PR ×3 (08:03→20:57)
[2018-06-24] MEDS: HEPARIN SOD (PORCINE) 5000 UNITS/ML VIAL SQ ×2 (08:04→20:58)
[2018-06-24 12:48] LABS: BEDSIDE GLUCOSE 94 MG/DL (83-110)
[2018-06-24] MEDS: METOCLOPRAMIDE 10 MG TAB PO ×3 (14:33→20:57)
[2018-06-24 17:20] LABS: BEDSIDE GLUCOSE 94 MG/DL (83-110)
[2018-06-24 20:41] LABS: BEDSIDE GLUCOSE 103 MG/DL (83-110)
[2018-06-25] MEDS: LEVOTHYROXINE 100MCG TABLET (0.1MG) PO (05:36)
[2018-06-25] MEDS: LEVOTHYROXINE 75MCG TABLET (0.075MG) PO (05:36)
[2018-06-25 06:42] LABS: HEMATOCRIT 38.6 % (36.0-47.0); MEAN CORPUSCULAR HEMOGLOBIN 28.2 pg (27.0-33.0); MEAN CORPUSCULAR HGB CONC 31.1 g/dl (32.0-36.5); MEAN CORPUSCULAR VOLUME 90.6 fl (80.0-96.0); PLATELET COUNT, AUTOMATED 312 10^3/uL (150-450); RED BLOOD COUNT 4.26 10^6/uL (4.00-5.40); RED CELL DISTRIBUTION WIDTH 17.1 % (11.5-14.5); WHITE BLOOD COUNT 6.5 10^3/uL (4.0-10.0)
[2018-06-25 07:01] LABS: ANION GAP 10 MEQ/L (8-16); BLOOD UREA NITROGEN 14 MG/DL (7-18); CALCIUM LEVEL 9.2 MG/DL (8.8-10.2); CARBON DIOXIDE LEVEL 28 MEQ/L (21-32); CHLORIDE LEVEL 103 MEQ/L (98-107); GLOMERULAR FILTRATION RATE 51.1 (>39); GLUCOSE, FASTING 101 MG/DL (70-100); POTASSIUM SERUM 3.8 MEQ/L (3.5-5.1); SODIUM LEVEL 141 MEQ/L (136-145)
[2018-06-25] MEDS: HumaLOG INSULIN (NovoLOG) PER UNIT SC ×2 (07:24→12:00)
[2018-06-25] MEDS: BISACODYL 10 MG SUPP PR (08:24)
[2018-06-25] MEDS: PREPARATION H SUPP (HEMORRHOID) PR (08:24)
[2018-06-25] MEDS: DOCUSATE SODIUM 100 MG CAP PO (08:26)
[2018-06-25] MEDS: SENNA 8.6 MG TAB (SENOKOT) PO (08:27)
[2018-06-25] MEDS: METOCLOPRAMIDE 10 MG TAB PO (08:27)
[2018-06-25] MEDS: SIMETHICONE 80 MG CHEW TAB PO (08:27)
[2018-06-25] MEDS: HEPARIN SOD (PORCINE) 5000 UNITS/ML VIAL SQ (08:28)
[2018-06-25] MEDS: NYSTATIN 100,000 UNITS/GM TOPICAL PWD 15 GM TOP (08:30)
[2018-06-25 12:06] LABS: BEDSIDE GLUCOSE 104 MG/DL (83-110)
== END 2018-06-25 13:07 | DRG 389 ==
LOC: M ED 10:38 → M ED INP 14:27 → M MSPAV 20:59
DX: K56.699 Other intestinal obstruction unspecified as to partial versus complete obstruction (principal); I50.32 Chronic diastolic (congestive) heart failure; I13.0 Hypertensive heart and chronic kidney disease with heart failure and stage 1 through stage 4 chronic kidney disease, or unspecified chronic kidney disease; Z68.43 Body mass index [BMI] 50.0-59.9, adult; E03.9 Hypothyroidism, unspecified; G47.33 Obstructive sleep apnea (adult) (pediatric); E66.01 Morbid (severe) obesity due to excess calories; E78.5 Hyperlipidemia, unspecified; K21.9 Gastro-esophageal reflux disease without esophagitis; F32.9 Major depressive disorder, single episode, unspecified; N18.3 Chronic kidney disease, stage 3 (moderate); E11.22 Type 2 diabetes mellitus with diabetic chronic kidney disease; Z85.41 Personal history of malignant neoplasm of cervix uteri; Z91.19 Patient's noncompliance with other medical treatment and regimen; Z87.891 Personal history of nicotine dependence; Z79.82 Long term (current) use of aspirin; Z79.84 Long term (current) use of oral hypoglycemic drugs; Z79.891 Long term (current) use of opiate analgesic; Z79.899 Other long term (current) drug therapy; K59.00 Constipation, unspecified

== ENCOUNTER → 2018-06-16 | Outpatient (REF) | payer MEDICARE, MEDICAID ==
[2018-06-16 09:03] LABS: BASO % 0.2 % (0.0-1.0); EOS # 0.1 10^3/uL (0.0-0.50); EOS % 0.6 % (0.0-3.0); HEMATOCRIT 39.3 % (36.0-47.0); HEMOGLOBIN 12.4 g/dl (12.0-15.5); IMMATURE GRANULOCYTE % 0.5 % (0-3.0); LYMPH # 0.5 10^3/uL (1.5-4.5); LYMPH % 4.8 % (24.0-44.0); MEAN CORPUSCULAR HEMOGLOBIN 28.4 pg (27.0-33.0); MEAN CORPUSCULAR HGB CONC 31.6 g/dl (32.0-36.5); MEAN CORPUSCULAR VOLUME 89.9 fl (80.0-96.0); MONO % 9.3 % (0.0-5.0); NEUTROPHILS # 8.8 10^3/uL (1.8-7.7); NEUTROPHILS % 84.6 % (36.0-66.0); PLATELET COUNT, AUTOMATED 341 10^3/uL (150-450); RED BLOOD COUNT 4.37 10^6/uL (4.00-5.40); RED CELL DISTRIBUTION WIDTH 17.6 % (11.5-14.5); WHITE BLOOD COUNT 10.4 10^3/uL (4.0-10.0)
[2018-06-16 09:14] LABS: ALBUMIN 3.1 GM/DL (3.2-5.2); ALBUMIN/GLOBULIN RATIO 0.78 (1.00-1.93); ALKALINE PHOSPHATASE 93 U/L (45-117); ALT/SGPT 16 U/L (12-78); ANION GAP 6 MEQ/L (8-16); AST/SGOT 18 U/L (7-37); BILIRUBIN,TOTAL 0.7 MG/DL (0.2-1.0); BLOOD UREA NITROGEN 26 MG/DL (7-18); CALCIUM LEVEL 10.3 MG/DL (8.8-10.2); CARBON DIOXIDE LEVEL 32 MEQ/L (21-32); CHLORIDE LEVEL 101 MEQ/L (98-107); CREATININE FOR GFR 1.25 MG/DL (0.55-1.30); GLOMERULAR FILTRATION RATE 44.1 (>39); GLUCOSE, FASTING 123 MG/DL (70-100); POTASSIUM SERUM 4.8 MEQ/L (3.5-5.1); SODIUM LEVEL 139 MEQ/L (136-145); TOTAL PROTEIN 7.1 GM/DL (6.4-8.2)
== END ==
DX: I50.9 Heart failure, unspecified (principal)
CPT/HCPCS: 80053

== ENCOUNTER → 2018-08-24 | Outpatient (REF) | payer MEDICARE, MEDICAID ==
[2018-08-24 18:45] LABS: BASO % 0.4 % (0.0-1.0); EOS # 0.1 10^3/uL (0.0-0.50); EOS % 1.1 % (0.0-3.0); HEMATOCRIT 30.2 % (36.0-47.0); IMMATURE GRANULOCYTE % 0.4 % (0-3.0); LYMPH # 0.8 10^3/uL (1.5-4.5); LYMPH % 11.4 % (24.0-44.0); MEAN CORPUSCULAR HEMOGLOBIN 28.8 pg (27.0-33.0); MEAN CORPUSCULAR HGB CONC 29.8 g/dl (32.0-36.5); MEAN CORPUSCULAR VOLUME 96.8 fl (80.0-96.0); MONO # 0.6 10^3/uL (0.0-0.8); MONO % 8.1 % (0.0-5.0); NEUTROPHILS # 5.7 10^3/uL (1.8-7.7); NEUTROPHILS % 78.6 % (36.0-66.0); PLATELET COUNT, AUTOMATED 207 10^3/uL (150-450); RED BLOOD COUNT 3.12 10^6/uL (4.00-5.40); RED CELL DISTRIBUTION WIDTH 15.2 % (11.5-14.5); WHITE BLOOD COUNT 7.3 10^3/uL (4.0-10.0)
[2018-08-24 18:57] LABS: APPEARANCE, URINE CLOUDY (CLEAR); BACTERIA, URINE AUTO 2+ (NEGATIVE); BILIRUBIN, URINE AUTO NEGATIVE (NEGATIVE); BLOOD, URINE BLOOD 2+ (NEGATIVE); COLOR, URINE YELLOW (YELLOW); GLUCOSE, URINE (UA) AUTO NEGATIVE (NEGATIVE); KETONE, URINE AUTO NEGATIVE (NEGATIVE); LEUKOCYTE ESTERASE, URINE AUTO 3+ (NEGATIVE); NITRITE, URINE AUTO POSITIVE (NEGATIVE); PROTEIN, URINE AUTO NEGATIVE (NEGATIVE); RBC, URINE AUTO 5 /HPF (0-3); SPECIFIC GRAVITY URINE AUTO 1.011 (1.002-1.035); SQUAMOUS EPITHELIAL CELL UR AU 0 /HPF (0-6); WBC, URINE AUTO 102 /HPF (0-3)
[2018-08-24 19:13] LABS: ANION GAP 7 MEQ/L (8-16); BLOOD UREA NITROGEN 10 MG/DL (7-18); CALCIUM LEVEL 7.7 MG/DL (8.8-10.2); CARBON DIOXIDE LEVEL 39 MEQ/L (21-32); CHLORIDE LEVEL 100 MEQ/L (98-107); CREATININE FOR GFR 1.02 MG/DL (0.55-1.30); GLOMERULAR FILTRATION RATE 55.8 (>39); GLUCOSE, FASTING 111 MG/DL (70-100); POTASSIUM SERUM 2.7 MEQ/L (3.5-5.1); SODIUM LEVEL 146 MEQ/L (136-145)
== END ==
LOC: M LAB REF 18:29
DX: R39.89 Other symptoms and signs involving the genitourinary system (principal)
CPT/HCPCS: 80048

== ENCOUNTER → 2018-08-25 | Outpatient (REF) | payer MEDICARE, MEDICAID ==
[2018-08-25 09:59] LABS: POTASSIUM SERUM 2.7 MEQ/L (3.5-5.1)
[2018-08-25 09:59] LABS: MAGNESIUM LEVEL 1.5 MG/DL (1.8-2.4)
== END ==
DX: E87.6 Hypokalemia (principal)
CPT/HCPCS: 83735

== ENCOUNTER → 2018-08-26 | Outpatient (REF) | payer MEDICARE, MEDICAID ==
[2018-08-26 11:59] LABS: ANION GAP 7 MEQ/L (8-16); BLOOD UREA NITROGEN 10 MG/DL (7-18); CALCIUM LEVEL 8.1 MG/DL (8.8-10.2); CARBON DIOXIDE LEVEL 36 MEQ/L (21-32); CHLORIDE LEVEL 100 MEQ/L (98-107); CREATININE FOR GFR 0.94 MG/DL (0.55-1.30); GLOMERULAR FILTRATION RATE > 60.0 (>39); GLUCOSE, FASTING 110 MG/DL (70-100); POTASSIUM SERUM 3.2 MEQ/L (3.5-5.1); SODIUM LEVEL 143 MEQ/L (136-145)
== END ==
DX: E87.6 Hypokalemia (principal)
CPT/HCPCS: 80048

== ENCOUNTER → 2018-08-27 | Outpatient (REF) | payer MEDICARE, MEDICAID ==
[2018-08-27 10:37] LABS: ANION GAP 6 MEQ/L (8-16); BLOOD UREA NITROGEN 8 MG/DL (7-18); CALCIUM LEVEL 8.1 MG/DL (8.8-10.2); CARBON DIOXIDE LEVEL 38 MEQ/L (21-32); CHLORIDE LEVEL 102 MEQ/L (98-107); CREATININE FOR GFR 0.89 MG/DL (0.55-1.30); GLOMERULAR FILTRATION RATE > 60.0 (>39); GLUCOSE, FASTING 146 MG/DL (70-100); MAGNESIUM LEVEL 1.4 MG/DL (1.8-2.4); POTASSIUM SERUM 3.5 MEQ/L (3.5-5.1); SODIUM LEVEL 146 MEQ/L (136-145)
== END ==
DX: E87.6 Hypokalemia (principal)
CPT/HCPCS: 83735

== ENCOUNTER → 2018-08-30 | Outpatient (REF) | payer MEDICARE, MEDICAID | DX: E87.6 Hypokalemia (principal); R06.02 Shortness of breath | CPT/HCPCS: 71045 ==

== ENCOUNTER → 2018-08-31 | Outpatient (REF) | payer MEDICARE, MEDICAID ==
[2018-08-31 10:26] LABS: BASO % 0.6 % (0.0-1.0); EOS # 0.2 10^3/uL (0.0-0.50); EOS % 3.1 % (0.0-3.0); HEMATOCRIT 33.9 % (36.0-47.0); IMMATURE GRANULOCYTE % 0.8 % (0-3.0); LYMPH # 0.6 10^3/uL (1.5-4.5); LYMPH % 11.5 % (24.0-44.0); MEAN CORPUSCULAR HEMOGLOBIN 29.2 pg (27.0-33.0); MEAN CORPUSCULAR HGB CONC 29.5 g/dl (32.0-36.5); MEAN CORPUSCULAR VOLUME 98.8 fl (80.0-96.0); MONO # 0.5 10^3/uL (0.0-0.8); NEUTROPHILS # 3.8 10^3/uL (1.8-7.7); PLATELET COUNT, AUTOMATED 272 10^3/uL (150-450); RED BLOOD COUNT 3.43 10^6/uL (4.00-5.40); RED CELL DISTRIBUTION WIDTH 14.6 % (11.5-14.5); WHITE BLOOD COUNT 5.1 10^3/uL (4.0-10.0)
[2018-08-31 10:48] LABS: ALBUMIN 2.5 GM/DL (3.2-5.2); ALBUMIN/GLOBULIN RATIO 0.74 (1.00-1.93); ALKALINE PHOSPHATASE 74 U/L (45-117); ALT/SGPT 16 U/L (12-78); ANION GAP 5 MEQ/L (8-16); AST/SGOT 31 U/L (7-37); BILIRUBIN,TOTAL 0.8 MG/DL (0.2-1.0); BLOOD UREA NITROGEN 5 MG/DL (7-18); CALCIUM LEVEL 9.4 MG/DL (8.8-10.2); CARBON DIOXIDE LEVEL 37 MEQ/L (21-32); CHLORIDE LEVEL 101 MEQ/L (98-107); CREATININE FOR GFR 0.69 MG/DL (0.55-1.30); GLOMERULAR FILTRATION RATE > 60.0 (>39); GLUCOSE, FASTING 82 MG/DL (70-100); SODIUM LEVEL 143 MEQ/L (136-145); TOTAL PROTEIN 5.9 GM/DL (6.4-8.2)
[2018-08-31 18:43] LABS: APPEARANCE, URINE CLOUDY (CLEAR); BACTERIA, URINE AUTO 1+ (NEGATIVE); BILIRUBIN, URINE AUTO NEGATIVE (NEGATIVE); BLOOD, URINE BLOOD 1+ (NEGATIVE); COLOR, URINE YELLOW (YELLOW); GLUCOSE, URINE (UA) AUTO NEGATIVE (NEGATIVE); KETONE, URINE AUTO NEGATIVE (NEGATIVE); LEUKOCYTE ESTERASE, URINE AUTO 3+ (NEGATIVE); MUCUS, URINE SMALL (NEGATIVE); NITRITE, URINE AUTO NEGATIVE (NEGATIVE); PROTEIN, URINE AUTO NEGATIVE (NEGATIVE); RBC, URINE AUTO 8 /HPF (0-3); SQUAMOUS EPITHELIAL CELL UR AU 0 /HPF (0-6); UROBILINOGEN, URINE AUTO 0.2 mg/dL (0.0-2.0); WBC, URINE AUTO TNTC /HPF (0-3)
== END ==
DX: E87.6 Hypokalemia (principal); R06.02 Shortness of breath; Z79.899 Other long term (current) drug therapy
CPT/HCPCS: 80053

== ENCOUNTER → 2018-09-01 | Outpatient (CLI) | payer MEDICARE, MEDICAID ==
[~2018-09-01] MED LIST changes: -GASTROGRAFIN SOLUTION 30ML (Q9963) As Ordered
== END ==
LOC: M RAD 10:25
DX: R22.32 Localized swelling, mass and lump, left upper limb (principal); I51.7 Cardiomegaly; I25.84 Coronary atherosclerosis due to calcified coronary lesion; I25.10 Atherosclerotic heart disease of native coronary artery without angina pectoris; J90 Pleural effusion, not elsewhere classified; R09.02 Hypoxemia
CPT/HCPCS: Q9967

== ENCOUNTER → 2018-09-03 | Outpatient (REF) | payer MEDICARE, MEDICAID ==
[2018-09-03 11:05] LABS: ANION GAP 6 MEQ/L (8-16); BLOOD UREA NITROGEN 8 MG/DL (7-18); CALCIUM LEVEL 9.2 MG/DL (8.8-10.2); CARBON DIOXIDE LEVEL 33 MEQ/L (21-32); CHLORIDE LEVEL 101 MEQ/L (98-107); CREATININE FOR GFR 0.95 MG/DL (0.55-1.30); GLOMERULAR FILTRATION RATE > 60.0 (>39); GLUCOSE, FASTING 83 MG/DL (70-100); POTASSIUM SERUM 4.5 MEQ/L (3.5-5.1); SODIUM LEVEL 140 MEQ/L (136-145)
== END ==
DX: J90 Pleural effusion, not elsewhere classified (principal)
CPT/HCPCS: 80048

== ENCOUNTER → 2018-09-08 | Outpatient (REF) | payer MEDICARE, MEDICAID | DX: J90 Pleural effusion, not elsewhere classified (principal) | CPT/HCPCS: 71046 ==

== ENCOUNTER → 2018-09-14 | Outpatient (REF) | payer MEDICARE, MEDICAID ==
[2018-09-14 10:58] LABS: ANION GAP 8 MEQ/L (8-16); BLOOD UREA NITROGEN 15 MG/DL (7-18); CALCIUM LEVEL 9.6 MG/DL (8.8-10.2); CARBON DIOXIDE LEVEL 30 MEQ/L (21-32); CHLORIDE LEVEL 103 MEQ/L (98-107); GLOMERULAR FILTRATION RATE > 60.0 (>39); GLUCOSE, FASTING 103 MG/DL (70-100); POTASSIUM SERUM 4.7 MEQ/L (3.5-5.1); SODIUM LEVEL 141 MEQ/L (136-145)
== END ==
DX: N18.9 Chronic kidney disease, unspecified (principal)
CPT/HCPCS: 80048

== ENCOUNTER → 2018-09-21 | Outpatient (REF) | payer MEDICARE, MEDICAID ==
[2018-09-21 12:35] LABS: ANION GAP 8 MEQ/L (8-16); BLOOD UREA NITROGEN 23 MG/DL (7-18); CALCIUM LEVEL 9.5 MG/DL (8.8-10.2); CARBON DIOXIDE LEVEL 29 MEQ/L (21-32); CHLORIDE LEVEL 102 MEQ/L (98-107); CREATININE FOR GFR 0.95 MG/DL (0.55-1.30); GLOMERULAR FILTRATION RATE > 60.0 (>39); GLUCOSE, FASTING 131 MG/DL (70-100); POTASSIUM SERUM 4.1 MEQ/L (3.5-5.1); SODIUM LEVEL 139 MEQ/L (136-145)
== END ==
DX: I50.9 Heart failure, unspecified (principal); N18.9 Chronic kidney disease, unspecified
CPT/HCPCS: 80048

== ENCOUNTER → 2018-09-22 | Outpatient (REF) | payer MEDICARE, MEDICAID | DX: R11.0 Nausea (principal); R10.9 Unspecified abdominal pain | CPT/HCPCS: 74018 ==

== ENCOUNTER → 2018-09-23 | Outpatient (REF) | payer MEDICARE, MEDICAID | DX: R10.9 Unspecified abdominal pain (principal) | CPT/HCPCS: 74018 ==

== ENCOUNTER → 2018-09-27 | Outpatient (REF) | payer MEDICARE, MEDICAID ==
[2018-09-27 10:39] LABS: HEMOGLOBIN 11.9 g/dl (12.0-15.5); MEAN CORPUSCULAR HEMOGLOBIN 28.9 pg (27.0-33.0); MEAN CORPUSCULAR HGB CONC 31.3 g/dl (32.0-36.5); MEAN CORPUSCULAR VOLUME 92.2 fl (80.0-96.0); PLATELET COUNT, AUTOMATED 263 10^3/uL (150-450); RED BLOOD COUNT 4.12 10^6/uL (4.00-5.40); RED CELL DISTRIBUTION WIDTH 13.8 % (11.5-14.5)
[2018-09-27 10:57] LABS: ALBUMIN 2.5 GM/DL (3.2-5.2); ALBUMIN/GLOBULIN RATIO 0.86 (1.00-1.93); ALKALINE PHOSPHATASE 69 U/L (45-117); ALT/SGPT 16 U/L (12-78); ANION GAP 11 MEQ/L (8-16); AST/SGOT 20 U/L (7-37); BILIRUBIN,TOTAL 0.5 MG/DL (0.2-1.0); BLOOD UREA NITROGEN 15 MG/DL (7-18); CALCIUM LEVEL 9.4 MG/DL (8.8-10.2); CARBON DIOXIDE LEVEL 25 MEQ/L (21-32); CHLORIDE LEVEL 109 MEQ/L (98-107); CREATININE FOR GFR 0.78 MG/DL (0.55-1.30); GLOMERULAR FILTRATION RATE > 60.0 (>39); GLUCOSE, FASTING 66 MG/DL (70-100); POTASSIUM SERUM 3.6 MEQ/L (3.5-5.1); SODIUM LEVEL 145 MEQ/L (136-145); TOTAL PROTEIN 5.4 GM/DL (6.4-8.2)
== END ==
DX: R11.2 Nausea with vomiting, unspecified (principal)
CPT/HCPCS: 80053

== ENCOUNTER → 2018-10-25 | Outpatient (REF) | payer MEDICARE, MEDICAID ==
[2018-10-25 10:38] LABS: ANION GAP 11 MEQ/L (8-16); BLOOD UREA NITROGEN 12 MG/DL (7-18); CALCIUM LEVEL 8.4 MG/DL (8.8-10.2); CARBON DIOXIDE LEVEL 31 MEQ/L (21-32); CHLORIDE LEVEL 104 MEQ/L (98-107); CREATININE FOR GFR 0.86 MG/DL (0.55-1.30); GLOMERULAR FILTRATION RATE > 60.0 (>39); GLUCOSE, FASTING 97 MG/DL (70-100); SODIUM LEVEL 146 MEQ/L (136-145)
== END ==
DX: I50.9 Heart failure, unspecified (principal)
CPT/HCPCS: 80048

== ENCOUNTER → 2018-10-29 | Outpatient (REF) | payer MEDICARE, MEDICAID ==
[2018-10-29 12:41] LABS: ANION GAP 9 MEQ/L (8-16); BLOOD UREA NITROGEN 11 MG/DL (7-18); CALCIUM LEVEL 9.2 MG/DL (8.8-10.2); CARBON DIOXIDE LEVEL 32 MEQ/L (21-32); CHLORIDE LEVEL 102 MEQ/L (98-107); CREATININE FOR GFR 0.92 MG/DL (0.55-1.30); GLOMERULAR FILTRATION RATE > 60.0 (>39); GLUCOSE, FASTING 110 MG/DL (70-100); POTASSIUM SERUM 3.7 MEQ/L (3.5-5.1); SODIUM LEVEL 143 MEQ/L (136-145)
== END ==
DX: E87.6 Hypokalemia (principal); Z79.899 Other long term (current) drug therapy
CPT/HCPCS: 80048

== ENCOUNTER → 2018-11-29 | Outpatient (REF) | payer MEDICARE, MEDICAID ==
[~2018-11-29] MED LIST changes: +/ALEN7SOL OR; +ACET500T15 PO; +ALBU83IN INH; +AMLO5TAB2 PO; +ANUS25SU PR; +ASPI325T PO; +ASPI325T25 PO; +AYRSPR; +BACL10TA2 PO; +BACT800T5 PO; +BISAC5TA OR; +CITR1SOL PO; +CITRSOL8 PO; +CLAR1TAB2 PO; +CLAR5CHW PO; +COLA100C2 OR; +CYMB60CA3 PO; +DETR4CAP OR; +DICL0.1S7 TD; +DOCU100C16 PO; +DULC10SU2 PR; +ENEM1ENE4 PR; +ESTR125TA OR; +FENT1DIS14 TD; +FERR1TAB8 PO; +FLEEENE4 PR; +FLEX10TA2 PO; +FLEXERIL PO; +GABA-1171 PO; +HEPA50VL SQ; +HYDR25TA6 OR; -ISOVUE-370 76% 100ML VIAL (Q9967) As Ordered; +LASI20TA PO; +LEVO137T2 PO; +LEVO150T42 PO; +LEVO175T19 PO; +LEVO250T PO; +LISI10TA4 OR; +LISI5TAB PO; +LORA-243 PO; +METF500T13 PO; +MILK120011 PO; +MILKSUS OR; +MIRA255PW PO; +MIRA3350 PO; +MIRA33504 PO; +MOM30SS PO; +MULTTAB4 PO; +MYRB50TA PO; +NORV5TAB OR; +NYAM10003 TOP; +NYST10PW TOP; +NYSTPOW4 TOP; +OMEP40CA2 PO; +OXYB5TAB PO; +OXYC-208 PO; +OXYC5CAP4 OR; +PERC5TAB8 OR; +PERCOCET OR; +PRIL40CA PO; +SENN8.6T7 PO; +SENO8.6T9 OR; +SENO8.6T9 PO; +SIME80TA PO; +SORB70SO36 PO; +SYNT137T OR; +TRAM50TA2 PO; +TRAZ-163 PO; +TYLE325T5 PO; +VESI10TA2 PO; +VITA100027 OR; +VITA500046 PO; +VOLT1GEL2 TD; +ZANT150T PO; +ZOFR4TAB16 PO; +ZOLO100T OR; +[UNRECOGNIZED DRUG - CODE] IV; +[UNRECOGNIZED DRUG - CODE] PO; +[UNRECOGNIZED DRUG - CODE] PO; +[UNRECOGNIZED DRUG - OTHER] PO; +drisdol PO; +nystatin powder TOP
[2018-11-29 09:39] LABS: BASO % 0.5 % (0.0-1.0); EOS # 0.1 10^3/uL (0.0-0.50); EOS % 1.7 % (0.0-3.0); HEMATOCRIT 38.3 % (36.0-47.0); HEMOGLOBIN 12.1 g/dl (12.0-15.5); LYMPH % 16.1 % (24.0-44.0); MEAN CORPUSCULAR HEMOGLOBIN 28.5 pg (27.0-33.0); MEAN CORPUSCULAR HGB CONC 31.6 g/dl (32.0-36.5); MEAN CORPUSCULAR VOLUME 90.3 fl (80.0-96.0); MONO # 0.5 10^3/uL (0.0-0.8); MONO % 8.1 % (0.0-5.0); NEUTROPHILS # 4.7 10^3/uL (1.8-7.7); NEUTROPHILS % 72.8 % (36.0-66.0); PLATELET COUNT, AUTOMATED 291 10^3/uL (150-450); RED BLOOD COUNT 4.24 10^6/uL (4.00-5.40); WHITE BLOOD COUNT 6.4 10^3/uL (4.0-10.0)
[2018-11-29 10:31] LABS: ALBUMIN 2.6 GM/DL (3.2-5.2); ALT/SGPT 58 U/L (12-78); BILIRUBIN,TOTAL 0.6 MG/DL (0.2-1.0); BLOOD UREA NITROGEN 13 MG/DL (7-18); CALCIUM LEVEL 8.3 MG/DL (8.8-10.2); CARBON DIOXIDE LEVEL 30 MEQ/L (21-32); CHLORIDE LEVEL 99 MEQ/L (98-107); CREATININE FOR GFR 0.89 MG/DL (0.55-1.30); GLOMERULAR FILTRATION RATE > 60.0 (>39); GLUCOSE, FASTING 86 MG/DL (70-100); POTASSIUM SERUM 2.9 MEQ/L (3.5-5.1); SODIUM LEVEL 137 MEQ/L (136-145); TOTAL PROTEIN 5.4 GM/DL (6.4-8.2)
--- NOTE | 2018-11-29 12:49 | REP ---
KUB ONE VIEW: HISTORY: Vomiting. The left lateral abdomen is not seen in the present radiographs. A small amount of air is present in the intestine. A single dilated loop of intestine is present. There are no air fluid levels. There is no pneumoperitoneum. IMPRESSION: Limited examination demonstrating a nonspecific bowel gas pattern. Electronically Signed by Ryland Manriquez MD 11/29/2018 01:09 P
== END ==
PROVIDERS: ATTEND Family Medicine
DX: R11.2 Nausea with vomiting, unspecified (principal)

== ENCOUNTER → 2018-11-30 | Outpatient (REF) | payer MEDICARE, MEDICAID ==
[2018-11-30 09:31] LABS: BLOOD UREA NITROGEN 11 MG/DL (7-18); CALCIUM LEVEL 8.3 MG/DL (8.8-10.2); CARBON DIOXIDE LEVEL 31 MEQ/L (21-32); CHLORIDE LEVEL 103 MEQ/L (98-107); CREATININE FOR GFR 0.87 MG/DL (0.55-1.30); GLOMERULAR FILTRATION RATE > 60.0 (>39); GLUCOSE, FASTING 95 MG/DL (70-100); POTASSIUM SERUM 3.6 MEQ/L (3.5-5.1); SODIUM LEVEL 140 MEQ/L (136-145)
== END ==
PROVIDERS: ATTEND Family Medicine
DX: R11.2 Nausea with vomiting, unspecified (principal)

== ENCOUNTER → 2018-12-03 | Outpatient (CLI) | payer MEDICARE, MEDICAID ==
[~2018-12-03] MED LIST changes: +GASTROGRAFIN SOLUTION 30ML (Q9963) As Ordered ONE; +ISOVUE-370 76% 100ML VIAL (Q9967) As Ordered ONE
--- NOTE | 2018-12-03 14:05 | REP ---
CT abdomen and pelvis with IV and oral contrast: History: Abdomen pain. Constipation. History of obstruction. Abdominal distension. Comparison study: June 15, 2018. CT contrast dose: 100 ml of intravenous Isovue [address] findings: Preliminary digital mail order sorter radiograph demonstrates diffuse moderate to marked dilation of the colon and multiple small bowel loops filling the abdomen similar in appearance to the prior study June 15, 2018. The lung bases remain clear. CT images show fatty infiltration of the liver. No focal liver lesion is seen. The spleen and adrenal show no abnormality. Pancreas is fatty involuted and has an appearance similar to the prior study. The right kidney is unremarkable. There is mild to moderate left-sided hydronephrosis and hydroureter is seen which could be traced to the distal ureter. No obvious obstructive lesion although it does not appear dilated distal to the vascular crossing which is adjacent to the sigmoid colon. There is no evidence of free intraperitoneal air. There is mild pneumatosis intestinalis noted similar to that prior study. The entire gastrointestinal tract proximal to the sigmoid colon is at least moderately dilated. There is diverticulosis again noted affecting the sigmoid colon but no CT evidence to suggest acute diverticulitis. There is some air in the rectum. Uterus is surgically absent. No other evidence of obstructive lesion is seen. There is a large lower abdominal wall suprapubic seroma cavity again noted 11.8 cm in diameter unchanged from the prior study. No abdominal wall defect is seen. Impression: Marked distension of the gastrointestinal tract proximal to the level of the sigmoid colon. There is sigmoid diverticulosis. No definite obstructive lesion. Left-sided hydronephrosis again seen unchanged. Pneumatosis intestinalis is seen but there is no evidence of free intraperitoneal air. Electronically Signed by Aime Bansal MD 12/03/2018 04:42 P
== END ==
LOC: M RAD 11:20
PROVIDERS: ATTEND Nurse Practitioner Adult Health
DX: K63.89 Other specified diseases of intestine (principal); K57.30 Diverticulosis of large intestine without perforation or abscess without bleeding; R14.0 Abdominal distension (gaseous); K59.00 Constipation, unspecified
CPT/HCPCS: 74177; Q9963; Q9967

== ENCOUNTER → 2018-12-07 | Outpatient (REF) | payer MEDICARE, MEDICAID ==
[~2018-12-07] MED LIST changes: -GASTROGRAFIN SOLUTION 30ML (Q9963) As Ordered ONE; -ISOVUE-370 76% 100ML VIAL (Q9967) As Ordered ONE
[2018-12-07 10:22] LABS: HEMATOCRIT 42.9 % (36.0-47.0); HEMOGLOBIN 13.4 g/dl (12.0-15.5); MEAN CORPUSCULAR HEMOGLOBIN 28.5 pg (27.0-33.0); MEAN CORPUSCULAR HGB CONC 31.2 g/dl (32.0-36.5); MEAN CORPUSCULAR VOLUME 91.1 fl (80.0-96.0); PLATELET COUNT, AUTOMATED 347 10^3/uL (150-450); RED BLOOD COUNT 4.71 10^6/uL (4.00-5.40); WHITE BLOOD COUNT 4.4 10^3/uL (4.0-10.0)
[2018-12-07 10:48] LABS: CALCIUM LEVEL 8.8 MG/DL (8.8-10.2); CREATININE FOR GFR 1.06 MG/DL (0.55-1.30); GLOMERULAR FILTRATION RATE 53.4 (>39); POTASSIUM SERUM 3.9 MEQ/L (3.5-5.1)
== END ==
PROVIDERS: ATTEND Nurse Practitioner Adult Health
DX: E87.6 Hypokalemia (principal)

== ENCOUNTER → 2018-12-14 | Outpatient (REF) | payer MEDICARE, MEDICAID ==
[2018-12-14 10:14] LABS: HEMATOCRIT 41.3 % (36.0-47.0); MEAN CORPUSCULAR HEMOGLOBIN 28.2 pg (27.0-33.0); MEAN CORPUSCULAR HGB CONC 31.5 g/dl (32.0-36.5); MEAN CORPUSCULAR VOLUME 89.6 fl (80.0-96.0); PLATELET COUNT, AUTOMATED 231 10^3/uL (150-450); RED BLOOD COUNT 4.61 10^6/uL (4.00-5.40); WHITE BLOOD COUNT 4.1 10^3/uL (4.0-10.0)
[2018-12-14 10:26] LABS: CALCIUM LEVEL 8.7 MG/DL (8.8-10.2); CREATININE FOR GFR 1.2 MG/DL (0.55-1.30); GLOMERULAR FILTRATION RATE 46.3 (>39); POTASSIUM SERUM 3.2 MEQ/L (3.5-5.1)
== END ==
PROVIDERS: ATTEND Nurse Practitioner Adult Health
DX: E87.6 Hypokalemia (principal)

== ENCOUNTER → 2018-12-21 | Outpatient (REF) | payer MEDICARE, MEDICAID ==
[2018-12-21 12:36] LABS: HEMATOCRIT 38.7 % (36.0-47.0); HEMOGLOBIN 12.1 g/dl (12.0-15.5); MEAN CORPUSCULAR HEMOGLOBIN 28.7 pg (27.0-33.0); MEAN CORPUSCULAR HGB CONC 31.3 g/dl (32.0-36.5); MEAN CORPUSCULAR VOLUME 91.9 fl (80.0-96.0); PLATELET COUNT, AUTOMATED 167 10^3/uL (150-450); RED BLOOD COUNT 4.21 10^6/uL (4.00-5.40); WHITE BLOOD COUNT 4.6 10^3/uL (4.0-10.0)
[2018-12-21 12:50] LABS: CALCIUM LEVEL 9.3 MG/DL (8.8-10.2); CREATININE FOR GFR 1.1 MG/DL (0.55-1.30); GLOMERULAR FILTRATION RATE 51.1 (>39)
== END ==
PROVIDERS: ATTEND Nurse Practitioner Adult Health
DX: I50.9 Heart failure, unspecified (principal)

== ENCOUNTER → 2018-12-22 | Outpatient (REF) | payer MEDICARE, MEDICAID ==
[2018-12-22 11:11] LABS: CREATININE FOR GFR 1.19 MG/DL (0.55-1.30); GLOMERULAR FILTRATION RATE 46.7 (>39); POTASSIUM SERUM 3.6 MEQ/L (3.5-5.1)
== END ==
PROVIDERS: ATTEND Family Medicine
DX: Z79.899 Other long term (current) drug therapy (principal)

== ENCOUNTER → 2018-12-28 | Outpatient (REF) | payer MEDICARE, MEDICAID ==
[2018-12-28 09:51] LABS: HEMATOCRIT 36.3 % (36.0-47.0); HEMOGLOBIN 11.4 g/dl (12.0-15.5); MEAN CORPUSCULAR HEMOGLOBIN 28.7 pg (27.0-33.0); MEAN CORPUSCULAR HGB CONC 31.4 g/dl (32.0-36.5); MEAN CORPUSCULAR VOLUME 91.4 fl (80.0-96.0); PLATELET COUNT, AUTOMATED 280 10^3/uL (150-450); RED BLOOD COUNT 3.97 10^6/uL (4.00-5.40)
[2018-12-28 11:02] LABS: CALCIUM LEVEL 9.1 MG/DL (8.8-10.2); CHOLESTEROL RISK RATIO 3.069 (<5); CREATININE FOR GFR 1.2 MG/DL (0.55-1.30); GLOMERULAR FILTRATION RATE 46.3 (>39); MAGNESIUM LEVEL 1.4 MG/DL (1.8-2.4)
[2018-12-28 11:26] LABS: HEMOGLOBIN A1c 6.1 %
== END ==
PROVIDERS: ATTEND Nurse Practitioner Adult Health
DX: I50.9 Heart failure, unspecified (principal); E87.6 Hypokalemia; Z79.899 Other long term (current) drug therapy

== ENCOUNTER → 2019-01-03 | Outpatient (REF) | payer MEDICARE, MEDICAID ==
[2019-01-03 12:07] LABS: BASO % 0.6 % (0.0-1.0); EOS # 0.1 10^3/uL (0.0-0.50); EOS % 2.1 % (0.0-3.0); HEMATOCRIT 37.5 % (36.0-47.0); HEMOGLOBIN 11.6 g/dl (12.0-15.5); LYMPH # 0.9 10^3/uL (1.5-4.5); LYMPH % 17.9 % (24.0-44.0); MEAN CORPUSCULAR HEMOGLOBIN 28.9 pg (27.0-33.0); MEAN CORPUSCULAR HGB CONC 30.9 g/dl (32.0-36.5); MEAN CORPUSCULAR VOLUME 93.3 fl (80.0-96.0); MONO # 0.5 10^3/uL (0.0-0.8); MONO % 9.9 % (0.0-5.0); NEUTROPHILS # 3.3 10^3/uL (1.8-7.7); NEUTROPHILS % 68.4 % (36.0-66.0); PLATELET COUNT, AUTOMATED 278 10^3/uL (150-450); RED BLOOD COUNT 4.02 10^6/uL (4.00-5.40); WHITE BLOOD COUNT 4.8 10^3/uL (4.0-10.0)
[2019-01-03 12:40] LABS: ALBUMIN 2.8 GM/DL (3.2-5.2); CALCIUM LEVEL 8.9 MG/DL (8.8-10.2); CREATININE FOR GFR 1.34 MG/DL (0.55-1.30); GLOMERULAR FILTRATION RATE 40.7 (>39); TOTAL PROTEIN 6.2 GM/DL (6.4-8.2)
== END ==
PROVIDERS: ATTEND Nurse Practitioner Adult Health
DX: I50.9 Heart failure, unspecified (principal)

== ENCOUNTER 2019-01-05 19:39 | Emergency (ER) | payer MEDICARE, MEDICAID ==
[2019-01-05] MEDS ORDERED: BUSP10TA PO (20:10)
[2019-01-05] MEDS ORDERED: HYDR12CA PO (20:10)
[2019-01-05] MEDS ORDERED: FURO20TA2 PO (20:10)
[2019-01-05] MEDS ORDERED: KLOR20TA42 PO (20:10)
[2019-01-05] MEDS ORDERED: ESCI20TA PO (20:10)
[2019-01-05] MEDS ORDERED: SYNT100T PO (20:10)
[2019-01-05] MEDS ORDERED: NS 1,000 ML IV SCH (20:28)
[2019-01-05] MEDS ORDERED: PANTOPRAZOLE 40MG INJ (PROTONIX) (C9113) IV ONE (20:30)
[2019-01-05] MEDS ORDERED: METOCLOPRAMIDE INJ 10MG/2ML VIAL (J2765) IV ONE (20:30)
[2019-01-05 20:37] LABS: BASO % 0.6 % (0.0-1.0); EOS # 0.1 10^3/uL (0.0-0.50); EOS % 2.3 % (0.0-3.0); HEMATOCRIT 38.2 % (36.0-47.0); MEAN CORPUSCULAR HEMOGLOBIN 29.1 pg (27.0-33.0); MEAN CORPUSCULAR HGB CONC 31.4 g/dl (32.0-36.5); MEAN CORPUSCULAR VOLUME 92.7 fl (80.0-96.0); MONO # 0.7 10^3/uL (0.0-0.8); MONO % 13.8 % (0.0-5.0); NEUTROPHILS # 2.9 10^3/uL (1.8-7.7); NEUTROPHILS % 61.7 % (36.0-66.0); PLATELET COUNT, AUTOMATED 263 10^3/uL (150-450); RED BLOOD COUNT 4.12 10^6/uL (4.00-5.40); WHITE BLOOD COUNT 4.7 10^3/uL (4.0-10.0)
[2019-01-05 20:41] LABS: INR 1.03; PROTHROMBIN TIME 13.6 SECONDS (12.1-14.4)
[2019-01-05] MEDS ORDERED: PHEN25IN3 IM (20:43)
[2019-01-05] MEDS ORDERED: POLY1.4S OU (20:43)
[2019-01-05] MEDS ORDERED: MORP20SO3 SL (20:43)
[2019-01-05] MEDS ORDERED: MAGN400C2 PO (20:43)
[2019-01-05] MEDS ORDERED: DULC5TAB PO (20:43)
[2019-01-05] MEDS ORDERED: ACET650S3 PR (20:43)
[2019-01-05] MEDS ORDERED: LORA0.5T11 PO (20:43)
[2019-01-05 20:49] LABS: ALBUMIN 2.7 GM/DL (3.2-5.2); BILIRUBIN,DIRECT 0.5 MG/DL (0.0-0.2); CALCIUM LEVEL 8.8 MG/DL (8.8-10.2); CREATININE FOR GFR 1.15 MG/DL (0.55-1.30); GLOMERULAR FILTRATION RATE 48.6 (>39); POTASSIUM SERUM 4.6 MEQ/L (3.5-5.1)
[2019-01-05] MEDS ORDERED: LIDOCAINE 2% 5ML JELLY UROJET TOP ONE (21:30)
[2019-01-05] MEDS: GASTROGRAFIN SOLUTION 30ML PO SCH ×2 (21:44→22:30)
[2019-01-05] MEDS ORDERED: ISOVUE-370 76% 100ML VIAL (Q9967) As Ordered ONE (22:32)
[2019-01-06] MEDS ORDERED: MORPHINE 4 MG/ML 1ML VIAL/SYRINGE (J2270) IV ONE
[2019-01-06 00:55] VITALS: BP 92/55
--- NOTE | 2019-01-06 00:55 | REPVR ---
EXAM: CT Abdomen and Pelvis With Contrast EXAM DATE/TIME: 01/05/2019 8:28 PM CLINICAL HISTORY: 78 years old, female; Condition or disease; Intestinal condition; Obstruction; Additional info: R/O sbo HX ileuos bowel TECHNIQUE: Axial computed tomography images of the abdomen and pelvis with intravenous contrast. All CT scans at this facility use at least one of these dose optimization techniques: automated exposure control; mA and/or kV adjustment per patient size (includes targeted exams where dose is matched to clinical indication); or iterative reconstruction. Coronal and sagittal reformatted images were created and reviewed. CONTRAST: Contrast Material: 100 ml of iso; Contrast Route: ac COMPARISON: CT ABD PELVIS WITH CONTRAST 12/03/2018 12:55 PM FINDINGS: Lower thorax: Mitral valve calcifications. Lungs lower abdominal wall supra ABDOMEN: Liver: Enlarged fatty liver. Gallbladder and bile ducts: Normal. No calcified stones. No ductal dilation. Pancreas: Fatty atrophy of the pancreas. Spleen: Normal. No splenomegaly. Adrenals: Normal. No mass. Kidneys and ureters: Normal. No hydronephrosis. Stomach and bowel: Diffuse marked dilation of the colon and moderate dilatation of multiple distal small bowel loops likely representing enterocolitis. Proximal small bowel loops are not dilated. The stomach is not distended. There is mild pneumatosis intestinalis versus colonic diverticula filled with air, stable from prior examination.. Diverticulosis of the sigmoid colon without any evidence of diverticulitis. Appendix: No evidence of appendicitis. PELVIS: Bladder: Urinary bladder is decompressed with Pruitt. Reproductive: Status post hysterectomy. ABDOMEN and PELVIS: Intraperitoneal space: Normal. No free air. No significant fluid collection. Bones/joints: Diffuse demineralization of the bones with degenerative changes. Extensive degenerative changes of bilateral hip joints. Old deformity of the right inferior pubic ramus. Soft tissues: Muscular atrophy. Mild anasarca. Seroma cavity again noted measuring 11.8 , stable. Vasculature: Atherosclerosis. Lymph nodes: Normal. No enlarged lymph nodes. IMPRESSION: 1. Marked distension of the colon and distal small bowel loops proximal to the level of the sigmoid colon. There is sigmoid diverticulosis. No definite obstructive lesion. Mild colonic pneumatosis versus diverticula filled with air similar to previous study. 2. No free intraperitoneal air. Electronically signed by: Margo Vázquez On 01/06/2019 00:55:26 AM
== END 2019-01-06 01:06 | disposition home or self-care (01) ==
LOC: EDBD 19:39 → M ED 19:39
DX: K56.7 Ileus, unspecified (principal); K56.609 Unspecified intestinal obstruction, unspecified as to partial versus complete obstruction; N39.0 Urinary tract infection, site not specified; E66.01 Morbid (severe) obesity due to excess calories; I11.9 Hypertensive heart disease without heart failure; E78.5 Hyperlipidemia, unspecified; G89.29 Other chronic pain; K21.9 Gastro-esophageal reflux disease without esophagitis; Z79.899 Other long term (current) drug therapy
CPT/HCPCS: 51701; 74177; 80048; 80076; 81001; 83690; 85025; 85610; 86850; 86900; 86901; 87088; 87186; 96361; 96374; 96375; 99285; C9113; J2270; J2765; Q9963; Q9967

== ENCOUNTER → 2019-01-11 | Outpatient (REF) | payer MEDICARE, MEDICAID ==
[~2019-01-11] MED LIST changes: +ACET650S3 PR; +BUSP10TA PO; +DULC5TAB PO; +ESCI20TA PO; +FURO20TA2 PO; +HYDR12CA PO; +KLOR20TA42 PO; +LORA0.5T11 PO; +MAGN400C2 PO; +MORP20SO3 SL; +PHEN25IN3 IM; +POLY1.4S OU; +SYNT100T PO
[2019-01-11 09:55] LABS: HEMATOCRIT 36.5 % (36.0-47.0); HEMOGLOBIN 11.3 g/dl (12.0-15.5); MEAN CORPUSCULAR HEMOGLOBIN 29.6 pg (27.0-33.0); MEAN CORPUSCULAR VOLUME 95.5 fl (80.0-96.0); PLATELET COUNT, AUTOMATED 193 10^3/uL (150-450); RED BLOOD COUNT 3.82 10^6/uL (4.00-5.40); WHITE BLOOD COUNT 4.8 10^3/uL (4.0-10.0)
[2019-01-11 13:02] LABS: CALCIUM LEVEL 8.7 MG/DL (8.8-10.2); CREATININE FOR GFR 0.98 MG/DL (0.55-1.30); GLOMERULAR FILTRATION RATE 58.4 (>39); POTASSIUM SERUM 3.4 MEQ/L (3.5-5.1)
== END ==
PROVIDERS: ATTEND Nurse Practitioner Adult Health
DX: I50.9 Heart failure, unspecified (principal); E83.42 Hypomagnesemia

== ENCOUNTER → 2019-01-18 | Outpatient (REF) | payer MEDICARE, MEDICAID ==
[2019-01-18 13:42] LABS: AMORPHOUS SEDIMENT SMALL (NEGATIVE); APPEARANCE, URINE HAZY (CLEAR); BACTERIA, URINE AUTO 1+ (NEGATIVE); BILIRUBIN, URINE AUTO NEGATIVE (NEGATIVE); BLOOD, URINE BLOOD 1+ (NEGATIVE); COLOR, URINE YELLOW (YELLOW); GLUCOSE, URINE (UA) AUTO NEGATIVE (NEGATIVE); KETONE, URINE AUTO NEGATIVE (NEGATIVE); LEUKOCYTE ESTERASE, URINE AUTO 3+ (NEGATIVE); MUCUS, URINE SMALL (NEGATIVE); NITRITE, URINE AUTO POSITIVE (NEGATIVE); PROTEIN, URINE AUTO NEGATIVE (NEGATIVE); RBC, URINE AUTO 4 /HPF (0-3); SPECIFIC GRAVITY URINE AUTO 1.011 (1.002-1.035); SQUAMOUS EPITHELIAL CELL UR AU 1 /HPF (0-6); WBC, URINE AUTO 73 /HPF (0-3)
== END ==
PROVIDERS: ATTEND Nurse Practitioner Adult Health
DX: E87.6 Hypokalemia (principal)

== ENCOUNTER → 2019-01-19 | Outpatient (REF) | payer MEDICARE, MEDICAID ==
[2019-01-19 10:00] LABS: HEMATOCRIT 36.6 % (36.0-47.0); HEMOGLOBIN 11.6 g/dl (12.0-15.5); MEAN CORPUSCULAR HEMOGLOBIN 29.7 pg (27.0-33.0); MEAN CORPUSCULAR HGB CONC 31.7 g/dl (32.0-36.5); MEAN CORPUSCULAR VOLUME 93.8 fl (80.0-96.0); PLATELET COUNT, AUTOMATED 178 10^3/uL (150-450); WHITE BLOOD COUNT 4.1 10^3/uL (4.0-10.0)
[2019-01-19 10:46] LABS: BLOOD UREA NITROGEN 6 MG/DL (7-18); CALCIUM LEVEL 7.6 MG/DL (8.8-10.2); CARBON DIOXIDE LEVEL 30 MEQ/L (21-32); CHLORIDE LEVEL 105 MEQ/L (98-107); CREATININE FOR GFR 0.87 MG/DL (0.55-1.30); GLOMERULAR FILTRATION RATE > 60.0 (>39); GLUCOSE, FASTING 73 MG/DL (70-100); POTASSIUM SERUM 2.9 MEQ/L (3.5-5.1); SODIUM LEVEL 143 MEQ/L (136-145)
== END ==
PROVIDERS: ATTEND Nurse Practitioner Adult Health
DX: I50.9 Heart failure, unspecified (principal); E87.6 Hypokalemia

== ENCOUNTER → 2019-01-21 | Outpatient (REF) | payer MEDICARE, MEDICAID ==
[2019-01-21 14:19] LABS: AMORPHOUS SEDIMENT SMALL (NEGATIVE); APPEARANCE, URINE HAZY (CLEAR); BACTERIA, URINE AUTO 2+ (NEGATIVE); BILIRUBIN, URINE AUTO NEGATIVE (NEGATIVE); BLOOD, URINE BLOOD 1+ (NEGATIVE); COLOR, URINE YELLOW (YELLOW); GLUCOSE, URINE (UA) AUTO NEGATIVE (NEGATIVE); KETONE, URINE AUTO NEGATIVE (NEGATIVE); LEUKOCYTE ESTERASE, URINE AUTO 3+ (NEGATIVE); MUCUS, URINE SMALL (NEGATIVE); NITRITE, URINE AUTO POSITIVE (NEGATIVE); PROTEIN, URINE AUTO NEGATIVE (NEGATIVE); RBC, URINE AUTO 2 /HPF (0-3); SPECIFIC GRAVITY URINE AUTO 1.009 (1.002-1.035); SQUAMOUS EPITHELIAL CELL UR AU 0 /HPF (0-6); WBC, URINE AUTO 32 /HPF (0-3)
== END ==
PROVIDERS: ATTEND Family Medicine
DX: E87.6 Hypokalemia (principal); Z79.899 Other long term (current) drug therapy

== ENCOUNTER → 2019-01-24 | Outpatient (REF) | payer MEDICARE, MEDICAID ==
[2019-01-24 12:31] LABS: BLOOD UREA NITROGEN 6 MG/DL (7-18); CALCIUM LEVEL 8.3 MG/DL (8.8-10.2); CARBON DIOXIDE LEVEL 30 MEQ/L (21-32); CHLORIDE LEVEL 106 MEQ/L (98-107); CREATININE FOR GFR 0.83 MG/DL (0.55-1.30); GLOMERULAR FILTRATION RATE > 60.0 (>39); GLUCOSE, FASTING 81 MG/DL (70-100); MAGNESIUM LEVEL 1.3 MG/DL (1.8-2.4); POTASSIUM SERUM 3.5 MEQ/L (3.5-5.1); SODIUM LEVEL 142 MEQ/L (136-145)
== END ==
PROVIDERS: ATTEND Family Medicine
DX: E87.6 Hypokalemia (principal); Z79.899 Other long term (current) drug therapy

== ENCOUNTER → 2019-02-01 | Outpatient (REF) | payer MEDICARE, MEDICAID ==
[2019-02-01 11:54] LABS: BLOOD UREA NITROGEN 13 MG/DL (7-18); CALCIUM LEVEL 8.6 MG/DL (8.8-10.2); CARBON DIOXIDE LEVEL 26 MEQ/L (21-32); CHLORIDE LEVEL 104 MEQ/L (98-107); CREATININE FOR GFR 0.84 MG/DL (0.55-1.30); GLOMERULAR FILTRATION RATE > 60.0 (>39); GLUCOSE, FASTING 115 MG/DL (70-100); POTASSIUM SERUM 3.3 MEQ/L (3.5-5.1); SODIUM LEVEL 139 MEQ/L (136-145)
[2019-02-02 09:56] LABS: HEMATOCRIT 34.8 % (36.0-47.0); HEMOGLOBIN 11.3 g/dl (12.0-15.5); MEAN CORPUSCULAR HEMOGLOBIN 29.6 pg (27.0-33.0); MEAN CORPUSCULAR HGB CONC 32.5 g/dl (32.0-36.5); MEAN CORPUSCULAR VOLUME 91.1 fl (80.0-96.0); PLATELET COUNT, AUTOMATED 232 10^3/uL (150-450); RED BLOOD COUNT 3.82 10^6/uL (4.00-5.40)
== END ==
PROVIDERS: ATTEND Family Medicine
DX: E03.9 Hypothyroidism, unspecified (principal)

== ENCOUNTER → 2019-02-08 | Outpatient (REF) | payer MEDICARE, MEDICAID ==
[2019-02-08 08:59] LABS: HEMATOCRIT 33.5 % (36.0-47.0); HEMOGLOBIN 10.5 g/dl (12.0-15.5); MEAN CORPUSCULAR HEMOGLOBIN 29.6 pg (27.0-33.0); MEAN CORPUSCULAR HGB CONC 31.3 g/dl (32.0-36.5); MEAN CORPUSCULAR VOLUME 94.4 fl (80.0-96.0); PLATELET COUNT, AUTOMATED 235 10^3/uL (150-450); RED BLOOD COUNT 3.55 10^6/uL (4.00-5.40); WHITE BLOOD COUNT 4.6 10^3/uL (4.0-10.0)
[2019-02-08 09:32] LABS: BLOOD UREA NITROGEN 11 MG/DL (7-18); CALCIUM LEVEL 9.1 MG/DL (8.8-10.2); CARBON DIOXIDE LEVEL 27 MEQ/L (21-32); CHLORIDE LEVEL 107 MEQ/L (98-107); CREATININE FOR GFR 0.83 MG/DL (0.55-1.30); GLOMERULAR FILTRATION RATE > 60.0 (>39); GLUCOSE, FASTING 91 MG/DL (70-100); POTASSIUM SERUM 3.7 MEQ/L (3.5-5.1); SODIUM LEVEL 140 MEQ/L (136-145)
== END ==
PROVIDERS: ATTEND Family Medicine
DX: E03.9 Hypothyroidism, unspecified (principal)

== ENCOUNTER → 2019-02-15 | Outpatient (REF) | payer MEDICARE, MEDICAID ==
[~2019-02-15] MED LIST changes: +ASPI-1 PO; +ASPI-255 PO; -ASPI325T25 PO; +HEPA500020 SQ; -HEPA50VL SQ; -MIRA255PW PO; +NYST-15 TOP; -NYST10PW TOP; +OXYC1TAB23 OR; -PERCOCET OR; +POLY1POW4 PO; +SENN1TAB41 PO; -SENN8.6T7 PO; +TOLT4LA PO; -[UNRECOGNIZED DRUG - OTHER] PO
[2019-02-15 09:14] LABS: HEMATOCRIT 32.6 % (36.0-47.0); HEMOGLOBIN 10.6 g/dl (12.0-15.5); MEAN CORPUSCULAR HEMOGLOBIN 30.7 pg (27.0-33.0); MEAN CORPUSCULAR HGB CONC 32.5 g/dl (32.0-36.5); MEAN CORPUSCULAR VOLUME 94.5 fl (80.0-96.0); PLATELET COUNT, AUTOMATED 235 10^3/uL (150-450); RED BLOOD COUNT 3.45 10^6/uL (4.00-5.40); WHITE BLOOD COUNT 4.9 10^3/uL (4.0-10.0)
[2019-02-15 09:42] LABS: BLOOD UREA NITROGEN 14 MG/DL (7-18); CALCIUM LEVEL 9.5 MG/DL (8.8-10.2); CARBON DIOXIDE LEVEL 27 MEQ/L (21-32); CHLORIDE LEVEL 107 MEQ/L (98-107); CREATININE FOR GFR 0.73 MG/DL (0.55-1.30); GLOMERULAR FILTRATION RATE > 60.0 (>39); GLUCOSE, FASTING 95 MG/DL (70-100); POTASSIUM SERUM 3.7 MEQ/L (3.5-5.1); SODIUM LEVEL 141 MEQ/L (136-145)
== END ==
PROVIDERS: ATTEND Nurse Practitioner Adult Health
DX: E03.9 Hypothyroidism, unspecified (principal)

== ENCOUNTER → 2019-02-22 | Outpatient (REF) | payer MEDICARE, MEDICAID ==
[2019-02-22 09:31] LABS: HEMATOCRIT 33.9 % (36.0-47.0); MEAN CORPUSCULAR HEMOGLOBIN 30.6 pg (27.0-33.0); MEAN CORPUSCULAR HGB CONC 32.4 g/dl (32.0-36.5); MEAN CORPUSCULAR VOLUME 94.2 fl (80.0-96.0); PLATELET COUNT, AUTOMATED 256 10^3/uL (150-450); WHITE BLOOD COUNT 5.4 10^3/uL (4.0-10.0)
[2019-02-22 10:02] LABS: BLOOD UREA NITROGEN 12 MG/DL (7-18); CALCIUM LEVEL 9.7 MG/DL (8.8-10.2); CARBON DIOXIDE LEVEL 27 MEQ/L (21-32); CHLORIDE LEVEL 105 MEQ/L (98-107); GLOMERULAR FILTRATION RATE > 60.0 (>39); GLUCOSE, FASTING 90 MG/DL (70-100); POTASSIUM SERUM 3.5 MEQ/L (3.5-5.1); SODIUM LEVEL 139 MEQ/L (136-145)
== END ==
PROVIDERS: ATTEND Nurse Practitioner Adult Health
DX: I50.9 Heart failure, unspecified (principal)

== ENCOUNTER → 2019-03-01 | Outpatient (REF) | payer MEDICARE, MEDICAID ==
[2019-03-01 09:19] LABS: HEMATOCRIT 35.4 % (36.0-47.0); HEMOGLOBIN 11.4 g/dl (12.0-15.5); MEAN CORPUSCULAR HEMOGLOBIN 29.8 pg (27.0-33.0); MEAN CORPUSCULAR HGB CONC 32.2 g/dl (32.0-36.5); MEAN CORPUSCULAR VOLUME 92.4 fl (80.0-96.0); PLATELET COUNT, AUTOMATED 309 10^3/uL (150-450); RED BLOOD COUNT 3.83 10^6/uL (4.00-5.40); WHITE BLOOD COUNT 7.7 10^3/uL (4.0-10.0)
[2019-03-01 09:44] LABS: BLOOD UREA NITROGEN 15 MG/DL (7-18); CALCIUM LEVEL 9.8 MG/DL (8.8-10.2); CARBON DIOXIDE LEVEL 25 MEQ/L (21-32); CHLORIDE LEVEL 106 MEQ/L (98-107); CREATININE FOR GFR 0.82 MG/DL (0.55-1.30); GLOMERULAR FILTRATION RATE > 60.0 (>39); GLUCOSE, FASTING 95 MG/DL (70-100); POTASSIUM SERUM 3.3 MEQ/L (3.5-5.1); SODIUM LEVEL 138 MEQ/L (136-145)
== END ==
PROVIDERS: ATTEND Nurse Practitioner Adult Health
DX: I50.9 Heart failure, unspecified (principal)

== ENCOUNTER → 2019-03-08 | Outpatient (REF) | payer MEDICARE, MEDICAID ==
[2019-03-08 08:49] LABS: HEMATOCRIT 36.6 % (36.0-47.0); MEAN CORPUSCULAR HEMOGLOBIN 30.6 pg (27.0-33.0); MEAN CORPUSCULAR HGB CONC 32.8 g/dl (32.0-36.5); MEAN CORPUSCULAR VOLUME 93.4 fl (80.0-96.0); PLATELET COUNT, AUTOMATED 289 10^3/uL (150-450); RED BLOOD COUNT 3.92 10^6/uL (4.00-5.40); WHITE BLOOD COUNT 6.1 10^3/uL (4.0-10.0)
[2019-03-08 09:04] LABS: BLOOD UREA NITROGEN 10 MG/DL (7-18); CALCIUM LEVEL 10.6 MG/DL (8.8-10.2); CARBON DIOXIDE LEVEL 28 MEQ/L (21-32); CHLORIDE LEVEL 103 MEQ/L (98-107); GLOMERULAR FILTRATION RATE > 60.0 (>39); GLUCOSE, FASTING 98 MG/DL (70-100); POTASSIUM SERUM 3.4 MEQ/L (3.5-5.1); SODIUM LEVEL 139 MEQ/L (136-145)
== END ==
PROVIDERS: ATTEND Nurse Practitioner Adult Health
DX: I50.9 Heart failure, unspecified (principal)

== ENCOUNTER → 2019-03-09 | Outpatient (REF) | payer MEDICARE, MEDICAID ==
[2019-03-09 12:55] LABS: APPEARANCE, URINE CLOUDY (CLEAR); BACTERIA, URINE AUTO 2+ (NEGATIVE); BILIRUBIN, URINE AUTO NEGATIVE (NEGATIVE); BLOOD, URINE BLOOD 1+ (NEGATIVE); COLOR, URINE YELLOW (YELLOW); GLUCOSE, URINE (UA) AUTO NEGATIVE (NEGATIVE); KETONE, URINE AUTO NEGATIVE (NEGATIVE); LEUKOCYTE ESTERASE, URINE AUTO 3+ (NEGATIVE); NITRITE, URINE AUTO POSITIVE (NEGATIVE); PROTEIN, URINE AUTO NEGATIVE (NEGATIVE); RBC, URINE AUTO 3 /HPF (0-3); SPECIFIC GRAVITY URINE AUTO 1.012 (1.002-1.035); SQUAMOUS EPITHELIAL CELL UR AU 0 /HPF (0-6); WBC, URINE AUTO 78 /HPF (0-3)
== END ==
PROVIDERS: ATTEND Family Medicine
DX: N39.0 Urinary tract infection, site not specified (principal)

== ENCOUNTER → 2019-03-20 | Outpatient (REF) | payer MEDICARE, MEDICAID ==
[2019-03-20 13:11] LABS: BASO % 0.2 % (0.0-1.0); EOS # 0.1 10^3/uL (0.0-0.50); EOS % 1.2 % (0.0-3.0); HEMATOCRIT 38.5 % (36.0-47.0); HEMOGLOBIN 12.3 g/dl (12.0-15.5); LYMPH # 0.7 10^3/uL (1.5-4.5); LYMPH % 16.2 % (24.0-44.0); MEAN CORPUSCULAR HEMOGLOBIN 30.5 pg (27.0-33.0); MEAN CORPUSCULAR HGB CONC 31.9 g/dl (32.0-36.5); MEAN CORPUSCULAR VOLUME 95.5 fl (80.0-96.0); MONO # 0.6 10^3/uL (0.0-0.8); MONO % 13.5 % (0.0-5.0); NEUTROPHILS # 2.8 10^3/uL (1.8-7.7); NEUTROPHILS % 68.2 % (36.0-66.0); PLATELET COUNT, AUTOMATED 289 10^3/uL (150-450); RED BLOOD COUNT 4.03 10^6/uL (4.00-5.40); WHITE BLOOD COUNT 4.1 10^3/uL (4.0-10.0)
[2019-03-20 13:44] LABS: ALBUMIN 2.8 GM/DL (3.2-5.2); ALT/SGPT 21 U/L (12-78); BILIRUBIN,TOTAL 0.6 MG/DL (0.2-1.0); BLOOD UREA NITROGEN 19 MG/DL (7-18); CALCIUM LEVEL 10.4 MG/DL (8.8-10.2); CARBON DIOXIDE LEVEL 26 MEQ/L (21-32); CHLORIDE LEVEL 106 MEQ/L (98-107); CREATININE FOR GFR 0.94 MG/DL (0.55-1.30); GLOMERULAR FILTRATION RATE > 60.0 (>39); GLUCOSE, FASTING 112 MG/DL (70-100); POTASSIUM SERUM 3.9 MEQ/L (3.5-5.1); SODIUM LEVEL 140 MEQ/L (136-145); TOTAL PROTEIN 6.6 GM/DL (6.4-8.2)
== END ==
LOC: M LAB 12:34
PROVIDERS: ATTEND Family Medicine
DX: K56.7 Ileus, unspecified (principal)

== ENCOUNTER → 2019-03-23 | Outpatient (REF) | payer MEDICARE, MEDICAID ==
[2019-03-23 10:38] LABS: HEMATOCRIT 37.1 % (36.0-47.0); HEMOGLOBIN 11.9 g/dl (12.0-15.5); MEAN CORPUSCULAR HEMOGLOBIN 30.1 pg (27.0-33.0); MEAN CORPUSCULAR HGB CONC 32.1 g/dl (32.0-36.5); MEAN CORPUSCULAR VOLUME 93.7 fl (80.0-96.0); PLATELET COUNT, AUTOMATED 263 10^3/uL (150-450); RED BLOOD COUNT 3.96 10^6/uL (4.00-5.40); WHITE BLOOD COUNT 5.8 10^3/uL (4.0-10.0)
[2019-03-23 11:18] LABS: BLOOD UREA NITROGEN 18 MG/DL (7-18); CALCIUM LEVEL 9.6 MG/DL (8.8-10.2); CARBON DIOXIDE LEVEL 27 MEQ/L (21-32); CHLORIDE LEVEL 102 MEQ/L (98-107); CREATININE FOR GFR 0.94 MG/DL (0.55-1.30); GLOMERULAR FILTRATION RATE > 60.0 (>39); GLUCOSE, FASTING 85 MG/DL (70-100); POTASSIUM SERUM 3.6 MEQ/L (3.5-5.1); SODIUM LEVEL 138 MEQ/L (136-145)
== END ==
PROVIDERS: ATTEND Family Medicine
DX: I50.9 Heart failure, unspecified (principal)